=== PATIENT | female | born 1950 | race Caucasian/White ===

== ENCOUNTER 2019-08-12 09:38 | Inpatient (IN) ==
[2019-08-12 09:54] VITALS: BMI 37.3
--- NOTE | 2019-08-12 10:13 | DR.SOBA ---
HPI Time Seen Time Seen by Provider: 08/12/19 09:54 Primary Care Physician Primary Care Physician: JOÃO CARO Complaints Chief Complaint Doctors Comments: 69yon female presented for SOB. Pt reports worsening SOB and NEOL for the past 4d with abdominal swelling and LE swelling. She reports PMH of COPD, CAD, CHF and was recently treated with Abx for PNA and hospitalized 2wk ago in [place]. She reports wearing 2L NC home O2 and has cpap but reports awaiting sleep study. Pt reports being on Lasix 40mg daily and had 13lb wt gain the past 4d. Denies any CP, nausea or wheezing or fever or chills. Chief Complaint:: FAMILY STATES " SHE IS SWELLING WEIGHT GAIN ( 198 TO 211.8 IN FOUR DAYS " Self Treatment fo Chief Complaint: PT C/O > SOB, HX OF CHF, LUNGS NOTED TO HAVE EXP , RALES, PT IS ALERT AND ORIENTED NO DISTRESS NOTED ,,BR Reviewed Nurses Notes Reviewed: Yes Source History Provided: Patient Mode of Arrival Mode of Arrival: Wheelchair Timing Onset of Chief Complaint: 08/09/19 Duration Duration: Days Context Onset:: At Rest and With Light Exertion PE Risk Factors:: None History of:: COPD and CHF Currently on:: Neither Prehospital Care:: Furosemide Modifying Factors Worsens:: Exertion and Lying Flat Improves:: Sitting Up Associated Signs and Symptoms Associated Signs and Symptoms: Cough; denies Wheeze, Chest Pain and Calf Pain If Chest Pain Quality: Heavy Location: denies Substernal If Cough Cough: Nonproductive PMH PMH Past Medical History: Yes Past Medical History: Anemia, Arthritis, Asthma, COPD, Coronary Artery Disease, Diabetes, Dyslipidemia, GERD, Hypertension, Hyperthyroidism, Hypothyroidism and Kidney Stones Past Surgical History: Yes Surgical History: Angioplasty/Stents, Appendectomy, Cholecystectomy, [employer]EM[employer]ING [employer]ACH[employer]TER Surgery, Ortho Surgery and Tonsillectomy Family History History of Family Medical Conditions: Yes Family Medical History: Diabetes Mellitus, Cancer, MS and Hypertension Social History Does patient currently use any type of tobacco product: No Have you used tobacco products in the last 12 months: No Type of Tobacco Use: None Does any household member use tobacco: No Alcohol Use: None Do you use any recreational Drugs:: No Lives With: Family Lives Where: Home infectious screening In the last 2 months have you had wt loss of >10#?: NO Have you had fever, night sweats or hemotysis?: No Have you traveled outside the country in the last 6 months?: No Isolation: Standard ROS Review of Systems Constitutional: Fatigue; negative Chills, Diaphoresis, Fever and Loss of Appetite Eyes: negative Blurred Vision ENTM: negative Nose Congestion Respiratoy: Dry Cough and Short of Breath; negative Wheezing Cardiovascular: Edema; negative Chest Pain Gastrointestinal/Abdominal: Abdominal Pain; negative Nausea and Vomiting Genitourinary: negative Dysuria and Hematuria Neurological: negative Paresthesia Musculoskeletal: negative Joint Swelling Integumentary: negative Rash Hematologic/Lymphatic: negative Lymphadenopathy Endocrine: Unexplained Weight Gain Psychiatric: negative Depression All Other Systems: Reviewed and Negative PE Vital Signs Vitals: Temperature 97.7 F Pulse Rate 62 Respiratory Rate 18 Blood Pressure [Left Arm] 132/62 Blood Pressure 91/59 O2 Sat by Pulse Oximetry 99 General Limitations: No Limitations General Appearance: Alert and In No Apparent Distress Head Head Exam: Normal Inspection, Atraumatic and Normocephalic Eyes Eye exam: Normal Appearance, PERRL and EOMI; negative Scleral Icterus ENT ENT Exam: Normal Exam, Normal Oropharynx, Normal External Ear Exam and Mucous Membranes Dry Neck Neck Exam: Normal Inspection and Full ROM; negative Lymphadenopathy Chest Chest Inspection: Normal Inspection Respiratory Respiratory Exam: negative Respiratory Distress Respiratory Exam: Bilateral: Wheezing and Bilateral: Rales (bibasilar) Cardiovascular Cardiovascular Exam: Regular Rate and Normal Rhythm Abdominal Exam Abdominal Exam: Normal Inspection, Normal Bowel Sounds, Soft and Distention; negative Tenderness Extremities Extremities Exam: Normal Inspection, Full ROM, Normal Capillary Refill and Edema; negative Tenderness and Joint Swelling Back Back Exam: Normal Inspection and Full ROM Neurologic Neurological Exam: Alert, Oriented X3, Normal Gait and Reflexes Normal; negative Motor Sensory Deficit Psychiatric Psychiatric Exam: Normal Affect and Normal Mood Skin Skin Exam: Warm, Dry, Intact and Normal Color; negative Rash MDM Additional Information Obtained Additional Information Obtained From: Old Records Differential Diagnosis Differential Diagnosis: CHF, COPD and Pneumonia COURSE Reevaluation 1st: Unchanged (pt still feeling soB and having abd distention. Cr 2.[address] a/p w/o contrast. Pt O2 sat good on 2L NC.) 2nd: Improved (pt feeling better. D/w pt labs and imaging. Will admit patient) Consultation Consultation Comments: 14:[address] Dunn for admission and will see pt in hospital. Education/Counseling Education/Counseling: Patient, Education and Counseling Educated On: Treatment, Diagnosis, Prognosis and Needs for Follow Up (pcp) ROR Labs Reviewed Laboratory Results Reviewed?: Yes Result Diagrams: 08/12/19 14:10 08/12/19 10:14 Laboratory: WBC 4.9 X10^3/uL (3.6-10.0) 08/12/19 14:10 RBC 3.52 X10^6/uL (3.5-5.4) 08/12/19 14:10 Hgb 7.5 g/dL (12.0-16.0) L 08/12/19 14:10 Hct 25.1 % (36.0-47.0) L 08/12/19 14:10 MCV 71.3 fL (80.0-100.0) L 08/12/19 14:10 MCH 21.4 pg (27.0-34.0) L 08/12/19 14:10 MCHC 30.0 g/dL (33.0-35.0) L 08/12/19 14:10 RDW 19.9 % (11.6-16.5) H 08/12/19 14:10 Plt Count 163 X10^3/uL (150.0-450.0) 08/12/19 14:10 Plt Count Comment Adequate (ADEQUATE) 08/12/19 14:10 MPV 8.3 fL (7.4-11.0) 08/12/19 14:10 Neut % (Auto) 67.7 % (42.0-75.0) 08/12/19 14:10 Lymph % (Auto) 15.7 % (21.0-51.0) L 08/12/19 14:10 [place] % (Auto) 9.5 % (0.0-13.0) 08/12/19 14:10 Eos % (Auto) 5.9 % (0.9-2.9) H 08/12/19 14:10 Baso % (Auto) 1.2 % (0.2-1.0) H 08/12/19 14:10 Neut # (Auto) 3.3 x10^3/uL (2.2-4.8) 08/12/19 14:10 Lymph # (Auto) 0.8 X10^3/uL (1.3-2.9) L 08/12/19 14:10 [place] # (Auto) 0.5 x10^3/uL (0.3-0.8) 08/12/19 14:10 Eos # (Auto) 0.3 x10^3/uL (0.0-0.2) H 08/12/19 14:10 Baso # (Auto) 0.1 X10^3/uL (0.0-0.1) 08/12/19 14:10 Absolute Nucleated RBC 0.3 /100WBC 08/12/19 14:10 Plt Morphology Comment Normal (NORMAL) 08/12/19 14:10 RBC Morphology Abnormal (NORMAL) A 08/12/19 14:10 Hypochromasia 2+ A 08/12/19 14:10 Anisocytosis Slight A 08/12/19 14:10 Sodium 142 mmol/L (136-145) 08/12/19 10:14 Corrected Sodium 144 mmol/L (136-145) 08/12/19 10:14 Potassium 4.7 mmol/L (3.5-5.1) 08/12/19 10:14 Chloride 103 mmol/L (98-107) 08/12/19 10:14 Carbon Dioxide 31.9 mmol/L (21-32) 08/12/19 10:14 BUN 44 mg/dL (7-18) H 08/12/19 10:14 Creatinine 2.29 mg/dL (0.55-1.02) H 08/12/19 10:14 Est GFR (MDRD) Af Amer 27 (>60) L 08/12/19 10:14 Est GFR (MDRD) Non-Af 22 (>60) L 08/12/19 10:14 Glucose 169 mg/dL (65-99) H 08/12/19 10:14 Calcium 8.1 mg/dL (8.5-10.1) L 08/12/19 10:14 Total Bilirubin 0.50 mg/dL (0.2-1.0) 08/12/19 10:14 Direct Bilirubin 0.10 mg/dL (0-0.2) 08/12/19 10:14 Indirect Bilirubin 0.40 mg/dL (0.2-0.8) 08/12/19 10:14 AST 25 Units/L (15-37) 08/12/19 10:14 ALT < 6 Units/L (12-78) L 08/12/19 10:14 Alkaline Phosphatase 101 Units/L (46-116) 08/12/19 10:14 Troponin I < 0.02 ng/mL (0-1.5) 08/12/19 10:14 B-Natriuretic Peptide 2770 pg/mL (0-79) H* 08/12/19 10:14 Total Protein 7.2 g/dL (6.4-8.2) 08/12/19 10:14 Albumin 2.9 g/dL (3.4-5.0) L 08/12/19 10:14 Globulin 4.3 g/dL (2.5-4.5) 08/12/19 10:14 Albumin/Globulin Ratio 0.7 Ratio (1.1-2.1) L 08/12/19 10:14 Blood Type A POSITIVE 08/12/19 14:10 Antibody Screen Negative 08/12/19 14:10 Crossmatch See Detail 08/12/19 14:10 Other Results Comments: BNP 2770 Trop Neg, CBC Hb 7.8 HCt 25.1 PLT 170 LFT wnl, Cr 2.29 BUn 44 Glu 169 Alb 2.9 XRAY XRAY Interpreted by: Radiologist XRAY Findings: CXR: CM with pulmonary congestion EKG Compared to prior EKG Dated: 09/14/16 Rate: 62 [place]: LAD Rhythm: NSR Hypertrophy: None ST: Ischemia (V5-V6 Lead I and II, interpeted by me. ischemic changes compared to prior EKG.) Opioid Opioid Risk Tool Age (Vasile box if 16-45): No History of Preadolescent Sexual Abuse: No Total: 0 Total Score Risk Category: Low Risk Copyright: [facility] predicting aberrant behaviors Diagnosis Discharge Problem: Acute kidney injury superimposed on chronic kidney disease, NOEL (dyspnea on exertion) Anemia Qualifiers: Anemia type: due to chronic kidney disease Chronic kidney disease stage: stage 4 (severe) Qualified Code(s): N18.4 - Chronic kidney disease, stage 4 (severe) Acute exacerbation of congestive heart failure Qualifiers: Heart failure type: unspecified Qualified Code(s): I50.9 - Heart failure, unspecified Instructions Forms: Excuse From Work Patient Portal ADDITIONAL NOTES Additional Notes Additional Notes: I have personally reviewed your medications, lab results, imaging and time was spent discussion results. Patient educated on their health issue. They verbalized their understanding and agreed with plan of care. Instruction were given to patient at discharge. Condition: Stable Disposition: Admission
[2019-08-12] MEDS ORDERED: LASIX IVP ONE ×2 (10:27→10:59)
[2019-08-12 10:48] LABS: ALANINE AMINOTRANSFERASE < 6 Units/L (12-78); ALBUMIN 2.9 g/dL (3.4-5.0); ALKALINE PHOSPHATASE 101 Units/L (46-116); ASPARTATE AMINO TRANSFERASE 25 Units/L (15-37); TOTAL PROTEIN 7.2 g/dL (6.4-8.2)
[2019-08-12 10:55] LABS: BASOPHILS # (AUTO) 0.1 X10^3/uL (0.0-0.1); BASOPHILS % (AUTO) 1.4 % (0.2-1.0); EOSINOPHILS # (AUTO) 0.4 x10^3/uL (0.0-0.2); EOSINOPHILS % (AUTO) 6.3 % (0.9-2.9); HEMATOCRIT 25.1 % (36.0-47.0); HEMOGLOBIN 7.8 g/dL (12.0-16.0); LYMPHOCYTES # (AUTO) 0.9 X10^3/uL (1.3-2.9); LYMPHOCYTES % (AUTO) 14.9 % (21.0-51.0); MEAN CORPUSCULAR HEMOGLOBIN 22.2 pg (27.0-34.0); MEAN CORPUSCULAR HGB CONC 31.1 g/dL (33.0-35.0); MEAN CORPUSCULAR VOLUME 71.3 fL (80.0-100.0); MEAN PLATELET VOLUME 8.7 fL (7.4-11.0); MONOCYTES # (AUTO) 0.6 x10^3/uL (0.3-0.8); MONOCYTES % (AUTO) 10.6 % (0.0-13.0); NEUTROPHILS # (AUTO) 3.8 x10^3/uL (2.2-4.8); NEUTROPHILS % (AUTO) 66.8 % (42.0-75.0); PLATELET COUNT 170 X10^3/uL (150.0-450.0); RED BLOOD COUNT 3.52 X10^6/uL (3.5-5.4); WHITE BLOOD COUNT 5.7 X10^3/uL (3.6-10.0)
--- NOTE | 2019-08-12 10:55 | RAD ---
HISTORY: GI bleed, dyspnea Study: Single-view chest, done portably Comparison: 01/14/2015. Findings: Trachea is midline. There is cardiomegaly with very mild pulmonary vascular congestion. No CHF, infiltrate or pleural fluid is seen. There is no evidence of pneumothorax. IMPRESSION: Cardiomegaly with mild pulmonary vascular congestion. No CHF or consolidation is seen. Reported By:
[2019-08-12] MEDS ORDERED: LASIX ONE (10:59)
[2019-08-12 11:06] LABS: HYPOCHROMASIA 1+; PLATELET MORPHOLOGY COMMENT NORMAL (NORMAL)
[2019-08-12 11:41] LABS: CALCIUM 8.1 mg/dL (8.5-10.1); CARBON DIOXIDE 31.9 mmol/L (21-32); CREATININE 2.29 mg/dL (0.55-1.02)
--- NOTE | 2019-08-12 13:18 | RAD ---
HISTORY: Abdominal distension Study: KUB Comparison: 01/14/2015. Findings: There are surgical clips from cholecystectomy. Vascular calcifications are present within the splenic artery. There is a large amount of stool present in the right colon and to a lesser extent in the descending colon. No evidence of rectal fecal impaction is seen. There is increased small bowel gas present in the left abdomen. No evidence of bowel obstruction is seen. No evidence of renal calculus is seen. There is multilevel lumbar spondylosis. There are large coarse calcifications present in the pelvis secondary to calcified uterine fibroids. The bony sacrum is intact. Mild degenerative changes are seen involving the SI joints bilaterally. IMPRESSION: Abundant colon stool without evidence of bowel obstruction. Reported By:
[2019-08-12] MEDS ORDERED: NS 1000 ML 1,000 ML IV ONE (13:49)
[2019-08-12] MEDS ORDERED: NS 500 ML IV 500 ML IV ONE (13:55)
[2019-08-12] MEDS ORDERED: NS 1000 ML 1,000 ML ONE (14:02)
[2019-08-12 14:28] LABS: BASOPHILS # (AUTO) 0.1 X10^3/uL (0.0-0.1); BASOPHILS % (AUTO) 1.2 % (0.2-1.0); EOSINOPHILS # (AUTO) 0.3 x10^3/uL (0.0-0.2); EOSINOPHILS % (AUTO) 5.9 % (0.9-2.9); HEMATOCRIT 25.1 % (36.0-47.0); HEMOGLOBIN 7.5 g/dL (12.0-16.0); LYMPHOCYTES # (AUTO) 0.8 X10^3/uL (1.3-2.9); LYMPHOCYTES % (AUTO) 15.7 % (21.0-51.0); MEAN CORPUSCULAR HEMOGLOBIN 21.4 pg (27.0-34.0); MEAN CORPUSCULAR VOLUME 71.3 fL (80.0-100.0); MEAN PLATELET VOLUME 8.3 fL (7.4-11.0); MONOCYTES # (AUTO) 0.5 x10^3/uL (0.3-0.8); MONOCYTES % (AUTO) 9.5 % (0.0-13.0); NEUTROPHILS # (AUTO) 3.3 x10^3/uL (2.2-4.8); NEUTROPHILS % (AUTO) 67.7 % (42.0-75.0); PLATELET COUNT 163 X10^3/uL (150.0-450.0); RED BLOOD COUNT 3.52 X10^6/uL (3.5-5.4); RED CELL DISTRIBUTION WIDTH 19.9 % (11.6-16.5); WHITE BLOOD COUNT 4.9 X10^3/uL (3.6-10.0)
[2019-08-12 14:50] LABS: PLATELET MORPHOLOGY COMMENT NORMAL (NORMAL)
[2019-08-12 14:51] LABS: ANISOCYTOSIS SLIGHT; HYPOCHROMASIA 2+
[2019-08-12] MEDS ORDERED: NITROSTAT SL PRN (16:04)
[2019-08-12 16:06] LABS: IRON 16 ug/dL (50-175)
[2019-08-12] MEDS ORDERED: NS 250 ML IV 250 ML IV ONE (16:23)
[2019-08-12] MEDS ORDERED: NEURONTIN CAP 300 MG PO ONE (17:02)
[2019-08-12] MEDS: DUONEB 0.5 MG/3 MG NEB SCH (17:08)
[2019-08-12] MEDS: NEURONTIN CAP 300 MG PO SCH ×2 (17:13→21:00)
[2019-08-12] MEDS ORDERED: PROVENTIL NEB TX 0.083% 2.5MG/ 3ML NEB SCH (18:00)
[2019-08-12] MEDS ORDERED: ULTRAM PO PRN (20:05)
[2019-08-12] MEDS: ZANTAC PO SCH (20:39)
[2019-08-12] MEDS: RESTORIL CAP 15 MG PO SCH (20:39)
[2019-08-12] MEDS: RANEXA PO SCH (20:39)
[2019-08-12] MEDS: REMERON PO SCH (20:40)
[2019-08-12] MEDS: NORCO 5/325 MG TAB PO PRN (20:40)
[2019-08-12] MEDS: LASIX IVP SCH (20:48)
[2019-08-12] MEDS ORDERED: NEURONTIN CAP 300 MG PO SCH (21:00)
[2019-08-12] MEDS ORDERED: COLACE CAP 100 MG PO PRN (21:18)
[2019-08-12] MEDS ORDERED: MILK OF MAGNESIA PO PRN (21:18)
[2019-08-12 21:26] LABS: HEMATOCRIT 28.1 % (36.0-47.0); HEMOGLOBIN 8.6 g/dL (12.0-16.0)
[2019-08-12] MEDS ORDERED: PEPCID 20 MG IV PREMIX* 50 ML IV SCH (22:29)
[2019-08-12] MEDS: PEPCID 20 MG IV PREMIX* 20 MG/50 ML BAG IV SCH (22:50)
[2019-08-13] LABS: CKMB % 3.2 % (<4); CREATINE KINASE MB 1.7 ng/mL (0-4.0); TROPONIN I 0.02 ng/mL (0-1.5)
[2019-08-13] MEDS: DUONEB 0.5 MG/3 MG NEB SCH ×4 (00:48→17:03)
[2019-08-13 05:23] LABS: BASOPHILS # (AUTO) 0.1 X10^3/uL (0.0-0.1); BASOPHILS % (AUTO) 1.2 % (0.2-1.0); EOSINOPHILS # (AUTO) 0.3 x10^3/uL (0.0-0.2); EOSINOPHILS % (AUTO) 5.5 % (0.9-2.9); HEMOGLOBIN 8.2 g/dL (12.0-16.0); LYMPHOCYTES # (AUTO) 0.9 X10^3/uL (1.3-2.9); LYMPHOCYTES % (AUTO) 18.8 % (21.0-51.0); MEAN CORPUSCULAR HEMOGLOBIN 22.8 pg (27.0-34.0); MEAN CORPUSCULAR HGB CONC 31.4 g/dL (33.0-35.0); MEAN CORPUSCULAR VOLUME 72.6 fL (80.0-100.0); MEAN PLATELET VOLUME 9.2 fL (7.4-11.0); MONOCYTES # (AUTO) 0.5 x10^3/uL (0.3-0.8); MONOCYTES % (AUTO) 10.2 % (0.0-13.0); NEUTROPHILS # (AUTO) 3.2 x10^3/uL (2.2-4.8); NEUTROPHILS % (AUTO) 64.3 % (42.0-75.0); PLATELET COUNT 160 X10^3/uL (150.0-450.0); RED BLOOD COUNT 3.58 X10^6/uL (3.5-5.4); RED CELL DISTRIBUTION WIDTH 20.6 % (11.6-16.5)
[2019-08-13 05:33] LABS: CALCIUM 8.1 mg/dL (8.5-10.1); CKMB % 4.6 % (<4); CREATINE KINASE MB 2.1 ng/mL (0-4.0); CREATININE 2.05 mg/dL (0.55-1.02); TROPONIN I 0.03 ng/mL (0-1.5)
[2019-08-13 05:57] LABS: ANISOCYTOSIS 1+; HYPOCHROMASIA 1+; PLATELET MORPHOLOGY COMMENT NORMAL (NORMAL)
[2019-08-13] MEDS: NEURONTIN CAP 300 MG PO SCH ×3 (06:07→21:30)
[2019-08-13] MEDS: ASPIRIN 81 MG CHEWTAB PO SCH (08:52)
[2019-08-13] MEDS: SINGULAIR TAB 10 MG PO SCH (08:52)
[2019-08-13] MEDS: PLAVIX PO SCH (08:52)
[2019-08-13] MEDS: SINEMET (PLAIN) 25/100 MG PO SCH (08:52)
[2019-08-13] MEDS: ZETIA TAB 10 MG PO SCH (08:53)
[2019-08-13] MEDS: TOPROL XL PO SCH (08:53)
[2019-08-13] MEDS: RANEXA PO SCH ×2 (08:54→21:29)
[2019-08-13] MEDS: LASIX IVP SCH ×2 (09:00→21:30)
[2019-08-13] MEDS: IMDUR PO SCH (09:00)
[2019-08-13] MEDS ORDERED: SINEMET (PLAIN) 25/250 MG PO SCH (09:00)
--- NOTE | 2019-08-13 10:32 | DR.H&P ---
H&P - History & Physical for Day of: H&P Date: 08/12/19 - Chief Complaint Chief Complaint: SOB, SWELLING - History of Present Illness History of Present Illness: IS A 69 YEAR OLD PATIENT OF IN [place], [place]. SHE PRESENTED TO THE ER WITH COMPLAINT OF SHORTNESS OF BREATH, ABDOMINAL SWELLING, AND LOWER EXTREMITY SWELLING FOR THE PAST FOUR DAYS. SHE REPORTS THAT SHORTNESS OF BREATH IS WORSE ON EXERTION. SHE REPORTS A PMH OF C OPD, CAD, CHF, AND WAS RECENTLY HOSPITALIZED FOR PNEUMONIA. SHE USES HOME OXYGEN AND CPAP AND HAS ALSO BEEN TAKING ANTIBIOTICS FOR THE PNEUMONIA, BUT DENIES IMPROVEMENT IN SYMPTOMS. SHE CURRENTLY TAKES LASIX 40MG PO DAILY, BUT REPORTS A 13LB WEIGHT GAIN IN THE PAST FOUR DAYS. ON ARRIVAL TO THE ER, VITALS WERE 97.7-62-18-95%-140/64. LABS WERE OBTAINED. ABNORMAL LAB VALUES INCLUDE THE FOLLOWING: HGB 7.8, HCT 25.1, BUN 44, CREATININE 2.29, GLUCOSE 169, CALCIUM 8.1, BNP 2770, ALBUMIN 2.1. CARDIAC ENZYMES WITHIN NORMAL LIMITS. A CHEST XRAY WAS OBTAINED AND REVEALED: CARDIOMEGALY WITH MILD PULMONARY VASCULAR CONGESTION. EKG REVEALED: SINUS RHYTHM WITH HR 62. A KUB WAS OBTAINED DUE TO ABDOMINAL DISTENTION AND REVEALED: ABUNDANT COLON STOOL WITOUT EVIDENCE OF BOWEL OBSTRUCTION. SHE WAS GIVEN LASIX 60MG IV X 1 DOSE IN THE ER. SHE WAS ADMITTED FOR FURTHER EVALUATION AND TREATMENT OF CHF EXACERBATION, ANEMIA, AND ACUT ON CHRONIC KIDNEY DISEASE. WE WILL TYPE AND SCREEN AND TRANSFUSE ONE UNIT OF PACKED RED BLOOD CELLS. WE WILL START PEPCID IV, PROTONIX IV, RESPIRATORY TX, LASIX 40MG IV BID, AND A BOWEL REGIMEN. OTHERWISE, WE PLAN TO FOLLOW UP WITH AM LABS AND CONTINUE TO MONITOR. - Past Medical History Past Medical History: Coronary Artery Disease, Hypertension, Dyslipidemia, Diabetes, Hypothyroidism, Hyperthyroidism, Anemia, COPD, Asthma, GERD, Arth ritis, Kidney Stones Additional Medical History: Cataracts, NE, PAD, Sleep Apnea, UTI's, Rheumatoid arthritis, Back Pain, Previous blood transfusion, Skin Cancer - Past Surgical History Surgical History: Appendectomy, Cholecystectomy, Other Additional Surgical History: Cataract removal, Cardiac Stents x5, Biopsy of right breast, Tubal Ligation - Family History Family Medical History: Cancer, Heart Failure - Social History Does patient currently use any type of tobacco product: No Have you used tobacco products in the last 12 months: No Type of Tobacco Use: Cigarettes How many years tobacco product used: 25 Does any household member use tobacco: No Alcohol Use: None Drug Use: None Prescription drug monitoring program results: PDMP was not reviewed - Medications Home Medications: codeine Allergy (Verified 08/12/19 10:01) colchicine Allergy (Verified 08/12/19 10:01) hydromorphone [From Dilaudid] Allergy (Verified 08/12/19 09:56) morphine Allergy (Verified 08/12/19 10:01) niacin Allergy (Verified 08/12/19 10:01) CONTINUE taking the following medications aspirin 81 mg PO DAILY 08/12/19 [History] carbidopa-levodopa 2 tab PO DAILY 08/12/19 [History] clopidogrel [Plavix] 75 mg PO DAILY 08/12/19 [History] ezetimibe 10 mg PO DAILY 08/12/19 [History] furosemide [Lasix] 40 mg PO BID 08/12/19 [History] gabapentin [Neurontin] 300 mg PO BID 08/12/19 [History] isosorbide mononitrate 30 mg PO DAILY 08/12/19 [History] levothyroxine 100 mcg PO DAILY 08/12/19 [History] metoprolol succinate 25 mg PO DAILY 08/12/19 [History] mirtazapine 15 mg PO HS 08/12/19 [History] montelukast 10 mg PO DAILY 08/12/19 [History] nitroglycerin 0.4 mg SUBLINGUAL PRN PRN 08/12/19 [History] ondansetron HCl [Zofran] 8 mg PO DAILY 08/12/19 [History] ranitidine HCl [Zantac 75] 150 mg PO HS 08/12/19 [History] ranolazine [Ranexa] 1,000 mg PO BID 08/12/19 [History] temazepam 15 mg PO HS 08/12/19 [History] tiotropium-olodaterol [Stiolto Respimat] 1 inh INHALATION DAILY 08/12/19 [History] - Review of Systems Constitutional: Weakness Eyes: No Symptoms Reported ENT: No Symptoms Reported Respiratory: See HPI, Shortness of Breath, SOB with Excertion Cardiovascular: Edema (LOWER EXTREMITY AND ABDOMINAL SWELLING ) Gastrointestinal: No Symptoms Reported Genitourinary: No Symptoms Reported Musculoskeletal: No Symptoms Reported Skin: No Symptoms Reported Neurological: Weakness - Physical Exam Vital Signs: Temperature 97.6 F Pulse Rate [Left Brachial] 64 Pulse Rate 84 Respiratory Rate 18 Blood Pressure [Right Arm] 107/51 Blood Pressure [Left Arm] 187/86 Blood Pressure 91/59 O2 Sat by Pulse Oximetry 94 Oriented: Normal Eyes: Normal Ear: Normal Nose: Normal Throat: Normal Respiratory: Diminished Throughout Cardiovascular: Normal. negative: S3, S4, Murmur : Normal Auscultation: Bowel Sounds: Normal Palpation: Normal Tenderness: Normal Skin: Normal Musculoskeletal: Normal Psychiatric: Normal Mood Description: Calm Affect: Normal Speech Pattern: Clear - Assessment/Plan (1) Acute exacerbation of congestive heart failure Qualifiers: Heart failure type: unspecified Qualified Code(s): I50.9 - Heart failure, unspecified Status: Acute Plan: ADMIT, IV LASIX, CONTINUE TO MONITOR (2) Anemia Qualifiers: Anemia type: due to chronic kidney disease Chronic kidney disease stage: stage 4 (severe) Qualified Code(s): N18.4 - Chronic kidney disease, stage 4 (severe); D63.1 - Anemia in chronic kidney disease Status: Acute Plan: TRANSFUSE 1 UNIT PRBC, CONTINUE TO MONITOR (3) Acute kidney injury superimposed on chronic kidney disease Status: Acute - Review Patient was examined?: Yes - Allergies Allergies/Adverse Reactions: Allergies Allergy/AdvReac Type Severity Reaction Status Date / Time codeine Allergy Verified 08/12/19 10:01 colchicine Allergy Verified 08/12/19 10:01 hydromorphone [From Dilaudid] Allergy Verified 08/12/19 09:56 morphine Allergy Verified 08/12/19 10:01 niacin Allergy Verified 08/12/19 10:01
[2019-08-13 11:22] LABS: HEMATOCRIT 31.1 % (36.0-47.0); HEMOGLOBIN 9.4 g/dL (12.0-16.0)
[2019-08-13 11:44] LABS: CKMB % 5.3 % (<4); CREATINE KINASE MB 2.6 ng/mL (0-4.0); TROPONIN I 0.04 ng/mL (0-1.5)
[2019-08-13] MEDS: HumuLIN R SUBCUT PRN ×3 (11:52→22:50)
[2019-08-13] MEDS: LEVSIN/MAALOX/LIDOC VISC PO SCH ×4 (11:53→21:26)
[2019-08-13] MEDS: PROTONIX INJ 40 MG VIAL IVP SCH ×2 (11:53→21:28)
[2019-08-13] MEDS: MIRALAX POWDER (1 DOSE 17 G) PO SCH (11:54)
[2019-08-13] MEDS: SYNTHROID 100 mcg TAB PO SCH (16:05)
[2019-08-13 17:18] LABS: HEMATOCRIT 29.7 % (36.0-47.0); HEMOGLOBIN 8.9 g/dL (12.0-16.0)
[2019-08-13] MEDS: SNACK - Diabetic Appropriate PO SCH (21:00)
[2019-08-13] MEDS: REMERON PO SCH (21:28)
[2019-08-13] MEDS: ZANTAC PO SCH (21:29)
[2019-08-13] MEDS: RESTORIL CAP 15 MG PO SCH (21:30)
[2019-08-13] MEDS: PEPCID 20 MG IV PREMIX* 20 MG/50 ML BAG IV SCH (22:00)
[2019-08-13 22:58] LABS: HEMATOCRIT 29.5 % (36.0-47.0); HEMOGLOBIN 8.9 g/dL (12.0-16.0)
--- NOTE | 2019-08-13 23:23 | PCM.PROG ---
Progress Note - Progress Note for Day of Date of Exam: 08/13/19 - Subjective Subjective: WAS ADMITTED FOR CHF EXACERBATION, ANEMIA, AND ACUTE ON CHRONIC KIDNEY DISEASE. SHE HAS RECEIVED ONE UNIT OF PRBC SINCE ADMISSION. TODAY, SHE IS ALERT AND ORIENTED, SITTING UP IN BED ON MORNING ROUNDS. SHE CONTINUES WITH WEAKNESS AND SHORTNESS OF BREATH, BUT REPORTS SLIGHT IMPROVEMENT IN SYMPTOMS SINCE ADMISSION. ON EXAMINATION, HEART IS REGULAR IN RATE AND RHYTHM. BILATERAL LUNGS ARE NOTED WITH DIMINISHED LUNG SOUNDS THROUGHOUT. ABDOMEN CONTINUES TO BE DISTENDED. LOWER EXTREMITIES ARE NOTED WITH 1+ PITTING EDEMA. HER VITALS THIS MORNING ARE: 97.6-64-18-94%-107/51. LABS WERE OBTAINED. ABNORMAL LAB VALUES INCLUDE THE FOLLOWING: HGB 8.2, HCT 26.0, BUN 39, CREATININE 205, GLUCOSE 236, CALCIUM 8.1 CARDIAC ENZYMES WITHIN NORMAL LIMITS. SHE IS CURRENTLY RECEIVING IV PEPCID, RESPIRATORY TX, COLACE, AND MILK OF MAGNESIA. TODAY, WE WILL ADD MIRALAX, LASIX 20MG IV BID, GI COCKTAIL, AND WILL OBTAIN AN ECHO. OTHERWISE, WE WILL MONITOR H&H AND FOLLOW UP [facility]. - Past Medical Family Social History Past Med/Fam/Surg Hx: No changes since H&P Allergies: Allergies codeine Allergy (Verified 08/12/19 10:01) colchicine Allergy (Verified 08/12/19 10:01) hydromorphone [From Dilaudid] Allergy (Verified 08/12/19 09:56) morphine Allergy (Verified 08/12/19 10:01) niacin Allergy (Verified 08/12/19 10:01) - Review of Systems ROS: No change since H&P - Vital Signs and I&O's Vital Signs: Temperature 98.8 F Pulse Rate [Left Brachial] 59 Pulse Rate 65 Respiratory Rate 20 Blood Pressure [Right Arm] 146/69 Blood Pressure [Left Arm] 187/86 Blood Pressure 91/59 O2 Sat by Pulse Oximetry 95 Intake and Output: Intake & Output 08/11/19 08/12/19 08/13/19 08/14/19 11:59 11:59 11:59 11:59 Intake Total 2140 / 2140 720 / 720 Balance 2140 / 2140 720 / 720 - Physical Exam Oriented: Normal Eyes: Normal Ear: Normal Nose: Normal Throat: Normal Cardiovascular: Normal. negative: S3, S4, Murmur : Normal Auscultation: Bowel Sounds: Normal Palpation: Normal Tenderness: Normal Skin: Normal Musculoskeletal: Normal Psychiatric: Normal Mood Description: Calm Affect: Normal Speech Pattern: Clear - Laboratory and Diagnostics Result Diagrams: 08/13/19 22:50 08/13/19 04:45 Labs: Laboratory WBC 5.0 X10^3/uL (3.6-10.0) 08/13/19 04:45 RBC 3.58 X10^6/uL (3.5-5.4) 08/13/19 04:45 Hgb 8.9 g/dL (12.0-16.0) L 08/13/19 22:50 Hct 29.5 % (36.0-47.0) L 08/13/19 22:50 MCV 72.6 fL (80.0-100.0) L 08/13/19 04:45 MCH 22.8 pg (27.0-34.0) L 08/13/19 04:45 MCHC 31.4 g/dL (33.0-35.0) L 08/13/19 04:45 RDW 20.6 % (11.6-16.5) H 08/13/19 04:45 Plt Count 160 X10^3/uL (150.0-450.0) 08/13/19 04:45 Plt Count Comment Adequate (ADEQUATE) 08/13/19 04:45 MPV 9.2 fL (7.4-11.0) 08/13/19 04:45 Neut % (Auto) 64.3 % (42.0-75.0) 08/13/19 04:45 Lymph % (Auto) 18.8 % (21.0-51.0) L 08/13/19 04:45 [place] % (Auto) 10.2 % (0.0-13.0) 08/13/19 04:45 Eos % (Auto) 5.5 % (0.9-2.9) H 08/13/19 04:45 Baso % (Auto) 1.2 % (0.2-1.0) H 08/13/19 04:45 Neut # (Auto) 3.2 x10^3/uL (2.2-4.8) 08/13/19 04:45 Lymph # (Auto) 0.9 X10^3/uL (1.3-2.9) L 08/13/19 04:45 [place] # (Auto) 0.5 x10^3/uL (0.3-0.8) 08/13/19 04:45 Eos # (Auto) 0.3 x10^3/uL (0.0-0.2) H 08/13/19 04:45 Baso # (Auto) 0.1 X10^3/uL (0.0-0.1) 08/13/19 04:45 Absolute Nucleated RBC 0.3 /100WBC 08/13/19 04:45 Plt Morphology Comment Normal (NORMAL) 08/13/19 04:45 RBC Morphology Abnormal (NORMAL) A 08/13/19 04:45 Hypochromasia 1+ A 08/13/19 04:45 Anisocytosis 1+ A 08/13/19 04:45 Sodium 142 mmol/L (136-145) 08/13/19 04:45 Corrected Sodium 145 mmol/L (136-145) 08/13/19 04:45 Potassium 3.9 mmol/L (3.5-5.1) 08/13/19 04:45 Chloride 103 mmol/L (98-107) 08/13/19 04:45 Carbon Dioxide 32.0 mmol/L (21-32) 08/13/19 04:45 BUN 39 mg/dL (7-18) H 08/13/19 04:45 Creatinine 2.05 mg/dL (0.55-1.02) H 08/13/19 04:45 Est GFR (MDRD) Af Amer 31 (>60) L 08/13/19 04:45 Est GFR (MDRD) Non-Af 25 (>60) L 08/13/19 04:45 Glucose 236 mg/dL (65-99) H 08/13/19 04:45 POC Glucose (mg/dL) 208 mg/dL (65-99) H 08/13/19 19:32 Hemoglobin A1c 7.1 % 08/13/19 04:44 Calcium 8.1 mg/dL (8.5-10.1) L 08/13/19 04:45 Iron 16 ug/dL (50-175) L 08/12/19 10:14 Transferrin 280 mg/dL (202-364) 08/12/19 10:14 Ferritin 37 ng/mL (8-252) 08/12/19 10:14 Total Bilirubin 0.50 mg/dL (0.2-1.0) 08/12/19 10:14 Direct Bilirubin 0.10 mg/dL (0-0.2) 08/12/19 10:14 Indirect Bilirubin 0.40 mg/dL (0.2-0.8) 08/12/19 10:14 AST 25 Units/L (15-37) 08/12/19 10:14 ALT < 6 Units/L (12-78) L 08/12/19 10:14 Alkaline Phosphatase 101 Units/L (46-116) 08/12/19 10:14 Creatine Kinase 49 Units/L (26-192) 08/13/19 11:10 CK-MB (CK-2) 2.6 ng/mL (0-4.0) 08/13/19 11:10 CK/CKMB % Calc 5.3 % (<4) 08/13/19 11:10 Troponin I 0.04 ng/mL (0-1.5) 08/13/19 11:10 B-Natriuretic Peptide 2770 pg/mL (0-79) H* 08/12/19 10:14 Total Protein 7.2 g/dL (6.4-8.2) 08/12/19 10:14 Albumin 2.9 g/dL (3.4-5.0) L 08/12/19 10:14 Globulin 4.3 g/dL (2.5-4.5) 08/12/19 10:14 Albumin/Globulin Ratio 0.7 Ratio (1.1-2.1) L 08/12/19 10:14 Vitamin B12 585 pg/mL (193-986) 08/12/19 10:14 Folate > 20.0 ng/mL (>8.6) 08/12/19 10:14 Blood Type A POSITIVE 08/12/19 14:10 Antibody Screen Negative 08/12/19 14:10 Crossmatch See Detail 08/12/19 14:10 - Plan (1) Acute exacerbation of congestive heart failure Status: Acute Qualifiers: Heart failure type: unspecified Qualified Code(s): I50.9 - Heart failure, unspecified Plan: IV LASIX, OBTAIN ECHO, CONTINUE TO MONITOR (2) Anemia Status: Acute Qualifiers: Anemia type: due to chronic kidney disease Chronic kidney disease stage: st age 4 (severe) Qualified Code(s): N18.4 - Chronic kidney disease, stage 4 (severe); D63.1 - Anemia in chronic kidney disease Plan: TRANSFUSE 1 UNIT PRBC, CONTINUE TO MONITOR (3) Acute kidney injury superimposed on chronic kidney disease Status: Acute
[2019-08-14] MEDS: DUONEB 0.5 MG/3 MG NEB SCH ×4 (00:50→16:49)
[2019-08-14] MEDS: NORCO 5/325 MG TAB PO PRN ×2 (02:28→14:09)
[2019-08-14 05:23] LABS: BASOPHILS # (AUTO) 0.1 X10^3/uL (0.0-0.1); EOSINOPHILS # (AUTO) 0.3 x10^3/uL (0.0-0.2); HEMATOCRIT 28.2 % (36.0-47.0); HEMOGLOBIN 8.6 g/dL (12.0-16.0); LYMPHOCYTES # (AUTO) 0.8 X10^3/uL (1.3-2.9); LYMPHOCYTES % (AUTO) 14.3 % (21.0-51.0); MEAN CORPUSCULAR HEMOGLOBIN 22.3 pg (27.0-34.0); MEAN CORPUSCULAR HGB CONC 30.6 g/dL (33.0-35.0); MEAN CORPUSCULAR VOLUME 72.8 fL (80.0-100.0); MEAN PLATELET VOLUME 8.7 fL (7.4-11.0); MONOCYTES # (AUTO) 0.5 x10^3/uL (0.3-0.8); MONOCYTES % (AUTO) 8.4 % (0.0-13.0); NEUTROPHILS # (AUTO) 3.8 x10^3/uL (2.2-4.8); NEUTROPHILS % (AUTO) 70.3 % (42.0-75.0); PLATELET COUNT 167 X10^3/uL (150.0-450.0); RED BLOOD COUNT 3.88 X10^6/uL (3.5-5.4); RED CELL DISTRIBUTION WIDTH 20.7 % (11.6-16.5); WHITE BLOOD COUNT 5.4 X10^3/uL (3.6-10.0)
[2019-08-14] MEDS: NEURONTIN CAP 300 MG PO SCH ×3 (05:37→21:07)
[2019-08-14 05:39] LABS: ALBUMIN 3.2 g/dL (3.4-5.0); CALCIUM 8.4 mg/dL (8.5-10.1); CREATININE 1.87 mg/dL (0.55-1.02); TOTAL PROTEIN 7.4 g/dL (6.4-8.2)
[2019-08-14 05:58] LABS: ANISOCYTOSIS 1+; HYPOCHROMASIA 1+; PLATELET MORPHOLOGY COMMENT NORMAL (NORMAL); STOMATOCYTES PRESENT
[2019-08-14] MEDS: HumuLIN R SUBCUT PRN ×4 (06:11→22:00)
[2019-08-14] MEDS: LEVSIN/MAALOX/LIDOC VISC PO SCH ×4 (09:00→21:08)
[2019-08-14] MEDS: LASIX IVP SCH ×2 (09:24→21:08)
[2019-08-14] MEDS: MIRALAX POWDER (1 DOSE 17 G) PO SCH (09:24)
[2019-08-14] MEDS: ASPIRIN 81 MG CHEWTAB PO SCH (09:24)
[2019-08-14] MEDS: SINGULAIR TAB 10 MG PO SCH (09:25)
[2019-08-14] MEDS: IMDUR PO SCH (09:25)
[2019-08-14] MEDS: PROTONIX INJ 40 MG VIAL IVP SCH ×2 (09:26→21:09)
[2019-08-14] MEDS: ZETIA TAB 10 MG PO SCH (09:26)
[2019-08-14] MEDS: SINEMET (PLAIN) 25/100 MG PO SCH (09:27)
[2019-08-14] MEDS: PLAVIX PO SCH (09:29)
[2019-08-14] MEDS: TOPROL XL PO SCH (09:32)
[2019-08-14] MEDS: RANEXA PO SCH ×2 (14:08→21:07)
--- NOTE | 2019-08-14 14:41 | PCM.PROG ---
Progress Note - Progress Note for Day of Date of Exam: 08/14/19 - Subjective Subjective: WAS ADMITTED FOR CHF EXACERBATION, ANEMIA, AND ACUTE ON CHRONIC KIDNEY DISEASE. SHE HAS RECEIVED ONE UNIT OF PRBC SINCE ADMISSION. TODAY, SHE IS ALERT AND ORIENTED, SITTING UP IN BED ON MORNING ROUNDS. SHE CONTINUES WITH WEAKNESS AND SHORTNESS OF BREATH, BUT REPORTS SLIGHT IMPROVEMENT IN SYMPTOMS SINCE ADMISSION. ON EXAMINATION, HEART IS REGULAR IN RATE AND RHYTHM. BILATERAL LUNGS ARE NOTED WITH DIMINISHED LUNG SOUNDS THROUGHOUT. ABDOMEN IS ROUND, SOFT, AND NON-TENDER WITH NORMLA BOWEL SOUNDS NOTED IN ALL QUADRANTS. LOWER EXTREMITIES ARE NOTED WITH 1+ PITTING EDEMA. HER VITALS THIS MORNING ARE: 98.4-79-20-97%-169/75. LABS WERE OBTAINED. ABNORMAL LAB VALUES INCLUDE THE FOLLOWING: HGB 8.6, HCT 28.2, CARBON DIOXIDE 33.0, BUN 32, CRATININE 1.87, GLUCOSE 258, CALCIUM 8.4, ALT 10, ALBUMIN 3.2. WE OBTAINED AN ECHO YESTERDAY. IT REVEALED AN EJECTION FRACTION OF 64%. SHE IS CURRENTLY RECEIVING IV PEPCID, RESPIRATORY TX, COLACE, MIRALAX, MILK OF MAGNESIA, LASIX, AND GI COCKTAIL. WE WILL CONTINUE WITH CURRENT PLAN OF CARE TODAY. OTHERWISE, WE WILL MONITOR H&H AND FOLLOW UP WITH AM LABS. - Past Medical Family Social History Past Med/Fam/Surg Hx: No changes since H&P Allergies: Allergies codeine Allergy (Verified 08/12/19 10:01) colchicine Allergy (Verified 08/12/19 10:01) hydromorphone [From Dilaudid] Allergy (Verified 08/12/19 09:56) morphine Allergy (Verified 08/12/19 10:01) niacin Allergy (Verified 08/12/19 10:01) - Review of Systems ROS: No change since H&P - Vital Signs and I&O's Vital Signs: Temperature 98.4 F Pulse Rate [Left Brachial] 79 Pulse Rate 72 Respiratory Rate 22 Blood Pressure [Right Arm] 169/75 Blood Pressure [Left Arm] 187/86 Blood Pressure 91/59 O2 Sat by Pulse Oximetry 97 Intake and Output: Intake & Output 08/12/19 08/13/19 08/14/19 08/15/19 11:59 11:59 11:59 11:59 Intake Total 2140 / 2140 1510 / 1510 Balance 2139 / 1509 - Physical Exam Oriented: Normal Eyes: Normal Ear: Normal Nose: Normal Throat: Normal Cardiovascular: Normal. negative: S3, S4, Murmur : Normal Auscultation: Bowel Sounds: Normal Palpation: Normal Tenderness: Normal Skin: Normal Musculoskeletal: Normal Psychiatric: Normal Mood Description: Calm Affect: Normal Speech Pattern: Clear, Appropriate - Laboratory and Diagnostics Result Diagrams: 08/14/19 04:40 08/14/19 04:40 Labs: Laboratory WBC 5.4 X10^3/uL (3.6-10.0) 08/14/19 04:40 RBC 3.88 X10^6/uL (3.5-5.4) 08/14/19 04:40 Hgb 8.6 g/dL (12.0-16.0) L 08/14/19 04:40 Hct 28.2 % (36.0-47.0) L 08/14/19 04:40 MCV 72.8 fL (80.0-100.0) L 08/14/19 04:40 MCH 22.3 pg (27.0-34.0) L 08/14/19 04:40 MCHC 30.6 g/dL (33.0-35.0) L 08/14/19 04:40 RDW 20.7 % (11.6-16.5) H 08/14/19 04:40 Plt Count 167 X10^3/uL (150.0-450.0) 08/14/19 04:40 Plt Count Comment Adequate (ADEQUATE) 08/14/19 04:40 MPV 8.7 fL (7.4-11.0) 08/14/19 04:40 Neut % (Auto) 70.3 % (42.0-75.0) 08/14/19 04:40 Lymph % (Auto) 14.3 % (21.0-51.0) L 08/14/19 04:40 [place] % (Auto) 8.4 % (0.0-13.0) 08/14/19 04:40 Eos % (Auto) 6.0 % (0.9-2.9) H 08/14/19 04:40 Baso % (Auto) 1.0 % (0.2-1.0) 08/14/19 04:40 Neut # (Auto) 3.8 x10^3/uL (2.2-4.8) 08/14/19 04:40 Lymph # (Auto) 0.8 X10^3/uL (1.3-2.9) L 08/14/19 04:40 [place] # (Auto) 0.5 x10^3/uL (0.3-0.8) 08/14/19 04:40 Eos # (Auto) 0.3 x10^3/uL (0.0-0.2) H 08/14/19 04:40 Baso # (Auto) 0.1 X10^3/uL (0.0-0.1) 08/14/19 04:40 Absolute Nucleated RBC 0.2 /100WBC 08/14/19 04:40 Plt Morphology Comment Normal (NORMAL) 08/14/19 04:40 RBC Morphology Abnormal (NORMAL) A 08/14/19 04:40 Hypochromasia 1+ A 08/14/19 04:40 Anisocytosis 1+ A 08/14/19 04:40 Stomatocytes Present 08/14/19 04:40 Sodium 140 mmol/L (136-145) 08/14/19 04:40 Corrected Sodium 144 mmol/L (136-145) 08/14/19 04:40 Potassium 3.9 mmol/L (3.5-5.1) 08/14/19 04:40 Chloride 101 mmol/L (98-107) 08/14/19 04:40 Carbon Dioxide 33.0 mmol/L (21-32) H 08/14/19 04:40 BUN 32 mg/dL (7-18) H 08/14/19 04:40 Creatinine 1.87 mg/dL (0.55-1.02) H 08/14/19 04:40 Est GFR (MDRD) Af Amer 34 (>60) L 08/14/19 04:40 Est GFR (MDRD) Non-Af 28 (>60) L 08/14/19 04:40 Glucose 258 mg/dL (65-99) H 08/14/19 04:40 POC Glucose (mg/dL) 194 mg/dL (65-99) H 08/14/19 11:34 Hemoglobin A1c 7.1 % 08/13/19 04:44 Calcium 8.4 mg/dL (8.5-10.1) L 08/14/19 04:40 Corrected Calcium 9.0 mg/dL (8.5-10.1) 08/14/19 04:40 Iron 16 ug/dL (50-175) L 08/12/19 10:14 Transferrin 280 mg/dL (202-364) 08/12/19 10:14 Ferritin 37 ng/mL (8-252) 08/12/19 10:14 Total Bilirubin 0.50 mg/dL (0.2-1.0) 08/14/19 04:40 Direct Bilirubin 0.10 mg/dL (0-0.2) 08/12/19 10:14 Indirect Bilirubin 0.40 mg/dL (0.2-0.8) 08/12/19 10:14 AST 15 Units/L (15-37) 08/14/19 04:40 ALT 10 Units/L (12-78) L 08/14/19 04:40 Alkaline Phosphatase 97 Units/L (46-116) 08/14/19 04:40 Creatine Kinase 49 Units/L (26-192) 08/13/19 11:10 CK-MB (CK-2) 2.6 ng/mL (0-4.0) 08/13/19 11:10 CK/CKMB % Calc 5.3 % (<4) 08/13/19 11:10 Troponin I 0.04 ng/mL (0-1.5) 08/13/19 11:10 B-Natriuretic Peptide 2770 pg/mL (0-79) H* 08/12/19 10:14 Total Protein 7.4 g/dL (6.4-8.2) 08/14/19 04:40 Albumin 3.2 g/dL (3.4-5.0) L 08/14/19 04:40 Globulin 4.2 g/dL (2.5-4.5) 08/14/19 04:40 Albumin/Globulin Ratio 0.8 Ratio (1.1-2.1) L 08/14/19 04:40 Vitamin B12 585 pg/mL (193-986) 08/12/19 10:14 Folate > 20.0 ng/mL (>8.6) 11/12/19 10:14 Blood Type A POSITIVE 08/12/19 14:10 Antibody Screen Negative 08/12/19 14:10 Crossmatch See Detail 08/12/19 14:10 - Plan (1) Acute exacerbation of congestive heart failure Status: Acute Qualifiers: Heart failure type: unspecified Qualified Code(s): I50.9 - Heart failure, unspecified Plan: IV LASIX, CONTINUE TO MONITOR (2) Anemia Status: Acute Qualifiers: Anemia type: due to chronic kidney disease Chronic kidney disease stage: stage 4 (severe) Qualified Code(s): N18.4 - Chronic kidney disease, stage 4 (severe); D63.1 - Anemia in chronic kidney disease Plan: TRANSFUSE 1 UNIT PRBC, CONTINUE TO MONITOR (3) Acute kidney injury superimposed on chronic kidney disease Status: Acute
[2019-08-14] MEDS: SYNTHROID 100 mcg TAB PO SCH (18:12)
[2019-08-14] MEDS: ZANTAC PO SCH (21:07)
[2019-08-14] MEDS: RESTORIL CAP 15 MG PO SCH (21:07)
[2019-08-14] MEDS: REMERON PO SCH (21:07)
[2019-08-15] MEDS: DUONEB 0.5 MG/3 MG NEB SCH ×4 (00:50→11:54)
[2019-08-15] MEDS: NORCO 5/325 MG TAB PO PRN ×2 (01:00→09:05)
[2019-08-15 05:15] LABS: BASOPHILS % (AUTO) 0.8 % (0.2-1.0); EOSINOPHILS # (AUTO) 0.4 x10^3/uL (0.0-0.2); EOSINOPHILS % (AUTO) 6.7 % (0.9-2.9); HEMATOCRIT 27.1 % (36.0-47.0); HEMOGLOBIN 8.2 g/dL (12.0-16.0); LYMPHOCYTES % (AUTO) 18.3 % (21.0-51.0); MEAN CORPUSCULAR HEMOGLOBIN 21.9 pg (27.0-34.0); MEAN CORPUSCULAR HGB CONC 30.4 g/dL (33.0-35.0); MEAN CORPUSCULAR VOLUME 72.1 fL (80.0-100.0); MEAN PLATELET VOLUME 8.2 fL (7.4-11.0); MONOCYTES # (AUTO) 0.5 x10^3/uL (0.3-0.8); MONOCYTES % (AUTO) 9.8 % (0.0-13.0); NEUTROPHILS # (AUTO) 3.5 x10^3/uL (2.2-4.8); NEUTROPHILS % (AUTO) 64.4 % (42.0-75.0); PLATELET COUNT 163 X10^3/uL (150.0-450.0); RED BLOOD COUNT 3.76 X10^6/uL (3.5-5.4); RED CELL DISTRIBUTION WIDTH 20.5 % (11.6-16.5); WHITE BLOOD COUNT 5.4 X10^3/uL (3.6-10.0)
[2019-08-15 05:24] LABS: ALBUMIN 3.1 g/dL (3.4-5.0); CALCIUM 8.4 mg/dL (8.5-10.1); CARBON DIOXIDE 35.6 mmol/L (21-32); COR CA(FOR HYPOALB) 9.1 mg/dL (8.5-10.1); CREATININE 1.71 mg/dL (0.55-1.02); TOTAL PROTEIN 7.2 g/dL (6.4-8.2)
[2019-08-15 05:32] LABS: PLATELET MORPHOLOGY COMMENT NORMAL (NORMAL)
[2019-08-15 05:33] LABS: ANISOCYTOSIS 1+; HYPOCHROMASIA 1+; MICROCYTOSIS SLIGHT
[2019-08-15] MEDS: NEURONTIN CAP 300 MG PO SCH (05:39)
[2019-08-15] MEDS: HumuLIN R SUBCUT PRN ×2 (06:06→11:33)
--- NOTE | 2019-08-15 06:55 | RAD ---
HISTORY: Shortness of breath Study: Single-view chest Comparison: 08/12/2019 Findings: The trachea is midline. The cardiac silhouette is enlarged with a tortuous thoracic aorta. The lungs are clear without focal infiltrate or effusion. The bony thorax is unremarkable. IMPRESSION: 1. No acute cardiopulmonary disease. Reported By:
[2019-08-15] MEDS: SNACK - Diabetic Appropriate PO SCH (08:05)
[2019-08-15 08:07] VITALS: BP 155/71
[2019-08-15] MEDS ORDERED: PEPCID 20 MG IV PREMIX* 20 MG/50 ML BAG IV SCH (09:00)
[2019-08-15] MEDS: MIRALAX POWDER (1 DOSE 17 G) PO SCH (09:03)
[2019-08-15] MEDS: RANEXA PO SCH (09:04)
[2019-08-15] MEDS: PLAVIX PO SCH (09:04)
[2019-08-15] MEDS: SINGULAIR TAB 10 MG PO SCH (09:04)
[2019-08-15] MEDS: PROTONIX INJ 40 MG VIAL IVP SCH (09:05)
[2019-08-15] MEDS: ASPIRIN 81 MG CHEWTAB PO SCH (09:05)
[2019-08-15] MEDS: IMDUR PO SCH (09:06)
[2019-08-15] MEDS: TOPROL XL PO SCH (09:06)
[2019-08-15] MEDS: SINEMET (PLAIN) 25/100 MG PO SCH (09:06)
[2019-08-15] MEDS: ZETIA TAB 10 MG PO SCH (09:06)
[2019-08-15] MEDS: LASIX IVP SCH (09:06)
[2019-08-15] MEDS: LEVSIN/MAALOX/LIDOC VISC PO SCH (10:34)
[2019-08-15] MEDS ORDERED: ZOFRAN INJ 4 MG VIAL IVP PRN (10:54)
[2019-08-15] MEDS ORDERED: PEPCID TAB 20 MG PO SCH (21:00)
== END 2019-08-15 14:40 | disposition home health service (06) | DRG 292 ==
LOC: ER 09:49 → MED/SURG 14:23
PROVIDERS: ADMIT Internal Medicine; ATTEND Internal Medicine
CPT/HCPCS: 36415; 36430; 71010; 71045; 74000; 74018; 80048; 80053; 80076; 82270; 82550; 82553; 82607; 82728; 82746; 83036; 83540; 83880; 84466; 84484; 85014; 85018; 85025; 86850; 86900; 86901; 86922; 93005; 93306; 94640; 94760; 96365; 96374; 96375; 97116; 97162; 97165; 97535; 99284; A4222; C9113; P9016; S0028; J1815; J1940; J7030; J7050; J7613; J7620

== ENCOUNTER 2019-09-26 02:13 | Inpatient (IN) ==
[2019-09-26 02:25] VITALS: BMI 39.7
[2019-09-26 02:43] LABS: ABG BASE EXCESS 4.7 mmol/L (-2.0-2.0)
[2019-09-26 02:44] LABS: ABG ALLEN TEST POS; ABG HCO3 32.5 mmol/L (22-26)
--- NOTE | 2019-09-26 03:22 | RAD ---
Chest AP portableIndication: DyspneaCOMPARISONDecember 2018FINDINGSThere is no pneumothorax or effusion. There is cardiomegaly. Mild increased interstitial markings noted. Left lower lung infiltrate difficult to exclude given heart sizeIMPRESSIONFindings are similar to the prior, with cardiomegaly and mild increased interstitial markings. Developing edema not excluded. Underlying left lung infiltrate cannot be excludedElectronically signed by: MAICOL MONROY (Sep 26, 2019 03:20:42)
[2019-09-26] MEDS ORDERED: LASIX IVP ONE ×2 (03:30→03:42)
--- NOTE | 2019-09-26 03:30 | DR.SOBA ---
HPI - Time Seen Time seen: 03:26 - Primary Care Physician Primary Care Physician: CONNOR - Complaints Chief Complaint:: SHORT OF BREAT SINCE APPROX 2100. PATIENT WITH HX OF CHF. GRANDDAUGHTER (PRIMARY CAREGIVER) STATES SHE NOTICED EDEMA TO LOWER EXTREMITY THIS EVENING - Reviewed Nurses Notes Reviewed: Yes - Source History Provided: Patient - Mode of Arrival Mode of Arrival: Wheelchair - Timing Onset of Chief Complaint: 09/25/19 - Duration Duration: Hours - Context Onset:: While Asleep (Hx of chf) History of:: CHF Prehospital Care:: O2, Furosemide - Modifying Factors Worsens:: Lying Flat - Associated Signs and Symptoms Associated Signs and Symptoms: Cough - If Cough Cough: Nonproductive PMH - PMH Past Medical History: Yes Past Medical History: CHF, Coronary Artery Disease, Hypertension Past Medical History Comment: PATIENT IS ON PLAVIX DAILY Past Surgical History: Yes Surgical History: Angioplasty/Stents - Family History History of Family Medical Conditions: No Family Medical History: Diabetes Mellitus, Cancer, [place], Coronary Artery Disease, Heart Failure - Social History Alcohol Use: None Do you use any recreational Drugs:: No Lives With: Family Lives Where: Home - infectious screening Have you traveled outside the country in the last 6 months?: No Isolation: Standard ROS - Review of Systems Constitutional: No Symptoms Reported Eyes: No Symptoms Reported ENTM: No Symptoms Reported Respiratoy: Non-Productive Cough Cardiovascular: No Symptoms Reported Gastrointestinal/Abdominal: No Symptoms Reported Genitourinary: No Symptoms Reported Neurological: No Symptoms Reported Musculoskeletal: No Symptoms Reported Integumentary: No Symptoms Reported Hematologic/Lymphatic: No Symptoms Reported Endocrine: No Symptoms Reported Psychiatric: Depression PE - General General Appearance: Lethargic - Head Head Exam: Normal Inspection - Eyes Eye exam: Normal Appearance, EOMI - ENT ENT Exam: Normal Exam, Normal Oropharynx - Neck Neck Exam: Normal Inspection, Full ROM - Chest Chest Inspection: Normal Inspection - Respiratory Respiratory Exam: Bilateral Rales (mild), Lower Rales - Abdominal Exam Abdominal Exam: Normal Inspection, Normal Bowel Sounds, Soft, Distention - Extremities Extremities Exam: Edema - Back Back Exam: Normal Inspection - Neurologic Neurological Exam: CN II-XII Intact - Psychiatric Psychiatric Exam: Depressed - Skin Skin Exam: Intact, Normal Color - Vital Signs Vitals: Temperature 98.3 F Pulse Rate 68 Respiratory Rate 26 Blood Pressure [Right Arm] 137/86 Blood Pressure 145/65 O2 Sat by Pulse Oximetry 95 Course - Treatment Treatment: 0426: Repeat ABG PH 7.28 (probably venous) Discussed intubation with patient but refused. Requested a DNR form for the patient to sign in case she codes but patient did not sign it so she is full code at this point. 0730: case discussed with DR. Gallego admit ICU - Consultation Called: 07:30 Call Returned: 07:30 Consultation Comments: case discussed with DR. Gallego, admit to ICU, transfuse 2 uPRBC, continue bipap ROR - Labs Reviewed Result Diagrams: 09/26/19 02:33 09/26/19 02:33 - XRAY XRAY Interpreted by: Radiologist XRAY Findings: CMG with increased interstitial markings - Labs Reviewed Laboratory: 09/26/19 03:05 Sputum - Expectorated Sputum - Final WBC 8.0 X10^3/uL (3.6-10.0) 09/26/19 02:33 RBC 3.59 X10^6/uL (3.5-5.4) 09/26/19 02:33 Hgb 7.5 g/dL (12.0-16.0) L 09/26/19 02:33 Hct 25.6 % (36.0-47.0) L 09/26/19 02:33 MCV 71.3 fL (80.0-100.0) L 09/26/19 02:33 MCH 20.8 pg (27.0-34.0) L 09/26/19 02:33 MCHC 29.1 g/dL (33.0-35.0) L 09/26/19 02:33 RDW 22.1 % (11.6-16.5) H 09/26/19 02:33 Plt Count 243 X10^3/uL (150.0-450.0) 09/26/19 02:33 Plt Count Comment Adequate (ADEQUATE) 09/26/19 02:33 MPV 8.7 fL (7.4-11.0) 09/26/19 02:33 Neut % (Auto) 70.1 % (42.0-75.0) 09/26/19 02:33 Lymph % (Auto) 12.0 % (21.0-51.0) L 09/26/19 02:33 [place] % (Auto) 13.1 % (0.0-13.0) H 09/26/19 02:33 Eos % (Auto) 3.1 % (0.9-2.9) H 09/26/19 02:33 Baso % (Auto) 1.7 % (0.2-1.0) H 09/26/19 02:33 Neut # (Auto) 5.6 x10^3/uL (2.2-4.8) H 09/26/19 02:33 Lymph # (Auto) 1.0 X10^3/uL (1.3-2.9) L 09/26/19 02:33 [place] # (Auto) 1.1 x10^3/uL (0.3-0.8) H 09/26/19 02:33 Eos # (Auto) 0.2 x10^3/uL (0.0-0.2) 09/26/19 02:33 Baso # (Auto) 0.1 X10^3/uL (0.0-0.1) 09/26/19 02:33 Absolute Nucleated RBC 0.5 /100WBC 09/26/19 02:33 Plt Morphology Comment Normal (NORMAL) 09/26/19 02:33 RBC Morphology Abnormal (NORMAL) A 09/26/19 02:33 Hypochromasia 2+ A 09/26/19 02:33 Anisocytosis 2+ A 09/26/19 02:33 PT 15.4 SECONDS (11.8-14.3) 09/26/19 02:33 INR Target Range - 09/26/19 02:33 INR 1.27 (0.8-1.3) 09/26/19 02:33 APTT 32.6 SECONDS (22.9-36.5) 09/26/19 02:33 PTT Comment - 09/26/19 02:33 Sample Site Lb 09/26/19 07:10 ABG pH 7.350 (7.35-7.45) 09/26/19 07:10 ABG pCO2 59.0 mmHg (35.0-45.0) H* 09/26/19 07:10 ABG pO2 72.0 mmHg (80.0-100.0) L 09/26/19 07:10 ABG HCO3 32.6 mmol/L (22-26) H* 09/26/19 07:10 ABG O2 Saturation 93.0 % (90-100) 09/26/19 07:10 ABG Base Excess 5.4 mmol/L (-2.0-2.0) H 09/26/19 07:10 Ar Test Na 09/26/19 07:10 A-a Gradient 104.0 mmHg 09/26/19 07:10 FiO2 35.0 09/26/19 07:10 Blood Gas Comments Pt marissa well. cdn 09/26/19 07:10 Sodium 141 mmol/L (136-145) 09/26/19 02:33 Corrected Sodium 143 mmol/L (136-145) 09/26/19 02:33 Potassium 4.7 mmol/L (3.5-5.1) 09/26/19 02:33 Chloride 103 mmol/L (98-107) 09/26/19 02:33 Carbon Dioxide 30.4 mmol/L (21-32) 09/26/19 02:33 BUN 59 mg/dL (7-18) H 09/26/19 02:33 Creatinine 2.94 mg/dL (0.55-1.02) H 09/26/19 02:33 Est GFR (MDRD) Af Amer 20 (>60) L 09/26/19 02:33 Est GFR (MDRD) Non-Af 17 (>60) L 09/26/19 02:33 Glucose 174 mg/dL (65-99) H 09/26/19 02:33 Calcium 8.2 mg/dL (8.5-10.1) L 09/26/19 02:33 Corrected Calcium 8.9 mg/dL (8.5-10.1) 09/26/19 02:33 Magnesium 2.2 mg/dL (1.7-2.9) 09/26/19 02:33 Total Bilirubin 0.50 mg/dL (0.2-1.0) 09/26/19 02:33 AST 27 Units/L (15-37) 09/26/19 02:33 ALT 6 Units/L (12-78) L 09/26/19 02:33 Alkaline Phosphatase 117 Units/L (46-116) H 09/26/19 02:33 Creatine Kinase 113 Units/L (26-192) 09/26/19 02:33 CK-MB (CK-2) 2.1 ng/mL (0-4.0) 09/26/19 02:33 CK/CKMB % Calc 1.9 % (<4) 09/26/19 02:33 Troponin I 0.08 ng/mL (0-1.5) 09/26/19 02:33 B-Natriuretic Peptide 2420 pg/mL (0-79) H* 09/26/19 02:33 Total Protein 7.4 g/dL (6.4-8.2) 09/26/19 02:33 Albumin 3.1 g/dL (3.4-5.0) L 09/26/19 02:33 Globulin 4.3 g/dL (2.5-4.5) 09/26/19 02:33 Albumin/Globulin Ratio 0.7 Ratio (1.1-2.1) L 09/26/19 02:33 Specimen Type Catherized urine 09/26/19 05:42 Urine Color Yellow (YELLOW) 09/26/19 05:42 Urine Appearance Clear (CLEAR) 09/26/19 05:42 Urine pH 5.0 (5.0 - 8.0) 09/26/19 05:42 Ur Specific [place] 1.015 (1.000-1.030) 09/26/19 05:42 Urine Protein 2+ (NEGATIVE) 09/26/19 05:42 Urine Glucose (UA) Negative (NEGATIVE) 09/26/19 05:42 Urine Ketones Negative (NEGATIVE) 09/26/19 05:42 Urine Occult Blood Negative (NEGATIVE) 09/26/19 05:42 Urine Nitrite Negative (NEGATIVE) 09/26/19 05:42 Urine Bilirubin Negative (NEGATIVE) 09/26/19 05:42 Urine Urobilinogen Normal (NORMAL) 09/26/19 05:42 Ur Leukocyte Esterase Negative (NEGATIVE) 09/26/19 05:42 Urine RBC None seen /HPF (0-3) 09/26/19 05:42 Urine WBC None seen /HPF (0-5) 09/26/19 05:42 Ur Squamous Epith Cells Rare /HPF (NEGATIVE) 09/26/19 05:42 Urine Bacteria Negative /HPF (NEGATIVE) 09/26/19 05:42 Ur Culture Indicated? No/not indicated 09/26/19 05:42 Opioid - Opioid Risk Tool Age (Vasile box if 16-45): No History of Preadolescent Sexual Abuse: No Total: 0 Total Score Risk Category: Low Risk - Diagnosis Discharge Problem: Hypoxia, Anemia CHF (congestive heart failure) Qualifiers: Heart failure type: unspecified Heart failure chronicity: acute on chronic Qualified Code(s): I50.9 - Heart failure, unspecified Renal failure (ARF), acute on chronic Qualifiers: Acute renal failure type: unspecified Chronic kidney disease stage: unspecified stage Qualified Code(s): N17.9 - Acute kidney failure, unspecified; N18.9 - Chronic kidney disease, unspecified - Discharge Plan Condition: Stable - Follow ups/Referrals Follow ups/Referrals: ERIC RYAN [Primary Care Provider] - 3 days - Instructions
[2019-09-26 03:34] LABS: BASOPHILS # (AUTO) 0.1 X10^3/uL (0.0-0.1); BASOPHILS % (AUTO) 1.7 % (0.2-1.0); EOSINOPHILS # (AUTO) 0.2 x10^3/uL (0.0-0.2); EOSINOPHILS % (AUTO) 3.1 % (0.9-2.9); HEMATOCRIT 25.6 % (36.0-47.0); HEMOGLOBIN 7.5 g/dL (12.0-16.0); MEAN CORPUSCULAR HEMOGLOBIN 20.8 pg (27.0-34.0); MEAN CORPUSCULAR HGB CONC 29.1 g/dL (33.0-35.0); MEAN CORPUSCULAR VOLUME 71.3 fL (80.0-100.0); MEAN PLATELET VOLUME 8.7 fL (7.4-11.0); MONOCYTES # (AUTO) 1.1 x10^3/uL (0.3-0.8); MONOCYTES % (AUTO) 13.1 % (0.0-13.0); NEUTROPHILS # (AUTO) 5.6 x10^3/uL (2.2-4.8); NEUTROPHILS % (AUTO) 70.1 % (42.0-75.0); PLATELET COUNT 243 X10^3/uL (150.0-450.0); RED BLOOD COUNT 3.59 X10^6/uL (3.5-5.4); RED CELL DISTRIBUTION WIDTH 22.1 % (11.6-16.5)
[2019-09-26 03:37] LABS: ANISOCYTOSIS 2+; CALCIUM 8.2 mg/dL (8.5-10.1); CARBON DIOXIDE 30.4 mmol/L (21-32); CREATININE 2.94 mg/dL (0.55-1.02); HYPOCHROMASIA 2+; PLATELET MORPHOLOGY COMMENT NORMAL (NORMAL); TROPONIN I 0.08 ng/mL (0-1.5)
[2019-09-26 03:40] LABS: ALBUMIN 3.1 g/dL (3.4-5.0); CKMB % 1.9 % (<4); COR CA(FOR HYPOALB) 8.9 mg/dL (8.5-10.1); CREATINE KINASE MB 2.1 ng/mL (0-4.0); MAGNESIUM 2.2 mg/dL (1.7-2.9); TOTAL PROTEIN 7.4 g/dL (6.4-8.2)
[2019-09-26] MEDS ORDERED: XOPENEX 1.25 MG/3 ML NEBULE NEB ONE (03:49)
[2019-09-26 05:49] LABS: BILIRUBIN,URINE NEGATIVE (NEGATIVE); BLOOD/HEMOGLOBIN,URINE NEGATIVE (NEGATIVE); GLUCOSE, URINE NEGATIVE (NEGATIVE); KETONES,URINE NEGATIVE (NEGATIVE); LEUKOCYTE ESTERASE ,URINE NEGATIVE (NEGATIVE); NITRITES,URINE NEGATIVE (NEGATIVE); PROTEIN,URINE 2+ (NEGATIVE); UROBILINOGEN,URINE NORMAL (NORMAL)
[2019-09-26 06:05] LABS: APPEARANCE,URINE CLEAR (CLEAR); COLOR,URINE YELLOW (YELLOW)
[2019-09-26 06:06] LABS: BACTERIA,URINE NEGATIVE /HPF (NEGATIVE); RBC,URINE NONE SEEN /HPF (0-3); SQUAMOUS EPITHELIAL CELL,UR RARE /HPF (NEGATIVE)
[2019-09-26 07:17] LABS: ABG BASE EXCESS 5.4 mmol/L (-2.0-2.0); ABG HCO3 32.6 mmol/L (22-26)
[2019-09-26 08:00] LABS: CKMB % 1.9 % (<4); TROPONIN I 0.08 ng/mL (0-1.5)
[2019-09-26] MEDS ORDERED: NS 250 ML IV 250 ML IV ONE (10:37)
[2019-09-26] MEDS: LASIX IVP SCH (10:58)
[2019-09-26] MEDS: ZITHROMAX INJ 500 MG VIAL 250 MG in NS 250 ML IV 250 ML IV SCH (11:08)
[2019-09-26] MEDS: NEURONTIN TAB 600 MG PO SCH (11:18)
--- NOTE | 2019-09-26 11:40 | DR.H&P ---
H&P History & Physical for Day of: H&P Date: 09/26/19 Chief Complaint Chief Complaint: Shortness of breath and leg swelling Allergies Allergies Allergy/AdvReac Type Severity Reaction Status Date / Time codeine Allergy Verified 09/10/19 14:49 colchicine Allergy Verified 09/10/19 14:49 hydromorphone [From Dilaudid] Allergy Verified 09/10/19 14:49 morphine Allergy Verified 09/10/19 14:49 niacin Allergy Verified 09/10/19 14:49 History of Present Illness History of Present Illness: Ms. Anthony is a 69y/o female with a PMH of DC s/p PCI (last one in November), CAD, CHF, Type 2 DM, COPD, chronic oxygen use, HTN and HLD presents with worsening SOB and leg edema. Patient is on continuous oxygen at home. She is currently on the BiPAP so history was limited. Patient's son at bedside. He states patient had a hoarse voice on Xmas but no other symptoms repo rted. In the ED, patient was noted to be hypoxic and hypercapnic, started on BiPAP. CXR with increased pulmonary congestion, BNP 2420, trop 0.08, Hgb 7.5. She received 2 doses of IV Lasix 40 mg with good urine output. Recent AB.35/59/72/32 Intubation was discussed in the ED but patient refused. Discussed code status at bedside, patient wants CPR but no intubation. 2 units of PRBCs were ordered but patient has a specific antibody so blood would need to be brought in from [facility]. Past Medical History Past Medical History: Anemia, Arthritis, Asthma, CHF, Coronary Artery Disease, Diabetes, Hypertension, DC, Renal Disease and Sleep Apnea Additional Medical History: Cataracts, DC, PAD, Sleep Apnea, UTI's, Rheumatoid arthritis, Back Pain, Previous blood transfusion, Skin Cancer Past Surgical History Surgical History: Angioplasty/Stents Additional Surgical History: Cataract removal, Cardiac Stents x5, Biopsy of right breast, Tubal Ligation Family History Family Medical History: Diabetes Mellitus, Cancer, DC, Coronary Artery Disease and Heart Failure Social History Does patient currently use any type of tobacco product: No Have you used tobacco products in the last 12 months: No Type of Tobacco Use: None Alcohol Use: None Prescription drug monitoring program results: PDMP was not reviewed Medications Home Medications: codeine Allergy (Verified 09/10/19 14:49) colchicine Allergy (Verified 09/10/19 14:49) hydromorphone [From Dilaudid] Allergy (Verified 09/10/19 14:49) morphine Allergy (Verified 09/10/19 14:49) niacin Allergy (Verified 09/10/19 14:49) CONTINUE taking the following medications albuterol sulfate 1.25 mg INHALATION Q4-6H PRN 09/26/19 [History] albuterol sulfate [ProAir HFA] 2 puff INHALATION DAILY 09/26/19 [History] carbidopa-levodopa 1 tab PO BID 09/26/19 [History] clopidogrel 75 mg PO DAILY 09/26/19 [History] docusate sodium 200 mg PO DAILY 09/26/19 [History] ezetimibe 10 mg PO DAILY 09/26/19 [History] furosemide 20 mg PO BID 09/26/19 [History] gabapentin 300 mg PO BID 09/26/19 [History] hydralazine 25 mg PO BID 09/26/19 [History] hydrocodone-acetaminophen 1 tab PO BID 09/26/19 [History] insulin detemir U-100 [Levemir FlexTouch U-100 Insuln] 23 unit SUBCUT BID 09/26/19 [History] insulin lispro [Humalog KwikPen Insulin] 1 - 14 unit SUBCUT ACHS PRN 09/26/19 [History] levothyroxine 100 mcg PO DAILY 09/26/19 [History] losartan 25 mg PO BID 09/26/19 [History] metoprolol succinate 25 mg PO DAILY 09/26/19 [History] mirtazapine 15 mg PO DAILY 09/26/19 [History] montelukast 10 mg PO DAILY 09/26/19 [History] nitroglycerin 0.4 mg SUBLINGUAL Q5M PRN 09/26/19 [History] ondansetron HCl 8 mg PO BID PRN 09/26/19 [History] pantoprazole 40 mg PO DAILY 09/26/19 [History] ranolazine 1,000 mg PO BID 09/26/19 [History] tiotropium-olodaterol [Stiolto Respimat] 1 puff INHALATION Q6HR PRN 09/26/19 [ History] Labs Result Diagrams: 09/26/19 11:37 09/26/19 02:33 Labs: 09/26/19 03:05 Sputum - Expectorated Sputum - Final Laboratory WBC 8.0 X10^3/uL (3.6-10.0) 09/26/19 02:33 RBC 3.59 X10^6/uL (3.5-5.4) 09/26/19 02:33 Hgb 7.5 g/dL (12.0-16.0) L 09/26/19 02:33 Hct 25.6 % (36.0-47.0) L 09/26/19 02:33 MCV 71.3 fL (80.0-100.0) L 09/26/19 02:33 MCH 20.8 pg (27.0-34.0) L 09/26/19 02:33 MCHC 29.1 g/dL (33.0-35.0) L 09/26/19 02:33 RDW 22.1 % (11.6-16.5) H 09/26/19 02:33 Plt Count 243 X10^3/uL (150.0-450.0) 09/26/19 02:33 Plt Count Comment Adequate (ADEQUATE) 09/26/19 02:33 MPV 8.7 fL (7.4-11.0) 09/26/19 02:33 Neut % (Auto) 70.1 % (42.0-75.0) 09/26/19 02:33 Lymph % (Auto) 12.0 % (21.0-51.0) L 09/26/19 02:33 [place] % (Auto) 13.1 % (0.0-13.0) H 09/26/19 02:33 Eos % (Auto) 3.1 % (0.9-2.9) H 09/26/19 02:33 Baso % (Auto) 1.7 % (0.2-1.0) H 09/26/19 02:33 Neut # (Auto) 5.6 x10^3/uL (2.2-4.8) H 09/26/19 02:33 Lymph # (Auto) 1.0 X10^3/uL (1.3-2.9) L 09/26/19 02:33 [place] # (Auto) 1.1 x10^3/uL (0.3-0.8) H 09/26/19 02:33 Eos # (Auto) 0.2 x10^3/uL (0.0-0.2) 09/26/19 02:33 Baso # (Auto) 0.1 X10^3/uL (0.0-0.1) 09/26/19 02:33 Absolute Nucleated RBC 0.5 /100WBC 09/26/19 02:33 Plt Morphology Comment Normal (NORMAL) 09/26/19 02:33 RBC Morphology Abnormal (NORMAL) A 09/26/19 02:33 Hypochromasia 2+ A 09/26/19 02:33 Anisocytosis 2+ A 09/26/19 02:33 PT 15.4 SECONDS (11.8-14.3) 09/26/19 02:33 INR Target Range - 09/26/19 02:33 INR 1.27 (0.8-1.3) 09/26/19 02:33 APTT 32.6 SECONDS (22.9-36.5) 09/26/19 02:33 PTT Comment - 09/26/19 02:33 Sample Site Lb 09/26/19 07:10 ABG pH 7.350 (7.35-7.45) 09/26/19 07:10 ABG pCO2 59.0 mmHg (35.0-45.0) H* 09/26/19 07:10 ABG pO2 72.0 mmHg (80.0-100.0) L 09/26/19 07:10 ABG HCO3 32.6 mmol/L (22-26) H* 09/26/19 07:10 ABG O2 Saturation 93.0 % (90-100) 09/26/19 07:10 ABG Base Excess 5.4 mmol/L (-2.0-2.0) H 09/26/19 07:10 Ar Test Na 09/26/19 07:10 A-a Gradient 104.0 mmHg 09/26/19 07:10 FiO2 35.0 09/26/19 07:10 Blood Gas Comments Pt marissa well. cdn 09/26/19 07:10 Sodium 141 mmol/L (136-145) 09/26/19 02:33 Corrected Sodium 143 mmol/L (136-145) 09/26/19 02:33 Potassium 4.7 mmol/L (3.5-5.1) 09/26/19 02:33 Chloride 103 mmol/L (98-107) 09/26/19 02:33 Carbon Dioxide 30.4 mmol/L (21-32) 09/26/19 02:33 BUN 59 mg/dL (7-18) H 09/26/19 02:33 Creatinine 2.94 mg/dL (0.55-1.02) H 09/26/19 02:33 Est GFR (MDRD) Af Amer 20 (>60) L 09/26/19 02:33 Est GFR (MDRD) Non-Af 17 (>60) L 09/26/19 02:33 Glucose 174 mg/dL (65-99) H 09/26/19 02:33 Calcium 8.2 mg/dL (8.5-10.1) L 09/26/19 02:33 Corrected Calcium 8.9 mg/dL (8.5-10.1) 09/26/19 02:33 Magnesium 2.2 mg/dL (1.7-2.9) 09/26/19 02:33 Total Bilirubin 0.50 mg/dL (0.2-1.0) 09/26/19 02:33 AST 27 Units/L (15-37) 09/26/19 02:33 ALT 6 Units/L (12-78) L 09/26/19 02:33 Alkaline Phosphatase 117 Units/L (46-116) H 09/26/19 02:33 Creatine Kinase 105 Units/L (26-192) 09/26/19 07:32 CK-MB (CK-2) 2.0 ng/mL (0-4.0) 09/26/19 07:32 CK/CKMB % Calc 1.9 % (<4) 09/26/19 07:32 Troponin I 0.08 ng/mL (0-1.5) 09/26/19 07:32 B-Natriuretic Peptide 2420 pg/mL (0-79) H* 09/26/19 02:33 Total Protein 7.4 g/dL (6.4-8.2) 09/26/19 02:33 Albumin 3.1 g/dL (3.4-5.0) L 09/26/19 02:33 Globulin 4.3 g/dL (2.5-4.5) 09/26/19 02:33 Albumin/Globulin Ratio 0.7 Ratio (1.1-2.1) L 09/26/19 02:33 Specimen Type Catherized urine 09/26/19 05:42 Urine Color Yellow (YELLOW) 09/26/19 05:42 Urine Appearance Clear (CLEAR) 09/26/19 05:42 Urine pH 5.0 (5.0 - 8.0) 09/26/19 05:42 Ur Specific [place] 1.015 (1.000-1.030) 09/26/19 05:42 Urine Protein 2+ (NEGATIVE) 09/26/19 05:42 Urine Glucose (UA) Negative (NEGATIVE) 09/26/19 05:42 Urine Ketones Negative (NEGATIVE) 09/26/19 05:42 Urine Occult Blood Negative (NEGATIVE) 09/26/19 05:42 Urine Nitrite Negative (NEGATIVE) 09/26/19 05:42 Urine Bilirubin Negative (NEGATIVE) 09/26/19 05:42 Urine Urobilinogen Normal (NORMAL) 09/26/19 05:42 Ur Leukocyte Esterase Negative (NEGATIVE) 09/26/19 05:42 Urine RBC None seen /HPF (0-3) 09/26/19 05:42 Urine WBC None seen /HPF (0-5) 09/26/19 05:42 Ur Squamous Epith Cells Rare /HPF (NEGATIVE) 09/26/19 05:42 Urine Bacteria Negative /HPF (NEGATIVE) 09/26/19 05:42 Ur Culture Indicated? No/not indicated 09/26/19 05:42 Blood Type A POSITIVE 09/26/19 07:50 Antibody Screen Positive 09/26/19 07:50 Review of Systems Constitutional: Weakness and Malaise Eyes: No Symptoms Reported ENT: No Symptoms Reported Respiratory: Cough, Shortness of Breath and SOB with Excertion Cardiovascular: Edema Gastrointestinal: No Symptoms Reported Genitourinary: No Symptoms Reported Skin: No Symptoms Reported Neurological: No Symptoms Reported Physical Exam Vital Signs: Temperature 98.3 F Pulse Rate 69 Respiratory Rate 26 Blood Pressure [Right Arm] 137/86 Blood Pressure 130/61 O2 Sat by Pulse Oximetry 98 Oriented: Normal Respiratory: Rales Throughout Cardiovascular: Normal and Edema Auscultation: Bowel Sounds: Normal Palpation: Normal Tenderness: Normal Skin: Other (chronic venous stasis) Psychiatric: Normal Mood Description: Depressed Affect: Normal Speech Pattern: Artificially Ventilated Assessment/Plan (1) Acute respiratory failure with hypoxia and hypercapnia: Status: Acute (2) Pneumonia: Qualifiers: Pneumonia type: due to unspecified organism Laterality: unspecified laterality Lung location: unspecified part of lung Qualified Code(s): J18.9 - Pneumonia, unspecified organism Status: Acute Plan: Repeat CXR in the AM, start IV abx, duonebs, Pulmicort (3) Acute kidney injury superimposed on chronic kidney disease: Status: Acute Plan: Cr:2.94, baseline 1.7 -1.8 Monitor AM labs Hold losartan (4) Acute exacerbation of congestive heart failure: Qualifiers: Heart failure type: unspecified Qualified Code(s): I50.9 - Heart failure, unspecified Status: Acute Plan: Continue Lasix IV 40 mg daily, strict I/Os, daily weights, monitor UOP Continue BiPAP, repeat ABG resume home medications Trend troponins ECHO (08/13/19): EF-64% (5) Anemia: Qualifiers: Anemia type: unspecified type Qualified Code(s): D64.9 - Anemia, unspecified Status: Acute Plan: Hgb: 7.5 on admission, baseline 8-9, will repeat CBC now PRBCs ordered but patient has a specific antibody so will need blood products from outside, 2 units ordered. (6) Hypoxia: Status: Acute Plan: Acute on chronic, continue BiPAP, wean as tolerated CXR suggestive of possible infiltrate, sputum cultures pending. Will start Cefepime and Azithromycin (7) Diabetes mellitus, type 2: Qualifiers: Diabetes mellitus skilled nursing insulin use: with terminal gauger supervisor use Diabetes mellitus complication status: with kidney complications Diabetes mellitus complication detail: with chronic kidney disease Chronic kidney disease stage: unspecified stage Qualified Code(s): E11.22 - Type 2 diabetes mellitus with diabetic chronic kidney disease; Z79.4 - skilled nursing (current) use of insulin Status: Chronic Plan: continue SSI, hold Levemir for now (8) History of DC (myocardial infarction): Status: Chronic Plan: resume home meds (9) Hyperlipidemia: Qualifiers: Hyperlipidemia type: mixed hyperlipidemia Qualified Code(s): E78.2 - Mixed hyperlipidemia Status: Chronic (10) PAD (peripheral artery disease): Status: Chronic (11) GERD (gastroesophageal reflux disease): Qualifiers: Esophagitis presence: esophagitis presence not specified Qualified Code(s): K21.9 - Gastro-esophageal reflux disease without esophagitis Status: Chronic (12) Sleep apnea: Status: Chronic Review H&P Reviewed: Yes Patient was examined?: Yes
[2019-09-26 12:06] LABS: BASOPHILS # (AUTO) 0.1 X10^3/uL (0.0-0.1); BASOPHILS % (AUTO) 1.2 % (0.2-1.0); EOSINOPHILS # (AUTO) 0.2 x10^3/uL (0.0-0.2); EOSINOPHILS % (AUTO) 3.4 % (0.9-2.9); HEMATOCRIT 26.8 % (36.0-47.0); HEMOGLOBIN 7.9 g/dL (12.0-16.0); LYMPHOCYTES # (AUTO) 0.7 X10^3/uL (1.3-2.9); LYMPHOCYTES % (AUTO) 10.3 % (21.0-51.0); MEAN CORPUSCULAR HEMOGLOBIN 20.8 pg (27.0-34.0); MEAN CORPUSCULAR HGB CONC 29.4 g/dL (33.0-35.0); MEAN CORPUSCULAR VOLUME 70.9 fL (80.0-100.0); MEAN PLATELET VOLUME 8.2 fL (7.4-11.0); MONOCYTES # (AUTO) 0.9 x10^3/uL (0.3-0.8); MONOCYTES % (AUTO) 12.3 % (0.0-13.0); NEUTROPHILS # (AUTO) 5.1 x10^3/uL (2.2-4.8); NEUTROPHILS % (AUTO) 72.8 % (42.0-75.0); PLATELET COUNT 220 X10^3/uL (150.0-450.0); RED BLOOD COUNT 3.78 X10^6/uL (3.5-5.4)
[2019-09-26] MEDS: XOPENEX 1.25 MG/3 ML NEBULE NEB SCH ×2 (12:22→21:10)
[2019-09-26 12:25] LABS: ANISOCYTOSIS 1+; HYPOCHROMASIA 2+; PLATELET MORPHOLOGY COMMENT NORMAL (NORMAL); STOMATOCYTES SLIGHT
[2019-09-26 13:29] LABS: CKMB % 1.4 % (<4); CREATINE KINASE MB 1.3 ng/mL (0-4.0); TROPONIN I 0.07 ng/mL (0-1.5)
[2019-09-26] MEDS: MAXIPIME VIAL 1 GRAM 1 G in NS 50 ML IV + SPIKE MINIBAG* 50 ML IV SCH ×2 (13:43→20:39)
[2019-09-26 14:14] LABS: ABG BASE EXCESS 7.1 mmol/L (-2.0-2.0)
[2019-09-26 14:16] LABS: ABG HCO3 34.1 mmol/L (22-26)
[2019-09-26] MEDS: TOPROL XL PO SCH (14:25)
[2019-09-26] MEDS: HumuLIN R IV PRN ×2 (18:04→20:53)
[2019-09-26] MEDS: SNACK - Diabetic Appropriate PO SCH (20:30)
[2019-09-26] MEDS: APRESOLINE TAB 25 MG PO SCH (20:40)
[2019-09-26] MEDS: RANEXA PO SCH (20:40)
[2019-09-26] MEDS: SINEMET (PLAIN) 25/250 MG PO SCH (20:41)
[2019-09-26] MEDS: ZOFRAN INJ 4 MG VIAL IVP PRN (23:30)
[2019-09-26] MEDS: ROBITUSSIN DM PO PRN (23:34)
[2019-09-27 04:59] LABS: BASOPHILS # (AUTO) 0.1 X10^3/uL (0.0-0.1); BASOPHILS % (AUTO) 0.8 % (0.2-1.0); EOSINOPHILS # (AUTO) 0.2 x10^3/uL (0.0-0.2); EOSINOPHILS % (AUTO) 2.1 % (0.9-2.9); HEMATOCRIT 25.8 % (36.0-47.0); HEMOGLOBIN 7.6 g/dL (12.0-16.0); LYMPHOCYTES # (AUTO) 0.9 X10^3/uL (1.3-2.9); LYMPHOCYTES % (AUTO) 9.4 % (21.0-51.0); MEAN CORPUSCULAR HEMOGLOBIN 20.6 pg (27.0-34.0); MEAN CORPUSCULAR HGB CONC 29.3 g/dL (33.0-35.0); MEAN CORPUSCULAR VOLUME 70.2 fL (80.0-100.0); MEAN PLATELET VOLUME 8.2 fL (7.4-11.0); MONOCYTES % (AUTO) 10.5 % (0.0-13.0); NEUTROPHILS # (AUTO) 7.2 x10^3/uL (2.2-4.8); NEUTROPHILS % (AUTO) 77.2 % (42.0-75.0); PLATELET COUNT 234 X10^3/uL (150.0-450.0); RED BLOOD COUNT 3.67 X10^6/uL (3.5-5.4); RED CELL DISTRIBUTION WIDTH 22.2 % (11.6-16.5); WHITE BLOOD COUNT 9.3 X10^3/uL (3.6-10.0)
[2019-09-27 05:15] LABS: ALBUMIN 2.9 g/dL (3.4-5.0); CALCIUM 8.1 mg/dL (8.5-10.1); CARBON DIOXIDE 32.8 mmol/L (21-32); CREATININE 2.27 mg/dL (0.55-1.02); TOTAL PROTEIN 7.3 g/dL (6.4-8.2)
[2019-09-27] MEDS: XOPENEX 1.25 MG/3 ML NEBULE NEB SCH ×3 (05:25→20:50)
[2019-09-27 05:29] LABS: ANISOCYTOSIS 2+; HYPOCHROMASIA 2+; PLATELET MORPHOLOGY COMMENT NORMAL (NORMAL)
[2019-09-27] MEDS ORDERED: NORCO 5/325 MG TAB ONE (06:08)
[2019-09-27] MEDS ORDERED: NORCO 5/325 MG TAB PO ONE (06:10)
[2019-09-27 07:44] LABS: ABG BASE EXCESS 9.4 mmol/L (-2.0-2.0)
[2019-09-27 07:45] LABS: ABG HCO3 35.7 mmol/L (22-26)
[2019-09-27] MEDS: MAXIPIME VIAL 1 GRAM 1 G in NS 50 ML IV + SPIKE MINIBAG* 50 ML IV SCH ×2 (08:23→20:20)
[2019-09-27] MEDS: SINGULAIR TAB 10 MG PO SCH (08:29)
[2019-09-27] MEDS: RANEXA PO SCH ×2 (08:29→20:25)
[2019-09-27] MEDS: SYNTHROID 100 mcg TAB PO SCH (08:30)
[2019-09-27] MEDS: TOPROL XL PO SCH (08:30)
[2019-09-27] MEDS: LASIX IVP SCH (08:30)
[2019-09-27] MEDS: NEURONTIN TAB 600 MG PO SCH (08:30)
[2019-09-27] MEDS: SINEMET (PLAIN) 25/250 MG PO SCH ×2 (08:30→20:20)
[2019-09-27] MEDS: PLAVIX PO SCH (08:31)
[2019-09-27] MEDS: ZETIA TAB 10 MG PO SCH (08:38)
[2019-09-27] MEDS: APRESOLINE TAB 25 MG PO SCH ×2 (08:44→20:20)
[2019-09-27] MEDS ORDERED: ZITHROMAX INJ 500 MG VIAL 250 MG in NS 250 ML IV 250 ML IV SCH (09:00)
--- NOTE | 2019-09-27 09:36 | PCM.PROG ---
Progress Note Progress Note for Day of Date of Exam: 09/27/19 Subjective Subjective: Patient seen at bedside, reports feeling a lot better. She was on BiPAP overnight, currently on 3 L oxygen which she uses at home. Denies fever or chills, has been coughing a lot of mucus. Will repeat CXR, continue IV abx, Lasix and bronchodilators. BiPAP qHS. Past Medical Family Social History Past Med/Fam/Surg Hx: No changes since H&P Allergies: Allergies codeine Allergy (Verified 09/10/19 14:49) colchicine Allergy (Verified 09/10/19 14:49) hydromorphone [From Dilaudid] Allergy (Verified 09/10/19 14:49) morphine Allergy (Verified 09/10/19 14:49) niacin Allergy (Verified 09/10/19 14:49) Review of Systems ROS: No change since H&P Vital Signs and I&O's Vital Signs: Temperature 98.4 F Pulse Rate 78 Respiratory Rate 14 Blood Pressure [Right Arm] 137/86 Blood Pressure 163/72 O2 Sat by Pulse Oximetry 100 Intake and Output: Intake & Output 09/24/19 09/25/19 09/26/19 09/27/19 23:59 23:59 23:59 23:59 Intake Total 782 / 782 350 / 350 Output Total 3275 / 3275 400 / 400 Balance -2493 / -2493 -50 / -50 Physical Exam Oriented: Normal Nose: Normal Throat: Normal Respiratory: Rales Cardiovascular: Normal and Edema (improved) Auscultation: Bowel Sounds: Normal Tenderness: Normal Skin: Other (chronic venous stasis) Musculoskeletal: Normal Psychiatric: Normal Mood Description: Calm Affect: Normal Speech Pattern: Clear and Appropriate Laboratory and Diagnostics Result Diagrams: 09/27/19 04:08 09/27/19 04:08 Labs: 09/26/19 03:05 Sputum - Expectorated Sputum Sputum Culture - Preliminary 09/26/19 03:05 Sputum - Expectorated Sputum - Final Laboratory WBC 9.3 X10^3/uL (3.6-10.0) 09/27/19 04:08 RBC 3.67 X10^6/uL (3.5-5.4) 09/27/19 04:08 Hgb 7.6 g/dL (12.0-16.0) L 09/27/19 04:08 Hct 25.8 % (36.0-47.0) L 09/27/19 04:08 MCV 70.2 fL (80.0-100.0) L 09/27/19 04:08 MCH 20.6 pg (27.0-34.0) L 09/27/19 04:08 MCHC 29.3 g/dL (33.0-35.0) L 09/27/19 04:08 RDW 22.2 % (11.6-16.5) H 09/27/19 04:08 Plt Count 234 X10^3/uL (150.0-450.0) 09/27/19 04:08 Plt Count Comment Adequate (ADEQUATE) 09/27/19 04:08 MPV 8.2 fL (7.4-11.0) 09/27/19 04:08 Neut % (Auto) 77.2 % (42.0-75.0) H 09/27/19 04:08 Lymph % (Auto) 9.4 % (21.0-51.0) L 09/27/19 04:08 [place] % (Auto) 10.5 % (0.0-13.0) 09/27/19 04:08 Eos % (Auto) 2.1 % (0.9-2.9) 09/27/19 04:08 Baso % (Auto) 0.8 % (0.2-1.0) 09/27/19 04:08 Neut # (Auto) 7.2 x10^3/uL (2.2-4.8) H 09/27/19 04:08 Lymph # (Auto) 0.9 X10^3/uL (1.3-2.9) L 09/27/19 04:08 [place] # (Auto) 1.0 x10^3/uL (0.3-0.8) H 09/27/19 04:08 Eos # (Auto) 0.2 x10^3/uL (0.0-0.2) 09/27/19 04:08 Baso # (Auto) 0.1 X10^3/uL (0.0-0.1) 09/27/19 04:08 Absolute Nucleated RBC 0.0 /100WBC 09/27/19 04:08 Plt Morphology Comment Normal (NORMAL) 09/27/19 04:08 RBC Morphology Abnormal (NORMAL) A 09/27/19 04:08 Hypochromasia 2+ A 09/27/19 04:08 Anisocytosis 2+ A 09/27/19 04:08 Stomatocytes Slight A 09/26/19 11:37 PT 15.4 SECONDS (11.8-14.3) 09/26/19 02:33 INR Target Range - 09/26/19 02:33 INR 1.27 (0.8-1.3) 09/26/19 02:33 APTT 32.6 SECONDS (22.9-36.5) 09/26/19 02:33 PTT Comment - 09/26/19 02:33 Sample Site Rb 09/27/19 07:40 ABG pH 7.420 (7.35-7.45) 09/27/19 07:40 ABG pCO2 55.0 mmHg (35.0-45.0) H* 09/27/19 07:40 ABG pO2 85.0 mmHg (80.0-100.0) 09/27/19 07:40 ABG HCO3 35.7 mmol/L (22-26) H* 09/27/19 07:40 ABG O2 Saturation 97.0 % (90-100) 09/27/19 07:40 ABG Base Excess 9.4 mmol/L (-2.0-2.0) H 09/27/19 07:40 Ar Test Na 09/27/19 07:40 A-a Gradient 74.0 mmHg 09/27/19 07:40 FiO2 32.0 09/27/19 07:40 Blood Gas Comments [facility] aw cb 09/27/19 07:40 Sodium 141 mmol/L (136-145) 09/27/19 04:08 Corrected Sodium 142 mmol/L (136-145) 09/27/19 04:08 Potassium 4.5 mmol/L (3.5-5.1) 09/27/19 04:08 Chloride 104 mmol/L (98-107) 09/27/19 04:08 Carbon Dioxide 32.8 mmol/L (21-32) H 09/27/19 04:08 BUN 49 mg/dL (7-18) H 09/27/19 04:08 Creatinine 2.27 mg/dL (0.55-1.02) H 09/27/19 04:08 Est GFR (MDRD) Af Amer 27 (>60) L 09/27/19 04:08 Est GFR (MDRD) Non-Af 23 (>60) L 09/27/19 04:08 Glucose 157 mg/dL (65-99) H 09/27/19 04:08 POC Glucose (mg/dL) 155 mg/dL (65-99) H 09/27/19 05:56 Calcium 8.1 mg/dL (8.5-10.1) L 09/27/19 04:08 Corrected Calcium 9.0 mg/dL (8.5-10.1) 09/27/19 04:08 Magnesium 2.2 mg/dL (1.7-2.9) 09/26/19 02:33 Total Bilirubin 0.60 mg/dL (0.2-1.0) 09/27/19 04:08 AST 20 Units/L (15-37) 09/27/19 04:08 ALT 12 Units/L (12-78) 09/27/19 04:08 Alkaline Phosphatase 104 Units/L (46-116) 09/27/19 04:08 Creatine Kinase 95 Units/L (26-192) 09/26/19 12:23 CK-MB (CK-2) 1.3 ng/mL (0-4.0) 09/26/19 12:23 CK/CKMB % Calc 1.4 % (<4) 09/26/19 12:23 Troponin I 0.07 ng/mL (0-1.5) 09/26/19 12:23 B-Natriuretic Peptide 2420 pg/mL (0-79) H* 09/26/19 02:33 Total Protein 7.3 g/dL (6.4-8.2) 09/27/19 04:08 Albumin 2.9 g/dL (3.4-5.0) L 09/27/19 04:08 Globulin 4.4 g/dL (2.5-4.5) 09/27/19 04:08 Albumin/Globulin Ratio 0.7 Ratio (1.1-2.1) L 09/27/19 04:08 Specimen Type Catherized urine 09/26/19 05:42 Urine Color Yellow (YELLOW) 09/26/19 05:42 Urine Appearance Clear (CLEAR) 09/26/19 05:42 Urine pH 5.0 (5.0 - 8.0) 09/26/19 05:42 Ur Specific [place] 1.015 (1.000-1.030) 09/26/19 05:42 Urine Protein 2+ (NEGATIVE) 09/26/19 05:42 Urine Glucose (UA) Negative (NEGATIVE) 09/26/19 05:42 Urine Ketones Negative (NEGATIVE) 09/26/19 05:42 Urine Occult Blood Negative (NEGATIVE) 09/26/19 05:42 Urine Nitrite Negative (NEGATIVE) 09/26/19 05:42 Urine Bilirubin Negative (NEGATIVE) 09/26/19 05:42 Urine Urobilinogen Normal (NORMAL) 09/26/19 05:42 Ur Leukocyte Esterase Negative (NEGATIVE) 09/26/19 05:42 Urine RBC None seen /HPF (0-3) 09/26/19 05:42 Urine WBC None seen /HPF (0-5) 09/26/19 05:42 Ur Squamous Epith Cells Rare /HPF (NEGATIVE) 09/26/19 05:42 Urine Bacteria Negative /HPF (NEGATIVE) 09/26/19 05:42 Ur Culture Indicated? No/not indicated 09/26/19 05:42 Blood Type A POSITIVE 09/26/19 07:50 Antibody Screen Positive 09/26/19 07:50 Crossmatch See Detail 09/26/19 07:50 Plan (1) Acute respiratory failure with hypoxia and hypercapnia: Status: Acute Plan: ABG this AM: 7.42/55/85/35.7 Continue BiPAP qHS, currently on 3 L oxygen, keep sats >90% Repeat CXR (2) Pneumonia: Status: Acute Qualifiers: Laterality: unspecified laterality Lung location: unspecified part of lung Pneumonia type: due to unspecified organism Qualified Code(s): J18.9 - Pneumonia, unspecified organism Plan: Continue Cefepime and Azithromycin Follow cultures (3) Acute kidney injury superimposed on chronic kidney disease: Status: Acute Plan: Cr trending down, 2.27 baseline 1.7 -1.8 Monitor AM labs Hold losartan (4) Acute exacerbation of congestive heart failure: Status: Acute Qualifiers: Heart failure type: unspecified Qualified Code(s): I50.9 - Heart failure, unspecified Plan: Continue Lasix IV 40 mg daily, strict I/Os, daily weights, monitor UOP ECHO (08/13/19): EF-64% (5) Anemia: Status: Acute Qualifiers: Anemia type: unspecified type Qualified Code(s): D64.9 - Anemia, unspecified Plan: Hgb: 7.6 on admission, baseline 8-9 PRBCs ordered but patient has a specific antibody so will need blood products from outside, 2 units ordered. (6) Hypoxia: Status: Acute Plan: Acute on chronic CXR suggestive of possible infiltrate, sputum cultures pending. Repeat CXR pending (7) Diabetes mellitus, type 2: Status: Chronic Qualifiers: Chronic kidney disease stage: unspecified stage Diabetes mellitus complication detail: with chronic kidney disease Diabetes mellitus complication status: with kidney complications Diabetes mellitus assisted insulin use: with oil heaterman use Qualified Code(s): E11.22 - Type 2 diabetes mellitus with diabetic chronic kidney disease; Z79.4 - MCFP (current) use of insulin Plan: continue SSI, resume levemir 15 units BID (8) History of MS (myocardial infarction): Status: Chronic Plan: resume home meds (9) Hyperlipidemia: Status: Chronic Qualifiers: Hyperlipidemia type: mixed hyperlipidemia Qualified Code(s): E78.2 - Mixed hyperlipidemia (10) PAD (peripheral artery disease): Status: Chronic (11) GERD (gastroesophageal reflux disease): Status: Chronic Qualifiers: Esophagitis presence: esophagitis presence not specified Qualified Code(s): K21.9 - Gastro-esophageal reflux disease without esophagitis (12) Sleep apnea: Status: Chronic Qualifiers: Sleep apnea type: unspecified type Qualified Code(s): G47.30 - Sleep apnea, unspecified
[2019-09-27] MEDS: ZITHROMAX INJ 500 MG VIAL 250 MG in NS 250 ML IV 250 ML IV SCH (09:50)
--- NOTE | 2019-09-27 10:37 | RAD ---
HISTORYEdema, pneumoniaSTUDYAP [id number] cardiomegaly. Chronic coarsening of interstitial pulmonary pattern. Suspect minimal linear atelectasis left lower lobe.IMPRESSIONNo significant interval change since 1 day prior.Electronically signed by: LATOSHA PÉREZ (Sep 27, 2019 10:36:11)
[2019-09-27] MEDS: LEVEMIR SC SCH ×2 (11:35→20:21)
[2019-09-27] MEDS: HumuLIN R IV PRN (16:52)
[2019-09-27] MEDS: SNACK - Diabetic Appropriate PO SCH (20:20)
[2019-09-27] MEDS: ROBITUSSIN DM PO PRN (20:32)
[2019-09-28 05:25] LABS: BASOPHILS # (AUTO) 0.1 X10^3/uL (0.0-0.1); BASOPHILS % (AUTO) 1.3 % (0.2-1.0); EOSINOPHILS # (AUTO) 0.3 x10^3/uL (0.0-0.2); EOSINOPHILS % (AUTO) 4.2 % (0.9-2.9); HEMATOCRIT 25.4 % (36.0-47.0); HEMOGLOBIN 7.3 g/dL (12.0-16.0); LYMPHOCYTES # (AUTO) 0.8 X10^3/uL (1.3-2.9); LYMPHOCYTES % (AUTO) 10.9 % (21.0-51.0); MEAN CORPUSCULAR HEMOGLOBIN 20.5 pg (27.0-34.0); MEAN CORPUSCULAR HGB CONC 28.9 g/dL (33.0-35.0); MEAN CORPUSCULAR VOLUME 70.7 fL (80.0-100.0); MEAN PLATELET VOLUME 8.5 fL (7.4-11.0); MONOCYTES # (AUTO) 0.8 x10^3/uL (0.3-0.8); MONOCYTES % (AUTO) 10.7 % (0.0-13.0); NEUTROPHILS # (AUTO) 5.1 x10^3/uL (2.2-4.8); NEUTROPHILS % (AUTO) 72.9 % (42.0-75.0); PLATELET COUNT 212 X10^3/uL (150.0-450.0); RED BLOOD COUNT 3.59 X10^6/uL (3.5-5.4)
[2019-09-28 05:30] LABS: ALBUMIN 2.9 g/dL (3.4-5.0); CALCIUM 8.3 mg/dL (8.5-10.1); COR CA(FOR HYPOALB) 9.2 mg/dL (8.5-10.1); CREATININE 1.88 mg/dL (0.55-1.02); TOTAL PROTEIN 7.3 g/dL (6.4-8.2)
[2019-09-28] MEDS: XOPENEX 1.25 MG/3 ML NEBULE NEB SCH ×3 (05:30→21:00)
[2019-09-28 05:47] LABS: ANISOCYTOSIS 1+; HYPOCHROMASIA 2+; PLATELET MORPHOLOGY COMMENT NORMAL (NORMAL)
[2019-09-28] MEDS: ZITHROMAX INJ 500 MG VIAL 250 MG in NS 250 ML IV 250 ML IV SCH (09:05)
[2019-09-28] MEDS: LASIX IVP SCH (09:06)
[2019-09-28] MEDS: PLAVIX PO SCH (09:07)
[2019-09-28] MEDS: APRESOLINE TAB 25 MG PO SCH ×2 (09:07→20:27)
[2019-09-28] MEDS: SINEMET (PLAIN) 25/250 MG PO SCH ×2 (09:07→20:27)
[2019-09-28] MEDS: RANEXA PO SCH ×2 (09:07→20:27)
[2019-09-28] MEDS: NEURONTIN TAB 600 MG PO SCH (09:07)
[2019-09-28] MEDS: TOPROL XL PO SCH (09:08)
[2019-09-28] MEDS: LEVEMIR SC SCH ×2 (09:08→20:28)
[2019-09-28] MEDS: ZETIA TAB 10 MG PO SCH (09:08)
[2019-09-28] MEDS: SYNTHROID 100 mcg TAB PO SCH (09:08)
[2019-09-28] MEDS: SINGULAIR TAB 10 MG PO SCH (09:08)
[2019-09-28] MEDS: NORCO 5/325 MG TAB PO PRN ×2 (09:23→20:30)
--- NOTE | 2019-09-28 09:52 | PCM.PROG ---
Progress Note Progress Note for Day of Date of Exam: 09/28/19 Subjective Subjective: Patient seen this AM, reports improvement in her breathing, currently on 3L oxygen which is her baseline. She reports abdominal tightness and increased distension. She does have constipation, had a few small BM's yesterday. Denies nausea or vomiting. CXR stable, sputum normal wilbert. Will get a KUB to rule out SBO, continue IV Lasix. DC Cefepime. Past Medical Family Social History Past Med/Fam/Surg Hx: No changes since H&P Allergies: Allergies codeine Allergy (Verified 09/10/19 14:49) colchicine Allergy (Verified 09/10/19 14:49) hydromorphone [From Dilaudid] Allergy (Verified 09/10/19 14:49) morphine Allergy (Verified 09/10/19 14:49) niacin Allergy (Verified 09/10/19 14:49) Review of Systems ROS: No change since H&P Vital Signs and I&O's Vital Signs: Temperature 98.8 F Pulse Rate 84 Respiratory Rate 24 Blood Pressure [Right Arm] 137/86 Blood Pressure 123/58 O2 Sat by Pulse Oximetry 97 Intake and Output: Intake & Output 09/25/19 09/26/19 09/27/19 09/28/19 23:59 23:59 23:59 23:59 Intake Total 782 / 782 2481 / 2481 230 / 230 Output Total 3275 / 3275 1999 / 1999 350 / 350 Balance -2493 / -2493 481 / 481 -120 / -120 Physical Exam Oriented: Normal Nose: Normal Throat: Normal Respiratory: Rales Cardiovascular: Normal and Edema (improved) Auscultation: Bowel Sounds: Decreased Tenderness: Diffuse and Other (distended and tight) Skin: Other (chronic venous stasis) Musculoskeletal: Normal Psychiatric: Normal Mood Description: Calm Affect: Normal Speech Pattern: Clear and Appropriate Laboratory and Diagnostics Result Diagrams: 09/28/19 04:07 09/28/19 04:07 Labs: 09/26/19 03:05 Sputum - Expectorated Sputum Sputum Culture - Final 09/26/19 03:05 Sputum - Expectorated Sputum - Final 09/26/19 02:43 Blood Blood Culture - Preliminary 09/26/19 02:33 Blood Blood Culture - Preliminary Laboratory WBC 7.0 X10^3/uL (3.6-10.0) 09/28/19 04:07 RBC 3.59 X10^6/uL (3.5-5.4) 09/28/19 04:07 Hgb 7.3 g/dL (12.0-16.0) L 09/28/19 04:07 Hct 25.4 % (36.0-47.0) L 09/28/19 04:07 MCV 70.7 fL (80.0-100.0) L 09/28/19 04:07 MCH 20.5 pg (27.0-34.0) L 09/28/19 04:07 MCHC 28.9 g/dL (33.0-35.0) L 09/28/19 04:07 RDW 22.0 % (11.6-16.5) H 09/28/19 04:07 Plt Count 212 X10^3/uL (150.0-450.0) 09/28/19 04:07 Plt Count Comment Adequate (ADEQUATE) 09/28/19 04:07 MPV 8.5 fL (7.4-11.0) 09/28/19 04:07 Neut % (Auto) 72.9 % (42.0-75.0) 09/28/19 04:07 Lymph % (Auto) 10.9 % (21.0-51.0) L 09/28/19 04:07 Cassia % (Auto) 10.7 % (0.0-13.0) 09/28/19 04:07 Eos % (Auto) 4.2 % (0.9-2.9) H 09/28/19 04:07 Baso % (Auto) 1.3 % (0.2-1.0) H 09/28/19 04:07 Neut # (Auto) 5.1 x10^3/uL (2.2-4.8) H 09/28/19 04:07 Lymph # (Auto) 0.8 X10^3/uL (1.3-2.9) L 09/28/19 04:07 Cassia # (Auto) 0.8 x10^3/uL (0.3-0.8) 09/28/19 04:07 Eos # (Auto) 0.3 x10^3/uL (0.0-0.2) H 09/28/19 04:07 Baso # (Auto) 0.1 X10^3/uL (0.0-0.1) 09/28/19 04:07 Absolute Nucleated RBC 0.5 /100WBC 09/28/19 04:07 Plt Morphology Comment Normal (NORMAL) 09/28/19 04:07 RBC Morphology Abnormal (NORMAL) A 09/28/19 04:07 Hypochromasia 2+ A 09/28/19 04:07 Anisocytosis 1+ A 09/28/19 04:07 Stomatocytes Slight A 09/26/19 11:37 PT 15.4 SECONDS (11.8-14.3) 09/26/19 02:33 INR Target Range - 09/26/19 02:33 INR 1.27 (0.8-1.3) 09/26/19 02:33 APTT 32.6 SECONDS (22.9-36.5) 09/26/19 02:33 PTT Comment - 09/26/19 02:33 Sample Site Rb 09/27/19 07:40 ABG pH 7.420 (7.35-7.45) 09/27/19 07:40 ABG pCO2 55.0 mmHg (35.0-45.0) H* 09/27/19 07:40 ABG pO2 85.0 mmHg (80.0-100.0) 09/27/19 07:40 ABG HCO3 35.7 mmol/L (22-26) H* 09/27/19 07:40 ABG O2 Saturation 97.0 % (90-100) 09/27/19 07:40 ABG Base Excess 9.4 mmol/L (-2.0-2.0) H 09/27/19 07:40 Ar Test Na 09/27/19 07:40 A-a Gradient 74.0 mmHg 09/27/19 07:40 FiO2 32.0 09/27/19 07:40 Blood Gas Comments Sandy well aw cb 09/27/19 07:40 Sodium 141 mmol/L (136-145) 09/28/19 04:07 Corrected Sodium 142 mmol/L (136-145) 09/28/19 04:07 Potassium 4.3 mmol/L (3.5-5.1) 09/28/19 04:07 Chloride 103 mmol/L (98-107) 09/28/19 04:07 Carbon Dioxide 32.0 mmol/L (21-32) 09/28/19 04:07 BUN 45 mg/dL (7-18) H 09/28/19 04:07 Creatinine 1.88 mg/dL (0.55-1.02) H 09/28/19 04:07 Est GFR (MDRD) Af Amer 34 (>60) L 09/28/19 04:07 Est GFR (MDRD) Non-Af 28 (>60) L 09/28/19 04:07 Glucose 144 mg/dL (65-99) H 09/28/19 04:07 POC Glucose (mg/dL) 134 mg/dL (65-99) H 09/28/19 05:17 Calcium 8.3 mg/dL (8.5-10.1) L 09/28/19 04:07 Corrected Calcium 9.2 mg/dL (8.5-10.1) 09/28/19 04:07 Magnesium 2.2 mg/dL (1.7-2.9) 09/26/19 02:33 Total Bilirubin 0.40 mg/dL (0.2-1.0) 09/28/19 04:07 AST 19 Units/L (15-37) 09/28/19 04:07 ALT 11 Units/L (12-78) L 09/28/19 04:07 Alkaline Phosphatase 101 Units/L (46-116) 09/28/19 04:07 Creatine Kinase 95 Units/L (26-192) 09/26/19 12:23 CK-MB (CK-2) 1.3 ng/mL (0-4.0) 09/26/19 12:23 CK/CKMB % Calc 1.4 % (<4) 09/26/19 12:23 Troponin I 0.07 ng/mL (0-1.5) 09/26/19 12:23 B-Natriuretic Peptide 2420 pg/mL (0-79) H* 09/26/19 02:33 Total Protein 7.3 g/dL (6.4-8.2) 09/28/19 04:07 Albumin 2.9 g/dL (3.4-5.0) L 09/28/19 04:07 Globulin 4.4 g/dL (2.5-4.5) 09/28/19 04:07 Albumin/Globulin Ratio 0.7 Ratio (1.1-2.1) L 09/28/19 04:07 Specimen Type Catherized urine 09/26/19 05:42 Urine Color Yellow (YELLOW) 09/26/19 05:42 Urine Appearance Clear (CLEAR) 09/26/19 05:42 Urine pH 5.0 (5.0 - 8.0) 09/26/19 05:42 Ur Specific [place] 1.015 (1.000-1.030) 09/26/19 05:42 Urine Protein 2+ (NEGATIVE) 09/26/19 05:42 Urine Glucose (UA) Negative (NEGATIVE) 09/26/19 05:42 Urine Ketones Negative (NEGATIVE) 09/26/19 05:42 Urine Occult Blood Negative (NEGATIVE) 09/26/19 05:42 Urine Nitrite Negative (NEGATIVE) 09/26/19 05:42 Urine Bilirubin Negative (NEGATIVE) 09/26/19 05:42 Urine Urobilinogen Normal (NORMAL) 09/26/19 05:42 Ur Leukocyte Esterase Negative (NEGATIVE) 09/26/19 05:42 Urine RBC None seen /HPF (0-3) 09/26/19 05:42 Urine WBC None seen /HPF (0-5) 09/26/19 05:42 Ur Squamous Epith Cells Rare /HPF (NEGATIVE) 09/26/19 05:42 Urine Bacteria Negative /HPF (NEGATIVE) 09/26/19 05:42 Ur Culture Indicated? No/not indicated 09/26/19 05:42 Blood Type A POSITIVE 09/26/19 07:50 Antibody Screen Positive 09/26/19 07:50 Crossmatch See Detail 09/26/19 07:50 Plan (1) Acute respiratory failure with hypoxia and hypercapnia: Status: Acute Plan: Last ABG 7.42/55/85/35.7 currently on 3 L oxygen, keep sats >90% (2) Constipation: Status: Acute Qualifiers: Constipation type: chronic idiopathic constipation Qualified Code(s): K59.04 - Chronic idiopathic constipation Plan: will get a KUB, NPO till then Add miralax and docusate (3) Pneumonia: Status: Acute Qualifiers: Laterality: unspecified laterality Lung location: unspecified part of lung Pneumonia type: due to unspecified organism Qualified Code(s): J18.9 - Pneumonia, unspecified organism Plan: Continue Azithromycin Sputum Cx: normal wilbert, will DC Cefepime (4) Acute kidney injury superimposed on chronic kidney disease: Status: Acute Plan: Cr 1.88, baseline 1.7 -1.8 Monitor AM labs Hold losartan (5) Acute exacerbation of congestive heart failure: Status: Acute Qualifiers: Heart failure type: unspecified Qualified Code(s): I50.9 - Heart fail ure, unspecified Plan: Continue Lasix IV 40 mg daily, strict I/Os, daily weights, monitor UOP ECHO (08/13/19): EF-64% (6) Anemia: Status: Acute Qualifiers: Anemia type: unspecified type Qualified Code(s): D64.9 - Anemia, unspecified Plan: Hgb: 7.3 baseline 8-9 PRBCs ordered but patient has a specific antibody so will need blood products from outside, 2 units ordered. (7) Hypoxia: Status: Acute Plan: Acute on chronic Uses 3L nasal canula at home (8) Diabetes mellitus, type 2: Status: Chronic Qualifiers: Chronic kidney disease stage: unspecified stage Diabetes mellitus complication detail: with chronic kidney disease Diabetes mellitus complication status: with kidney complications Diabetes mellitus terminal clerk insulin use: with detention use Qualified Code(s): E11.22 - Type 2 diabetes mellitus with diabetic chronic kidney disease; Z79.4 - [facility] (current) use of insulin Plan: continue SSI, resume levemir 15 units BID (9) History of [place] (myocardial infarction): Status: Chronic Plan: resume home meds (10) Hyperlipidemia: Status: Chronic Qualifiers: Hyperlipidemia type: mixed hyperlipidemia Qualified Code(s): E78.2 - Mixed hyperlipidemia (11) PAD (peripheral artery disease): Status: Chronic (12) GERD (gastroesophageal reflux disease): Status: Chronic Qualifiers: Esophagitis presence: esophagitis presence not specified Qualified Code(s): K21.9 - Gastro-esophageal reflux disease without esophagitis (13) Sleep apnea: Status: Chronic Qualifiers: Sleep apnea type: unspecified type Qualified Code(s): G47.30 - Sleep apnea, unspecified
[2019-09-28] MEDS ORDERED: ZITHROMAX TAB 250 MG PO SCH (10:00)
[2019-09-28] MEDS: MIRALAX POWDER (1 DOSE 17 G) PO SCH (10:33)
[2019-09-28] MEDS: COLACE SYRUP 100 MG UDC PO SCH ×2 (10:33→20:28)
[2019-09-28] MEDS: HumuLIN R IV PRN ×2 (12:25→19:28)
--- NOTE | 2019-09-28 16:45 | RAD ---
KUBHISTORY: abd distentionStudy: 2 flat views views of the abdomenComparison:NoneFindings:There is a normal bowel gas pattern.No free air..No abnormal calcifications or abnormal soft tissue shadows. No acute bony abnormalities.IMPRESSION:1. No evidence for acute abdominal pathology.Electronically signed by: VALENTE ZAYAS (Sep 28, 2019 16:43:35)
[2019-09-28] MEDS: SNACK - Diabetic Appropriate PO SCH (20:26)
[2019-09-28] MEDS: ROBITUSSIN DM PO PRN (20:27)
[2019-09-29] MEDS: XOPENEX 1.25 MG/3 ML NEBULE NEB SCH ×3 (05:23→20:16)
[2019-09-29 05:32] LABS: BASOPHILS % (AUTO) 0.8 % (0.2-1.0); EOSINOPHILS # (AUTO) 0.3 x10^3/uL (0.0-0.2); EOSINOPHILS % (AUTO) 5.1 % (0.9-2.9); HEMATOCRIT 25.7 % (36.0-47.0); HEMOGLOBIN 7.5 g/dL (12.0-16.0); LYMPHOCYTES # (AUTO) 0.6 X10^3/uL (1.3-2.9); LYMPHOCYTES % (AUTO) 11.1 % (21.0-51.0); MEAN CORPUSCULAR HEMOGLOBIN 20.7 pg (27.0-34.0); MEAN CORPUSCULAR HGB CONC 29.3 g/dL (33.0-35.0); MEAN CORPUSCULAR VOLUME 70.6 fL (80.0-100.0); MEAN PLATELET VOLUME 8.5 fL (7.4-11.0); MONOCYTES # (AUTO) 0.6 x10^3/uL (0.3-0.8); MONOCYTES % (AUTO) 10.8 % (0.0-13.0); NEUTROPHILS # (AUTO) 4.2 x10^3/uL (2.2-4.8); NEUTROPHILS % (AUTO) 72.2 % (42.0-75.0); PLATELET COUNT 200 X10^3/uL (150.0-450.0); RED BLOOD COUNT 3.64 X10^6/uL (3.5-5.4); RED CELL DISTRIBUTION WIDTH 21.8 % (11.6-16.5); WHITE BLOOD COUNT 5.8 X10^3/uL (3.6-10.0)
[2019-09-29 05:53] LABS: ALANINE AMINOTRANSFERASE 8 Units/L (12-78); ALKALINE PHOSPHATASE 99 Units/L (46-116); ASPARTATE AMINO TRANSFERASE 20 Units/L (15-37); BLOOD UREA NITROGEN 38 mg/dL (7-18); CALCIUM 8.3 mg/dL (8.5-10.1); CARBON DIOXIDE 32.7 mmol/L (21-32); CHLORIDE 103 mmol/L (98-107); COR CA(FOR HYPOALB) 9.1 mg/dL (8.5-10.1); CREATININE 1.67 mg/dL (0.55-1.02); SODIUM 142 mmol/L (136-145); TOTAL PROTEIN 7.5 g/dL (6.4-8.2); eGFR NON BLACK RACES 32 (>60)
[2019-09-29 06:09] LABS: PLATELET MORPHOLOGY COMMENT NORMAL (NORMAL)
[2019-09-29 06:10] LABS: ANISOCYTOSIS 1+; HYPOCHROMASIA 2+
[2019-09-29] MEDS: ZITHROMAX TAB 250 MG PO SCH (08:46)
[2019-09-29] MEDS: TOPROL XL PO SCH (08:46)
[2019-09-29] MEDS: LASIX IVP SCH (08:46)
[2019-09-29] MEDS: COLACE CAP 100 MG PO SCH ×2 (08:47→21:13)
[2019-09-29] MEDS: RANEXA PO SCH ×2 (08:47→21:14)
[2019-09-29] MEDS: NEURONTIN TAB 600 MG PO SCH (08:47)
[2019-09-29] MEDS: SINGULAIR TAB 10 MG PO SCH (08:48)
[2019-09-29] MEDS: MIRALAX POWDER (1 DOSE 17 G) PO SCH (08:48)
[2019-09-29] MEDS: SINEMET (PLAIN) 25/250 MG PO SCH ×2 (08:48→21:14)
[2019-09-29] MEDS: APRESOLINE TAB 25 MG PO SCH ×2 (08:48→21:13)
[2019-09-29] MEDS: SYNTHROID 100 mcg TAB PO SCH (08:48)
[2019-09-29] MEDS: ZETIA TAB 10 MG PO SCH (08:50)
[2019-09-29] MEDS: PLAVIX PO SCH (08:59)
[2019-09-29] MEDS: LEVEMIR SC SCH ×2 (09:24→21:13)
--- NOTE | 2019-09-29 09:35 | PCM.PROG ---
Progress Note Progress Note for Day of Date of Exam: 09/29/19 Subjective Subjective: Patient seen at bedside, reports feeling better. She had a BM yesterday, abdominal discomfort has improved. KUB negative for SBO. She denies nausea or vomiting. She is currently on 3L oxygen, similar to her home settings. She has not been ambulating as much here so not sure if her breathing is at her baseline yet. Will switch to PO Lasix. Transfer to floor and PT consult. Past Medical Family Social History Past Med/Fam/Surg Hx: No changes since H&P Allergies: Allergies codeine Allergy (Verified 09/10/19 14:49) colchicine Allergy (Verified 09/10/19 14:49) hydromorphone [From Dilaudid] Allergy (Verified 09/10/19 14:49) morphine Allergy (Verified 09/10/19 14:49) niacin Allergy (Verified 09/10/19 14:49) Review of Systems ROS: No change since H&P Vital Signs and I&O's Vital Signs: Temperature 97.9 F Pulse Rate 69 Respiratory Rate 18 Blood Pressure [Right Arm] 137/86 Blood Pressure 152/65 O2 Sat by Pulse Oximetry 100 Intake and Output: Intake & Output 09/26/19 09/27/19 09/28/19 09/29/19 23:59 23:59 23:59 23:59 Intake Total 782 / 782 2481 / 2481 1751 / 1751 410 / 410 Output Total 3275 / 3275 1999 / 1999 2325 / 2325 250 / 250 Balance -2493 / -2493 481 / 481 -574 / -574 160 / 160 Physical Exam Oriented: Normal Nose: Normal Throat: Normal Respiratory: Rales (decreased ) Cardiovascular: Normal and Edema (resolved) Auscultation: Bowel Sounds: Decreased Tenderness: Normal and Other (still distended but not as tight) Skin: Normal and Other (chronic venous stasis) Musculoskeletal: Normal Psychiatric: Normal Mood Description: Calm Affect: Normal Speech Pattern: Clear and Appropriate Laboratory and Diagnostics Result Diagrams: 09/29/19 04:02 09/29/19 04:02 Labs: 09/26/19 03:05 Sputum - Expectorated Sputum Sputum Culture - Final 09/26/19 03:05 Sputum - Expectorated Sputum - Final 09/26/19 02:43 Blood Blood Culture - Preliminary 09/26/19 02:33 Blood Blood Culture - Preliminary Laboratory WBC 5.8 X10^3/uL (3.6-10.0) 09/29/19 04:02 RBC 3.64 X10^6/uL (3.5-5.4) 09/29/19 04:02 Hgb 7.5 g/dL (12.0-16.0) L 09/29/19 04:02 Hct 25.7 % (36.0-47.0) L 09/29/19 04:02 MCV 70.6 fL (80.0-100.0) L 09/29/19 04:02 MCH 20.7 pg (27.0-34.0) L 09/29/19 04:02 MCHC 29.3 g/dL (33.0-35.0) L 09/29/19 04:02 RDW 21.8 % (11.6-16.5) H 09/29/19 04:02 Plt Count 200 X10^3/uL (150.0-450.0) 09/29/19 04:02 Plt Count Comment Adequate (ADEQUATE) 09/29/19 04:02 MPV 8.5 fL (7.4-11.0) 09/29/19 04:02 Neut % (Auto) 72.2 % (42.0-75.0) 09/29/19 04:02 Lymph % (Auto) 11.1 % (21.0-51.0) L 09/29/19 04:02 [place] % (Auto) 10.8 % (0.0-13.0) 09/29/19 04:02 Eos % (Auto) 5.1 % (0.9-2.9) H 09/29/19 04:02 Baso % (Auto) 0.8 % (0.2-1.0) 09/29/19 04:02 Neut # (Auto) 4.2 x10^3/uL (2.2-4.8) 09/29/19 04:02 Lymph # (Auto) 0.6 X10^3/uL (1.3-2.9) L 09/29/19 04:02 George # (Auto) 0.6 x10^3/uL (0.3-0.8) 09/29/19 04:02 Eos # (Auto) 0.3 x10^3/uL (0.0-0.2) H 09/29/19 04:02 Baso # (Auto) 0.0 X10^3/uL (0.0-0.1) 09/29/19 04:02 Absolute Nucleated RBC 0.5 /100WBC 09/29/19 04:02 Plt Morphology Comment Normal (NORMAL) 09/29/19 04:02 RBC Morphology Abnormal (NORMAL) A 09/29/19 04:02 Hypochromasia 2+ A 09/29/19 04:02 Anisocytosis 1+ A 09/29/19 04:02 Stomatocytes Slight A 09/26/19 11:37 PT 15.4 SECONDS (11.8-14.3) 09/26/19 02:33 INR Target Range - 09/26/19 02:33 INR 1.27 (0.8-1.3) 09/26/19 02:33 APTT 32.6 SECONDS (22.9-36.5) 09/26/19 02:33 PTT Comment - 09/26/19 02:33 Sample Site Rb 09/27/19 07:40 ABG pH 7.420 (7.35-7.45) 09/27/19 07:40 ABG pCO2 55.0 mmHg (35.0-45.0) H* 09/27/19 07:40 ABG pO2 85.0 mmHg (80.0-100.0) 09/27/19 07:40 ABG HCO3 35.7 mmol/L (22-26) H* 09/27/19 07:40 ABG O2 Saturation 97.0 % (90-100) 09/27/19 07:40 ABG Base Excess 9.4 mmol/L (-2.0-2.0) H 09/27/19 07:40 Ar Test Na 09/27/19 07:40 A-a Gradient 74.0 mmHg 09/27/19 07:40 FiO2 32.0 09/27/19 07:40 Blood Gas Comments Sandy well aw cb 09/27/19 07:40 Sodium 142 mmol/L (136-145) 09/29/19 04:02 Corrected Sodium TNP 09/29/19 04:02 Potassium 4.1 mmol/L (3.5-5.1) 09/29/19 04:02 Chloride 103 mmol/L (98-107) 09/29/19 04:02 Carbon Dioxide 32.7 mmol/L (21-32) H 09/29/19 04:02 BUN 38 mg/dL (7-18) H 09/29/19 04:02 Creatinine 1.67 mg/dL (0.55-1.02) H 09/29/19 04:02 Est GFR (MDRD) Af Amer 39 (>60) L 09/29/19 04:02 Est GFR (MDRD) Non-Af 32 (>60) L 09/29/19 04:02 Glucose 87 mg/dL (65-99) 09/29/19 04:02 POC Glucose (mg/dL) 168 mg/dL (65-99) H 09/29/19 09:21 Calcium 8.3 mg/dL (8.5-10.1) L 09/29/19 04:02 Corrected Calcium 9.1 mg/dL (8.5-10.1) 09/29/19 04:02 Magnesium 2.2 mg/dL (1.7-2.9) 09/26/19 02:33 Total Bilirubin 0.60 mg/dL (0.2-1.0) 09/29/19 04:02 AST 20 Units/L (15-37) 09/29/19 04:02 ALT 8 Units/L (12-78) L 09/29/19 04:02 Alkaline Phosphatase 99 Units/L (46-116) 09/29/19 04:02 Creatine Kinase 95 Units/L (26-192) 09/26/19 12:23 CK-MB (CK-2) 1.3 ng/mL (0-4.0) 09/26/19 12:23 CK/CKMB % Calc 1.4 % (<4) 09/26/19 12:23 Troponin I 0.07 ng/mL (0-1.5) 09/26/19 12:23 B-Natriuretic Peptide 2420 pg/mL (0-79) H* 09/26/19 02:33 Total Protein 7.5 g/dL (6.4-8.2) 09/29/19 04:02 Albumin 3.0 g/dL (3.4-5.0) L 09/29/19 04:02 Globulin 4.5 g/dL (2.5-4.5) 09/29/19 04:02 Albumin/Globulin Ratio 0.7 Ratio (1.1-2.1) L 09/29/19 04:02 Specimen Type Catherized urine 09/26/19 05:42 Urine Color Yellow (YELLOW) 09/26/19 05:42 Urine Appearance Clear (CLEAR) 09/26/19 05:42 Urine pH 5.0 (5.0 - 8.0) 09/26/19 05:42 Ur Specific [place] 1.015 (1.000-1.030) 09/26/19 05:42 Urine Protein 2+ (NEGATIVE) 09/26/19 05:42 Urine Glucose (UA) Negative (NEGATIVE) 09/26/19 05:42 Urine Ketones Negative (NEGATIVE) 09/26/19 05:42 Urine Occult Blood Negative (NEGATIVE) 09/26/19 05:42 Urine Nitrite Negative (NEGATIVE) 09/26/19 05:42 Urine Bilirubin Negative (NEGATIVE) 09/26/19 05:42 Urine Urobilinogen Normal (NORMAL) 09/26/19 05:42 Ur Leukocyte Esterase Negative (NEGATIVE) 09/26/19 05:42 Urine RBC None seen /HPF (0-3) 09/26/19 05:42 Urine WBC None seen /HPF (0-5) 09/26/19 05:42 Ur Squamous Epith Cells Rare /HPF (NEGATIVE) 09/26/19 05:42 Urine Bacteria Negative /HPF (NEGATIVE) 09/26/19 05:42 Ur Culture Indicated? No/not indicated 09/26/19 05:42 Blood Type A POSITIVE 09/26/19 07:50 Antibody Screen Positive 09/26/19 07:50 Crossmatch See Detail 09/26/19 07:50 Plan (1) Acute respiratory failure with hypoxia and hypercapnia: Status: Acute Plan: Last ABG 7.42/55/85/35.7 currently on 3 L oxygen, keep sats >90% Improved (2) Constipation: Status: Acute Qualifiers: Constipation type: chronic idiopathic constipation Qualified Code(s): K59.04 - Chronic idiopathic constipation Plan: KUB negative for SBO Continue miralax and docusate (3) Pneumonia: Status: Acute Qualifiers: Laterality: unspecified laterality Lung location: unspecified part of lung Pneumonia type: due to unspecified organism Qualified Code(s): J18.9 - Pneumonia, unspecified organism Plan: Continue Azithromycin Sputum Cx: normal wilbert (4) Acute kidney injury superimposed on chronic kidney disease: Status: Acute Plan: Cr 1.67, baseline 1.7 -1.8 Monitor AM labs Resume losartan (5) Acute exacerbation of congestive heart failure: Status: Acute Qualifiers: Heart failure type: unspecified Qualified Code(s): I50.9 - Heart failure, unspecified Plan: Switch to PO Lasix, strict I/Os, daily weights, monitor UOP ECHO (08/13/19): EF-64% (6) Anemia: Status: Acute Qualifiers: Anemia type: unspecified type Qualified Code(s): D64.9 - Anemia, unspecified Plan: Hgb: 7.5 baseline 8-9 (7) Hypoxia: Status: Acute Plan: Acute on chronic, almost back to baseline. PT consult Uses 3L nasal canula at home (8) Diabetes mellitus, type 2: Status: Chronic Qualifiers: Chronic kidney disease stage: unspecified stage Diabetes mellitus complication detail: with chronic kidney disease Diabetes mellitus complication status: with kidney complications Diabetes mellitus fpc insulin use: with fpc use Qualified Code(s): E11.22 - Type 2 diabetes mellitus with diabetic chronic kidney disease; Z79.4 - care home (current) use of insulin Plan: continue SSI, resume levemir 15 units BID (9) History of [place] (myocardial infarction): Status: Chronic Plan: resume home meds (10) Hyperlipidemia: Status: Chronic Qualifiers: Hyperlipidemia type: mixed hyperlipidemia Qualified Code(s): E78.2 - Mixed hyperlipidemia (11) PAD (peripheral artery disease): Status: Chronic (12) GERD (gastroesophageal reflux disease): Status: Chronic Qualifiers: Esophagitis presence: esophagitis presence not specified Qualified Code(s): K21.9 - Gastro-esophageal reflux disease without esophagitis (13) Sleep apnea: Status: Chronic Qualifiers: Sleep apnea type: unspecified type Qualified Code(s): G47.30 - Sleep apnea, unspecified
[2019-09-29] MEDS: ROBITUSSIN DM PO PRN (09:42)
[2019-09-29] MEDS: COZAAR PO SCH ×2 (11:22→21:13)
[2019-09-29] MEDS: SNACK - Diabetic Appropriate PO SCH (21:13)
[2019-09-30] MEDS: NORCO 5/325 MG TAB PO PRN ×2 (03:47→21:00)
[2019-09-30] MEDS: XOPENEX 1.25 MG/3 ML NEBULE NEB SCH ×3 (05:44→20:10)
[2019-09-30 05:57] LABS: BLOOD UREA NITROGEN 32 mg/dL (7-18); CALCIUM 8.3 mg/dL (8.5-10.1); CARBON DIOXIDE 33.3 mmol/L (21-32); CHLORIDE 104 mmol/L (98-107); CREATININE 1.54 mg/dL (0.55-1.02); SODIUM 143 mmol/L (136-145); eGFR NON BLACK RACES 35 (>60)
[2019-09-30 06:30] LABS: BASOPHILS # (AUTO) 0.1 X10^3/uL (0.0-0.1); BASOPHILS % (AUTO) 1.2 % (0.2-1.0); EOSINOPHILS # (AUTO) 0.3 x10^3/uL (0.0-0.2); EOSINOPHILS % (AUTO) 5.4 % (0.9-2.9); HEMATOCRIT 24.9 % (36.0-47.0); HEMOGLOBIN 7.3 g/dL (12.0-16.0); LYMPHOCYTES # (AUTO) 0.8 X10^3/uL (1.3-2.9); LYMPHOCYTES % (AUTO) 15.8 % (21.0-51.0); MEAN CORPUSCULAR HEMOGLOBIN 20.6 pg (27.0-34.0); MEAN CORPUSCULAR HGB CONC 29.2 g/dL (33.0-35.0); MEAN CORPUSCULAR VOLUME 70.7 fL (80.0-100.0); MEAN PLATELET VOLUME 8.6 fL (7.4-11.0); MONOCYTES # (AUTO) 0.6 x10^3/uL (0.3-0.8); MONOCYTES % (AUTO) 11.4 % (0.0-13.0); NEUTROPHILS # (AUTO) 3.3 x10^3/uL (2.2-4.8); NEUTROPHILS % (AUTO) 66.2 % (42.0-75.0); PLATELET COUNT 198 X10^3/uL (150.0-450.0); RED BLOOD COUNT 3.52 X10^6/uL (3.5-5.4); RED CELL DISTRIBUTION WIDTH 21.6 % (11.6-16.5)
[2019-09-30 07:03] LABS: ANISOCYTOSIS 1+; HYPOCHROMASIA 2+; PLATELET MORPHOLOGY COMMENT NORMAL (NORMAL)
[2019-09-30] MEDS: RANEXA PO SCH ×2 (10:17→21:45)
[2019-09-30] MEDS: COLACE CAP 100 MG PO SCH ×2 (10:17→21:42)
[2019-09-30] MEDS: SINEMET (PLAIN) 25/250 MG PO SCH ×2 (10:18→21:45)
[2019-09-30] MEDS: PLAVIX PO SCH (10:18)
[2019-09-30] MEDS: ZITHROMAX TAB 250 MG PO SCH (10:19)
[2019-09-30] MEDS: COZAAR PO SCH ×2 (10:19→21:42)
[2019-09-30] MEDS: SYNTHROID 100 mcg TAB PO SCH (10:19)
[2019-09-30] MEDS: APRESOLINE TAB 25 MG PO SCH ×2 (10:19→21:41)
[2019-09-30] MEDS: NEURONTIN TAB 600 MG PO SCH (10:20)
[2019-09-30] MEDS: SINGULAIR TAB 10 MG PO SCH (10:20)
[2019-09-30] MEDS: ZETIA TAB 10 MG PO SCH (10:20)
[2019-09-30] MEDS: MIRALAX POWDER (1 DOSE 17 G) PO SCH (10:21)
[2019-09-30] MEDS: TOPROL XL PO SCH (10:34)
[2019-09-30] MEDS: LASIX PO SCH (10:34)
[2019-09-30] MEDS: LEVEMIR SC SCH ×2 (10:35→21:42)
[2019-09-30] MEDS ORDERED: NS 500 ML IV 500 ML IV ONE (10:56)
[2019-09-30] MEDS: ZOFRAN INJ 4 MG VIAL IVP PRN (11:19)
[2019-09-30] MEDS ORDERED: LASIX IVP ONE (15:54)
[2019-09-30 16:25] LABS: HEMATOCRIT 32.3 % (36.0-47.0); HEMOGLOBIN 9.5 g/dL (12.0-16.0)
[2019-09-30] MEDS ORDERED: LASIX ONE (17:14)
[2019-09-30] MEDS: SNACK - Diabetic Appropriate PO SCH (21:41)
[2019-10-01] MEDS: NORCO 5/325 MG TAB PO PRN ×3 (02:51→22:34)
[2019-10-01] MEDS: XOPENEX 1.25 MG/3 ML NEBULE NEB SCH ×3 (05:35→20:17)
[2019-10-01 06:20] LABS: BASOPHILS # (AUTO) 0.1 X10^3/uL (0.0-0.1); BASOPHILS % (AUTO) 1.6 % (0.2-1.0); EOSINOPHILS # (AUTO) 0.3 x10^3/uL (0.0-0.2); EOSINOPHILS % (AUTO) 5.9 % (0.9-2.9); HEMATOCRIT 27.4 % (36.0-47.0); HEMOGLOBIN 8.2 g/dL (12.0-16.0); LYMPHOCYTES # (AUTO) 0.8 X10^3/uL (1.3-2.9); LYMPHOCYTES % (AUTO) 17.1 % (21.0-51.0); MEAN CORPUSCULAR HGB CONC 29.9 g/dL (33.0-35.0); MEAN CORPUSCULAR VOLUME 73.8 fL (80.0-100.0); MEAN PLATELET VOLUME 8.5 fL (7.4-11.0); MONOCYTES # (AUTO) 0.6 x10^3/uL (0.3-0.8); MONOCYTES % (AUTO) 11.4 % (0.0-13.0); NEUTROPHILS # (AUTO) 3.1 x10^3/uL (2.2-4.8); PLATELET COUNT 171 X10^3/uL (150.0-450.0); RED BLOOD COUNT 3.72 X10^6/uL (3.5-5.4); RED CELL DISTRIBUTION WIDTH 23.4 % (11.6-16.5); WHITE BLOOD COUNT 4.9 X10^3/uL (3.6-10.0)
[2019-10-01 06:27] LABS: CALCIUM 8.4 mg/dL (8.5-10.1); CARBON DIOXIDE 35.3 mmol/L (21-32); CREATININE 1.62 mg/dL (0.55-1.02)
[2019-10-01 06:53] LABS: ANISOCYTOSIS 2+; HYPOCHROMASIA 1+; PLATELET MORPHOLOGY COMMENT NORMAL (NORMAL)
[2019-10-01] MEDS: MIRALAX POWDER (1 DOSE 17 G) PO SCH (09:54)
[2019-10-01] MEDS: COZAAR PO SCH ×2 (09:55→21:24)
[2019-10-01] MEDS: SINEMET (PLAIN) 25/250 MG PO SCH ×2 (09:55→21:24)
[2019-10-01] MEDS: APRESOLINE TAB 25 MG PO SCH ×2 (09:56→21:24)
[2019-10-01] MEDS: RANEXA PO SCH ×2 (09:56→21:26)
[2019-10-01] MEDS: NEURONTIN TAB 600 MG PO SCH (09:56)
[2019-10-01] MEDS: LASIX PO SCH (09:56)
[2019-10-01] MEDS: SYNTHROID 100 mcg TAB PO SCH (09:56)
[2019-10-01] MEDS: TOPROL XL PO SCH (09:56)
[2019-10-01] MEDS: SINGULAIR TAB 10 MG PO SCH (09:56)
[2019-10-01] MEDS: COLACE CAP 100 MG PO SCH ×2 (09:56→21:25)
[2019-10-01] MEDS: ZITHROMAX TAB 250 MG PO SCH (09:57)
[2019-10-01] MEDS: PLAVIX PO SCH (09:57)
[2019-10-01] MEDS: ZETIA TAB 10 MG PO SCH (09:57)
[2019-10-01] MEDS: LEVEMIR SC SCH ×2 (09:58→21:25)
[2019-10-01] MEDS ORDERED: BUMEX INJ 1 MG VIAL IVP SCH (12:00)
--- NOTE | 2019-10-01 12:12 | PCM.PROG ---
Progress Note Progress Note for Day of Date of Exam: 10/01/19 Subjective Subjective: Patient seen at bedside with family, reports worsening SOB since yesterday. She reports she feels more short of breath, currently on 2L which is baseline for her. She received one unit of PRBC yesterday and then IV Lasix. She feels like her abdomen is more distended, she had small BMs yesterday and today. Family and patient state Lasix is not working for her and would like to try another medicine. If she continues to not improve, they would like her to be transferred to [facility] where she sees another provider who is very familiar with her care from prev [facility]. Will switch to IV Bumex, monitor UOP. Repeat CXR. Past Medical Family Social History Past Med/Fam/Surg Hx: No changes since H&P Allergies: Allergies codeine Allergy (Verified 09/10/19 14:49) colchicine Allergy (Verified 09/10/19 14:49) hydromorphone [From Dilaudid] Allergy (Verified 09/10/19 14:49) morphine Allergy (Verified 09/10/19 14:49) niacin Allergy (Verified 09/10/19 14:49) Review of Systems ROS: No change since H&P Vital Signs and I&O's Vital Signs: Temperature 97.8 F Pulse Rate 76 Respiratory Rate 24 Blood Pressure [Right Arm] 137/86 Blood Pressure 163/76 O2 Sat by Pulse Oximetry 96 Intake and Output: Intake & Output 09/28/19 09/29/19 09/30/19 10/01/19 23:59 23:59 23:59 23:59 Intake Total 1751 / 1751 980 / 980 1406 / 1406 210 / 210 Output Total 2325 / 2325 1050 / 1050 2500 / 2500 200 / 200 Balance -574 / -574 -70 / -70 -1094 / -1094 Physical Exam Oriented: Normal Nose: Normal Throat: Normal Respiratory: Rales (increased from yesterday) Cardiovascular: Normal and Edema (resolved) Auscultation: Bowel Sounds: Normal Tenderness: Other (distended, non-tender, BS+ ) Skin: Normal and Other (chronic venous stasis) Musculoskeletal: Normal Psychiatric: Normal Mood Description: Calm Affect: Normal Speech Pattern: Clear and Appropriate Laboratory and Diagnostics Result Diagrams: 10/01/19 05:54 10/01/19 05:54 Labs: 09/26/19 02:43 Blood Blood Culture - Final 09/26/19 02:33 Blood Blood Culture - Final 09/26/19 03:05 Sputum - Expectorated Sputum Sputum Culture - Final 09/26/19 03:05 Sputum - Expectorated Sputum - Final Laboratory WBC 4.9 X10^3/uL (3.6-10.0) 10/01/19 05:54 RBC 3.72 X10^6/uL (3.5-5.4) 10/01/19 05:54 Hgb 8.2 g/dL (12.0-16.0) L 10/01/19 05:54 Hct 27.4 % (36.0-47.0) L 10/01/19 05:54 MCV 73.8 fL (80.0-100.0) L 10/01/19 05:54 MCH 22.0 pg (27.0-34.0) L 10/01/19 05:54 MCHC 29.9 g/dL (33.0-35.0) L 10/01/19 05:54 RDW 23.4 % (11.6-16.5) H 10/01/19 05:54 Plt Count 171 X10^3/uL (150.0-450.0) 10/01/19 05:54 Plt Count Comment Adequate (ADEQUATE) 10/01/19 05:54 MPV 8.5 fL (7.4-11.0) 10/01/19 05:54 Neut % (Auto) 64.0 % (42.0-75.0) 10/01/19 05:54 Lymph % (Auto) 17.1 % (21.0-51.0) L 10/01/19 05:54 [place] % (Auto) 11.4 % (0.0-13.0) 10/01/19 05:54 Eos % (Auto) 5.9 % (0.9-2.9) H 10/01/19 05:54 Baso % (Auto) 1.6 % (0.2-1.0) H 10/01/19 05:54 Neut # (Auto) 3.1 x10^3/uL (2.2-4.8) 10/01/19 05:54 Lymph # (Auto) 0.8 X10^3/uL (1.3-2.9) L 10/01/19 05:54 [place] # (Auto) 0.6 x10^3/uL (0.3-0.8) 10/01/19 05:54 Eos # (Auto) 0.3 x10^3/uL (0.0-0.2) H 10/01/19 05:54 Baso # (Auto) 0.1 X10^3/uL (0.0-0.1) 10/01/19 05:54 Absolute Nucleated RBC 0.2 /100WBC 10/01/19 05:54 Plt Morphology Comment Normal (NORMAL) 10/01/19 05:54 RBC Morphology Abnormal (NORMAL) A 10/01/19 05:54 Hypochromasia 1+ A 10/01/19 05:54 Anisocytosis 2+ A 10/01/19 05:54 Stomatocytes Slight A 09/26/19 11:37 PT 15.4 SECONDS (11.8-14.3) 09/26/19 02:33 INR Target Range - 09/26/19 02:33 INR 1.27 (0.8-1.3) 09/26/19 02:33 APTT 32.6 SECONDS (22.9-36.5) 09/26/19 02:33 PTT Comment - 09/26/19 02:33 Sample Site Rb 09/27/19 07:40 ABG pH 7.420 (7.35-7.45) 09/27/19 07:40 ABG pCO2 55.0 mmHg (35.0-45.0) H* 09/27/19 07:40 ABG pO2 85.0 mmHg (80.0-100.0) 09/27/19 07:40 ABG HCO3 35.7 mmol/L (22-26) H* 09/27/19 07:40 ABG O2 Saturation 97.0 % (90-100) 09/27/19 07:40 ABG Base Excess 9.4 mmol/L (-2.0-2.0) H 09/27/19 07:40 Ar Test Na 09/27/19 07:40 A-a Gradient 74.0 mmHg 09/27/19 07:40 FiO2 32.0 09/27/19 07:40 Blood Gas Comments Sandy well aw cb 09/27/19 07:40 Sodium 141 mmol/L (136-145) 10/01/19 05:54 Corrected Sodium 142 mmol/L (136-145) 10/01/19 05:54 Potassium 4.5 mmol/L (3.5-5.1) 10/01/19 05:54 Chloride 103 mmol/L (98-107) 10/01/19 05:54 Carbon Dioxide 35.3 mmol/L (21-32) H 10/01/19 05:54 BUN 29 mg/dL (7-18) H 10/01/19 05:54 Creatinine 1.62 mg/dL (0.55-1.02) H 10/01/19 05:54 Est GFR (MDRD) Af Amer 40 (>60) L 10/01/19 05:54 Est GFR (MDRD) Non-Af 33 (>60) L 10/01/19 05:54 Glucose 160 mg/dL (65-99) H 10/01/19 05:54 POC Glucose (mg/dL) 223 mg/dL (65-99) H 10/01/19 11:39 Calcium 8.4 mg/dL (8.5-10.1) L 10/01/19 05:54 Corrected Calcium 9.1 mg/dL (8.5-10.1) 09/29/19 04:02 Magnesium 2.2 mg/dL (1.7-2.9) 09/26/19 02:33 Total Bilirubin 0.60 mg/dL (0.2-1.0) 09/29/19 04:02 AST 20 Units/L (15-37) 09/29/19 04:02 ALT 8 Units/L (12-78) L 09/29/19 04:02 Alkaline Phosphatase 99 Units/L (46-116) 09/29/19 04:02 Creatine Kinase 95 Units/L (26-192) 09/26/19 12:23 CK-MB (CK-2) 1.3 ng/mL (0-4.0) 09/26/19 12:23 CK/CKMB % Calc 1.4 % (<4) 09/26/19 12:23 Troponin I 0.07 ng/mL (0-1.5) 09/26/19 12:23 B-Natriuretic Peptide 2420 pg/mL (0-79) H* 09/26/19 02:33 Total Protein 7.5 g/dL (6.4-8.2) 09/29/19 04:02 Albumin 3.0 g/dL (3.4-5.0) L 09/29/19 04:02 Globulin 4.5 g/dL (2.5-4.5) 09/29/19 04:02 Albumin/Globulin Ratio 0.7 Ratio (1.1-2.1) L 09/29/19 04:02 Specimen Type Catherized urine 09/26/19 05:42 Urine Color Yellow (YELLOW) 09/26/19 05:42 Urine Appearance Clear (CLEAR) 09/26/19 05:42 Urine pH 5.0 (5.0 - 8.0) 09/26/19 05:42 Ur Specific [place] 1.015 (1.000-1.030) 09/26/19 05:42 Urine Protein 2+ (NEGATIVE) 09/26/19 05:42 Urine Glucose (UA) Negative (NEGATIVE) 09/26/19 05:42 Urine Ketones Negative (NEGATIVE) 09/26/19 05:42 Urine Occult Blood Negative (NEGATIVE) 09/26/19 05:42 Urine Nitrite Negative (NEGATIVE) 09/26/19 05:42 Urine Bilirubin Negative (NEGATIVE) 09/26/19 05:42 Urine Urobilinogen Normal (NORMAL) 09/26/19 05:42 Ur Leukocyte Esterase Negative (NEGATIVE) 09/26/19 05:42 Urine RBC None seen /HPF (0-3) 09/26/19 05:42 Urine WBC None seen /HPF (0-5) 09/26/19 05:42 Ur Squamous Epith Cells Rare /HPF (NEGATIVE) 09/26/19 05:42 Urine Bacteria Negative /HPF (NEGATIVE) 09/26/19 05:42 Ur Culture Indicated? No/not indicated 09/26/19 05:42 Blood Type A POSITIVE 09/26/19 07:50 Antibody Screen Positive 09/26/19 07:50 Antibody Identification NEGATIVE BY ARC 09/26/19 07:50 Crossmatch See Detail 09/26/19 07:50 Plan (1) Acute respiratory failure with hypoxia and hypercapnia: Status: Acute Plan: Last ABG 7.42/55/85/35.7 currently on 2-3 L oxygen, keep sats >90% Repeat CXR (2) Constipation: Status: Acute Qualifiers: Constipation type: chronic idiopathic constipation Qualified Code(s): K59.04 - Chronic idiopathic constipation Plan: Continue miralax and docusate (3) Pneumonia: Status: Acute Qualifiers: Laterality: unspecified laterality Lung location: unspecified part of lung Pneumonia type: due to unspecified organism Qualified Code(s): J18.9 - Pneumonia, unspecified organism Plan: Completed course of Azithromycin Sputum Cx: normal wilbert (4) Acute kidney injury superimposed on chronic kidney disease: Status: Acute Plan: Cr 1.62, baseline 1.7 -1.8 Monitor AM labs Continue losartan (5) Acute exacerbation of congestive heart failure: Status: Acute Qualifiers: Heart failure type: unspecified Qualified Code(s): I50.9 - Heart failure, unspecified Plan: Acute worsening likely due to blood transfusion, received IV Lasix 20mg post transfusion. Will switch to Bumex 1 mg IV and monitor I/Os. Repeat CXR ECHO (08/13/19): EF-64% (6) Anemia: Status: Acute Qualifiers: Anemia type: unspecified type Qualified Code(s): D64.9 - Anemia, unspecified Plan: s/p 1 unit PRBC, Hgb:8.2. baseline 8-9 (7) Hypoxia: Status: Acute (8) Diabetes mellitus, type 2: Status: Chronic Qualifiers: Chronic kidney disease stage: unspecified stage Diabetes mellitus complication detail: with chronic kidney disease Diabetes mellitus complication status: with kidney complications Diabetes mellitus moth exterminator insulin use: with moth exterminator use Qualified Code(s): E11.22 - Type 2 diabetes mellitus with diabetic chronic kidney disease; Z79.4 - halfway (current) use of insulin Plan: continue SSI, increase levemir to 10 units BID (9) History of NM (myocardial infarction): Status: Chronic Plan: resume home meds (10) Hyperlipidemia: Status: Chronic Qualifiers: Hyperlipidemia type: mixed hyperlipidemia Qualified Code(s): E78.2 - Mixed hyperlipidemia (11) PAD (peripheral artery disease): Status: Chronic (12) GERD (gastroesophageal reflux disease): Status: Chronic Qualifiers: Esophagitis presence: esophagitis presence not specified Qualified Code(s): K21.9 - Gastro-esophageal reflux disease without esophagitis (13) Sleep apnea: Status: Chronic Qualifiers: Sleep apnea type: unspecified type Qualified Code(s): G47.30 - Sleep apnea, unspecified
--- NOTE | 2019-10-01 13:26 | RAD ---
HISTORYSOB, CHF, anemia, renal failure.STUDYCHEST, 1 LMQLLRAFOEKAGE98/28/2019.FINDINGSThe trachea is midline. The heart is enlarged with increasing pulmonary vascular congestion. There are changes of mild CHF bilaterally. No dense consolidation or pleural fluid is seen. Admittedly, there is poor penetration of the left retrocardiac region. Osseous structures are intact..IMPRESSIONCardiomegaly with increasing pulmonary vascular congestion and signs of mild CHF bilaterally.Electronically signed by: ERIC MENG (Oct 01, 2019 13:25:03)
[2019-10-01] MEDS: SNACK - Diabetic Appropriate PO SCH (20:00)
[2019-10-01] MEDS: BUMEX INJ 1 MG VIAL IVP SCH (21:25)
[2019-10-01] MEDS: ROBITUSSIN DM PO PRN (21:25)
[2019-10-02 05:36] LABS: BASOPHILS # (AUTO) 0.1 X10^3/uL (0.0-0.1); BASOPHILS % (AUTO) 1.4 % (0.2-1.0); EOSINOPHILS # (AUTO) 0.3 x10^3/uL (0.0-0.2); EOSINOPHILS % (AUTO) 6.4 % (0.9-2.9); HEMATOCRIT 27.8 % (36.0-47.0); HEMOGLOBIN 8.4 g/dL (12.0-16.0); LYMPHOCYTES # (AUTO) 0.9 X10^3/uL (1.3-2.9); LYMPHOCYTES % (AUTO) 16.5 % (21.0-51.0); MEAN CORPUSCULAR HEMOGLOBIN 21.8 pg (27.0-34.0); MEAN CORPUSCULAR VOLUME 72.8 fL (80.0-100.0); MEAN PLATELET VOLUME 8.4 fL (7.4-11.0); MONOCYTES # (AUTO) 0.5 x10^3/uL (0.3-0.8); MONOCYTES % (AUTO) 9.4 % (0.0-13.0); NEUTROPHILS # (AUTO) 3.4 x10^3/uL (2.2-4.8); NEUTROPHILS % (AUTO) 66.3 % (42.0-75.0); PLATELET COUNT 172 X10^3/uL (150.0-450.0); RED BLOOD COUNT 3.83 X10^6/uL (3.5-5.4); RED CELL DISTRIBUTION WIDTH 23.3 % (11.6-16.5); WHITE BLOOD COUNT 5.2 X10^3/uL (3.6-10.0)
[2019-10-02 05:39] LABS: CALCIUM 8.3 mg/dL (8.5-10.1); CARBON DIOXIDE 34.1 mmol/L (21-32); CREATININE 1.67 mg/dL (0.55-1.02); MAGNESIUM 1.9 mg/dL (1.7-2.9)
[2019-10-02] MEDS: XOPENEX 1.25 MG/3 ML NEBULE NEB SCH (05:44)
[2019-10-02 06:00] LABS: ANISOCYTOSIS 2+; HYPOCHROMASIA 2+; MICROCYTOSIS 2+; PLATELET MORPHOLOGY COMMENT NORMAL (NORMAL)
[2019-10-02] MEDS: APRESOLINE TAB 25 MG PO SCH (08:21)
[2019-10-02] MEDS: MIRALAX POWDER (1 DOSE 17 G) PO SCH (08:21)
[2019-10-02] MEDS: COLACE CAP 100 MG PO SCH (08:21)
[2019-10-02] MEDS: TOPROL XL PO SCH (08:22)
[2019-10-02] MEDS: SINEMET (PLAIN) 25/250 MG PO SCH (08:22)
[2019-10-02] MEDS: NEURONTIN TAB 600 MG PO SCH (08:23)
[2019-10-02] MEDS: SYNTHROID 100 mcg TAB PO SCH (08:23)
[2019-10-02] MEDS: PLAVIX PO SCH (08:23)
[2019-10-02] MEDS: LEVEMIR SC SCH (08:24)
[2019-10-02] MEDS: SINGULAIR TAB 10 MG PO SCH (08:24)
[2019-10-02] MEDS: BUMEX INJ 1 MG VIAL IVP SCH (08:24)
[2019-10-02] MEDS: ZETIA TAB 10 MG PO SCH (08:31)
[2019-10-02] MEDS: RANEXA PO SCH (08:31)
[2019-10-02] MEDS: COZAAR PO SCH (08:31)
--- NOTE | 2019-10-02 11:00 | W.DIS.FURT ---
Summary of Discharge Discharge Summary of Date Date of Exam: 10/02/19 Admission Date Date of Admission: 09/26/19 Admission Diagnosis Patient Problems (Updated 10/02/19 @ 12:27 by Irena Gallego) Constipation (Acute) K59.00 Pneumonia (Acute) J18.9 Acute respiratory failure with hypoxia and hypercapnia (Acute) J96.01, J96.02 Anemia (Acute) D64.9 Hypoxia (Acute) R09.02 Renal failure (ARF), acute on chronic (Acute) N17.9, N18.9 Hospital Course: Ms. Anthony is a 69y/o female with a hx of CHF, CKD, CAD presented with acute worsening of SOB and was noted to have in fluid overload state. She was also hypoxic and hypercapnic requiring BIPAP. Patient recieved IV lasix for diuresis. She also had some opacities/atelectasis and received azithromycin. Her SOB gradually improved and she was on 3L nasal canula which is her baseline at home. She also had acute on chronic renal failure which improved. Patient has a hx of anemia, hgb remained between 7.3-7.5, she was transfused with one unit PRBCs. After the transfusion, she felt like her breathing worsened and she was not having large UOP on the lasix so family was interested in trying bumex. She was started on Bumex 1 mg IV BID and she did really well with improvement in her pulmonary edema. PT evaluated the patient and she already has home health set up. Patient was stable for discharge and will follow up with PCP in one week. Vital Signs: Vital Signs (72 hours) 09/29/19 11:00 09/29/19 12:00 09/29/19 13:00 Temperature 98.6 F Pulse Rate 79 86 77 Respiratory Rate 16 31 H 18 Blood Pressure 134/63 158/72 141/61 O2 Sat by Pulse Oximetry 09/29/19 14:00 09/29/19 14:23 09/29/19 15:00 Temperature Pulse Rate 74 70 81 Respiratory Rate 14 19 Blood Pressure 129/61 153/70 O2 Sat by Pulse Oximetry 100 100 09/29/19 16:00 09/29/19 17:00 09/29/19 18:00 Temperature 98.3 F Pulse Rate 83 80 87 Respiratory Rate 21 17 27 H Blood Pressure 160/71 145/64 139/68 O2 Sat by Pulse Oximetry 97 98 95 09/29/19 19:00 09/29/19 20:00 09/29/19 20:16 Temperature 97.6 F Pulse Rate 83 83 74 Respiratory Rate 25 H 23 Blood Pressure 147/73 155/67 O2 Sat by Pulse Oximetry 96 100 98 09/29/19 21:00 09/29/19 22:00 09/29/19 23:00 Temperature Pulse Rate 81 80 79 Respiratory Rate 22 19 21 Blood Pressure 149/70 154/62 134/63 O2 Sat by Pulse Oximetry 96 95 96 09/30/19 00:00 09/30/19 01:00 09/30/19 02:00 Temperature 98.0 F Pulse Rate 73 72 75 Respiratory Rate 22 22 18 Blood Pressure 112/54 131/60 149/68 O2 Sat by Pulse Oximetry 97 100 96 09/30/19 03:00 09/30/19 03:47 09/30/19 04:00 Temperature 98.1 F Pulse Rate 69 70 Respiratory Rate 12 22 20 Blood Pressure 114/55 150/72 O2 Sat by Pulse Oximetry 100 96 09/30/19 04:47 09/30/19 05:00 09/30/19 06:00 Temperature Pulse Rate 77 73 Respiratory Rate 16 22 14 Blood Pressure 132/63 148/66 O2 Sat by Pulse Oximetry 98 99 09/30/19 07:00 09/30/19 08:00 09/30/19 09:00 Temperature 97.8 F Pulse Rate 75 76 76 Respiratory Rate 22 16 18 Blood Pressure 153/69 137/62 143/92 O2 Sat by Pulse Oximetry 97 93 L 94 L 09/30/19 10:00 09/30/19 11:00 09/30/19 12:00 Temperature Pulse Rate 77 77 77 Respiratory Rate 18 18 17 Blood Pressure 143/64 137/65 145/64 O2 Sat by Pulse Oximetry 97 99 99 09/30/19 13:00 09/30/19 14:00 09/30/19 14:36 Temperature 97.2 F L Pulse Rate 72 80 76 Respiratory Rate 20 17 Blood Pressure 123/62 174/85 O2 Sat by Pulse Oximetry 99 99 96 09/30/19 15:00 09/30/19 16:00 09/30/19 17:00 Temperature 97.8 F Pulse Rate 75 77 80 Respiratory Rate 18 18 17 Blood Pressure 151/70 151/70 163/70 O2 Sat by Pulse Oximetry 100 100 100 09/30/19 18:00 09/30/19 19:00 09/30/19 20:00 Temperature 98.4 F Pulse Rate 79 83 86 Respiratory Rate 16 18 24 Blood Pressure 106/51 156/71 179/78 O2 Sat by Pulse Oximetry 99 100 97 09/30/19 20:10 09/30/19 21:00 09/30/19 22:00 Temperature Pulse Rate 79 88 80 Respiratory Rate 16 18 Blood Pressure 143/67 O2 Sat by Pulse Oximetry 97 96 98 09/30/19 23:00 10/01/19 00:00 10/01/19 01:00 Temperature 97.7 F Pulse Rate 83 73 71 Respiratory Rate Blood Pressure 151/68 O2 Sat by Pulse Oximetry 97 100 100 10/01/19 02:00 10/01/19 02:51 10/01/19 03:00 Temperature Pulse Rate 73 70 Respiratory Rate 18 Blood Pressure O2 Sat by Pulse Oximetry 97 100 10/01/19 03:51 10/01/19 04:00 10/01/19 05:00 Temperature 97.8 F Pulse Rate 77 73 Respiratory Rate 14 Blood Pressure 163/76 O2 Sat by Pulse Oximetry 97 100 10/01/19 05:35 10/01/19 06:00 10/01/19 08:00 Temperature 98.1 F Pulse Rate 77 76 78 Respiratory Rate 20 Blood Pressure 127/58 O2 Sat by Pulse Oximetry 97 96 95 10/01/19 09:53 10/01/19 10:53 10/01/19 12:00 Temperature 98.1 F Pulse Rate 75 Respiratory Rate 24 20 20 Blood Pressure 154/70 O2 Sat by Pulse Oximetry 98 10/01/19 16:00 10/01/19 20:00 10/01/19 20:18 Temperature 97.7 F 97.8 F Pulse Rate 76 72 80 Respiratory Rate 17 20 Blood Pressure 155/70 142/63 O2 Sat by Pulse Oximetry 100 100 95 10/01/19 22:34 10/01/19 23:30 10/02/19 00:00 Temperature Pulse Rate 66 Respiratory Rate 20 20 18 Blood Pressure 127/57 O2 Sat by Pulse Oximetry 100 Labs: Laboratory Last Values WBC 5.2 X10^3/uL (3.6-10.0) 10/02/19 04:32 RBC 3.83 X10^6/uL (3.5-5.4) 10/02/19 04:32 Hgb 8.4 g/dL (12.0-16.0) L 10/02/19 04:32 Hct 27.8 % (36.0-47.0) L 10/02/19 04:32 MCV 72.8 fL (80.0-100.0) L 10/02/19 04:32 MCH 21.8 pg (27.0-34.0) L 10/02/19 04:32 MCHC 30.0 g/dL (33.0-35.0) L 10/02/19 04:32 RDW 23.3 % (11.6-16.5) H 10/02/19 04:32 Plt Count 172 X10^3/uL (150.0-450.0) 10/02/19 04:32 Plt Count Comment Adequate (ADEQUATE) 10/02/19 04:32 MPV 8.4 fL (7.4-11.0) 10/02/19 04:32 Neut % (Auto) 66.3 % (42.0-75.0) 10/02/19 04:32 Lymph % (Auto) 16.5 % (21.0-51.0) L 10/02/19 04:32 [place] % (Auto) 9.4 % (0.0-13.0) 10/02/19 04:32 Eos % (Auto) 6.4 % (0.9-2.9) H 10/02/19 04:32 Baso % (Auto) 1.4 % (0.2-1.0) H 10/02/19 04:32 Neut # (Auto) 3.4 x10^3/uL (2.2-4.8) 10/02/19 04:32 Lymph # (Auto) 0.9 X10^3/uL (1.3-2.9) L 10/02/19 04:32 [place] # (Auto) 0.5 x10^3/uL (0.3-0.8) 10/02/19 04:32 Eos # (Auto) 0.3 x10^3/uL (0.0-0.2) H 10/02/19 04:32 Baso # (Auto) 0.1 X10^3/uL (0.0-0.1) 10/02/19 04:32 Absolute Nucleated RBC 0.2 /100WBC 10/02/19 04:32 Plt Morphology Comment Normal (NORMAL) 10/02/19 04:32 RBC Morphology Abnormal (NORMAL) A 10/02/19 04:32 Hypochromasia 2+ A 10/02/19 04:32 Anisocytosis 2+ A 10/02/19 04:32 Microcytosis 2+ A 10/02/19 04:32 Stomatocytes Slight A 09/26/19 11:37 PT 15.4 SECONDS (11.8-14.3) 09/26/19 02:33 INR Target Range - 09/26/19 02:33 INR 1.27 (0.8-1.3) 09/26/19 02:33 APTT 32.6 SECONDS (22.9-36.5) 09/26/19 02:33 PTT Comment - 09/26/19 02:33 Sample Site Rb 09/27/19 07:40 ABG pH 7.420 (7.35-7.45) 09/27/19 07:40 ABG pCO2 55.0 mmHg (35.0-45.0) H* 09/27/19 07:40 ABG pO2 85.0 mmHg (80.0-100.0) 09/27/19 07:40 ABG HCO3 35.7 mmol/L (22-26) H* 09/27/19 07:40 ABG O2 Saturation 97.0 % (90-100) 09/27/19 07:40 ABG Base Excess 9.4 mmol/L (-2.0-2.0) H 09/27/19 07:40 Ar Test Na 09/27/19 07:40 A-a Gradient 74.0 mmHg 09/27/19 07:40 FiO2 32.0 09/27/19 07:40 Blood Gas Comments Sandy well aw cb 09/27/19 07:40 Sodium 142 mmol/L (136-145) 10/02/19 04:32 Corrected Sodium 143 mmol/L (136-145) 10/02/19 04:32 Potassium 4.4 mmol/L (3.5-5.1) 10/02/19 04:32 Chloride 103 mmol/L (98-107) 10/02/19 04:32 Carbon Dioxide 34.1 mmol/L (21-32) H 10/02/19 04:32 BUN 29 mg/dL (7-18) H 10/02/19 04:32 Creatinine 1.67 mg/dL (0.55-1.02) H 10/02/19 04:32 Est GFR (MDRD) Af Amer 39 (>60) L 10/02/19 04:32 Est GFR (MDRD) Non-Af 32 (>60) L 10/02/19 04:32 Glucose 134 mg/dL (65-99) H 10/02/19 04:32 POC Glucose (mg/dL) 120 mg/dL (65-99) H 10/02/19 05:12 Calcium 8.3 mg/dL (8.5-10.1) L 10/02/19 04:32 Corrected Calcium 9.1 mg/dL (8.5-10.1) 09/29/19 04:02 Magnesium 1.9 mg/dL (1.7-2.9) 10/02/19 04:32 Total Bilirubin 0.60 mg/dL (0.2-1.0) 09/29/19 04:02 AST 20 Units/L (15-37) 09/29/19 04:02 ALT 8 Units/L (12-78) L 09/29/19 04:02 Alkaline Phosphatase 99 Units/L (46-116) 09/29/19 04:02 Creatine Kinase 95 Units/L (26-192) 09/26/19 12:23 CK-MB (CK-2) 1.3 ng/mL (0-4.0) 09/26/19 12:23 CK/CKMB % Calc 1.4 % (<4) 09/26/19 12:23 Troponin I 0.07 ng/mL (0-1.5) 09/26/19 12:23 B-Natriuretic Peptide 2420 pg/mL (0-79) H* 09/26/19 02:33 Total Protein 7.5 g/dL (6.4-8.2) 09/29/19 04:02 Albumin 3.0 g/dL (3.4-5.0) L 09/29/19 04:02 Globulin 4.5 g/dL (2.5-4.5) 09/29/19 04:02 Albumin/Globulin Ratio 0.7 Ratio (1.1-2.1) L 09/29/19 04:02 Specimen Type Catherized urine 09/26/19 05:42 Urine Color Yellow (YELLOW) 09/26/19 05:42 Urine Appearance Clear (CLEAR) 09/26/19 05:42 Urine pH 5.0 (5.0 - 8.0) 09/26/19 05:42 Ur Specific [place] 1.015 (1.000-1.030) 09/26/19 05:42 Urine Protein 2+ (NEGATIVE) 09/26/19 05:42 Urine Glucose (UA) Negative (NEGATIVE) 09/26/19 05:42 Urine Ketones Negative (NEGATIVE) 09/26/19 05:42 Urine Occult Blood Negative (NEGATIVE) 09/26/19 05:42 Urine Nitrite Negative (NEGATIVE) 09/26/19 05:42 Urine Bilirubin Negative (NEGATIVE) 09/26/19 05:42 Urine Urobilinogen Normal (NORMAL) 09/26/19 05:42 Ur Leukocyte Esterase Negative (NEGATIVE) 09/26/19 05:42 Urine RBC None seen /HPF (0-3) 09/26/19 05:42 Urine WBC None seen /HPF (0-5) 09/26/19 05:42 Ur Squamous Epith Cells Rare /HPF (NEGATIVE) 09/26/19 05:42 Urine Bacteria Negative /HPF (NEGATIVE) 09/26/19 05:42 Ur Culture Indicated? No/not indicated 09/26/19 05:42 Blood Type A POSITIVE 09/26/19 07:50 Antibody Screen Positive 09/26/19 07:50 Antibody Identification NEGATIVE BY ARC 09/26/19 07:50 Crossmatch See Detail 09/26/19 07:50 Reason For Visit: CHF ANEMIA RENAL FAILURE Discharge Date Discharge Date: 10/02/19 Discharge Diagnosis All Active Problems (Updated 10/02/19 @ 12:27 by Irena Gallego) Constipation (Acute) Pneumonia (Acute) Acute respiratory failure with hypoxia and hypercapnia (Acute) Acute kidney injury superimposed on chronic kidney disease (Acute) NOEL (dyspnea on exertion) (Acute) Acute exacerbation of congestive heart failure (Acute) Anemia (Acute) CKD (chronic kidney disease) stage 3, GFR 30-59 ml/min (Acute) Anemia in chronic kidney disease (Acute) Hypochromic microcytic anemia (Acute) CHF (congestive heart failure), NYHA class III (Acute) Hypoxia (Acute) Renal failure (ARF), acute on chronic (Acute) GI bleed (Chronic) COPD (chronic obstructive pulmonary disease) (Chronic) Diabetes mellitus, type 2 (Chronic) Essential hypertension (Chronic) History of AR (myocardial infarction) (Chronic) Hyperlipidemia (Chronic) PAD (peripheral artery disease) (Chronic) Asthma (Chronic) Sleep apnea (Chronic) GERD (gastroesophageal reflux disease) (Chronic) Rheumatoid arthritis (Chronic) Back pain (Chronic) History of skin cancer (Chronic) Plan of Treatment: Continue with present treatment and follow up plan. Pt is to keep follow up appointment as instructed and take medications as ordered. Discharge Medications Discharge Medications: codeine Allergy (Verified 09/10/19 14:49) colchicine Allergy (Verified 09/10/19 14:49) hydromorphone [From Dilaudid] Allergy (Verified 09/10/19 14:49) morphine Allergy (Verified 09/10/19 14:49) niacin Allergy (Verified 09/10/19 14:49) CONTINUE taking the following medications Humalog KwikPen Insulin 1 - 14 unit SUBCUT ACHS PRN 09/26/19 [History] Stiolto Respimat 1 puff INHALATION Q6HR PRN 09/26/19 [History] albuterol sulfate 1.25 mg INHALATION Q4-6H PRN 09/26/19 [History] albuterol sulfate [ProAir HFA] 2 puff INHALATION DAILY 09/26/19 [History] carbidopa-levodopa 1 tab PO BID 09/26/19 [History] clopidogrel 75 mg PO DAILY 09/26/19 [History] docusate sodium 200 mg PO DAILY 09/26/19 [History] ezetimibe 10 mg PO DAILY 09/26/19 [History] gabapentin 300 mg PO BID 09/26/19 [History] hydralazine 25 mg PO BID 09/26/19 [History] levothyroxine 100 mcg PO DAILY 09/26/19 [History] losartan 25 mg PO BID 09/26/19 [History] metoprolol succinate 25 mg PO DAILY 09/26/19 [History] mirtazapine 15 mg PO DAILY 09/26/19 [History] montelukast 10 mg PO DAILY 09/26/19 [History] nitroglycerin 0.4 mg SUBLINGUAL Q5M PRN 09/26/19 [History] ondansetron HCl 8 mg PO BID PRN 09/26/19 [History] pantoprazole 40 mg PO DAILY 09/26/19 [History] ranolazine 1,000 mg PO BID 09/26/19 [History] New Prescriptions hydrocodone-acetaminophen 1 tab PO BID PRN #0 tab 09/30/19 [Rx] Levemir FlexTouch U-100 Insuln 10 unit SUBCUT BID #0 ml 10/02/19 [Rx] bumetanide 1 mg PO BID 30 Days #60 tab 10/02/19 [Rx] mupirocin 1 applic TP TID #15 g 10/02/19 [Rx] Follow up and Referral Follow Up: 1 Week (PCP) Discharge Disposition Assessment: Patient stable no acute distress noted at time of discharge. Discharge Disposition: Home
[2019-10-02 12:10] VITALS: BP 135/60
--- NOTE | 2019-10-27 16:01 | PCM.PROG ---
Progress Note Progress Note for Day of Date of Exam: 09/30/19 Subjective Subjective: Patient seen at bedside, reports SOB on exertion. No acute events overnight. Past Medical Family Social History Past Med/Fam/Surg Hx: No changes since H&P Allergies: Allergies codeine Allergy (Verified 09/10/19 14:49) colchicine Allergy (Verified 09/10/19 14:49) hydromorphone [From Dilaudid] Allergy (Verified 09/10/19 14:49) morphine Allergy (Verified 09/10/19 14:49) niacin Allergy (Verified 09/10/19 14:49) Review of Systems ROS: No change since H&P Vital Signs and I&O's Vital Signs: Temperature 97.4 F Pulse Rate 74 Respiratory Rate 14 Blood Pressure [Right Arm] 137/86 Blood Pressure 135/60 O2 Sat by Pulse Oximetry 100 Physical Exam Oriented: Normal Nose: Normal Throat: Normal Respiratory: Rales (increased from yesterday) Cardiovascular: Normal and Edema (improved) Auscultation: Bowel Sounds: Normal Tenderness: Other (distended, non-tender, BS+ ) Skin: Normal and Other (chronic venous stasis) Musculoskeletal: Normal Psychiatric: Normal Mood Description: Calm Affect: Normal Speech Pattern: Clear and Appropriate Laboratory and Diagnostics Result Diagrams: 10/02/19 04:32 10/02/19 04:32 Labs: 09/26/19 02:43 Blood Blood Culture - Final 09/26/19 02:33 Blood Blood Culture - Final 09/26/19 03:05 Sputum - Expectorated Sputum Sputum Culture - Final 09/26/19 03:05 Sputum - Expectorated Sputum - Final Laboratory WBC 5.2 X10^3/uL (3.6-10.0) 10/02/19 04:32 RBC 3.83 X10^6/uL (3.5-5.4) 10/02/19 04:32 Hgb 8.4 g/dL (12.0-16.0) L 10/02/19 04:32 Hct 27.8 % (36.0-47.0) L 10/02/19 04:32 MCV 72.8 fL (80.0-100.0) L 10/02/19 04:32 MCH 21.8 pg (27.0-34.0) L 10/02/19 04:32 MCHC 30.0 g/dL (33.0-35.0) L 10/02/19 04:32 RDW 23.3 % (11.6-16.5) H 10/02/19 04:32 Plt Count 172 X10^3/uL (150.0-450.0) 10/02/19 04:32 Plt Count Comment Adequate (ADEQUATE) 10/02/19 04:32 MPV 8.4 fL (7.4-11.0) 10/02/19 04:32 Neut % (Auto) 66.3 % (42.0-75.0) 10/02/19 04:32 Lymph % (Auto) 16.5 % (21.0-51.0) L 10/02/19 04:32 [place] % (Auto) 9.4 % (0.0-13.0) 10/02/19 04:32 Eos % (Auto) 6.4 % (0.9-2.9) H 10/02/19 04:32 Baso % (Auto) 1.4 % (0.2-1.0) H 10/02/19 04:32 Neut # (Auto) 3.4 x10^3/uL (2.2-4.8) 10/02/19 04:32 Lymph # (Auto) 0.9 X10^3/uL (1.3-2.9) L 10/02/19 04:32 [place] # (Auto) 0.5 x10^3/uL (0.3-0.8) 10/02/19 04:32 Eos # (Auto) 0.3 x10^3/uL (0.0-0.2) H 10/02/19 04:32 Baso # (Auto) 0.1 X10^3/uL (0.0-0.1) 10/02/19 04:32 Absolute Nucleated RBC 0.2 /100WBC 10/02/19 04:32 Plt Morphology Comment Normal (NORMAL) 10/02/19 04:32 RBC Morphology Abnormal (NORMAL) A 10/02/19 04:32 Hypochromasia 2+ A 10/02/19 04:32 Anisocytosis 2+ A 10/02/19 04:32 Microcytosis 2+ A 10/02/19 04:32 Stomatocytes Slight A 09/26/19 11:37 PT 15.4 SECONDS (11.8-14.3) 09/26/19 02:33 INR Target Range - 09/26/19 02:33 INR 1.27 (0.8-1.3) 09/26/19 02:33 APTT 32.6 SECONDS (22.9-36.5) 09/26/19 02:33 PTT Comment - 09/26/19 02:33 Sample Site Rb 09/27/19 07:40 ABG pH 7.420 (7.35-7.45) 09/27/19 07:40 ABG pCO2 55.0 mmHg (35.0-45.0) H* 09/27/19 07:40 ABG pO2 85.0 mmHg (80.0-100.0) 09/27/19 07:40 ABG HCO3 35.7 mmol/L (22-26) H* 09/27/19 07:40 ABG O2 Saturation 97.0 % (90-100) 09/27/19 07:40 ABG Base Excess 9.4 mmol/L (-2.0-2.0) H 09/27/19 07:40 Ar Test Na 09/27/19 07:40 A-a Gradient 74.0 mmHg 09/27/19 07:40 FiO2 32.0 09/27/19 07:40 Blood Gas Comments [facility] 09/27/19 07:40 Sodium 142 mmol/L (136-145) 10/02/19 04:32 Corrected Sodium 143 mmol/L (136-145) 10/02/19 04:32 Potassium 4.4 mmol/L (3.5-5.1) 10/02/19 04:32 Chloride 103 mmol/L (98-107) 10/02/19 04:32 Carbon Dioxide 34.1 mmol/L (21-32) H 10/02/19 04:32 BUN 29 mg/dL (7-18) H 10/02/19 04:32 Creatinine 1.67 mg/dL (0.55-1.02) H 10/02/19 04:32 Est GFR (MDRD) Af Amer 39 (>60) L 10/02/19 04:32 Est GFR (MDRD) Non-Af 32 (>60) L 10/02/19 04:32 Glucose 134 mg/dL (65-99) H 10/02/19 04:32 POC Glucose (mg/dL) 199 mg/dL (65-99) H 10/02/19 11:23 Calcium 8.3 mg/dL (8.5-10.1) L 10/02/19 04:32 Corrected Calcium 9.1 mg/dL (8.5-10.1) 09/29/19 04:02 Magnesium 1.9 mg/dL (1.7-2.9) 10/02/19 04:32 Total Bilirubin 0.60 mg/dL (0.2-1.0) 09/29/19 04:02 AST 20 Units/L (15-37) 09/29/19 04:02 ALT 8 Units/L (12-78) L 09/29/19 04:02 Alkaline Phosphatase 99 Units/L (46-116) 09/29/19 04:02 Creatine Kinase 95 Units/L (26-192) 09/26/19 12:23 CK-MB (CK-2) 1.3 ng/mL (0-4.0) 09/26/19 12:23 CK/CKMB % Calc 1.4 % (<4) 09/26/19 12:23 Troponin I 0.07 ng/mL (0-1.5) 09/26/19 12:23 B-Natriuretic Peptide 2420 pg/mL (0-79) H* 09/26/19 02:33 Total Protein 7.5 g/dL (6.4-8.2) 09/29/19 04:02 Albumin 3.0 g/dL (3.4-5.0) L 09/29/19 04:02 Globulin 4.5 g/dL (2.5-4.5) 09/29/19 04:02 Albumin/Globulin Ratio 0.7 Ratio (1.1-2.1) L 09/29/19 04:02 Specimen Type Catherized urine 09/26/19 05:42 Urine Color Yellow (YELLOW) 09/26/19 05:42 Urine Appearance Clear (CLEAR) 09/26/19 05:42 Urine pH 5.0 (5.0 - 8.0) 09/26/19 05:42 Ur Specific [place] 1.015 (1.000-1.030) 09/26/19 05:42 Urine Protein 2+ (NEGATIVE) 09/26/19 05:42 Urine Glucose (UA) Negative (NEGATIVE) 09/26/19 05:42 Urine Ketones Negative (NEGATIVE) 09/26/19 05:42 Urine Occult Blood Negative (NEGATIVE) 09/26/19 05:42 Urine Nitrite Negative (NEGATIVE) 09/26/19 05:42 Urine Bilirubin Negative (NEGATIVE) 09/26/19 05:42 Urine Urobilinogen Normal (NORMAL) 09/26/19 05:42 Ur Leukocyte Esterase Negative (NEGATIVE) 09/26/19 05:42 Urine RBC None seen /HPF (0-3) 09/26/19 05:42 Urine WBC None seen /HPF (0-5) 09/26/19 05:42 Ur Squamous Epith Cells Rare /HPF (NEGATIVE) 09/26/19 05:42 Urine Bacteria Negative /HPF (NEGATIVE) 09/26/19 05:42 Ur Culture Indicated? No/not indicated 09/26/19 05:42 Blood Type A POSITIVE 09/26/19 07:50 Antibody Screen Positive 09/26/19 07:50 Antibody Identification NEGATIVE BY ARC 09/26/19 07:50 Crossmatch See Detail 09/26/19 07:50 Plan (1) Acute respiratory failure with hypoxia and hypercapnia: Status: Acute Plan: currently on 2-3 L oxygen, keep sats >90% Titrate oxygen as tolerated (2) Constipation: Status: Acute Qualifiers: Constipation type: chronic idiopathic constipation Qualified Code(s): K59.04 - Chronic idiopathic constipation Plan: Continue miralax and docusate (3) Pneumonia: Status: Acute Qualifiers: Laterality: unspecified laterality Lung location: unspecified part of lung Pneumonia type: due to unspecified organism Qualified Code(s): J18.9 - Pneumonia, unspecified organism Plan: Completed course of Azithromycin Sputum Cx: normal wilbert (4) Acute kidney injury superimposed on chronic kidney disease: Status: Acute Plan: Cr 1.54, baseline 1.7 -1.8 Monitor AM labs (5) Acute exacerbation of congestive heart failure: Status: Acute Qualifiers: Heart failure type: unspecified Qualified Code(s): I50.9 - Heart fail ure, unspecified Plan: Monitor I/Os, continue Lasix Repeat CXR ECHO (08/13/19): EF-64% (6) Anemia: Status: Acute Qualifiers: Anemia type: unspecified type Qualified Code(s): D64.9 - Anemia, unspecified Plan: s/p 1 unit PRBC, Hgb:9.5. baseline 8-9 (7) Hypoxia: Status: Acute Plan: Acute on chronic, almost back to baseline. PT consult Uses 3L nasal canula at home (8) Diabetes mellitus, type 2: Status: Chronic Qualifiers: Chronic kidney disease stage: unspecified stage Diabetes mellitus complication detail: with chronic kidney disease Diabetes mellitus complication status: with kidney complications Diabetes mellitus terminal press operator insulin use: with terminal press operator use Qualified Code(s): E11.22 - Type 2 diabetes mellitus with diabetic chronic kidney disease; Z79.4 - skilled nursing (current) use of insulin Plan: continue SSI, increase levemir to 10 units BID (9) History of CA (myocardial infarction): Status: Chronic Plan: resume home meds (10) Hyperlipidemia: Status: Chronic Qualifiers: Hyperlipidemia type: mixed hyperlipidemia Qualified Code(s): E78.2 - Mixed hyperlipidemia (11) PAD (peripheral artery disease): Status: Chronic (12) GERD (gastroesophageal reflux disease): Status: Chronic Qualifiers: Esophagitis presence: esophagitis presence not specified Qualified Code(s): K21.9 - Gastro-esophageal reflux disease without esophagitis (13) Sleep apnea: Status: Chronic Qualifiers: Sleep apnea type: unspecified type Qualified Code(s): G47.30 - Sleep apnea, unspecified
== END 2019-10-02 13:35 | disposition home health service (06) | DRG 189 ==
LOC: ER 02:14 → ICU 07:43
PROVIDERS: ADMIT Internal Medicine; ATTEND Internal Medicine
DX: N18.9 Chronic kidney disease, unspecified; E11.22 Type 2 diabetes mellitus with diabetic chronic kidney disease; D64.89 Other specified anemias; K21.9 Gastro-esophageal reflux disease without esophagitis; J96.02 Acute respiratory failure with hypercapnia; I73.9 Peripheral vascular disease, unspecified; Z87.898 Personal history of other specified conditions; J18.9 Pneumonia, unspecified organism; J96.01 Acute respiratory failure with hypoxia; R60.0 Localized edema; N17.8 Other acute kidney failure; I13.0 Hypertensive heart and chronic kidney disease with heart failure and stage 1 through stage 4 chronic kidney disease, or unspecified chronic kidney disease; I50.9 Heart failure, unspecified; Z79.4 Long term (current) use of insulin; E78.2 Mixed hyperlipidemia; G47.30 Sleep apnea, unspecified; Z99.81 Dependence on supplemental oxygen; R94.31 Abnormal electrocardiogram [ECG] [EKG]; I25.2 Old myocardial infarction; K59.04 Chronic idiopathic constipation; E11.65 Type 2 diabetes mellitus with hyperglycemia
CPT/HCPCS: 36415; 36430; 36600; 51702; 71010; 71045; 74000; 74018; 80048; 80053; 81001; 82550; 82553; 82803; 83735; 83880; 84484; 85014; 85018; 85025; 85610; 85730; 86850; 86880; 86900; 86901; 86920; 86922; 87040; 87070; 87205; 93005; 94640; 94660; 96365; 96374; 97161; 99285; A4216; A4222; A4618; A7030; P9016; S0171; J0456; J0692; J1815; J1940; J2405; J7040; J7050

== ENCOUNTER 2019-12-26 14:15 | Inpatient (IN) ==
[2019-12-26] MEDS ORDERED: LASIX IVP ONE ×2 (15:50→17:12)
--- NOTE | 2019-12-26 15:54 | DR.DIZZY ---
HPI Time seen Time Seen by Provider: 12/26/19 15:45 PCP Primary Care Physician: CONNOR HPI Comment HPI Comment: PATIENT IS 69YR OLD FEMALE IN ER WITH IN ER WITH INCREASING SOB, EDEMA, NAUAEA, VOMITING AND CHEST TIGHTNESS. PATIENT IS ALSO WHEEZING AND HAVE GENERALIZED WEAKNESS. NO FEVER OR DYSURIA. SHE IS DIZZY. HAVE HISTORY OF CHF. Complaint Chief Complaint Doctor Comments: INCREASIND SOB AND EDEMA TIMES ONE WEEK. NOW NAUSEA AND VOMITING ALSO. Chief Complaint:: PT C/O CHF SYMPTOMS, DIZZINESS PT STATES HER SYMPTOMS HAVE BEEN GOING ON ALL WEEK. ALSO C/O N/V AND SWELLING IN ABD, ALSO WHEEZING Nurses Notes Reviewed Nurses Notes Review: Yes Source History Provided: Patient Mode of Arrival Mode of Arrival: Ambulatory Timing Onset of Chief Complaint: 12/26/19 Came on: Suddenly Duration Duration: Constant Duration: Days Location of Weakness Weakness Location: Generalized Context Onset: At rest History of: Anemia, DM and [place] Stroke Symptoms: Dizziness Modifying factors Worsens: Other (EXERTION.) Associated signs and symptoms Associated Signs and Symptoms: Weak, Nausea and Vomiting PMH PMH Past Medical History: Yes Past Medical History: Anemia, Arthritis, Asthma, CHF, Coronary Artery Disease, Diabetes, Hypertension, [place], Renal Disease and Sleep Apnea Past Surgical History: No Surgical History: Angioplasty/Stents, Appendectomy, Cholecystectomy, Ortho Surgery, Tonsillectomy and Other Past Surgical History Comment: CARPAL MARTHA Family History History of Family Medical Conditions: Yes Family Medical History: Diabetes Mellitus, Cancer, [place], Coronary Artery Disease and Heart Failure Social History Does patient currently use any type of tobacco product: No Have you used tobacco products in the last 12 months: No Type of Tobacco Use: None Does any household member use tobacco: No Alcohol Use: None Do you use any recreational Drugs:: No Lives With: Family Lives Where: Home Infectious screening In the last 2 months have you had wt loss of >10#?: NO Have you had fever, night sweats or hemotysis?: No Have you traveled outside the country in the last 6 months?: No Isolation: Standard ROS Review of Systems Constitutional: See HPI, Weakness and Fatigue; negative Fever Eyes: No Symptoms Reported and See HPI ENTM: No Symptoms Reported and See HPI Respiratoy: See HPI, Moist Cough, Short of Breath and Wheezing Cardiovascular: See HPI, Chest Pain and Edema Gastrointestinal/Abdominal: See HPI, Nausea and Vomiting; negative Diarrhea Genitourinary: No Symptoms Reported and See HPI; negative Dysuria, Frequency and Hematuria Neurological: See HPI, Weakness and Dizziness; negative Headache Musculoskeletal: No Symptoms Reported and See HPI; negative Back Pain and Muscle Pain Integumentary: No Symptoms Reported and See HPI; negative Change in Color and Juandice Hematologic/Lymphatic: See HPI, Anemia and Easy Bruising; negative Swollen Glands Endocrine: No Symptoms Reported; negative Increased Thirst and Increased Urine Psychiatric: No Symptoms Reported and See HPI All Other Systems: Reviewed and Negative PE Vital Signs Vitals: Temperature 98.1 F Pulse Rate 64 Respiratory Rate 19 Blood Pressure [Right Arm] 137/86 Blood Pressure [Left Arm] 187/86 Blood Pressure [Right Arm] 150/67 Blood Pressure [Standing] 138/63 Blood Pressure [Sitting] 141/61 Blood Pressure [Lying] 125/59 Blood Pressure 97/59 O2 Sat by Pulse Oximetry 100 General Limitations: No Limitations General Appearance: Alert and In No Apparent Distress Head Head Exam: Normal Inspection Eyes Eye exam: Normal Appearance and PERRL; negative Scleral Icterus and Conjunctival Injection Pupils: Regular, Round: Bilateral and Reactive: Bilateral Sclera/Conjunctival: Normal Inspection: Bilateral ENT ENT Exam: Normal Exam, Normal Oropharynx, Normal External Ear Exam and TM's Normal Bilaterally Neck Neck Exam: Normal Inspection, Full ROM and Trachea Midline; negative Tenderness and Lymphadenopathy Chest Chest Inspection: Normal Inspection and Symmetric Chest Wall Rise; negative Tenderness Respiratory Respiratory Exam: negative Accessory Muscle Use, Chest Wall Tenderness and Respiratory Distress Respiratory Exam: Bilateral: Wheezing and Bilateral: Rhonchi and Lower: Wheezing and Lower: Rhonchi Cardiovascular Cardiovascular Exam: Regular Rate, Normal Rhythm, Normal Heart Sounds and +S3; negative Systolic Murmur and Diastolic Murmur Abdominal Exam Abdominal Exam: Normal Inspection, Normal Bowel Sounds and Soft; negative Tenderness Rectal Rectal Exam: Deferred Extremeties Extremities Exam: Normal Capillary Refill and Edema; negative Tenderness and Calf Tenderness Back Back Exam: Normal Inspection and Full ROM; negative (R) CVA Tenderness and (L) CVA Tenderness Neurologic Neurological Exam: Alert and Oriented X3; negative Motor Sensory Deficit Patient Oriented To: Person, Place and Time Cranial Nerve Exam: Facial Palsy (VII): Normal Motor Strength - LUE: 5/5 Motor Strength - RUE: 5/5 Motor Strength - LLE: 5/5 Motor Strength - RLE: 5/5 Psychiatric Psychiatric Exam: Normal Affect and Normal Mood Skin Skin Exam: Warm, Dry, Intact and Normal Color MDM Differential Diagnosis Differential Diagnosis: Dehydration, Dysrhythmia, Hypoglycemia and Myocardial infarction Differential Diagnosis Comment: CHF, PNEUMONIA, INFLUENZA. COURSE Treatment Treatment: SEE ORDERS. Education/Counseling Education/Counseling: Patient Educated On: Diagnosis and Needs for Follow Up ROR Labs Reviewed Laboratory Results Reviewed?: Yes Result Diagrams: 01/02/20 04:42 01/02/20 04:42 Laboratory: 12/26/19 16:23 Blood Blood Culture - Final 12/26/19 16:14 Blood Blood Culture - Final WBC 5.4 X10^3/uL (3.6-10.0) 12/26/19 16:23 RBC 3.06 X10^6/uL (3.5-5.4) L 12/26/19 16:23 Hgb 6.5 g/dL (12.0-16.0) L* 12/26/19 16:23 Hct 21.5 % (36.0-47.0) L 12/26/19 16:23 MCV 70.2 fL (80.0-100.0) L 12/26/19 16:23 MCH 21.3 pg (27.0-34.0) L 12/26/19 16:23 MCHC 30.3 g/dL (33.0-35.0) L 12/26/19 16:23 RDW 20.6 % (11.6-16.5) H 12/26/19 16:23 Plt Count 187 X10^3/uL (150.0-450.0) 12/26/19 16:23 Plt Count Comment Adequate (ADEQUATE) 12/26/19 16:23 MPV 8.3 fL (7.4-11.0) 12/26/19 16:23 Neut % (Auto) 84.8 % (42.0-75.0) H 12/26/19 16:23 Lymph % (Auto) 7.2 % (21.0-51.0) L 12/26/19 16:23 [place] % (Auto) 4.3 % (0.0-13.0) 12/26/19 16:23 Eos % (Auto) 1.2 % (0.9-2.9) 12/26/19 16:23 Baso % (Auto) 2.5 % (0.2-1.0) H 12/26/19 16:23 Neut # (Auto) 4.6 x10^3/uL (2.2-4.8) 12/26/19 16:23 Lymph # (Auto) 0.4 X10^3/uL (1.3-2.9) L 12/26/19 16:23 [place] # (Auto) 0.2 x10^3/uL (0.3-0.8) L 12/26/19 16:23 Eos # (Auto) 0.1 x10^3/uL (0.0-0.2) 12/26/19 16:23 Baso # (Auto) 0.1 X10^3/uL (0.0-0.1) 12/26/19 16:23 Absolute Nucleated RBC 0.1 /100WBC 12/26/19 16:23 Plt Morphology Comment Normal (NORMAL) 12/26/19 16:23 RBC Morphology Abnormal (NORMAL) A 12/26/19 16:23 Hypochromasia 2+ A 12/26/19 16:23 Anisocytosis 1+ A 12/26/19 16:23 Sodium 141 mmol/L (136-145) 12/26/19 16:23 Corrected Sodium 142 mmol/L (136-145) 12/26/19 16:23 Potassium 3.7 mmol/L (3.5-5.1) 12/26/19 16:23 Chloride 101 mmol/L (98-107) 12/26/19 16:23 Carbon Dioxide 38.2 mmol/L (21-32) H 12/26/19 16:23 BUN 46 mg/dL (7-18) H 12/26/19 16:23 Creatinine 2.17 mg/dL (0.55-1.02) H 12/26/19 16:23 Est GFR (MDRD) Af Amer 29 (>60) L 12/26/19 16:23 Est GFR (MDRD) Non-Af 24 (>60) L 12/26/19 16:23 Glucose 157 mg/dL (65-99) H 12/26/19 16:23 POC Glucose (mg/dL) 79 mg/dL (65-99) 12/26/19 21:36 Lactic Acid 1.2 mmol/L (0.4-2.0) 12/26/19 16:23 Calcium 8.8 mg/dL (8.5-10.1) 12/26/19 16:23 Corrected Calcium 9.4 mg/dL (8.5-10.1) 12/26/19 16:23 Total Bilirubin 0.60 mg/dL (0.2-1.0) 12/26/19 16:23 AST 12 Units/L (15-37) L 12/26/19 16:23 ALT < 6 Units/L (12-78) L 12/26/19 16:23 Alkaline Phosphatase 83 Units/L (46-116) 12/26/19 16:23 Creatine Kinase 43 Units/L (26-192) 12/26/19 16:23 CK-MB (CK-2) 1.0 ng/mL (0-4.0) 12/26/19 16:23 CK/CKMB % Calc 2.3 % (<4) 12/26/19 16:23 Troponin I < 0.02 ng/mL (0-1.5) 12/26/19 16:23 B-Natriuretic Peptide 1870 pg/mL (0-79) H* 12/26/19 16:23 Total Protein 7.6 g/dL (6.4-8.2) 12/26/19 16:23 Albumin 3.3 g/dL (3.4-5.0) L 12/26/19 16:23 Globulin 4.3 g/dL (2.5-4.5) 12/26/19 16:23 Albumin/Globulin Ratio 0.8 Ratio (1.1-2.1) L 12/26/19 16:23 RSV Nasal Swab Negative (NEGATIVE) 12/26/19 15:54 Influenza Type A (PCR) Negative (NEGATIVE) 12/26/19 15:54 Influenza Type B (PCR) Negative (NEGATIVE) 12/26/19 15:54 S. pyogenes (TEM-PCR) Not detected (NOT DETECT) 12/26/19 15:54 Blood Type A POSITIVE 12/26/19 20:00 Antibody Screen Negative 12/26/19 20:00 Antibody ID Referred Cancelled 12/26/19 20:00 Crossmatch See Detail 12/26/19 20:00 Opioid Opioid Risk Tool Age (Vasile box if 16-45): No History of Preadolescent Sexual Abuse: No Total: 0 Total Score Risk Category: Low Risk Copyright: Jeffery HAND predicting aberrant behaviors Diagnosis Discharge Problem: Dizziness, Bronchitis CHF (congestive heart failure) Qualifiers: Heart failure type: combined systolic and diastolic Heart failure chronicity: acute on chronic Qualified Code(s): I50.43 - Acute on chronic combined systolic (congestive) and diastolic (congestive) heart failure Anemia Qualifiers: Anemia type: unspecified type Qualified Code(s): D64.9 - Anemia, unspecified Instructions Instructions: Anemia Paracentesis, Care After Form - Daily Diabetes Record Chronic Obstructive Pulmonary Disease, Xfzy-if-Juvv Type 2 Diabetes Mellitus, Self Care, Adult, Lojo-lu-Tlez Chronic Kidney Disease, Adult, Labn-dn-[id number] Form - Blood Pressure Record Sheet Gastrointestinal Bleeding, [id number] Paracentesis Heart Failure, [id number]-Lbml Community-Acquired Pneumonia, Adult, Tkyq-is-Yyxk Forms: Excuse From Work Precautions for COVID19 Patient Portal Social Distancing
--- NOTE | 2019-12-26 16:13 | RAD ---
HISTORYSOBSTUDYCHEST, 1 VIEWCOMPARISONJanuary 2019FINDINGSThe patient is rotated. The cardiac silhouette is enlarged. Hazy opacification within the left lower lobe may reflect overlying soft tissues however underlying atelectasis and/or infiltrate cannot entirely be excluded. Correlate clinically.IMPRESSIONCardiomegaly.Questionable left basilar airspace disease as noted above.Electronically signed by: JANESSA BILL (Dec 26, 2019 16:12:23)
[2019-12-26 16:39] LABS: RSV AG DETECTION NEGATIVE (NEGATIVE)
[2019-12-26 16:50] LABS: STREP A BY PCR NOT DETECTED (NOT DETECT)
[2019-12-26 16:52] LABS: BASOPHILS # (AUTO) 0.1 X10^3/uL (0.0-0.1); BASOPHILS % (AUTO) 2.5 % (0.2-1.0); EOSINOPHILS # (AUTO) 0.1 x10^3/uL (0.0-0.2); EOSINOPHILS % (AUTO) 1.2 % (0.9-2.9); HEMATOCRIT 21.5 % (36.0-47.0); LYMPHOCYTES # (AUTO) 0.4 X10^3/uL (1.3-2.9); LYMPHOCYTES % (AUTO) 7.2 % (21.0-51.0); MEAN CORPUSCULAR HEMOGLOBIN 21.3 pg (27.0-34.0); MEAN CORPUSCULAR HGB CONC 30.3 g/dL (33.0-35.0); MEAN CORPUSCULAR VOLUME 70.2 fL (80.0-100.0); MEAN PLATELET VOLUME 8.3 fL (7.4-11.0); MONOCYTES # (AUTO) 0.2 x10^3/uL (0.3-0.8); MONOCYTES % (AUTO) 4.3 % (0.0-13.0); NEUTROPHILS # (AUTO) 4.6 x10^3/uL (2.2-4.8); NEUTROPHILS % (AUTO) 84.8 % (42.0-75.0); PLATELET COUNT 187 X10^3/uL (150.0-450.0); RED BLOOD COUNT 3.06 X10^6/uL (3.5-5.4); RED CELL DISTRIBUTION WIDTH 20.6 % (11.6-16.5); WHITE BLOOD COUNT 5.4 X10^3/uL (3.6-10.0)
[2019-12-26 16:53] LABS: BLOOD UREA NITROGEN 46 mg/dL (7-18); CALCIUM 8.8 mg/dL (8.5-10.1); CARBON DIOXIDE 38.2 mmol/L (21-32); CHLORIDE 101 mmol/L (98-107); COR NA(FOR HYPERGLY) 142 mmol/L (136-145); CREATININE 2.17 mg/dL (0.55-1.02); SODIUM 141 mmol/L (136-145); TROPONIN I < 0.02 ng/mL (0-1.5); eGFR NON BLACK RACES 24 (>60)
[2019-12-26 16:57] LABS: ALANINE AMINOTRANSFERASE < 6 Units/L (12-78); ALBUMIN 3.3 g/dL (3.4-5.0); ALKALINE PHOSPHATASE 83 Units/L (46-116); ASPARTATE AMINO TRANSFERASE 12 Units/L (15-37); CKMB % 2.3 % (<4); COR CA(FOR HYPOALB) 9.4 mg/dL (8.5-10.1); CREATINE KINASE 43 Units/L (26-192); TOTAL PROTEIN 7.6 g/dL (6.4-8.2)
[2019-12-26 17:08] LABS: HEMOGLOBIN 6.5 g/dL (12.0-16.0)
[2019-12-26 17:09] LABS: ANISOCYTOSIS 1+; HYPOCHROMASIA 2+; PLATELET MORPHOLOGY COMMENT NORMAL (NORMAL)
[2019-12-26] MEDS ORDERED: ROCEPHIN VIAL 1 GRAM ONE (22:22)
[2019-12-26] MEDS ORDERED: NS 250 ML IV 250 ML IV ONE (22:22)
[2019-12-26] MEDS ORDERED: NS 100 ML IV 100 ML IV ONE (22:22)
[2019-12-26] MEDS ORDERED: NS 50 ML IV 50 ML IV ONE (22:23)
[2019-12-26] MEDS: ROCEPHIN VIAL 1 GRAM 1 G in NS 100 ML IV + SPIKE MINIBAG* 100 ML IV SCH (22:30)
[2019-12-26 23:11] VITALS: BMI 35.2
[2019-12-26 23:41] LABS: CKMB % 2.8 % (<4); CREATINE KINASE MB 1.2 ng/mL (0-4.0); TROPONIN I 0.08 ng/mL (0-1.5)
[2019-12-27 01:12] LABS: BILIRUBIN,URINE NEGATIVE (NEGATIVE); BLOOD/HEMOGLOBIN,URINE NEGATIVE (NEGATIVE); GLUCOSE, URINE NEGATIVE (NEGATIVE); KETONES,URINE NEGATIVE (NEGATIVE); LEUKOCYTE ESTERASE ,URINE 2+ (NEGATIVE); NITRITES,URINE NEGATIVE (NEGATIVE); PROTEIN,URINE 2+ (NEGATIVE); UROBILINOGEN,URINE NORMAL (NORMAL)
[2019-12-27 01:18] LABS: APPEARANCE,URINE CLEAR (CLEAR); BACTERIA,URINE TRACE /HPF (NEGATIVE); COLOR,URINE AMBER (YELLOW); RBC,URINE 0-2 /HPF (0-3); SQUAMOUS EPITHELIAL CELL,UR MODERATE /HPF (NEGATIVE)
[2019-12-27 05:18] LABS: BASOPHILS # (AUTO) 0.1 X10^3/uL (0.0-0.1); BASOPHILS % (AUTO) 1.1 % (0.2-1.0); EOSINOPHILS # (AUTO) 0.2 x10^3/uL (0.0-0.2); EOSINOPHILS % (AUTO) 2.9 % (0.9-2.9); HEMATOCRIT 26.8 % (36.0-47.0); HEMOGLOBIN 8.4 g/dL (12.0-16.0); LYMPHOCYTES # (AUTO) 0.8 X10^3/uL (1.3-2.9); LYMPHOCYTES % (AUTO) 13.9 % (21.0-51.0); MEAN CORPUSCULAR HGB CONC 31.5 g/dL (33.0-35.0); MEAN CORPUSCULAR VOLUME 72.9 fL (80.0-100.0); MEAN PLATELET VOLUME 8.5 fL (7.4-11.0); MONOCYTES # (AUTO) 0.5 x10^3/uL (0.3-0.8); MONOCYTES % (AUTO) 9.3 % (0.0-13.0); NEUTROPHILS # (AUTO) 4.3 x10^3/uL (2.2-4.8); NEUTROPHILS % (AUTO) 72.8 % (42.0-75.0); PLATELET COUNT 191 X10^3/uL (150.0-450.0); RED BLOOD COUNT 3.67 X10^6/uL (3.5-5.4); RED CELL DISTRIBUTION WIDTH 23.2 % (11.6-16.5); WHITE BLOOD COUNT 5.9 X10^3/uL (3.6-10.0)
[2019-12-27 05:27] LABS: ANISOCYTOSIS 2+; HYPOCHROMASIA 1+; PLATELET MORPHOLOGY COMMENT NORMAL (NORMAL)
[2019-12-27 05:30] LABS: ALANINE AMINOTRANSFERASE 8 Units/L (12-78); ALBUMIN 3.4 g/dL (3.4-5.0); ALKALINE PHOSPHATASE 85 Units/L (46-116); ASPARTATE AMINO TRANSFERASE 16 Units/L (15-37); BLOOD UREA NITROGEN 43 mg/dL (7-18); CALCIUM 8.6 mg/dL (8.5-10.1); CARBON DIOXIDE 36.3 mmol/L (21-32); CHLORIDE 100 mmol/L (98-107); CKMB % 2.4 % (<4); COR NA(FOR HYPERGLY) 143 mmol/L (136-145); CREATINE KINASE 46 Units/L (26-192); CREATINE KINASE MB 1.1 ng/mL (0-4.0); CREATININE 2.17 mg/dL (0.55-1.02); MAGNESIUM 2.2 mg/dL (1.7-2.9); SODIUM 142 mmol/L (136-145); TOTAL PROTEIN 7.8 g/dL (6.4-8.2); TROPONIN I 0.07 ng/mL (0-1.5); eGFR NON BLACK RACES 24 (>60)
[2019-12-27] MEDS: ROCEPHIN VIAL 1 GRAM 1 G in NS 100 ML IV + SPIKE MINIBAG* 100 ML IV SCH (09:35)
[2019-12-27] MEDS: LASIX IVP SCH ×2 (09:36→16:49)
[2019-12-27] MEDS: KLOR-CON PO SCH (09:36)
[2019-12-27] MEDS ORDERED: ZOFRAN INJ 4 MG VIAL IVP PRN (10:20)
[2019-12-27] MEDS ORDERED: ZOFRAN INJ 4 MG VIAL ONE (10:21)
[2019-12-27] MEDS: PROVENTIL NEB TX 0.083% 2.5MG/ 3ML NEB SCH ×2 (12:00→17:21)
[2019-12-27] MEDS ORDERED: NEURONTIN CAP 300 MG PO ONE (16:46)
[2019-12-27] MEDS: NEURONTIN CAP 300 MG PO SCH ×2 (16:48→21:05)
[2019-12-27] MEDS: SINEMET (PLAIN) 25/100 MG PO SCH (21:04)
[2019-12-28] MEDS: PROVENTIL NEB TX 0.083% 2.5MG/ 3ML NEB SCH ×4 (00:40→17:14)
[2019-12-28] MEDS: SINEMET (PLAIN) 25/100 MG PO SCH ×3 (05:13→21:56)
[2019-12-28] MEDS: NEURONTIN CAP 300 MG PO SCH ×3 (05:13→21:56)
[2019-12-28 05:27] LABS: BASOPHILS # (AUTO) 0.1 X10^3/uL (0.0-0.1); BASOPHILS % (AUTO) 1.1 % (0.2-1.0); EOSINOPHILS # (AUTO) 0.2 x10^3/uL (0.0-0.2); EOSINOPHILS % (AUTO) 3.1 % (0.9-2.9); HEMATOCRIT 26.9 % (36.0-47.0); HEMOGLOBIN 8.3 g/dL (12.0-16.0); LYMPHOCYTES # (AUTO) 0.7 X10^3/uL (1.3-2.9); LYMPHOCYTES % (AUTO) 13.1 % (21.0-51.0); MEAN CORPUSCULAR HEMOGLOBIN 22.7 pg (27.0-34.0); MEAN CORPUSCULAR HGB CONC 30.8 g/dL (33.0-35.0); MEAN CORPUSCULAR VOLUME 73.9 fL (80.0-100.0); MEAN PLATELET VOLUME 8.6 fL (7.4-11.0); MONOCYTES # (AUTO) 0.6 x10^3/uL (0.3-0.8); MONOCYTES % (AUTO) 9.9 % (0.0-13.0); NEUTROPHILS # (AUTO) 4.2 x10^3/uL (2.2-4.8); NEUTROPHILS % (AUTO) 72.8 % (42.0-75.0); PLATELET COUNT 197 X10^3/uL (150.0-450.0); RED BLOOD COUNT 3.64 X10^6/uL (3.5-5.4); WHITE BLOOD COUNT 5.7 X10^3/uL (3.6-10.0)
[2019-12-28 05:32] LABS: ALBUMIN 3.3 g/dL (3.4-5.0); CALCIUM 8.3 mg/dL (8.5-10.1); CARBON DIOXIDE 37.2 mmol/L (21-32); COR CA(FOR HYPOALB) 8.9 mg/dL (8.5-10.1); CREATININE 1.96 mg/dL (0.55-1.02); TOTAL PROTEIN 7.7 g/dL (6.4-8.2)
[2019-12-28 05:36] LABS: ANISOCYTOSIS 2+; HYPOCHROMASIA 1+; PLATELET MORPHOLOGY COMMENT NORMAL (NORMAL)
[2019-12-28] MEDS: KLOR-CON PO SCH (09:16)
[2019-12-28] MEDS: ROCEPHIN VIAL 1 GRAM 1 G in NS 100 ML IV + SPIKE MINIBAG* 100 ML IV SCH (09:16)
[2019-12-28] MEDS: LASIX IVP SCH ×2 (09:16→17:27)
--- NOTE | 2019-12-28 21:29 | DR.H&P ---
H&P - History & Physical for Day of: H&P Date: 12/26/19 - Chief Complaint Chief Complaint: SOB, WHEEZING, NAUSEA, VOMITING, SWELLING, DIZZINESS - History of Present Illness History of Present Illness: IS A 69 YEAR OLD PATIENT OF WHO PRESENTED TO THE ER WITH COMPLAINTS OF SHORTNESS OF BREATH, WHEEZING, NAUSEA AND VOMITING, GENERALIZED SWELLING, AND DIZZINESS. SYMPTOMS STARTED ONE WEEK PRIOR. SHE HAS A HISTORY OF ASTHMA, CHF, CAD, DM, HTN, MT, RENAL DISEASE, AND SLEEP APNEA. ON ARRIVAL TO THE ER, VITALS WERE 98.1-81-22-95%-105/69. LABS WERE OBTAINED. ABNORMAL LAB VALUES INCLUDE THE FOLLOWING: RBC 3.06, HGB 6.5, HCT 21. 5, CARBON DIOXIDE 38.2, BUN 46, CREATININE 2.17, GLUCOSE 157, AST 12, ALT <6, BNP 1870, ALBUMIN 3.3. CARDIAC ENZYMES WITHIN NORMAL LIMITS. URINALYSIS REVEALED: WBC 3-5, RBC 0-2, LEUKOCYTES 2+, BACTERIA TRACE. INFLUENZA, STREP, AND RSV NEGATIVE. BLOOD CULTURES WERE OBTAINED. A CHEST XRAY WAS OBTAINED AND REVEALED: The patient is rotated. The cardiac silhouette is enlarged. Hazy opacification within the left lower lobe may reflect overlying soft tissues however underlying atelectasis and/or infiltrate cannot entirely be excluded. Correlate clinically. EKG REVEALED: SINUS RHYTHM WITH HR 74. WE TYPE AND SCREENED AND TRANSFUSED ONE UNIT OF PRBC. SHE WAS ALSO GIVEN LASIX 40MG IV X 1 IN THE ER. SHE WAS ADMITTED FOR FURTHER EVALUATION AND TREATMENT OF CHF, ANEMIA, BRONCHITIS, AND DIZZINESS. SHE WAS STARTED ON ROCEPHIN 1G IV DAILY, RESPIRATORY TX, LASIX 40MG IV BID. OTHERWISE, WE PLAN TO FOLLOW UP WITH AM LABS AND CONTINUE TO MONITOR. - Past Medical History Past Medical History: MT, Coronary Artery Disease, Hypertension, Diabetes, Renal Disease, Anemia, Asthma, Arthritis, Sleep Apnea, CHF Additional Medical History: Cataracts, MT, PAD, Sleep Apnea, UTI's, Rheumatoid arthritis, Back Pain, Previous blood transfusion, Skin Cancer - Past Surgical History Surgical History: Angioplasty/Stents, Appendectomy, Cholecystectomy, Ortho Surgery, Other, Tonsillectomy Additional Surgical History: Cataract removal, Cardiac Stents x5, Biopsy of right breast, Tubal Ligation - Family History Family Medical History: Diabetes Mellitus, Cancer, [place], Coronary Artery Disease, Heart Failure - Social History Does patient currently use any type of tobacco product: No Have you used tobacco products in the last 12 months: No Type of Tobacco Use: None Does any household member use tobacco: No Alcohol Use: None Drug Use: None - Medications Home Medications: codeine Allergy (Verified 09/10/19 14:49) colchicine Allergy (Verified 09/10/19 14:49) hydromorphone [From Dilaudid] Allergy (Verified 09/10/19 14:49) morphine Allergy (Verified 09/10/19 14:49) niacin Allergy (Verified 09/10/19 14:49) CONTINUE taking the following medications bumetanide 1 mg PO BID 12/27/19 [History] ferrous sulfate [iron] 325 mg PO DAILY 12/27/19 [History] - Review of Systems Constitutional: Weakness Eyes: No Symptoms Reported ENT: No Symptoms Reported Respiratory: See HPI, Shortness of Breath, Wheezing Cardiovascular: Edema, Light Headedness Gastrointestinal: See HPI, Nausea, Vomiting Genitourinary: No Symptoms Reported Musculoskeletal: No Symptoms Reported Skin: No Symptoms Reported Neurological: Weakness - Physical Exam Vital Signs: Temperature 97.9 F Pulse Rate [Left Brachial] 74 Pulse Rate 64 Respiratory Rate 18 Blood Pressure [Right Arm] 150/69 Blood Pressure [Left Arm] 187/86 Blood Pressure [Right Arm] 150/67 Blood Pressure [Standing] 138/63 Blood Pressure [Sitting] 141/61 Blood Pressure [Lying] 125/59 Blood Pressure 97/59 O2 Sat by Pulse Oximetry 96 Oriented: Normal Eyes: Normal Ear: Normal Nose: Normal Throat: Normal Respiratory: Wheezes Throughout Cardiovascular: Edema (GENERALIZED SWELLING ) : Normal Auscultation: Bowel Sounds: Normal Palpation: Normal Tenderness: Normal Skin: Normal Musculoskeletal: Normal Psychiatric: Normal Mood Description: Calm Affect: Normal Speech Pattern: Clear - Assessment/Plan (1) CHF (congestive heart failure) Qualifiers: Heart failure type: combined systolic and diastolic Heart failure chronicity: acute on chronic Qualified Code(s): I50.43 - Acute on chronic combined systolic (congestive) and diastolic (congestive) heart failure Status: Acute Plan: ADMIT, LASIX 40MG IV BID, CONTINUE OT MONITOR (2) Anemia Qualifiers: Anemia type: unspecified type Qualified Code(s): D64.9 - Anemia, unspecified Status: Acute Plan: TRANSFUSE 1 UNIT PRBC, CONTINUE TO MONITOR (3) Bronchitis Status: Acute Plan: ROCEPHIN 1G IV DAILY, RESPIRATORY TX, CONTINUE TO MONITOR (4) Dizziness Status: Acute - Allergies Allergies/Adverse Reactions: Allergies Allergy/AdvReac Type Severity Reaction Status Date / Time codeine Allergy Verified 09/10/19 14:49 colchicine Allergy Verified 09/10/19 14:49 hydromorphone [From Dilaudid] Allergy Verified 09/10/19 14:49 morphine Allergy Verified 09/10/19 14:49 niacin Allergy Verified 09/10/19 14:49
[2019-12-29] MEDS: PROVENTIL NEB TX 0.083% 2.5MG/ 3ML NEB SCH ×4 (00:55→17:38)
[2019-12-29] MEDS ORDERED: COLACE CAP 100 MG PO PRN (03:23)
[2019-12-29] MEDS ORDERED: MILK OF MAGNESIA PO PRN (03:23)
[2019-12-29] MEDS: SINEMET (PLAIN) 25/100 MG PO SCH ×3 (05:05→21:16)
[2019-12-29] MEDS: NEURONTIN CAP 300 MG PO SCH ×3 (05:05→21:16)
[2019-12-29 05:17] LABS: BASOPHILS # (AUTO) 0.1 X10^3/uL (0.0-0.1); EOSINOPHILS # (AUTO) 0.3 x10^3/uL (0.0-0.2); EOSINOPHILS % (AUTO) 4.7 % (0.9-2.9); HEMATOCRIT 25.6 % (36.0-47.0); HEMOGLOBIN 7.9 g/dL (12.0-16.0); LYMPHOCYTES # (AUTO) 0.7 X10^3/uL (1.3-2.9); LYMPHOCYTES % (AUTO) 12.2 % (21.0-51.0); MEAN CORPUSCULAR HEMOGLOBIN 22.6 pg (27.0-34.0); MEAN CORPUSCULAR HGB CONC 30.6 g/dL (33.0-35.0); MEAN CORPUSCULAR VOLUME 73.9 fL (80.0-100.0); MONOCYTES # (AUTO) 0.6 x10^3/uL (0.3-0.8); MONOCYTES % (AUTO) 9.7 % (0.0-13.0); NEUTROPHILS # (AUTO) 4.2 x10^3/uL (2.2-4.8); NEUTROPHILS % (AUTO) 72.4 % (42.0-75.0); PLATELET COUNT 192 X10^3/uL (150.0-450.0); RED BLOOD COUNT 3.47 X10^6/uL (3.5-5.4); RED CELL DISTRIBUTION WIDTH 22.3 % (11.6-16.5); WHITE BLOOD COUNT 5.8 X10^3/uL (3.6-10.0)
[2019-12-29 05:26] LABS: ALBUMIN 3.2 g/dL (3.4-5.0); CALCIUM 8.4 mg/dL (8.5-10.1); CARBON DIOXIDE 36.9 mmol/L (21-32); CREATININE 1.78 mg/dL (0.55-1.02); TOTAL PROTEIN 7.7 g/dL (6.4-8.2)
[2019-12-29 05:33] LABS: ANISOCYTOSIS 2+; HYPOCHROMASIA 1+; PLATELET MORPHOLOGY COMMENT NORMAL (NORMAL)
[2019-12-29] MEDS: HumuLIN R SUBCUT PRN ×2 (05:59→20:33)
--- NOTE | 2019-12-29 06:57 | RAD ---
HISTORYCongestive heart failure, rhonchiSTUDYCHEST, PA/LAT [id number] heart remains enlarged. No congestive heart failure is noted. The lungs appear free of acute infiltrates. No pleural effusions are identified. Bony thorax is unremarkable.IMPRESSIONCardiomegaly without congestive heart failureNo definite infiltratesElectronically signed by: EVER SKAGGS (Dec 29, 2019 06:56:34)
[2019-12-29] MEDS: ROCEPHIN VIAL 1 GRAM 1 G in NS 100 ML IV + SPIKE MINIBAG* 100 ML IV SCH (08:14)
[2019-12-29] MEDS: LASIX IVP SCH (08:14)
[2019-12-29] MEDS ORDERED: K-DUR TAB 20 MEQ PO ONE (08:16)
[2019-12-29] MEDS: K-DUR TAB 20 MEQ PO SCH (08:20)
[2019-12-29 10:53] LABS: ABG BASE EXCESS 11.2 mmol/L (-2.0-2.0)
[2019-12-29 10:54] LABS: ABG HCO3 39.9 mmol/L (22-26)
--- NOTE | 2019-12-29 11:10 | PCM.PROG ---
Progress Note - Progress Note for Day of Date of Exam: 12/28/19 - Subjective Subjective: IS BEING TREATED FOR CHF, ANEMIA, BRONCHITIS, AND DIZZINESS. TODAY, SHE IS ALERT AND ORIENTED, LYING IN BED ON MORNING ROUNDS. SHE CONTINUES WITH COMPLAINTS OF WEAKNESS AND SHORTNESS OF BREATH TODAY. ON EXAMINATION, HEART IS REGULAR IN RATE AND RHYTHM. BILATERAL LUNGS ARE NOTED WITH DIMINISHED LUNG SOUNDS THROUGHOUT. ABDOMEN IS ROUND, SOFT, AND NON-TENDER WITH NORMAL BOWEL SOUNDS NOTED IN ALL QUADRANTS. BILATERAL LOWER EXTREMITIES ARE NOTED WITH 1+ PITTING EDEMA. HER VITALS THIS MORNING ARE: 97.5-86-20-98%-142/75. LABS WERE OBTAINED. ABNORMAL LAB VALUES INCLUDE THE FOLLOWING: HGB 8.3, HCT 26.9, CARBON DIOXIDE 37.2, BUN 40, CREATININE 1.96, GLUCOSE 150, CALCIUM 8.3, ALT 6, ALBUMIN 3.3. BLOOD CULTURES ARE PENDING. SHE IS CURRENTLY RECEIVING ROCEPHIN 1G IV DAILY, RESPIRATORY TX, LASIX 40MG IV BID. WE WILL REVIEW HER HOME MEDICATIONS. OTHERWISE, WE WILL FOLLOW UP WITH AM LABS AND CONTINUE TO MONITOR. - Past Medical Family Social History Past Med/Fam/Surg Hx: No changes since H&P Allergies: Allergies codeine Allergy (Verified 09/10/19 14:49) colchicine Allergy (Verified 09/10/19 14:49) hydromorphone [From Dilaudid] Allergy (Verified 09/10/19 14:49) morphine Allergy (Verified 09/10/19 14:49) niacin Allergy (Verified 09/10/19 14:49) - Review of Systems ROS: No change since H&P - Vital Signs and I&O's Vital Signs: Temperature 98.5 F Pulse Rate [Left Brachial] 67 Pulse Rate 76 Respiratory Rate 20 Blood Pressure [Right Arm] 133/63 Blood Pressure [Left Arm] 187/86 Blood Pressure [Right Arm] 150/67 Blood Pressure [Standing] 138/63 Blood Pressure [Sitting] 141/61 Blood Pressure [Lying] 125/59 Blood Pressure 97/59 O2 Sat by Pulse Oximetry 94 Intake and Output: Intake & Output 12/26/19 12/27/19 12/28/19 12/29/19 11:59 11:59 11:59 11:59 Intake Total 890 / 890 1840 / 1840 2395 / 2395 Balance 890 / 890 1840 / 1840 2395 / 2395 - Physical Exam Oriented: Normal Eyes: Normal Ear: Normal Nose: Normal Throat: Normal Respiratory: Generalized, Diminished Cardiovascular: Edema (BLE 1+ PITTING EDEMA ) : Normal Auscultation: Bowel Sounds: Normal Palpation: Normal Tenderness: Normal Skin: Normal Musculoskeletal: Normal Psychiatric: Normal Mood Description: Calm Affect: Normal Speech Pattern: Clear, Appropriate - Laboratory and Diagnostics Result Diagrams: 12/29/19 04:37 12/29/19 04:37 Labs: 12/26/19 16:14 Blood Blood Culture - Preliminary 12/26/19 16:23 Blood Blood Culture - Preliminary Laboratory WBC 5.8 X10^3/uL (3.6-10.0) 12/29/19 04:37 RBC 3.47 X10^6/uL (3.5-5.4) L 12/29/19 04:37 Hgb 7.9 g/dL (12.0-16.0) L 12/29/19 04:37 Hct 25.6 % (36.0-47.0) L 12/29/19 04:37 MCV 73.9 fL (80.0-100.0) L 12/29/19 04:37 MCH 22.6 pg (27.0-34.0) L 12/29/19 04:37 MCHC 30.6 g/dL (33.0-35.0) L 12/29/19 04:37 RDW 22.3 % (11.6-16.5) H 12/29/19 04:37 Plt Count 192 X10^3/uL (150.0-450.0) 12/29/19 04:37 Plt Count Comment Adequate (ADEQUATE) 12/29/19 04:37 MPV 8.0 fL (7.4-11.0) 12/29/19 04:37 Neut % (Auto) 72.4 % (42.0-75.0) 12/29/19 04:37 Lymph % (Auto) 12.2 % (21.0-51.0) L 12/29/19 04:37 [place] % (Auto) 9.7 % (0.0-13.0) 12/29/19 04:37 Eos % (Auto) 4.7 % (0.9-2.9) H 12/29/19 04:37 Baso % (Auto) 1.0 % (0.2-1.0) 12/29/19 04:37 Neut # (Auto) 4.2 x10^3/uL (2.2-4.8) 12/29/19 04:37 Lymph # (Auto) 0.7 X10^3/uL (1.3-2.9) L 12/29/19 04:37 [place] # (Auto) 0.6 x10^3/uL (0.3-0.8) 12/29/19 04:37 Eos # (Auto) 0.3 x10^3/uL (0.0-0.2) H 12/29/19 04:37 Baso # (Auto) 0.1 X10^3/uL (0.0-0.1) 12/29/19 04:37 Absolute Nucleated RBC 0.1 /100WBC 12/29/19 04:37 Plt Morphology Comment Normal (NORMAL) 12/29/19 04:37 RBC Morphology Abnormal (NORMAL) A 12/29/19 04:37 Hypochromasia 1+ A 12/29/19 04:37 Anisocytosis 2+ A 12/29/19 04:37 Sample Site Rb 12/29/19 10:45 ABG pH 7.340 (7.35-7.45) L 12/29/19 10:45 ABG pCO2 74.0 mmHg (35.0-45.0) H* 12/29/19 10:45 ABG pO2 82.0 mmHg (80.0-100.0) 12/29/19 10:45 ABG HCO3 39.9 mmol/L (22-26) H* 12/29/19 10:45 ABG O2 Saturation 95.0 % (90-100) 12/29/19 10:45 ABG Base Excess 11.2 mmol/L (-2.0-2.0) H 12/29/19 10:45 Ar Test Na 12/29/19 10:45 A-a Gradient 25.0 mmHg 12/29/19 10:45 FiO2 28.0 12/29/19 10:45 Blood Gas Comments Pt marissa well. cdn 12/29/19 10:45 Sodium 140 mmol/L (136-145) 12/29/19 04:37 Corrected Sodium 142 mmol/L (136-145) 12/29/19 04:37 Potassium 4.0 mmol/L (3.5-5.1) 12/29/19 04:37 Chloride 100 mmol/L (98-107) 12/29/19 04:37 Carbon Dioxide 36.9 mmol/L (21-32) H 12/29/19 04:37 BUN 35 mg/dL (7-18) H 12/29/19 04:37 Creatinine 1.78 mg/dL (0.55-1.02) H 12/29/19 04:37 Est GFR (MDRD) Af Amer 36 (>60) L 12/29/19 04:37 Est GFR (MDRD) Non-Af 30 (>60) L 12/29/19 04:37 Glucose 183 mg/dL (65-99) H 12/29/19 04:37 POC Glucose (mg/dL) 213 mg/dL (65-99) H 12/29/19 05:11 Lactic Acid 1.2 mmol/L (0.4-2.0) 12/26/19 16:23 Calcium 8.4 mg/dL (8.5-10.1) L 12/29/19 04:37 Corrected Calcium 9.0 mg/dL (8.5-10.1) 12/29/19 04:37 Magnesium 2.2 mg/dL (1.7-2.9) 12/27/19 04:33 Total Bilirubin 0.50 mg/dL (0.2-1.0) 12/29/19 04:37 AST 17 Units/L (15-37) 12/29/19 04:37 ALT 7 Units/L (12-78) L 12/29/19 04:37 Alkaline Phosphatase 90 Units/L (46-116) 12/29/19 04:37 Creatine Kinase 46 Units/L (26-192) 12/27/19 04:33 CK-MB (CK-2) 1.1 ng/mL (0-4.0) 12/27/19 04:33 CK/CKMB % Calc 2.4 % (<4) 12/27/19 04:33 Troponin I 0.07 ng/mL (0-1.5) 12/27/19 04:33 B-Natriuretic Peptide 1870 pg/mL (0-79) H* 12/26/19 16:23 Total Protein 7.7 g/dL (6.4-8.2) 12/29/19 04:37 Albumin 3.2 g/dL (3.4-5.0) L 12/29/19 04:37 Globulin 4.5 g/dL (2.5-4.5) 12/29/19 04:37 Albumin/Globulin Ratio 0.7 Ratio (1.1-2.1) L 12/29/19 04:37 Specimen Type Clean catch urine 12/27/19 00:48 Urine Color [place]enny (YELLOW) 12/27/19 00:48 Urine Appearance Clear (CLEAR) 12/27/19 00:48 Urine pH 5.0 (5.0 - 8.0) 12/27/19 00:48 Ur Specific [place] 1.015 (1.000-1.030) 12/27/19 00:48 Urine Protein 2+ (NEGATIVE) 12/27/19 00:48 Urine Glucose (UA) Negative (NEGATIVE) 12/27/19 00:48 Urine Ketones Negative (NEGATIVE) 12/27/19 00:48 Urine Occult Blood Negative (NEGATIVE) 12/27/19 00:48 Urine Nitrite Negative (NEGATIVE) 12/27/19 00:48 Urine Bilirubin Negative (NEGATIVE) 12/27/19 00:48 Urine Urobilinogen Normal (NORMAL) 12/27/19 00:48 Ur Leukocyte Esterase 2+ (NEGATIVE) 12/27/19 00:48 Urine RBC 0-2 /HPF (0-3) 12/27/19 00:48 Urine WBC 3-5 /HPF (0-5) 12/27/19 00:48 Ur Squamous Epith Cells Moderate /HPF (NEGATIVE) 12/27/19 00:48 Urine Bacteria Trace /HPF (NEGATIVE) 12/27/19 00:48 Ur Culture Indicated? No/not indicated 12/27/19 00:48 RSV Nasal Swab Negative (NEGATIVE) 12/26/19 15:54 Influenza Type A (PCR) Negative (NEGATIVE) 12/26/19 15:54 Influenza Type B (PCR) Negative (NEGATIVE) 12/26/19 15:54 S. pyogenes (TEM-PCR) Not detected (NOT DETECT) 12/26/19 15:54 Blood Type A POSITIVE 12/26/19 20:00 Antibody Screen Negative 12/26/19 20:00 Antibody ID Referred Cancelled 12/26/19 20:00 Crossmatch See Detail 12/26/19 20:00 - Plan (1) CHF (congestive heart failure) Status: Acute Qualifiers: Heart failure type: combined systolic and diastolic Heart failure chronic ity: acute on chronic Qualified Code(s): I50.43 - Acute on chronic combined systolic (congestive) and diastolic (congestive) heart failure Plan: LASIX 40MG IV BID, CONTINUE OT MONITOR (2) Anemia Status: Acute Qualifiers: Anemia type: unspecified type Qualified Code(s): D64.9 - Anemia, unspecified Plan: CONTINUE TO MONITOR (3) Bronchitis Status: Acute Plan: ROCEPHIN 1G IV DAILY, RESPIRATORY TX, CONTINUE TO MONITOR (4) Dizziness Status: Acute
[2019-12-29 14:42] LABS: ABG BASE EXCESS 11.3 mmol/L (-2.0-2.0); ABG HCO3 38.7 mmol/L (22-26)
[2019-12-29] MEDS ORDERED: HEMOCYTE-PLUS ONE (17:48)
[2019-12-29] MEDS: HEMOCYTE-PLUS PO SCH (17:51)
[2019-12-29] MEDS: SNACK - Diabetic Appropriate PO SCH (20:31)
[2019-12-30] MEDS: PROVENTIL NEB TX 0.083% 2.5MG/ 3ML NEB SCH ×4 (00:28→18:34)
[2019-12-30 05:26] LABS: BASOPHILS # (AUTO) 0.1 X10^3/uL (0.0-0.1); BASOPHILS % (AUTO) 1.6 % (0.2-1.0); EOSINOPHILS # (AUTO) 0.2 x10^3/uL (0.0-0.2); EOSINOPHILS % (AUTO) 4.1 % (0.9-2.9); HEMATOCRIT 22.8 % (36.0-47.0); LYMPHOCYTES # (AUTO) 0.7 X10^3/uL (1.3-2.9); LYMPHOCYTES % (AUTO) 13.1 % (21.0-51.0); MEAN CORPUSCULAR HEMOGLOBIN 22.7 pg (27.0-34.0); MEAN CORPUSCULAR HGB CONC 30.8 g/dL (33.0-35.0); MEAN CORPUSCULAR VOLUME 73.9 fL (80.0-100.0); MEAN PLATELET VOLUME 8.5 fL (7.4-11.0); MONOCYTES # (AUTO) 0.6 x10^3/uL (0.3-0.8); MONOCYTES % (AUTO) 10.8 % (0.0-13.0); NEUTROPHILS # (AUTO) 3.8 x10^3/uL (2.2-4.8); NEUTROPHILS % (AUTO) 70.4 % (42.0-75.0); PLATELET COUNT 183 X10^3/uL (150.0-450.0); RED BLOOD COUNT 3.09 X10^6/uL (3.5-5.4); WHITE BLOOD COUNT 5.4 X10^3/uL (3.6-10.0)
[2019-12-30 05:36] LABS: ANISOCYTOSIS 2+; HYPOCHROMASIA 2+; PLATELET MORPHOLOGY COMMENT NORMAL (NORMAL)
[2019-12-30 05:41] LABS: CALCIUM 8.1 mg/dL (8.5-10.1); COR CA(FOR HYPOALB) 8.9 mg/dL (8.5-10.1); CREATININE 1.74 mg/dL (0.55-1.02)
[2019-12-30] MEDS: NEURONTIN CAP 300 MG PO SCH ×3 (05:56→21:01)
[2019-12-30] MEDS: HumuLIN R SUBCUT PRN ×3 (05:57→20:31)
[2019-12-30] MEDS: SINEMET (PLAIN) 25/100 MG PO SCH ×3 (05:57→21:01)
[2019-12-30] MEDS: K-DUR TAB 20 MEQ PO SCH (08:22)
[2019-12-30] MEDS: ROCEPHIN VIAL 1 GRAM 1 G in NS 100 ML IV + SPIKE MINIBAG* 100 ML IV SCH (08:23)
[2019-12-30] MEDS: HEMOCYTE-PLUS PO SCH (08:23)
[2019-12-30] MEDS: PROTONIX INJ 40 MG VIAL IVP SCH (10:36)
--- NOTE | 2019-12-30 10:36 | RAD ---
HISTORY:BronchitisStudy: PA and lateral views of the chestComparison:12/29/2019Findings:Stable cardiomegaly with moderate central vascular congestion perihilar bronchial thickening that is nonspecific. No focal infiltrate identified. No pleural effusion or pneumothorax. Aorta is calcified. The soft tissues are intact.IMPRESSION:1. Cardiomegaly with central vascular congestion and nonspecific perihilar bronchial thickening which could be related to edema or bronchitis. No focal infiltrate identified.Electronically signed by: RAKESH BELTRAN (Dec 30, 2019 10:35:06)
--- NOTE | 2019-12-30 10:39 | CT ---
HISTORY:Abdominal pain and distensionStudy: CT abdomen and pelvis without contrastComparison:NoneTechnique: Multiple axial images of the abdomen and pelvis were obtained without IV contrast. Oral contrast was not administered. Dose reduction techniques including Automated Exposure Control (AEC) and adjustment of mA and kV were utilized.FINDINGS:Please note evaluation is limited without IV contrast.There is cardiomegaly and [id number] pericardial effusion. There is large volume ascites throughout the abdomen and pelvis limiting evaluation. Spleen is mildly enlarged measuring 13.5 cm. The pancreas, adrenal glands and liver are unremarkable in their unenhanced appearance. Gallbladder is removed. No renal calculi or obstructive uropathy identified.No free intraperitoneal air. There is moderate retained stool throughout the colon. Appendix not clearly visualized due to ascites. No evidence of small-bowel obstruction.There is moderate anasarca. Bony structures are intact. There is calcified plaque throughout the aorta branch vessels. No pathologically enlarged lymph nodes are identified. Calcified uterine fibroids are noted. Urinary bladder is empty therefore not well evaluatedIMPRESSION ABDOMEN/PELVIS:1. Large volume ascites throughout the abdomen and pelvis.2. Mild splenomegaly measuring 13.5 cm.3. Cardiomegaly and mild moderate-sized pericardial effusion.Electronically signed by: RAKESH BELTRAN (Dec 30, 2019 10:37:57)
[2019-12-30] MEDS ORDERED: NS 500 ML IV 500 ML IV ONE (10:42)
[2019-12-30] MEDS: LASIX IVP SCH (14:26)
[2019-12-30 15:44] LABS: HEMATOCRIT 30.2 % (36.0-47.0); HEMOGLOBIN 9.3 g/dL (12.0-16.0)
[2019-12-30 16:24] LABS: TOTAL PROTEIN,PERITONEAL FLUID 4.5
[2019-12-30] MEDS ORDERED: TYLENOL 325 MG TAB PO ONE (18:24)
[2019-12-30] MEDS: TYLENOL 325 MG TAB PO PRN (18:27)
[2019-12-30] MEDS: COZAAR PO SCH (20:18)
[2019-12-30] MEDS: SNACK - Diabetic Appropriate PO SCH (20:25)
[2019-12-31] MEDS: PROVENTIL NEB TX 0.083% 2.5MG/ 3ML NEB SCH ×4 (00:15→17:08)
[2019-12-31 05:06] LABS: BASOPHILS # (AUTO) 0.1 X10^3/uL (0.0-0.1); BASOPHILS % (AUTO) 1.5 % (0.2-1.0); EOSINOPHILS # (AUTO) 0.3 x10^3/uL (0.0-0.2); EOSINOPHILS % (AUTO) 4.8 % (0.9-2.9); HEMATOCRIT 26.6 % (36.0-47.0); HEMOGLOBIN 8.3 g/dL (12.0-16.0); LYMPHOCYTES # (AUTO) 0.7 X10^3/uL (1.3-2.9); LYMPHOCYTES % (AUTO) 12.5 % (21.0-51.0); MEAN CORPUSCULAR HEMOGLOBIN 23.7 pg (27.0-34.0); MEAN CORPUSCULAR HGB CONC 31.3 g/dL (33.0-35.0); MEAN CORPUSCULAR VOLUME 75.6 fL (80.0-100.0); MEAN PLATELET VOLUME 8.3 fL (7.4-11.0); MONOCYTES # (AUTO) 0.5 x10^3/uL (0.3-0.8); NEUTROPHILS # (AUTO) 3.8 x10^3/uL (2.2-4.8); NEUTROPHILS % (AUTO) 71.2 % (42.0-75.0); PLATELET COUNT 192 X10^3/uL (150.0-450.0); RED BLOOD COUNT 3.52 X10^6/uL (3.5-5.4); RED CELL DISTRIBUTION WIDTH 23.1 % (11.6-16.5); WHITE BLOOD COUNT 5.3 X10^3/uL (3.6-10.0)
[2019-12-31 05:10] LABS: ALANINE AMINOTRANSFERASE < 6 Units/L (12-78); ALKALINE PHOSPHATASE 93 Units/L (46-116); ASPARTATE AMINO TRANSFERASE 18 Units/L (15-37); BLOOD UREA NITROGEN 30 mg/dL (7-18); CALCIUM 8.3 mg/dL (8.5-10.1); CARBON DIOXIDE 35.9 mmol/L (21-32); CHLORIDE 102 mmol/L (98-107); COR CA(FOR HYPOALB) 9.1 mg/dL (8.5-10.1); COR NA(FOR HYPERGLY) 142 mmol/L (136-145); CREATININE 1.69 mg/dL (0.55-1.02); SODIUM 140 mmol/L (136-145); TOTAL PROTEIN 7.2 g/dL (6.4-8.2); eGFR NON BLACK RACES 32 (>60)
[2019-12-31 05:15] LABS: ANISOCYTOSIS 2+; HYPOCHROMASIA 1+; PLATELET MORPHOLOGY COMMENT NORMAL (NORMAL); STOMATOCYTES PRESENT
[2019-12-31] MEDS: NEURONTIN CAP 300 MG PO SCH ×3 (05:44→21:03)
[2019-12-31] MEDS: SINEMET (PLAIN) 25/100 MG PO SCH ×3 (05:45→21:04)
[2019-12-31] MEDS: COZAAR PO SCH ×2 (08:35→20:30)
[2019-12-31] MEDS: K-DUR TAB 20 MEQ PO SCH (08:35)
[2019-12-31] MEDS: HEMOCYTE-PLUS PO SCH (08:35)
[2019-12-31] MEDS: LASIX IVP SCH (08:36)
[2019-12-31] MEDS: TOPROL XL PO SCH (08:36)
[2019-12-31] MEDS: ROCEPHIN VIAL 1 GRAM 1 G in NS 100 ML IV + SPIKE MINIBAG* 100 ML IV SCH (08:36)
[2019-12-31] MEDS: PROTONIX INJ 40 MG VIAL IVP SCH (08:36)
[2019-12-31] MEDS: HumuLIN R SUBCUT PRN ×3 (11:31→20:33)
[2019-12-31] MEDS: TYLENOL 325 MG TAB PO PRN ×2 (13:45→20:31)
[2019-12-31 15:31] LABS: BASOPHILS # (AUTO) 0.1 X10^3/uL (0.0-0.1); BASOPHILS % (AUTO) 1.2 % (0.2-1.0); EOSINOPHILS # (AUTO) 0.2 x10^3/uL (0.0-0.2); EOSINOPHILS % (AUTO) 3.7 % (0.9-2.9); HEMATOCRIT 27.5 % (36.0-47.0); HEMOGLOBIN 8.4 g/dL (12.0-16.0); LYMPHOCYTES # (AUTO) 0.5 X10^3/uL (1.3-2.9); MEAN CORPUSCULAR HEMOGLOBIN 23.1 pg (27.0-34.0); MEAN CORPUSCULAR HGB CONC 30.7 g/dL (33.0-35.0); MEAN CORPUSCULAR VOLUME 75.4 fL (80.0-100.0); MEAN PLATELET VOLUME 7.8 fL (7.4-11.0); MONOCYTES # (AUTO) 0.4 x10^3/uL (0.3-0.8); MONOCYTES % (AUTO) 8.2 % (0.0-13.0); NEUTROPHILS # (AUTO) 3.9 x10^3/uL (2.2-4.8); NEUTROPHILS % (AUTO) 76.9 % (42.0-75.0); PLATELET COUNT 194 X10^3/uL (150.0-450.0); RED BLOOD COUNT 3.65 X10^6/uL (3.5-5.4); RED CELL DISTRIBUTION WIDTH 24.1 % (11.6-16.5); WHITE BLOOD COUNT 5.1 X10^3/uL (3.6-10.0)
--- NOTE | 2019-12-31 15:31 | DR.PROGNOT ---
Hospital Progress Notes - Progress Note for Day of: Progress Note Date: 12/31/19 - Chief Complaint Chief Complaint: feeling better after paracentesis . still distended and SOB . Hgb is stable , no active bleeding . - Past Medical Family Social History Past Med/Fam/Surg Hx: No changes since H&P Allergies: Allergies codeine Allergy (Verified 09/10/19 14:49) colchicine Allergy (Verified 09/10/19 14:49) hydromorphone [From Dilaudid] Allergy (Verified 09/10/19 14:49) morphine Allergy (Verified 09/10/19 14:49) niacin Allergy (Verified 09/10/19 14:49) - Review Of Systems ROS: No change since H&P - Vital Signs Vital Signs: Temperature 97.4 F Pulse Rate [Left Brachial] 72 Pulse Rate 69 Respiratory Rate 20 Blood Pressure [Right Arm] 150/67 Blood Pressure [Left Arm] 187/86 Blood Pressure [Right Arm] 150/67 Blood Pressure [Standing] 138/63 Blood Pressure [Sitting] 141/61 Blood Pressure [Lying] 125/59 Blood Pressure 97/59 O2 Sat by Pulse Oximetry 94 - Physical Exam Oriented: Normal Eyes: Normal Ear: Normal Nose: Normal Throat: Normal Respiratory: Generalized, Diminished Cardiovascular: Edema (BLE 1+ PITTING EDEMA ) : Normal GI:Auscultation: Other (distended abdomen with ascitis , non tender ) GI: Tenderness: Normal Skin: Normal Musculoskeletal: Normal Psychiatric: Normal Mood Description: Calm Affect: Normal Speech Pattern: Clear, Appropriate - Laboratory and Diagnostics Result Diagrams: 12/31/19 04:07 12/31/19 04:07 Labs: 12/30/19 14:41 Ascities Fluid - Preliminary 12/30/19 14:41 Aspirate Gram Stain - Final 12/26/19 16:14 Blood Blood Culture - Preliminary 12/26/19 16:23 Blood Blood Culture - Preliminary Laboratory WBC 5.3 X10^3/uL (3.6-10.0) 12/31/19 04:07 RBC 3.52 X10^6/uL (3.5-5.4) 12/31/19 04:07 Hgb 8.3 g/dL (12.0-16.0) L 12/31/19 04:07 Hct 26.6 % (36.0-47.0) L 12/31/19 04:07 MCV 75.6 fL (80.0-100.0) L 12/31/19 04:07 MCH 23.7 pg (27.0-34.0) L 12/31/19 04:07 MCHC 31.3 g/dL (33.0-35.0) L 12/31/19 04:07 RDW 23.1 % (11.6-16.5) H 12/31/19 04:07 Plt Count 192 X10^3/uL (150.0-450.0) 12/31/19 04:07 Plt Count Comment Adequate (ADEQUATE) 12/31/19 04:07 MPV 8.3 fL (7.4-11.0) 12/31/19 04:07 Neut % (Auto) 71.2 % (42.0-75.0) 12/31/19 04:07 Lymph % (Auto) 12.5 % (21.0-51.0) L 12/31/19 04:07 [place] % (Auto) 10.0 % (0.0-13.0) 12/31/19 04:07 Eos % (Auto) 4.8 % (0.9-2.9) H 12/31/19 04:07 Baso % (Auto) 1.5 % (0.2-1.0) H 12/31/19 04:07 Neut # (Auto) 3.8 x10^3/uL (2.2-4.8) 12/31/19 04:07 Lymph # (Auto) 0.7 X10^3/uL (1.3-2.9) L 12/31/19 04:07 [place] # (Auto) 0.5 x10^3/uL (0.3-0.8) 12/31/19 04:07 Eos # (Auto) 0.3 x10^3/uL (0.0-0.2) H 12/31/19 04:07 Baso # (Auto) 0.1 X10^3/uL (0.0-0.1) 12/31/19 04:07 Absolute Nucleated RBC 0.1 /100WBC 12/31/19 04:07 Plt Morphology Comment Normal (NORMAL) 12/31/19 04:07 RBC Morphology Abnormal (NORMAL) A 12/31/19 04:07 Hypochromasia 1+ A 12/31/19 04:07 Anisocytosis 2+ A 12/31/19 04:07 Stomatocytes Present 12/31/19 04:07 Sample Site Lb 12/29/19 14:32 ABG pH 7.390 (7.35-7.45) 12/29/19 14:32 ABG pCO2 64.0 mmHg (35.0-45.0) H* 12/29/19 14:32 ABG pO2 73.0 mmHg (80.0-100.0) L 12/29/19 14:32 ABG HCO3 38.7 mmol/L (22-26) H* 12/29/19 14:32 ABG O2 Saturation 94.0 % (90-100) 12/29/19 14:32 ABG Base Excess 11.3 mmol/L (-2.0-2.0) H 12/29/19 14:32 Ar Test Na 12/29/19 14:32 A-a Gradient 47.0 mmHg 12/29/19 14:32 FiO2 28.0 12/29/19 14:32 Blood Gas Comments Pt marissa well.cdn 12/29/19 14:32 Sodium 140 mmol/L (136-145) 12/31/19 04:07 Corrected Sodium 142 mmol/L (136-145) 12/31/19 04:07 Potassium 4.0 mmol/L (3.5-5.1) 12/31/19 04:07 Chloride 102 mmol/L (98-107) 12/31/19 04:07 Carbon Dioxide 35.9 mmol/L (21-32) H 12/31/19 04:07 BUN 30 mg/dL (7-18) H 12/31/19 04:07 Creatinine 1.69 mg/dL (0.55-1.02) H 12/31/19 04:07 Est GFR (MDRD) Af Amer 38 (>60) L 12/31/19 04:07 Est GFR (MDRD) Non-Af 32 (>60) L 12/31/19 04:07 Glucose 183 mg/dL (65-99) H 12/31/19 04:07 POC Glucose (mg/dL) 174 mg/dL (65-99) H 12/31/19 11:07 Lactic Acid 1.2 mmol/L (0.4-2.0) 12/26/19 16:23 Calcium 8.3 mg/dL (8.5-10.1) L 12/31/19 04:07 Corrected Calcium 9.1 mg/dL (8.5-10.1) 12/31/19 04:07 Magnesium 2.2 mg/dL (1.7-2.9) 12/27/19 04:33 Iron 27 ug/dL (50-175) L 12/29/19 04:27 Transferrin 289 mg/dL (202-364) 12/29/19 04:27 Ferritin 29 ng/mL (8-252) 12/29/19 04:27 Total Bilirubin 0.50 mg/dL (0.2-1.0) 12/31/19 04:07 AST 18 Units/L (15-37) 12/31/19 04:07 ALT < 6 Units/L (12-78) L 12/31/19 04:07 Alkaline Phosphatase 93 Units/L (46-116) 12/31/19 04:07 Creatine Kinase 46 Units/L (26-192) 12/27/19 04:33 CK-MB (CK-2) 1.1 ng/mL (0-4.0) 12/27/19 04:33 CK/CKMB % Calc 2.4 % (<4) 12/27/19 04:33 Troponin I 0.07 ng/mL (0-1.5) 12/27/19 04:33 B-Natriuretic Peptide 1870 pg/mL (0-79) H* 12/26/19 16:23 Total Protein 7.2 g/dL (6.4-8.2) 12/31/19 04:07 Albumin 3.0 g/dL (3.4-5.0) L 12/31/19 04:07 Globulin 4.2 g/dL (2.5-4.5) 12/31/19 04:07 Albumin/Globulin Ratio 0.7 Ratio (1.1-2.1) L 12/31/19 04:07 Vitamin B12 371 pg/mL (193-986) 12/29/19 04:27 Folate 10.7 ng/mL (>8.6) 12/29/19 04:27 Specimen Type Clean catch urine 12/27/19 00:48 Urine Color [place]enny (YELLOW) 12/27/19 00:48 Urine Appearance Clear (CLEAR) 12/27/19 00:48 Urine pH 5.0 (5.0 - 8.0) 12/27/19 00:48 Ur Specific [place] 1.015 (1.000-1.030) 12/27/19 00:48 Urine Protein 2+ (NEGATIVE) 12/27/19 00:48 Urine Glucose (UA) Negative (NEGATIVE) 12/27/19 00:48 Urine Ketones Negative (NEGATIVE) 12/27/19 00:48 Urine Occult Blood Negative (NEGATIVE) 12/27/19 00:48 Urine Nitrite Negative (NEGATIVE) 12/27/19 00:48 Urine Bilirubin Negative (NEGATIVE) 12/27/19 00:48 Urine Urobilinogen Normal (NORMAL) 12/27/19 00:48 Ur Leukocyte Esterase 2+ (NEGATIVE) 12/27/19 00:48 Urine RBC 0-2 /HPF (0-3) 12/27/19 00:48 Urine WBC 3-5 /HPF (0-5) 12/27/19 00:48 Ur Squamous Epith Cells Moderate /HPF (NEGATIVE) 12/27/19 00:48 Urine Bacteria Trace /HPF (NEGATIVE) 12/27/19 00:48 Ur Culture Indicated? No/not indicated 12/27/19 00:48 Peritoneal Tot Protein 4.5 12/30/19 14:41 Peritoneal Glucose 182 12/30/19 14:41 RSV Nasal Swab Negative (NEGATIVE) 12/26/19 15:54 Stool Description 125g,formed,drk brn 12/31/19 13:55 Stl Occult Blood (IFOB) Positive (NEGATIVE) A 12/31/19 13:55 Influenza Type A (PCR) Negative (NEGATIVE) 12/26/19 15:54 Influenza Type B (PCR) Negative (NEGATIVE) 12/26/19 15:54 S. pyogenes (TEM-PCR) Not detected (NOT DETECT) 12/26/19 15:54 Cytology Specimen To follow 12/30/19 14:41 Blood Type A POSITIVE 12/26/19 20:00 Antibody Screen Negative 12/26/19 20:00 Antibody ID Referred Cancelled 12/26/19 20:00 Crossmatch See Detail 12/26/19 20:00 - Assessment and Plan 1: tense ascitis . s/p paracentesis . will drain more and same treatment of CHF . anemia with h/o bleeding PU . needs endoscopy when Pt is more stable . - Problem Patient Problems: Patient Problems CHF (congestive heart failure) (Acute) I50.9 Anemia (Acute) D64.9 Dizziness (Acute) R42 Bronchitis (Acute) J40
[2019-12-31 16:04] LABS: PLATELET MORPHOLOGY COMMENT NORMAL (NORMAL)
[2019-12-31 16:05] LABS: ANISOCYTOSIS 3+; HYPOCHROMASIA 1+; MICROCYTOSIS 1+
[2019-12-31] MEDS: SNACK - Diabetic Appropriate PO SCH (20:29)
[2020-01-01] MEDS: PROVENTIL NEB TX 0.083% 2.5MG/ 3ML NEB SCH ×4 (00:10→18:50)
[2020-01-01] MEDS: TYLENOL 325 MG TAB PO PRN ×2 (03:07→11:31)
[2020-01-01 05:24] LABS: BASOPHILS # (AUTO) 0.1 X10^3/uL (0.0-0.1); EOSINOPHILS # (AUTO) 0.3 x10^3/uL (0.0-0.2); EOSINOPHILS % (AUTO) 5.6 % (0.9-2.9); HEMATOCRIT 27.3 % (36.0-47.0); HEMOGLOBIN 8.6 g/dL (12.0-16.0); LYMPHOCYTES # (AUTO) 0.7 X10^3/uL (1.3-2.9); LYMPHOCYTES % (AUTO) 13.2 % (21.0-51.0); MEAN CORPUSCULAR HEMOGLOBIN 23.6 pg (27.0-34.0); MEAN CORPUSCULAR HGB CONC 31.4 g/dL (33.0-35.0); MEAN CORPUSCULAR VOLUME 75.3 fL (80.0-100.0); MEAN PLATELET VOLUME 7.9 fL (7.4-11.0); MONOCYTES # (AUTO) 0.4 x10^3/uL (0.3-0.8); MONOCYTES % (AUTO) 8.2 % (0.0-13.0); NEUTROPHILS # (AUTO) 3.6 x10^3/uL (2.2-4.8); PLATELET COUNT 196 X10^3/uL (150.0-450.0); RED BLOOD COUNT 3.63 X10^6/uL (3.5-5.4); RED CELL DISTRIBUTION WIDTH 24.1 % (11.6-16.5); WHITE BLOOD COUNT 5.1 X10^3/uL (3.6-10.0)
[2020-01-01 05:35] LABS: ALBUMIN 2.8 g/dL (3.4-5.0); CALCIUM 8.4 mg/dL (8.5-10.1); CARBON DIOXIDE 33.5 mmol/L (21-32); COR CA(FOR HYPOALB) 9.4 mg/dL (8.5-10.1); CREATININE 1.47 mg/dL (0.55-1.02); TOTAL PROTEIN 6.9 g/dL (6.4-8.2)
[2020-01-01] MEDS: HumuLIN R SUBCUT PRN ×3 (05:51→16:23)
--- NOTE | 2020-01-01 05:58 | RAD ---
HISTORYCongestive heart failure, bronchitisSTUDYCHEST, PA/LAT [id number] heart remains markedly enlarged. Mild pulmonary venous congestion is present. No definite interstitial edema, alveolar edema, alveolar infiltrates, or pleural effusions are identified. Bony thorax is unremarkable.IMPRESSIONCardiomegaly without congestive heart failureNo infiltratesElectronically signed by: EVER SKAGGS (Jan 01, 2020 05:56:53)
[2020-01-01] MEDS: NEURONTIN CAP 300 MG PO SCH ×3 (06:02→20:59)
[2020-01-01] MEDS: SINEMET (PLAIN) 25/100 MG PO SCH ×3 (06:03→20:59)
[2020-01-01 06:04] LABS: ANISOCYTOSIS 3+; HYPOCHROMASIA 2+; PLATELET MORPHOLOGY COMMENT NORMAL (NORMAL)
[2020-01-01 06:05] LABS: STOMATOCYTES PRESENT
[2020-01-01] MEDS: ROCEPHIN VIAL 1 GRAM 1 G in NS 100 ML IV + SPIKE MINIBAG* 100 ML IV SCH (08:48)
[2020-01-01] MEDS: LASIX IVP SCH (08:48)
[2020-01-01] MEDS: HEMOCYTE-PLUS PO SCH (08:49)
[2020-01-01] MEDS: PROTONIX INJ 40 MG VIAL IVP SCH (08:49)
[2020-01-01] MEDS: COZAAR PO SCH ×2 (08:49→20:59)
[2020-01-01] MEDS: K-DUR TAB 20 MEQ PO SCH (08:49)
[2020-01-01] MEDS: TOPROL XL PO SCH (08:49)
[2020-01-01] MEDS ORDERED: RANEXA PO ONE (11:11)
[2020-01-01] MEDS: RANEXA PO SCH ×2 (11:15→21:00)
[2020-01-01] MEDS ORDERED: SYNTHROID 100 mcg TAB PO SCH (16:30)
[2020-01-01] MEDS: SNACK - Diabetic Appropriate PO SCH (19:56)
[2020-01-02] MEDS: PROVENTIL NEB TX 0.083% 2.5MG/ 3ML NEB SCH ×2 (00:13→05:33)
[2020-01-02] MEDS: TYLENOL 325 MG TAB PO PRN (03:45)
[2020-01-02 05:11] LABS: BASOPHILS # (AUTO) 0.1 X10^3/uL (0.0-0.1); EOSINOPHILS # (AUTO) 0.3 x10^3/uL (0.0-0.2); EOSINOPHILS % (AUTO) 4.7 % (0.9-2.9); HEMATOCRIT 27.5 % (36.0-47.0); HEMOGLOBIN 8.5 g/dL (12.0-16.0); LYMPHOCYTES # (AUTO) 0.7 X10^3/uL (1.3-2.9); LYMPHOCYTES % (AUTO) 13.3 % (21.0-51.0); MEAN CORPUSCULAR HEMOGLOBIN 23.4 pg (27.0-34.0); MEAN CORPUSCULAR VOLUME 75.4 fL (80.0-100.0); MEAN PLATELET VOLUME 7.8 fL (7.4-11.0); MONOCYTES # (AUTO) 0.4 x10^3/uL (0.3-0.8); MONOCYTES % (AUTO) 7.9 % (0.0-13.0); NEUTROPHILS # (AUTO) 3.9 x10^3/uL (2.2-4.8); NEUTROPHILS % (AUTO) 73.1 % (42.0-75.0); PLATELET COUNT 195 X10^3/uL (150.0-450.0); RED BLOOD COUNT 3.65 X10^6/uL (3.5-5.4); RED CELL DISTRIBUTION WIDTH 24.8 % (11.6-16.5); WHITE BLOOD COUNT 5.4 X10^3/uL (3.6-10.0)
[2020-01-02 05:17] LABS: ALBUMIN 2.7 g/dL (3.4-5.0); CALCIUM 8.2 mg/dL (8.5-10.1); CARBON DIOXIDE 35.1 mmol/L (21-32); COR CA(FOR HYPOALB) 9.2 mg/dL (8.5-10.1); CREATININE 1.53 mg/dL (0.55-1.02); TOTAL PROTEIN 6.7 g/dL (6.4-8.2)
[2020-01-02 05:29] LABS: ANISOCYTOSIS 3+; HYPOCHROMASIA 1+; PLATELET MORPHOLOGY COMMENT NORMAL (NORMAL)
[2020-01-02] MEDS: SINEMET (PLAIN) 25/100 MG PO SCH ×2 (05:53→14:41)
[2020-01-02] MEDS: NEURONTIN CAP 300 MG PO SCH ×3 (05:53→14:40)
[2020-01-02] MEDS: HumuLIN R SUBCUT PRN (05:58)
[2020-01-02] MEDS: COZAAR PO SCH (08:52)
[2020-01-02] MEDS: RANEXA PO SCH (08:53)
[2020-01-02] MEDS: HEMOCYTE-PLUS PO SCH (08:53)
[2020-01-02] MEDS: PROTONIX INJ 40 MG VIAL IVP SCH (08:53)
[2020-01-02] MEDS: K-DUR TAB 20 MEQ PO SCH (08:53)
[2020-01-02] MEDS: LASIX IVP SCH (08:53)
[2020-01-02] MEDS: TOPROL XL PO SCH (08:54)
[2020-01-02] MEDS: ROCEPHIN VIAL 1 GRAM 1 G in NS 100 ML IV + SPIKE MINIBAG* 100 ML IV SCH (08:54)
[2020-01-02 16:44] VITALS: BP 126/62
== END 2020-01-02 16:50 | disposition home health service (06) | DRG 292 ==
LOC: ER 14:20 → MED/SURG 21:41
PROVIDERS: ADMIT Internal Medicine; ATTEND Internal Medicine
CPT/HCPCS: 36415; 36430; 36600; 71010; 71020; 71045; 71046; 74176; 80053; 81001; 82150; 82270; 82438; 82550; 82553; 82607; 82728; 82746; 82803; 83540; 83605; 83690; 83735; 83880; 84157; 84302; 84466; 84484; 84999; 85014; 85018; 85025; 86850; 86900; 86901; 86922; 87040; 87070; 87205; 87420; 87502; 87651; 88112; 88305; 93005; 94640; 94760; 96365; 96374; 97110; 97162; 99284; A4216; A4222; C9113; J0696; J1815; J1940; J2405; J3490; J7040; J7050; J7613; P9016

== ENCOUNTER 2020-03-19 20:21 | Inpatient (IN) ==
--- NOTE | 2020-03-19 20:33 | DR.SOBA ---
HPI - Time Seen Time seen: 20:33 - Primary Care Physician Primary Care Physician: JASPAL - Complaints Chief Complaint Doctors Comments: Patient is complaining of shortness of breath, nausea, dizziness with weakness and swellilng of her stomach for the past four days getting progressively worst. Patient states she is on two liters oxygen da miranda and taking nebulizers albuterol but she did not take any today because she did not feel like and she could not stay awake. States she has gained 20 pounds and her stomach has been swelling. States Dr. Eagle blanca 30 pounds of fluid from her stomach over a month ago. She denies any recent trauma. States she is taking Bumex and they stopped her lasix. She has diabetes mellitus and takes 25 units of Levemir and sliding scale insulin. She has CHF and COPD. She denies tobacco or alcohol usage. She just started antivert for dizziness recently. States she has a bowel movement this evening and it was normal. Chief Complaint:: PT STATES SHE GAINED 20LBS SINCE SUNDAY. PT STATES SHE IS NAUSEATED & HAS BEEN HAVE DIZZINESS. - COVID-19 Coronavirus risk:travel/contact w/high risk person: No Has patient experienced Coronavirus symptoms: No Coronavirus symptoms experienced: Shortness of Breath - Reviewed Nurses Notes Reviewed: Yes - Source History Provided: Patient - Mode of Arrival Mode of Arrival: Wheelchair - Timing Onset of Chief Complaint: 03/15/20 - Duration Duration: Days (4) - Context Onset:: At Rest PE Risk Factors:: None History of:: Asthma, COPD, CHF Currently on:: Inhaled Bronchodilators Prehospital Care:: O2, Inhaled B2 - Modifying Factors Worsens:: Nothing Improves:: Nothing - Associated Signs and Symptoms Associated Signs and Symptoms: Leg Swelling - If Cough Cough: None PMH - PMH Past Medical History: Yes Past Medical History: Anemia, Angina, CHF, COPD, Diabetes, GERD, Gout, Hyperte nsion, Hypothyroidism Past Surgical History: Yes Surgical History: Angioplasty/Stents, Appendectomy, Cholecystectomy, Ortho Surgery, Other, Tonsillectomy - Family History History of Family Medical Conditions: Yes Family Medical History: Diabetes Mellitus, Cancer, [place], Coronary Artery Disease, Heart Failure - Social History Alcohol Use: None Do you use any recreational Drugs:: No Lives With: Alone Lives Where: Home - Travel Risk Coronavirus risk:travel/contact w/high risk person: No Has patient experienced Coronavirus symptoms: No Coronavirus symptoms experienced: Shortness of Breath - infectious screening In the last 2 months have you had wt loss of >10#?: NO Have you had fever, night sweats or hemotysis?: No Have you traveled outside the country in the last 6 months?: No Isolation: Standard ROS - Review of Systems Constitutional: No Symptoms Reported, Weakness Eyes: No Symptoms Reported ENTM: No Symptoms Reported Respiratoy: Short of Breath Cardiovascular: Edema, Other. negative: No Symptoms Reported, See HPI, Chest Pain, Palpitations, Syncope, Cyanosis, Skin Mottling Gastrointestinal/Abdominal: No Symptoms Reported, Nausea, Other (abdominal distention) Genitourinary: No Symptoms Reported Neurological: No Symptoms Reported, Weakness, Problems Walking Musculoskeletal: No Symptoms Reported Integumentary: No Symptoms Reported Hematologic/Lymphatic: No Symptoms Reported. negative: See HPI, Anemia, Blood Clots, Easy Bleeding, Easy Bruising, Swollen Glands, Lymphadenopathy, Other Endocrine: No Symptoms Reported Psychiatric: No Symptoms Reported. negative: See HPI, Anxiety, Depression, Hallucinations, Excessive crying, Suicidal, Other PE - General Limitations: No Limitations General Appearance: Alert, In No Apparent Distress, In Distress (slight) - Head Head Exam: Normal Inspection, Atraumatic, Normocephalic - Eyes Eye exam: Normal Appearance, PERRL, EOMI. negative: Scleral Icterus, Conjunctival Injection, Nystagmus, Miosis, Mydrasis, Periorbital Swelling, Periorbital Tenderness, Other - ENT ENT Exam: Normal Exam, Normal Oropharynx, Normal External Ear Exam, Mucous Membranes Moist, TM's Normal Bilaterally - Neck Neck Exam: Normal Inspection, Full ROM, Trachea Midline - Chest Chest Inspection: Normal Inspection, Symmetric Chest Wall Rise (decreased breath sounds; prolonged expiration; intermittent rhonchi). negative: Tenderness, Rash, Abscess, Other - Respiratory Respiratory Exam: Prolonged Expiratory Phase. negative: Normal Lung Sounds Bilat, Accessory Muscle Use (bibasilar rales; decreased breath sounds bilaterally), Chest Wall Tenderness, Respiratory Distress, Stridor, Other Respiratory Exam: Bilateral Rales, Bilateral Rhonchi, Bilateral Decreased Breath Sounds - Cardiovascular Cardiovascular Exam: Regular Rate, Normal Rhythm, Normal Heart Sounds - Abdominal Exam Abdominal Exam: Normal Inspection, Normal Bowel Sounds, Soft, Distention, Tenderness (epigastric ), Guarding, Dimnished Bowel Sounds Abdominal Tenderness: Epigastrium, Mild - Extremities Extremities Exam: Normal Inspection, Full ROM, Normal Capillary Refill, Edema (1+ dependent edema). negative: Tenderness, Joint Swelling, Calf Tenderness, Other - Back Back Exam: Normal Inspection, Full ROM. negative: Tenderness, (R) CVA Tenderness, (L) CVA Tenderness, Muscle Spasm, Paraspinal Tenderness, Vertebral Tenderness, Rashes, (R) Sciatic Notch Tenderness, (L) Sciatic Notch Tendern, (R) Straight Leg Raise, (L) Straight Leg Raise, Other - Neurologic Neurological Exam: Alert, Oriented X3, CN II-XII Intact, Reflexes Normal. negative: Normal Gait (gait not tested) - Psychiatric Psychiatric Exam: Normal Affect, Normal Mood. negative: Depressed, Agitated, Anxious, Flat Affect, Manic, Homicidal Ideation, Suicidal Ideation, Other - Skin Skin Exam: Warm, Dry, Intact, Normal Color. negative: Rash, Cyanosis, Diaphoresis, Erythema, Pallor, Mottled, Other - Vital Signs Vitals: Temperature 97.6 F Pulse Rate 70 Respiratory Rate 22 Blood Pressure [Right Arm] 126/62 Blood Pressure 176/72 Course - Reevaluation 1st: Improved - Consultation Call Returned: 04:41 (Dr. Dunn to admit) - Education/Counseling Education/Counseling: Patient, Family Educated On: Treatment, Diagnosis, Needs for Follow Up ROR - Labs Reviewed Laboratory Results Reviewed?: Yes (All labs and x-ray results reviewed and discussed with patient.) Result Diagrams: 03/20/20 15:16 03/20/20 09:00 - XRAY XRAY Interpreted by: Radiologist (CT abdomen and pelvis: Large volume ascites present throughout the abdomen and pelvis unchanged from previous 12/30/19. Cardiomegaly with mild to moderate pericardial effusion. Splenomegaly, borderline), Both (CXR: Stable cardiomegalyw ithminimal central pulmonary congestion less prominent. Mild bibasilar atelectasis or early infiltrates which is more apparent.) - EKG Rate: 71 [place]: Normal Rhythm: NSR Block: None Hypertrophy: LAE ST: Ischemia, Nonsp - Labs Reviewed Laboratory: WBC 8.2 X10^3/uL (3.6-10.0) 03/19/20 21:04 RBC 2.88 X10^6/uL (3.5-5.4) L 03/19/20 21:04 Hgb 6.4 g/dL (12.0-16.0) L* 03/19/20 21:04 Hct 21.5 % (36.0-47.0) L 03/19/20 21:04 MCV 74.5 fL (80.0-100.0) L 03/19/20 21:04 MCH 22.1 pg (27.0-34.0) L 03/19/20 21:04 MCHC 29.7 g/dL (33.0-35.0) L 03/19/20 21:04 RDW 19.9 % (11.6-16.5) H 03/19/20 21:04 Plt Count 208 X10^3/uL (150.0-450.0) 03/19/20 21:04 Plt Count Comment Adequate (ADEQUATE) 03/19/20 21:04 MPV 8.5 fL (7.4-11.0) 03/19/20 21:04 Neut % (Auto) 78.1 % (42.0-75.0) H 03/19/20 21:04 Lymph % (Auto) 10.5 % (21.0-51.0) L 03/19/20 21:04 [place] % (Auto) 8.2 % (0.0-13.0) 03/19/20 21:04 Eos % (Auto) 2.0 % (0.9-2.9) 03/19/20 21:04 Baso % (Auto) 1.2 % (0.2-1.0) H 03/19/20 21:04 Neut # (Auto) 6.4 x10^3/uL (2.2-4.8) H 03/19/20 21:04 Lymph # (Auto) 0.9 X10^3/uL (1.3-2.9) L 03/19/20 21:04 [place] # (Auto) 0.7 x10^3/uL (0.3-0.8) 03/19/20 21:04 Eos # (Auto) 0.2 x10^3/uL (0.0-0.2) 03/19/20 21:04 Baso # (Auto) 0.1 X10^3/uL (0.0-0.1) 03/19/20 21:04 Absolute Nucleated RBC 0.5 /100WBC 03/19/20 21:04 Plt Morphology Comment Normal (NORMAL) 03/19/20 21:04 RBC Morphology Abnormal (NORMAL) A 03/19/20 21:04 Hypochromasia 1+ A 03/19/20 21:04 APTT 31.4 SECONDS (22.9-36.5) 03/19/20 21:04 PTT Comment - 03/19/20 21:04 D-Dimer 713 ng/mL (0-400) H* 03/19/20 21:04 Sodium 139 mmol/L (136-145) 03/19/20 21:04 Corrected Sodium 141 mmol/L (136-145) 03/19/20 21:04 Potassium 5.5 mmol/L (3.5-5.1) H 03/19/20 21:04 Chloride 102 mmol/L (98-107) 03/19/20 21:04 Carbon Dioxide 32.0 mmol/L (21-32) 03/19/20 21:04 BUN 59 mg/dL (7-18) H 03/19/20 21:04 Creatinine 2.47 mg/dL (0.55-1.02) H 03/19/20 21:04 Est GFR (MDRD) Af Amer 25 (>60) L 03/19/20 21:04 Est GFR (MDRD) Non-Af 20 (>60) L 03/19/20 21:04 Glucose 203 mg/dL (65-99) H 03/19/20 21:04 Calcium 8.4 mg/dL (8.5-10.1) L 03/19/20 21:04 Corrected Calcium 9.0 mg/dL (8.5-10.1) 03/19/20 21:04 Magnesium 2.4 mg/dL (1.7-2.9) 03/19/20 21:04 Total Bilirubin 0.60 mg/dL (0.2-1.0) 03/19/20 21:04 AST 19 Units/L (15-37) 03/19/20 21:04 ALT 7 Units/L (12-78) L 03/19/20 21:04 Alkaline Phosphatase 109 Units/L (46-116) 03/19/20 21:04 Creatine Kinase 45 Units/L (26-192) 03/19/20 21:04 CK-MB (CK-2) 1.2 ng/mL (0-4.0) 03/19/20 21:04 CK/CKMB % Calc 2.7 % (<4) 03/19/20 21:04 Troponin I 0.03 ng/mL (0-1.5) 03/19/20 21:04 B-Natriuretic Peptide 3360 pg/mL (0-79) H* 03/19/20 21:04 Total Protein 7.7 g/dL (6.4-8.2) 03/19/20 21:04 Albumin 3.3 g/dL (3.4-5.0) L 03/19/20 21:04 Globulin 4.4 g/dL (2.5-4.5) 03/19/20 21:04 Albumin/Globulin Ratio 0.8 Ratio (1.1-2.1) L 03/19/20 21:04 - XRAY Xray Findings: CT brain: Mild atrophy and mild chronic microischemic changes scattered in the deep white matter with no acute abnormality seen. (FRED MILAN) Opioid - Opioid Risk Tool Age (Vasile box if 16-45): No History of Preadolescent Sexual Abuse: No Total: 0 Total Score Risk Category: Low Risk - Diagnosis Discharge Problem: Symptomatic anemia, Pericardial effusion, Hyperglycemia, Hyperkalemia, Pulmonary infiltrate Congestive heart failure (CHF) Qualifiers: Heart failure type: combined systolic and diastolic Heart failure chronicity: acute on chronic Qualified Code(s): I50.43 - Acute on chronic combined systolic (congestive) and diastolic (congestive) heart failure Abdominal ascites Qualifiers: Ascites type: other type Qualified Code(s): R18.8 - Other ascites Diabetes mellitus, type 2 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 Diabetes mellitus complication status: with kidney complications Diabetes mellitus complication detail: with chronic kidney disease Chronic kidney disease stage: unspecified stage Qualified Code(s): E11.22 - Type 2 diabetes mellitus with diabetic chronic kidney disease; Z79.4 - exterminator helper (current) use of insulin Chronic kidney disease (CKD) Qualifiers: Chronic kidney disease stage: stage 4 (severe) Qualified Code(s): N18.4 - Chronic kidney disease, stage 4 (severe) Anemia in chronic kidney disease Qualifiers: Chronic kidney disease stage: stage 3 (moderate) Qualified Code(s): N18.3 - Chronic kidney disease, stage 3 (moderate) - Discharge Plan Disposition: ADMITTED INPATIENT Condition: Stable
[2020-03-19] MEDS ORDERED: DUONEB 0.5 MG/3 MG (3 mL) NEB ONE ×2 (20:55→21:00)
[2020-03-19] MEDS ORDERED: SOLU-Medrol 125 MG VIAL IVP ONE (20:55)
[2020-03-19] MEDS ORDERED: ZOFRAN INJ 4 MG VIAL IVP ONE (20:56)
[2020-03-19] MEDS ORDERED: LASIX IVP ONE ×2 (20:56→23:49)
[2020-03-19] MEDS ORDERED: SOLU-Medrol 125 MG VIAL ONE (21:04)
[2020-03-19] MEDS ORDERED: ZOFRAN INJ 4 MG VIAL ONE (21:04)
[2020-03-19] MEDS ORDERED: LASIX ONE (21:05)
[2020-03-19 21:17] LABS: BASOPHILS # (AUTO) 0.1 X10^3/uL (0.0-0.1); BASOPHILS % (AUTO) 1.2 % (0.2-1.0); EOSINOPHILS # (AUTO) 0.2 x10^3/uL (0.0-0.2); HEMATOCRIT 21.5 % (36.0-47.0); LYMPHOCYTES # (AUTO) 0.9 X10^3/uL (1.3-2.9); LYMPHOCYTES % (AUTO) 10.5 % (21.0-51.0); MEAN CORPUSCULAR HEMOGLOBIN 22.1 pg (27.0-34.0); MEAN CORPUSCULAR HGB CONC 29.7 g/dL (33.0-35.0); MEAN CORPUSCULAR VOLUME 74.5 fL (80.0-100.0); MEAN PLATELET VOLUME 8.5 fL (7.4-11.0); MONOCYTES # (AUTO) 0.7 x10^3/uL (0.3-0.8); MONOCYTES % (AUTO) 8.2 % (0.0-13.0); NEUTROPHILS # (AUTO) 6.4 x10^3/uL (2.2-4.8); NEUTROPHILS % (AUTO) 78.1 % (42.0-75.0); PLATELET COUNT 208 X10^3/uL (150.0-450.0); RED BLOOD COUNT 2.88 X10^6/uL (3.5-5.4); RED CELL DISTRIBUTION WIDTH 19.9 % (11.6-16.5); WHITE BLOOD COUNT 8.2 X10^3/uL (3.6-10.0)
[2020-03-19 21:27] LABS: CALCIUM 8.4 mg/dL (8.5-10.1); CREATININE 2.47 mg/dL (0.55-1.02); HEMOGLOBIN 6.4 g/dL (12.0-16.0); TROPONIN I 0.03 ng/mL (0-1.5)
[2020-03-19 21:29] LABS: HYPOCHROMASIA 1+; PLATELET MORPHOLOGY COMMENT NORMAL (NORMAL)
[2020-03-19 21:31] LABS: ALBUMIN 3.3 g/dL (3.4-5.0); CKMB % 2.7 % (<4); CREATINE KINASE MB 1.2 ng/mL (0-4.0); MAGNESIUM 2.4 mg/dL (1.7-2.9); TOTAL PROTEIN 7.7 g/dL (6.4-8.2)
--- NOTE | 2020-03-19 22:13 | RAD ---
HISTORYSHORTNESS OF BREATHSTUDYCHEST, 1 [id number]/02/2020FINDINGSThe heart is moderately enlarged but unchanged. The pulmonary vessels are less prominent centrally. The lungs are hypoinflated with hazy bibasilar opacities which is more apparent. No effusion is seen.IMPRESSIONStable cardiomegaly with minimal central pulmonary congestion which is less prominent.Mild bibasilar atelectasis or early infiltrates which is more apparent.Electronically signed by: DARLING COCHRAN (Mar 19, 2020 22:12:00)
--- NOTE | 2020-03-19 22:17 | CT ---
HISTORY: Mental status changeStudy: CT brain without contrastComparison: NoneTechnique:Multiple axial images of the brain were obtained from the skull base to the vertex without administration of IV contrast. Automated dose control was utilizedFindings:The ventricles are mildly enlarged with diffuse mild prominence of the cortical sulci. There is mild periventricular low density bilaterally. No intracranial hemorrhage or edema is seen. There is no extra-axial fluid collection or mass. The bones are intact. The midline structures unremarkable. The bones are intact.IMPRESSION:Mild atrophy and mild chronic microischemic changes scattered in the deep white matter with no acute abnormality seen.Electronically signed by: DARLING COCHRAN (Mar 19, 2020 22:16:28)
--- NOTE | 2020-03-19 22:33 | CT ---
HISTORYABDOMINAL SWELLINGSTUDYABDOMEN/PELVIS W/O [id number]/31/2020TECHNIQUEMultiple axial images of the abdomen and pelvis were obtained from the lung bases to the pubic symphysis without the administration of IV contrast. Dose reduction techniques including Automated Exposure Control (AEC) and adjustment of mA and kV were utilized.FINDINGSThe visualized portions of the lung bases exhibits subsegmental atelectasis within the left lung base. The heart is enlarged with mild to moderate sized pericardial effusion, unchanged from prior study.. The liver, pancreas, kidneys, and adrenal glands are unremarkable in their CT appearance. Post cholecystectomy changes. Borderline splenomegaly with the spleen measuring 12.5 cm in length. Large volume ascites present throughout the abdomen and pelvis, unchanged.. No significant mesenteric lymphadenopathy or stranding can be observed. No free air identified within the abdomen.. Atherosclerotic calcification throughout the abdominal aorta and major branches without aneurysmal dilatation. No bowel wall thickening or bowel dilatation is present. The colon is unremarkable. Specifically, there is no diverticulosis noted within the sigmoid colon. The urinary bladder is grossly unremarkable. Uterus is present with calcified uterine fibroids. The bony structures are grossly intact. Moderate anasarca again noted.IMPRESSIONLarge volume ascites present throughout the abdomen and pelvis unchanged from previous 12/30/2019Borderline splenomegalyCardiomegaly with mild to moderate sized pericardial effusion, unchanged.Electronically signed by: Yaakov Juan (Mar 19, 2020 22:32:08)
[2020-03-19] MEDS ORDERED: ROCEPHIN VIAL 1 GRAM 1 G in NS 100 ML IV + SPIKE MINIBAG* 100 ML IV ONE (22:45)
[2020-03-19] MEDS ORDERED: ROCEPHIN VIAL 1 GRAM ONE (23:02)
[2020-03-19] MEDS ORDERED: NS 100 ML IV + SPIKE MINIBAG* 100 ML IV ONE (23:02)
[2020-03-19] MEDS ORDERED: NS 100 ML IV 100 ML IV ONE (23:58)
[2020-03-20] MEDS ORDERED: DUONEB 0.5 MG/3 MG (3 mL) NEB ONE (00:19)
[2020-03-20] MEDS ORDERED: LASIX IVP ONE (00:22)
[2020-03-20 00:28] LABS: ABG HCO3 30.2 mmol/L (22-26)
[2020-03-20] MEDS: DUONEB 0.5 MG/3 MG (3 mL) NEB SCH ×6 (00:30→21:30)
[2020-03-20] MEDS ORDERED: NORCO 7.5/325 MG TAB PO ONE (01:59)
[2020-03-20] MEDS ORDERED: NEURONTIN CAP 300 MG PO ONE ×2 (02:00→02:03)
[2020-03-20] MEDS ORDERED: NORCO 7.5/325 MG TAB ONE (02:03)
[2020-03-20] MEDS ORDERED: NS 250 ML IV 250 ML IV ONE (03:55)
[2020-03-20] MEDS ORDERED: ZOFRAN INJ 4 MG VIAL IVP PRN (04:07)
[2020-03-20] MEDS ORDERED: ZOFRAN INJ 4 MG VIAL ONE (04:09)
[2020-03-20] MEDS: RANEXA PO SCH ×2 (08:50→21:26)
[2020-03-20] MEDS: LEVEMIR SC SCH ×2 (08:50→21:25)
[2020-03-20] MEDS: SINEMET (PLAIN) 25/100 MG PO SCH ×2 (08:50→21:26)
[2020-03-20] MEDS: COZAAR PO SCH ×2 (08:50→21:25)
[2020-03-20] MEDS: LEVAQUIN PREMIX IV 250 MG 250 MG/50 ML BAG IV SCH (08:50)
[2020-03-20] MEDS: APRESOLINE TAB 25 MG PO SCH ×2 (08:50→21:24)
[2020-03-20] MEDS: SYNTHROID 100 mcg TAB PO SCH (08:50)
[2020-03-20] MEDS: ASPIRIN EC 81 MG PO SCH (08:50)
[2020-03-20] MEDS ORDERED: BUMEX TAB 1 MG PO SCH (09:00)
[2020-03-20] MEDS ORDERED: INSULIN DETEMIR SUBCUT SCH (09:00)
[2020-03-20 09:14] LABS: BASOPHILS % (AUTO) 0.3 % (0.2-1.0); HEMOGLOBIN 7.2 g/dL (12.0-16.0); LYMPHOCYTES # (AUTO) 0.3 X10^3/uL (1.3-2.9); LYMPHOCYTES % (AUTO) 4.2 % (21.0-51.0); MEAN CORPUSCULAR HEMOGLOBIN 23.1 pg (27.0-34.0); MEAN CORPUSCULAR HGB CONC 29.9 g/dL (33.0-35.0); MEAN CORPUSCULAR VOLUME 77.3 fL (80.0-100.0); MEAN PLATELET VOLUME 8.4 fL (7.4-11.0); MONOCYTES # (AUTO) 0 x10^3/uL (0.3-0.8); MONOCYTES % (AUTO) 0.7 % (0.0-13.0); NEUTROPHILS # (AUTO) 6.9 x10^3/uL (2.2-4.8); NEUTROPHILS % (AUTO) 94.8 % (42.0-75.0); PLATELET COUNT 194 X10^3/uL (150.0-450.0); RED CELL DISTRIBUTION WIDTH 22.1 % (11.6-16.5); WHITE BLOOD COUNT 7.3 X10^3/uL (3.6-10.0)
[2020-03-20 09:25] LABS: ALBUMIN 3.1 g/dL (3.4-5.0); CALCIUM 8.4 mg/dL (8.5-10.1); CARBON DIOXIDE 27.3 mmol/L (21-32); COR CA(FOR HYPOALB) 9.1 mg/dL (8.5-10.1); CREATININE 2.97 mg/dL (0.55-1.02); TOTAL PROTEIN 7.4 g/dL (6.4-8.2)
[2020-03-20 09:26] LABS: BAND NEUTROPHILS % 1 % (0-10); HYPOCHROMASIA 1+; PLATELET MORPHOLOGY COMMENT NORMAL (NORMAL)
[2020-03-20 09:27] LABS: ANISOCYTOSIS 2+; MICROCYTOSIS SLIGHT
[2020-03-20] MEDS ORDERED: NS 1000 ML 1,000 ML ONE (10:25)
[2020-03-20] MEDS: NS 1000 ML 1,000 ML IV SCH (10:53)
--- NOTE | 2020-03-20 10:57 | DR.H&P ---
H&P - History & Physical for Day of: H&P Date: 03/19/20 - Chief Complaint Chief Complaint: SOB, SWELLING, WEAKNESS, DIZZINESS, NAUSEA - History of Present Illness History of Present Illness: IS A 70 YEAR OLD PATIENT OF . SHE PRESENTED TO THE ER WITH COMPLAINTS OF SHORTNESS OF BREATH, WEAKNESS, DIZZINESS, NAUSEA, AND ABDOMINAL SWELLING. SYMPTOMS STARTED FOUR DAYS AGO AND HAVE PROGRESSIVELY GOTTEN WORSE. SHE REPORTS A WEIGHT GAIN OF 20 POUNDS SINCE SUNDAY. SHE REPORTS USING OXYGEN AT TWO LITERS/MIN AND ALBUTEROL NEB TREATMENTS AT HOME WIHTOUT IMPROVEMENT IN SYMPTOMS. REPORTEDLY DEV OFF 30 POUNDS OF FLUID FROM HER ABDOMEN OVER A MONTH AGO. PMH INCLUDES: CHF, COPD, ASTHMA, ANEMIA, DIABETES, GERD, GOUT, HYPERTENSION, HYPOTHYROIDISM, STENTS, APPENDECTOMY, CHOLECYSTECTOMY, ORTHO SURGERY, AND TONSILLECTOMY. SHE IS CURRENTLY ON BUMEX FOR CHF. ON ARRIVAL TO THE ER, VITALS WERE 97.3-09-45-20-176/72. LABS WERE OBTAINED. ABNORMAL LAB VALUES INCLUDE THE FOLLOWING: RBC 2.88, HGB 6.4, HCT 21.5, HCT 74.5, D-DIMER 713, POTASSIUM 5.5, BUN 59, CREATININE 2.47, GLUCOSE 203, CALCIUM 8.4, ALT 7, BNP 3360, ALBUMIN 3.3. A CHEST XRAY WAS OBTAINED AND REVEALED: Stable cardiomegaly with minimal central pulmonary congestion which is less prominent. Mild bibasilar atelectasis or early infiltrates which is more apparent. AN ABDOMEN/PELVIS CT WAS OBTAINED AND REVEALED: Large volume ascites present throughout the abdomen and pelvis unchanged from previous 12/30/2019. Borderline splenomegaly. Cardiomegaly with mild to moderate sized pericardial effusion, unchanged. A BRAIN CT WAS OBTAINED AND REVEALED: Mild atrophy and mild chronic microischemic changes scattered in the deep white matter with no acute abnormality seen. EKG REVEALED: SINUS RHYTHM WITH HR 71. SHE WAS ADMITTED TO THE HOSPITAL FOR FURTHER EVALUATION AND TREATMENT OF ACUTE CHF EXACERBATION, ANEMIA, ASCITES, CHRONIC KIDNEY DISEASE STAGE 4, HYPERKALEMIA, AND PLEURAL EFFUSIONS. SHE WAS GIVEN LASIX 40MG IV X 1, SOLU-MEDROL 125MG IV X 1, ZOFRAN 4MG IV X 1, DUONEB X 1, AND ROCEPHIN 1G IV X 1 IN THE ER. SHE WAS THEN STARTED LEVAQUIN 250MG IV DAILY, SOLU-MEDROL 80MG IV Q8H, DUONEBS Q4H, LASIX 40MG IV BID, APRESOLINE 25MG PO BID, LEVEMIR 23UNITS SC BID, SYNTHROID 100MG PO DAILY, COZAAR 25MG PO BID, AND RANEXA 1000MG PO BID. SHE RECEIVED ONE UNIT OF PRBC ON ADMISSION. HER HGB ONLY CAME UP TO 7.2 THIS MORNING. WE WILL TRANSFUSE ONE ADDITIONAL UNIT OF PRBC TODAY AND START NS AT 50 ML/HR DUE TO RENAL FAILURE. OTHERWISE, WE PLAN TO FOLLOW UP WITH AM LABS AND CHEST XRAY AND CONTINUE TO MONITOR. - Past Medical History Past Medical History: Anemia, Angina, CHF, COPD, Diabetes, GERD, Gout, Hypertension, Hypothyroidism Additional Medical History: Cataracts, [place], PAD, Sleep Apnea, UTI's, Rheumatoid arthritis, Back Pain, Previous blood transfusion, Skin Cancer - Past Surgical History Surgical History: Angioplasty/Stents, Appendectomy, Cholecystectomy, Ortho Surgery, Tonsillectomy, Other Additional Surgical History: Cataract removal, Cardiac Stents x5, Biopsy of right breast, Tubal Ligation - Family History Family Medical History: Diabetes Mellitus, Cancer, [place], Coronary Artery Disease, Heart Failure - Social History How many years tobacco product used: 22 Alcohol Use: None Drug Use: None - Medications Home Medications: codeine Allergy (Verified 09/10/19 14:49) colchicine Allergy (Verified 09/10/19 14:49) hydromorphone [From Dilaudid] Allergy (Verified 09/10/19 14:49) morphine Allergy (Verified 09/10/19 14:49) niacin Allergy (Verified 09/10/19 14:49) CONTINUE taking the following medications Levemir FlexTouch U-100 Insuln 23 unit SUBCUT BID 03/19/20 [History] aspirin [Aspirin Low Dose] 81 mg PO DAILY 03/19/20 [History] clopidogrel 75 mg PO DAILY 03/19/20 [History] meclizine 12.5 mg PO TID 03/19/20 [History] - Review of Systems Constitutional: Weakness Eyes: No Symptoms Reported ENT: No Symptoms Reported Respiratory: See HPI, Shortness of Breath, SOB with Excertion Cardiovascular: Edema, Light Headedness Gastrointestinal: See HPI, Nausea Genitourinary: No Symptoms Reported Musculoskeletal: No Symptoms Reported Skin: No Symptoms Reported Neurological: Weakness - Physical Exam Vital Signs: Temperature 97.6 F Pulse Rate [Right Radial] 75 Pulse Rate 75 Respiratory Rate 20 Blood Pressure [Right Arm] 140/69 Blood Pressure 176/72 O2 Sat by Pulse Oximetry 94 Oriented: Normal Eyes: Normal Ear: Normal Nose: Normal Throat: Normal Respiratory: Diminished Throughout Cardiovascular: Edema (ABDOMINAL SWELLING ). negative: S3, S4, Murmur : Normal Auscultation: Bowel Sounds: Normal Palpation: Normal Tenderness: Normal Skin: Normal Musculoskeletal: Normal Psychiatric: Normal Mood Description: Calm Affect: Normal Speech Pattern: Clear - Assessment/Plan (1) Acute exacerbation of CHF (congestive heart failure) Status: Acute Plan: ADMIT, LEVAQUIN 250MG IV DAILY, SOLU-MEDROL 80MG IV Q8H, DUONEBS Q4H, LASIX 40MG IV BID, APRESOLINE 25MG PO BID, LEVEMIR 23UNITS SC BID, SYNTHROID 100MG PO DAILY, COZAAR 25MG PO BID, AND RANEXA 1000MG PO BID (2) Anemia Qualifiers: Anemia type: iron deficiency Iron deficiency anemia type: chronic blood loss Qualified Code(s): D50.0 - Iron deficiency anemia secondary to blood loss (chronic) Status: Acute Plan: TRANSFUSE 1 UNIT PRBC, MONITOR H&H (3) Ascites Qualifiers: Ascites type: other type Qualified Code(s): R18.8 - Other ascites Status: Acute (4) CKD (chronic kidney disease) stage 3, GFR 30-59 ml/min Status: Chronic Plan: NS AT 50 ML/HR, CONTINUE TO MONITOR (5) Hyperkalemia Status: Acute (6) Pleural effusion Status: Acute Plan: LEVAQUIN 250MG IV DAILY, DUONEBS Q4H, CONTINUE TO MONITOR - Allergies Allergies/Adverse Reactions: Allergies Allergy/AdvReac Type Severity Reaction Status Date / Time codeine Allergy Verified 09/10/19 14:49 colchicine Allergy Verified 09/10/19 14:49 hydromorphone [From Dilaudid] Allergy Verified 09/10/19 14:49 morphine Allergy Verified 09/10/19 14:49 niacin Allergy Verified 09/10/19 14:49
[2020-03-20 11:42] VITALS: BMI 32.4
[2020-03-20] MEDS: HumuLIN R SUBCUT PRN ×3 (13:30→21:26)
[2020-03-20] MEDS: LASIX IVP SCH ×2 (14:26→18:09)
[2020-03-20] MEDS: SOLU-Medrol 40 MG VIAL IVP SCH ×2 (14:27→18:09)
[2020-03-20 15:41] LABS: HEMATOCRIT 27.2 % (36.0-47.0); HEMOGLOBIN 8.2 g/dL (12.0-16.0)
[2020-03-20] MEDS: SNACK - Diabetic Appropriate PO SCH (20:30)
[2020-03-21] MEDS: DUONEB 0.5 MG/3 MG (3 mL) NEB SCH ×6 (00:55→20:59)
[2020-03-21] MEDS: NS 1000 ML 1,000 ML IV SCH ×2 (01:39→16:47)
[2020-03-21] MEDS: SOLU-Medrol 40 MG VIAL IVP SCH ×3 (01:39→16:51)
[2020-03-21 06:16] LABS: BASOPHILS % (AUTO) 0.2 % (0.2-1.0); EOSINOPHILS % (AUTO) 0.1 % (0.9-2.9); HEMATOCRIT 25.2 % (36.0-47.0); HEMOGLOBIN 7.8 g/dL (12.0-16.0); LYMPHOCYTES # (AUTO) 0.2 X10^3/uL (1.3-2.9); MEAN CORPUSCULAR HEMOGLOBIN 23.8 pg (27.0-34.0); MEAN CORPUSCULAR HGB CONC 30.8 g/dL (33.0-35.0); MEAN CORPUSCULAR VOLUME 77.3 fL (80.0-100.0); MEAN PLATELET VOLUME 8.5 fL (7.4-11.0); MONOCYTES # (AUTO) 0.2 x10^3/uL (0.3-0.8); MONOCYTES % (AUTO) 1.8 % (0.0-13.0); NEUTROPHILS % (AUTO) 95.9 % (42.0-75.0); PLATELET COUNT 163 X10^3/uL (150.0-450.0); RED BLOOD COUNT 3.26 X10^6/uL (3.5-5.4); RED CELL DISTRIBUTION WIDTH 21.7 % (11.6-16.5); WHITE BLOOD COUNT 9.3 X10^3/uL (3.6-10.0)
[2020-03-21] MEDS: HumuLIN R SUBCUT PRN ×4 (06:31→20:49)
[2020-03-21 06:33] LABS: ALBUMIN 3.1 g/dL (3.4-5.0); CALCIUM 8.5 mg/dL (8.5-10.1); CARBON DIOXIDE 28.8 mmol/L (21-32); COR CA(FOR HYPOALB) 9.2 mg/dL (8.5-10.1); CREATININE 2.74 mg/dL (0.55-1.02); TOTAL PROTEIN 7.2 g/dL (6.4-8.2)
--- NOTE | 2020-03-21 06:38 | RAD ---
CHEST, 1 VIEWHistory: shortness of breathComparison: 03/19/2020Findings: There is stable enlargement of the cardiac silhouette. There is mild pulmonary vascular congestion without overt edema. No definite acute alveolar infiltrate or significant effusion is identified. No pneumothorax.Impression: Stable cardiomegaly and mild pulmonary vascular congestion without overt edema.Electronically signed by: HARVEY ALAMO (Mar 21, 2020 06:37:16)
[2020-03-21 06:47] LABS: BAND NEUTROPHILS % 1 % (0-10); PLATELET MORPHOLOGY COMMENT NORMAL (NORMAL)
[2020-03-21 06:48] LABS: ANISOCYTOSIS 1+; HYPOCHROMASIA 1+; MICROCYTOSIS SLIGHT
[2020-03-21] MEDS: SINEMET (PLAIN) 25/100 MG PO SCH ×2 (08:30→20:49)
[2020-03-21] MEDS: APRESOLINE TAB 25 MG PO SCH ×2 (08:30→20:47)
[2020-03-21] MEDS: LASIX IVP SCH ×2 (08:30→16:50)
[2020-03-21] MEDS: ASPIRIN EC 81 MG PO SCH (08:30)
[2020-03-21] MEDS: RANEXA PO SCH ×2 (08:30→20:49)
[2020-03-21] MEDS: SYNTHROID 100 mcg TAB PO SCH (08:30)
[2020-03-21] MEDS: COZAAR PO SCH ×2 (08:30→20:48)
[2020-03-21] MEDS: LEVAQUIN PREMIX IV 250 MG 250 MG/50 ML BAG IV SCH (08:30)
[2020-03-21] MEDS: LEVEMIR SC SCH ×2 (08:30→20:48)
[2020-03-21] MEDS ORDERED: TYLENOL 325 MG TAB PO PRN (12:49)
[2020-03-21] MEDS: SNACK - Diabetic Appropriate PO SCH (20:47)
[2020-03-22] MEDS: DUONEB 0.5 MG/3 MG (3 mL) NEB SCH ×6 (01:27→20:00)
[2020-03-22] MEDS: SOLU-Medrol 40 MG VIAL IVP SCH ×3 (02:32→17:59)
[2020-03-22] MEDS: NORCO 5/325 MG TAB PO PRN ×2 (02:41→14:10)
[2020-03-22] MEDS: NS 1000 ML 1,000 ML IV SCH ×2 (06:00→20:25)
[2020-03-22 06:08] LABS: BASOPHILS # (AUTO) 0.1 X10^3/uL (0.0-0.1); BASOPHILS % (AUTO) 0.4 % (0.2-1.0); HEMATOCRIT 24.8 % (36.0-47.0); HEMOGLOBIN 7.5 g/dL (12.0-16.0); LYMPHOCYTES # (AUTO) 0.2 X10^3/uL (1.3-2.9); LYMPHOCYTES % (AUTO) 1.8 % (21.0-51.0); MEAN CORPUSCULAR HEMOGLOBIN 23.8 pg (27.0-34.0); MEAN CORPUSCULAR HGB CONC 30.4 g/dL (33.0-35.0); MEAN CORPUSCULAR VOLUME 78.1 fL (80.0-100.0); MEAN PLATELET VOLUME 8.4 fL (7.4-11.0); MONOCYTES # (AUTO) 0.7 x10^3/uL (0.3-0.8); MONOCYTES % (AUTO) 5.4 % (0.0-13.0); NEUTROPHILS # (AUTO) 11.9 x10^3/uL (2.2-4.8); NEUTROPHILS % (AUTO) 92.4 % (42.0-75.0); PLATELET COUNT 153 X10^3/uL (150.0-450.0); RED BLOOD COUNT 3.17 X10^6/uL (3.5-5.4); RED CELL DISTRIBUTION WIDTH 21.7 % (11.6-16.5); WHITE BLOOD COUNT 12.8 X10^3/uL (3.6-10.0)
[2020-03-22 06:15] LABS: CALCIUM 8.7 mg/dL (8.5-10.1); CARBON DIOXIDE 31.4 mmol/L (21-32); COR CA(FOR HYPOALB) 9.5 mg/dL (8.5-10.1); CREATININE 2.4 mg/dL (0.55-1.02)
--- NOTE | 2020-03-22 06:51 | RAD ---
HISTORYCHF, anemiaSTUDYCHEST x-ray, 1 VIEWCOMPARISONX-ray 03/21/2020FINDINGSCHF may have slightly improved. Left lung base is not well seen in this could be due to small to moderate pleural effusion with atelectasis or pneumonia. Right lung is clear. No pneumothorax is seen.IMPRESSIONPossible slight improvement of CHF.Persistent opacification at the left lung base.Electronically signed by: Tai El (Mar 22, 2020 06:50:52)
[2020-03-22 07:27] LABS: ANISOCYTOSIS 1+; HYPOCHROMASIA 1+; PLATELET MORPHOLOGY COMMENT NORMAL (NORMAL)
[2020-03-22] MEDS: LEVAQUIN PREMIX IV 250 MG 250 MG/50 ML BAG IV SCH (08:42)
[2020-03-22] MEDS: SYNTHROID 100 mcg TAB PO SCH (08:43)
[2020-03-22] MEDS: RANEXA PO SCH ×2 (08:43→20:23)
[2020-03-22] MEDS: SINEMET (PLAIN) 25/100 MG PO SCH ×2 (08:43→20:24)
[2020-03-22] MEDS: COZAAR PO SCH ×2 (08:44→20:23)
[2020-03-22] MEDS: APRESOLINE TAB 25 MG PO SCH ×2 (08:44→20:23)
[2020-03-22] MEDS: ASPIRIN EC 81 MG PO SCH (08:45)
[2020-03-22] MEDS: LEVEMIR SC SCH ×2 (08:46→20:24)
[2020-03-22] MEDS: LASIX IVP SCH ×2 (08:48→16:38)
[2020-03-22] MEDS ORDERED: MIRALAX POWDER (1 DOSE 17 G) ONE (14:53)
[2020-03-22] MEDS: MIRALAX POWDER (1 DOSE 17 G) PO SCH (14:55)
[2020-03-22] MEDS: COLACE CAP 100 MG PO PRN (14:55)
[2020-03-22] MEDS: SNACK - Diabetic Appropriate PO SCH (20:24)
--- NOTE | 2020-03-22 21:45 | PCM.PROG ---
Progress Note - Progress Note for Day of Date of Exam: 03/21/20 - Subjective Subjective: IS BEING TREATED FOR ACUTE CHF EXACERBATION, ANEMIA, ASCITES, CKD, HYPERKALEMIA, AND A PLEURAL EFFUSION. SHE HAS RECEIVED TWO UNITS OF PRBC SINCE ADMISSION. TODAY, SHE IS ALERT AND ORIENTED, SITTING UP IN BED ON MORNING ROUNDS. SHE CONTINUES WITH COMPLAINTS OF SHORTNESS OF BREATH AND WEAKNESS TODAY. SHE ALSO CONTINUE WITH COMPLAINTS OF ABDOMINAL DISCOMFORT AND SWELLING. ON EXAMINATION, HEART IS REGUALR IN RATE AND RHYTHM. BILATERAL LUNGS ARE NOTED WITH DIMINISHED LUNG SOUNDS THROUGHOUT. ABDOMEN IS DISTENDED AND NOTED WITH MILD, DIFFUSE TENDERNESS. HER VITALS THIS MORNING ARE: 98.0-88-20-99%-165/87. LABS WERE OBTAINED. ABNORMAL LAB VALUES INCLUDE THE FOLLOWING: RBC 3.26, HGB 7.8, HCT 25.2, POTASSIUM 5.2, BUN 71, CREATININE 2.74, GLUCOSE 277, ALBUMIN 3.1. A CHEST XRAY WAS OBTAINED TODAY AND REVEALED: Stable cardiomegaly and mild pulmonary vascular congestion without overt edema. SHE IS CURRENTLY RECEIVING NORMAL SALINE AT 50 ML/HR, LEVAQUIN 250MG IV DAILY, SOLU-MEDROL 80MG IV Q8H, DUONEBS Q4H, LASIX 40MG IV BID, APRESOLINE 25MG PO BID, LEVEMIR 23UNITS SC BID, SYNTHROID 100MG PO DAILY, COZAAR 25MG PO BID, AND RANEXA 1000MG PO BID. WE WILL CONTINUE WITH CURRENT PLAN OF CARE TODAY AND CONSULT FOR POSSIBLE PARACENTESIS. WE WILL MONITOR HER H&H. OTHERWISE, WE PLAN TO FOLLOW UP WITH AM LABS AND CONTINUE TO MONITOR. - Past Medical Family Social History Past Med/Fam/Surg Hx: No changes since H&P Allergies: Allergies codeine Allergy (Verified 09/10/19 14:49) colchicine Allergy (Verified 09/10/19 14:49) hydromorphone [From Dilaudid] Allergy (Verified 09/10/19 14:49) morphine Allergy (Verified 09/10/19 14:49) niacin Allergy (Verified 09/10/19 14:49) - Review of Systems ROS: No change since H&P - Vital Signs and I&O's Vital Signs: Temperature 98 F Pulse Rate [Right Radial] 84 Pulse Rate 82 Respiratory Rate 18 Blood Pressure [Right Arm] 138/60 Blood Pressure 176/72 O2 Sat by Pulse Oximetry 98 Intake and Output: Intake & Output 03/20/20 03/21/20 03/22/20 03/23/20 11:59 11:59 11:59 11:59 Intake Total 220 / 220 2760 / 2760 2930 / 2930 1121 / 1121 Output Total 7200 / 7200 Balance 220 / 220 2760 / 2760 2930 / 2930 -6079 / -6079 - Physical Exam Oriented: Normal Eyes: Normal Ear: Normal Nose: Normal Throat: Normal Respiratory: Generalized, Diminished Cardiovascular: Edema (ABDOMINAL SWELLING ). negative: S3, S4, Murmur : Normal Auscultation: Bowel Sounds: Normal Palpation: Normal Tenderness: Diffuse, Mild Skin: Normal Musculoskeletal: Normal Psychiatric: Normal Mood Description: Calm Affect: Normal Speech Pattern: Clear, Appropriate - Laboratory and Diagnostics Result Diagrams: 03/22/20 05:30 03/22/20 05:30 Labs: 03/19/20 00:30 Blood Blood Culture - Preliminary Laboratory WBC 12.8 X10^3/uL (3.6-10.0) H 03/22/20 05:30 RBC 3.17 X10^6/uL (3.5-5.4) L 03/22/20 05:30 Hgb 7.5 g/dL (12.0-16.0) L 03/22/20 05:30 Hct 24.8 % (36.0-47.0) L 03/22/20 05:30 MCV 78.1 fL (80.0-100.0) L 03/22/20 05:30 MCH 23.8 pg (27.0-34.0) L 03/22/20 05:30 MCHC 30.4 g/dL (33.0-35.0) L 03/22/20 05:30 RDW 21.7 % (11.6-16.5) H 03/22/20 05:30 Plt Count 153 X10^3/uL (150.0-450.0) 03/22/20 05:30 Plt Count Comment Adequate (ADEQUATE) 03/22/20 05:30 MPV 8.4 fL (7.4-11.0) 03/22/20 05:30 Neut % (Auto) 92.4 % (42.0-75.0) H 03/22/20 05:30 Lymph % (Auto) 1.8 % (21.0-51.0) L 03/22/20 05:30 [place] % (Auto) 5.4 % (0.0-13.0) 03/22/20 05:30 Eos % (Auto) 0.0 % (0.9-2.9) L 03/22/20 05:30 Baso % (Auto) 0.4 % (0.2-1.0) 03/22/20 05:30 Neut # (Auto) 11.9 x10^3/uL (2.2-4.8) H 03/22/20 05:30 Lymph # (Auto) 0.2 X10^3/uL (1.3-2.9) L 03/22/20 05:30 [place] # (Auto) 0.7 x10^3/uL (0.3-0.8) 03/22/20 05:30 Eos # (Auto) 0.0 x10^3/uL (0.0-0.2) 03/22/20 05:30 Baso # (Auto) 0.1 X10^3/uL (0.0-0.1) 03/22/20 05:30 Absolute Nucleated RBC 0.5 /100WBC 03/22/20 05:30 Total Counted 100 03/22/20 05:30 Neutrophils % (Manual) 91 % (39-76) H 03/22/20 05:30 Band Neutrophils % 1 % (0-10) 03/21/20 05:55 Lymphocytes % (Manual) 5 % (13-43) L 03/22/20 05:30 Monocytes % (Manual) 4 % (4-9) 03/22/20 05:30 Plt Morphology Comment Normal (NORMAL) 03/22/20 05:30 RBC Morphology Abnormal (NORMAL) A 03/22/20 05:30 Hypochromasia 1+ A 03/22/20 05:30 Anisocytosis 1+ A 03/22/20 05:30 Microcytosis Slight A 03/21/20 05:55 APTT 31.4 SECONDS (22.9-36.5) 03/19/20 21:04 PTT Comment - 03/19/20 21:04 D-Dimer 713 ng/mL (0-400) H* 03/19/20 21:04 Sample Site Rbra 03/20/20 00:21 ABG pH 7.380 (7.35-7.45) 03/20/20 00:21 ABG pCO2 51.0 mmHg (35.0-45.0) H* 03/20/20 00:21 ABG pO2 67.0 mmHg (80.0-100.0) L 03/20/20 00:21 ABG HCO3 30.2 mmol/L (22-26) H* 03/20/20 00:21 ABG O2 Saturation 93.0 % (90-100) 03/20/20 00:21 ABG Base Excess 4.0 mmol/L (-2.0-2.0) H 03/20/20 00:21 Ar Test Na 03/20/20 00:21 A-a Gradient 69.0 mmHg 03/20/20 00:21 FiO2 28.0 03/20/20 00:21 Blood Gas Comments Sandy abg well-mtf 03/20/20 00:21 Sodium 138 mmol/L (136-145) 03/22/20 05:30 Corrected Sodium 139 mmol/L (136-145) 03/22/20 05:30 Potassium 5.5 mmol/L (3.5-5.1) H 03/22/20 05:30 Chloride 104 mmol/L (98-107) 03/22/20 05:30 Carbon Dioxide 31.4 mmol/L (21-32) 03/22/20 05:30 BUN 70 mg/dL (7-18) H 03/22/20 05:30 Creatinine 2.40 mg/dL (0.55-1.02) H 03/22/20 05:30 Est GFR (MDRD) Af Amer 26 (>60) L 03/22/20 05:30 Est GFR (MDRD) Non-Af 21 (>60) L 03/22/20 05:30 Glucose 158 mg/dL (65-99) H 03/22/20 05:30 POC Glucose (mg/dL) 172 mg/dL (65-99) H 03/22/20 19:52 Calcium 8.7 mg/dL (8.5-10.1) 03/22/20 05:30 Corrected Calcium 9.5 mg/dL (8.5-10.1) 03/22/20 05:30 Magnesium 2.4 mg/dL (1.7-2.9) 03/19/20 21:04 Total Bilirubin 0.40 mg/dL (0.2-1.0) 03/22/20 05:30 AST 17 Units/L (15-37) 03/22/20 05:30 ALT 7 Units/L (12-78) L 03/22/20 05:30 Alkaline Phosphatase 89 Units/L (46-116) 03/22/20 05:30 Creatine Kinase 45 Units/L (26-192) 03/19/20 21:04 CK-MB (CK-2) 1.2 ng/mL (0-4.0) 03/19/20 21:04 CK/CKMB % Calc 2.7 % (<4) 03/19/20 21:04 Troponin I 0.03 ng/mL (0-1.5) 03/19/20 21:04 B-Natriuretic Peptide 3360 pg/mL (0-79) H* 03/19/20 21:04 Total Protein 7.0 g/dL (6.4-8.2) 03/22/20 05:30 Albumin 3.0 g/dL (3.4-5.0) L 03/22/20 05:30 Globulin 4.0 g/dL (2.5-4.5) 03/22/20 05:30 Albumin/Globulin Ratio 0.8 Ratio (1.1-2.1) L 03/22/20 05:30 Stool Description Ifob 03/19/20 23:51 Stl Occult Blood (IFOB) Negative (NEGATIVE) 03/19/20 23:51 Blood Type A POSITIVE 03/19/20 23:43 Antibody Screen Negative 03/19/20 23:43 Antibody ID Referred Cancelled 03/19/20 23:43 Crossmatch See Detail 03/19/20 23:43 - Plan (1) Acute exacerbation of CHF (congestive heart failure) Status: Acute Plan: LEVAQUIN 250MG IV DAILY, SOLU-MEDROL 80MG IV Q8H, DUONEBS Q4H, LASIX 40MG IV BID, APRESOLINE 25MG PO BID, LEVEMIR 23UNITS SC BID, SYNTHROID 100MG PO DAILY, COZAAR 25MG PO BID, AND RANEXA 1000MG PO BID (2) Anemia Status: Acute Qualifiers: Anemia type: iron deficiency Iron deficiency anemia type: chronic blood loss Qualified Code(s): D50.0 - Iron deficiency anemia secondary to blood loss (chronic) Plan: MONITOR H&H (3) Ascites Status: Acute Qualifiers: Ascites type: other type Qualified Code(s): R18.8 - Other ascites Plan: CONSULT FOR PARACENTESIS (4) CKD (chronic kidney disease) stage 3, GFR 30-59 ml/min Status: Chronic Plan: NS AT 50 ML/HR, CONTINUE TO MONITOR (5) Hyperkalemia Status: Acute (6) Pleural effusion Status: Acute Plan: LEVAQUIN 250MG IV DAILY, DUONEBS Q4H, CONTINUE TO MONITOR
--- NOTE | 2020-03-22 22:00 | PCM.PROG ---
Progress Note - Progress Note for Day of Date of Exam: 03/22/20 - Subjective Subjective: IS BEING TREATED FOR ACUTE CHF EXACERBATION, ANEMIA, ASCITES, CKD, HYPERKALEMIA, AND A PLEURAL EFFUSION. SHE HAS RECEIVED TWO UNITS OF PRBC SINCE ADMISSION. TODAY, SHE IS ALERT AND ORIENTED, SITTING UP IN BED ON MORNING ROUNDS. SHE CONTINUES WITH COMPLAINTS OF SHORTNESS OF BREATH AND WEAKNESS TODAY. SHE ALSO CONTINUE WITH COMPLAINTS OF ABDOMINAL DISCOMFORT AND SWELLING. ON EXAMINATION, HEART IS REGUALR IN RATE AND RHYTHM. BILATERAL LUNGS ARE NOTED WITH DIMINISHED LUNG SOUNDS THROUGHOUT. ABDOMEN IS DISTENDED AND NOTED WITH MILD, DIFFUSE TENDERNESS. HER VITALS THIS MORNING ARE: 97.3-73-18-97%-115/55. LABS WERE OBTAINED. ABNORMAL LAB VALUES INCLUDE THE FOLLOWING: WBC 12.8, RBC 3.17, HGB 7.5, HCT 24.8, POTASSIUM 5.5, BUN 70, CREATININE 2.40, GLUCOSE 158, ALT 7, ALBUMIN 3.0. A CHEST XRAY WAS OBTAINED TODAY AND REVEALED: Possible slight improvement of CHF. Persistent opacification at the left lung base. SHE IS CURRENTLY RECEIVING NORMAL SALINE AT 50 ML/HR, LEVAQUIN 250MG IV DAILY, SOLU- MEDROL 80MG IV Q8H, DUONEBS Q4H, LASIX 40MG IV BID, APRESOLINE 25MG PO BID, LEVEMIR 23UNITS SC BID, SYNTHROID 100MG PO DAILY, COZAAR 25MG PO BID, AND RANEXA 1000MG PO BID. CONSULTED WITH HER THIS MORNING AND PLANS FOR A BEDSIDE PARACENTESIS. WE ARE IN AGREEMENT WITH PLANS. WE WILL MONITOR HER H&H. OTHERWISE, WE PLAN TO FOLLOW UP WITH AM LABS AND CONTINUE TO MONITOR. - Past Medical Family Social History Past Med/Fam/Surg Hx: No changes since H&P Allergies: Allergies codeine Allergy (Verified 09/10/19 14:49) colchicine Allergy (Verified 09/10/19 14:49) hydromorphone [From Dilaudid] Allergy (Verified 09/10/19 14:49) morphine Allergy (Verified 09/10/19 14:49) niacin Allergy (Verified 09/10/19 14:49) - Review of Systems ROS: No change since H&P - Vital Signs and I&O's Vital Signs: Temperature 98 F Pulse Rate [Right Radial] 84 Pulse Rate 84 Respiratory Rate 18 Blood Pressure [Right Arm] 138/60 Blood Pressure 176/72 O2 Sat by Pulse Oximetry 97 Intake and Output: Intake & Output 03/20/20 03/21/20 03/22/20 03/23/20 11:59 11:59 11:59 11:59 Intake Total 220 / 220 2760 / 2760 2930 / 2930 1121 / 1121 Output Total 7200 / 7200 Balance 220 / 220 2760 / 2760 2930 / 2930 -6079 / -6079 - Physical Exam Oriented: Normal Eyes: Normal Ear: Normal Nose: Normal Throat: Normal Respiratory: Generalized, Diminished Cardiovascular: Edema (ABDOMINAL SWELLING ). negative: S3, S4, Murmur : Normal Auscultation: Bowel Sounds: Normal Tenderness: Diffuse, Mild Skin: Normal Musculoskeletal: Normal Psychiatric: Normal Mood Description: Calm Affect: Normal Speech Pattern: Clear, Appropriate - Laboratory and Diagnostics Result Diagrams: 03/22/20 05:30 03/22/20 05:30 Labs: 03/19/20 00:30 Blood Blood Culture - Preliminary Laboratory WBC 12.8 X10^3/uL (3.6-10.0) H 03/22/20 05:30 RBC 3.17 X10^6/uL (3.5-5.4) L 03/22/20 05:30 Hgb 7.5 g/dL (12.0-16.0) L 03/22/20 05:30 Hct 24.8 % (36.0-47.0) L 03/22/20 05:30 MCV 78.1 fL (80.0-100.0) L 03/22/20 05:30 MCH 23.8 pg (27.0-34.0) L 03/22/20 05:30 MCHC 30.4 g/dL (33.0-35.0) L 03/22/20 05:30 RDW 21.7 % (11.6-16.5) H 03/22/20 05:30 Plt Count 153 X10^3/uL (150.0-450.0) 03/22/20 05:30 Plt Count Comment Adequate (ADEQUATE) 03/22/20 05:30 MPV 8.4 fL (7.4-11.0) 03/22/20 05:30 Neut % (Auto) 92.4 % (42.0-75.0) H 03/22/20 05:30 Lymph % (Auto) 1.8 % (21.0-51.0) L 03/22/20 05:30 [place] % (Auto) 5.4 % (0.0-13.0) 03/22/20 05:30 Eos % (Auto) 0.0 % (0.9-2.9) L 03/22/20 05:30 Baso % (Auto) 0.4 % (0.2-1.0) 03/22/20 05:30 Neut # (Auto) 11.9 x10^3/uL (2.2-4.8) H 03/22/20 05:30 Lymph # (Auto) 0.2 X10^3/uL (1.3-2.9) L 03/22/20 05:30 [place] # (Auto) 0.7 x10^3/uL (0.3-0.8) 03/22/20 05:30 Eos # (Auto) 0.0 x10^3/uL (0.0-0.2) 03/22/20 05:30 Baso # (Auto) 0.1 X10^3/uL (0.0-0.1) 03/22/20 05:30 Absolute Nucleated RBC 0.5 /100WBC 03/22/20 05:30 Total Counted 100 03/22/20 05:30 Neutrophils % (Manual) 91 % (39-76) H 03/22/20 05:30 Band Neutrophils % 1 % (0-10) 03/21/20 05:55 Lymphocytes % (Manual) 5 % (13-43) L 03/22/20 05:30 Monocytes % (Manual) 4 % (4-9) 03/22/20 05:30 Plt Morphology Comment Normal (NORMAL) 03/22/20 05:30 RBC Morphology Abnormal (NORMAL) A 03/22/20 05:30 Hypochromasia 1+ A 03/22/20 05:30 Anisocytosis 1+ A 03/22/20 05:30 Microcytosis Slight A 03/21/20 05:55 APTT 31.4 SECONDS (22.9-36.5) 03/19/20 21:04 PTT Comment - 03/19/20 21:04 D-Dimer 713 ng/mL (0-400) H* 03/19/20 21:04 Sample Site Rbra 03/20/20 00:21 ABG pH 7.380 (7.35-7.45) 03/20/20 00:21 ABG pCO2 51.0 mmHg (35.0-45.0) H* 03/20/20 00:21 ABG pO2 67.0 mmHg (80.0-100.0) L 03/20/20 00:21 ABG HCO3 30.2 mmol/L (22-26) H* 03/20/20 00:21 ABG O2 Saturation 93.0 % (90-100) 03/20/20 00:21 ABG Base Excess 4.0 mmol/L (-2.0-2.0) H 03/20/20 00:21 Ar Test Na 03/20/20 00:21 A-a Gradient 69.0 mmHg 03/20/20 00:21 FiO2 28.0 03/20/20 00:21 Blood Gas Comments Sandy abg well-mtf 03/20/20 00:21 Sodium 138 mmol/L (136-145) 03/22/20 05:30 Corrected Sodium 139 mmol/L (136-145) 03/22/20 05:30 Potassium 5.5 mmol/L (3.5-5.1) H 03/22/20 05:30 Chloride 104 mmol/L (98-107) 03/22/20 05:30 Carbon Dioxide 31.4 mmol/L (21-32) 03/22/20 05:30 BUN 70 mg/dL (7-18) H 03/22/20 05:30 Creatinine 2.40 mg/dL (0.55-1.02) H 03/22/20 05:30 Est GFR (MDRD) Af Amer 26 (>60) L 03/22/20 05:30 Est GFR (MDRD) Non-Af 21 (>60) L 03/22/20 05:30 Glucose 158 mg/dL (65-99) H 03/22/20 05:30 POC Glucose (mg/dL) 172 mg/dL (65-99) H 03/22/20 19:52 Calcium 8.7 mg/dL (8.5-10.1) 03/22/20 05:30 Corrected Calcium 9.5 mg/dL (8.5-10.1) 03/22/20 05:30 Magnesium 2.4 mg/dL (1.7-2.9) 03/19/20 21:04 Total Bilirubin 0.40 mg/dL (0.2-1.0) 03/22/20 05:30 AST 17 Units/L (15-37) 03/22/20 05:30 ALT 7 Units/L (12-78) L 03/22/20 05:30 Alkaline Phosphatase 89 Units/L (46-116) 03/22/20 05:30 Creatine Kinase 45 Units/L (26-192) 03/19/20 21:04 CK-MB (CK-2) 1.2 ng/mL (0-4.0) 03/19/20 21:04 CK/CKMB % Calc 2.7 % (<4) 03/19/20 21:04 Troponin I 0.03 ng/mL (0-1.5) 03/19/20 21:04 B-Natriuretic Peptide 3360 pg/mL (0-79) H* 03/19/20 21:04 Total Protein 7.0 g/dL (6.4-8.2) 03/22/20 05:30 Albumin 3.0 g/dL (3.4-5.0) L 03/22/20 05:30 Globulin 4.0 g/dL (2.5-4.5) 03/22/20 05:30 Albumin/Globulin Ratio 0.8 Ratio (1.1-2.1) L 03/22/20 05:30 Stool Description Ifob 03/19/20 23:51 Stl Occult Blood (IFOB) Negative (NEGATIVE) 03/19/20 23:51 Blood Type A POSITIVE 03/19/20 23:43 Antibody Screen Negative 03/19/20 23:43 Antibody ID Referred Cancelled 03/19/20 23:43 Crossmatch See Detail 03/19/20 23:43 - Plan (1) Acute exacerbation of CHF (congestive heart failure) Status: Acute Plan: LEVAQUIN 250MG IV DAILY, SOLU-MEDROL 80MG IV Q8H, DUONEBS Q4H, LASIX 40MG IV BID, APRESOLINE 25MG PO BID, LEVEMIR 23UNITS SC BID, SYNTHROID 100MG PO DAILY, COZAAR 25MG PO BID, AND RANEXA 1000MG PO BID (2) Anemia Status: Acute Qualifiers: Anemia type: iron deficiency Iron deficiency anemia type: chronic blood loss Qualified Code(s): D50.0 - Iron deficiency anemia secondary to blood loss (chronic) Plan: MONITOR H&H (3) Ascites Status: Acute Qualifiers: Ascites type: other type Qualified Code(s): R18.8 - Other ascites Plan: PARACENTESIS TODAY (4) CKD (chronic kidney disease) stage 3, GFR 30-59 ml/min Status: Chronic Plan: NS AT 50 ML/HR, CONTINUE TO MONITOR (5) Hyperkalemia Status: Acute (6) Pleural effusion Status: Acute Plan: LEVAQUIN 250MG IV DAILY, DUONEBS Q4H, CONTINUE TO MONITOR
[2020-03-23] MEDS: DUONEB 0.5 MG/3 MG (3 mL) NEB SCH ×4 (00:35→13:30)
[2020-03-23] MEDS: SOLU-Medrol 40 MG VIAL IVP SCH (01:18)
[2020-03-23] MEDS: HumuLIN R SUBCUT PRN (05:33)
[2020-03-23 06:02] LABS: BASOPHILS % (AUTO) 0.1 % (0.2-1.0); EOSINOPHILS % (AUTO) 0.4 % (0.9-2.9); HEMATOCRIT 28.5 % (36.0-47.0); HEMOGLOBIN 8.6 g/dL (12.0-16.0); LYMPHOCYTES # (AUTO) 0.7 X10^3/uL (1.3-2.9); LYMPHOCYTES % (AUTO) 7.9 % (21.0-51.0); MEAN CORPUSCULAR HEMOGLOBIN 23.5 pg (27.0-34.0); MEAN CORPUSCULAR VOLUME 78.3 fL (80.0-100.0); MEAN PLATELET VOLUME 7.9 fL (7.4-11.0); MONOCYTES # (AUTO) 0.8 x10^3/uL (0.3-0.8); MONOCYTES % (AUTO) 8.9 % (0.0-13.0); NEUTROPHILS # (AUTO) 7.2 x10^3/uL (2.2-4.8); NEUTROPHILS % (AUTO) 82.7 % (42.0-75.0); PLATELET COUNT 150 X10^3/uL (150.0-450.0); RED BLOOD COUNT 3.64 X10^6/uL (3.5-5.4); RED CELL DISTRIBUTION WIDTH 21.9 % (11.6-16.5); WHITE BLOOD COUNT 8.7 X10^3/uL (3.6-10.0)
[2020-03-23 06:14] LABS: ALBUMIN 2.9 g/dL (3.4-5.0); CALCIUM 8.2 mg/dL (8.5-10.1); CARBON DIOXIDE 33.4 mmol/L (21-32); COR CA(FOR HYPOALB) 9.1 mg/dL (8.5-10.1); CREATININE 2.28 mg/dL (0.55-1.02); TOTAL PROTEIN 6.8 g/dL (6.4-8.2)
--- NOTE | 2020-03-23 06:25 | RAD ---
HISTORYSOBSTUDYCHEST x-ray, 1 VIEWCOMPARISONX-ray 03/22/2020FINDINGSCardiomegaly and probable CHF. No pulmonary edema is seen within may be small to moderate left pleural effusion. Left lower lobe atelectasis or pneumonia is not excluded. No pneumothorax is seen.IMPRESSIONAppearance of the chest is unchanged.Electronically signed by: Tai El (Mar 23, 2020 06:24:27)
[2020-03-23 06:49] LABS: ANISOCYTOSIS 1+; HYPOCHROMASIA 1+; PLATELET MORPHOLOGY COMMENT NORMAL (NORMAL)
[2020-03-23] MEDS: APRESOLINE TAB 25 MG PO SCH (09:09)
[2020-03-23] MEDS: RANEXA PO SCH (09:09)
[2020-03-23] MEDS: COLACE CAP 100 MG PO PRN (09:09)
[2020-03-23] MEDS: SYNTHROID 100 mcg TAB PO SCH (09:09)
[2020-03-23] MEDS: SINEMET (PLAIN) 25/100 MG PO SCH (09:10)
[2020-03-23] MEDS: COZAAR PO SCH (09:10)
[2020-03-23] MEDS: LEVEMIR SC SCH (09:11)
[2020-03-23] MEDS: LEVAQUIN PREMIX IV 250 MG 250 MG/50 ML BAG IV SCH (09:11)
[2020-03-23] MEDS: ASPIRIN EC 81 MG PO SCH (09:11)
[2020-03-23] MEDS: MIRALAX POWDER (1 DOSE 17 G) PO SCH (09:12)
[2020-03-23] MEDS: NS 1000 ML 1,000 ML IV SCH (09:13)
[2020-03-23] MEDS: NORCO 5/325 MG TAB PO PRN (09:17)
[2020-03-23] MEDS: LASIX IVP SCH (09:18)
[2020-03-23] MEDS ORDERED: PROCRIT or EPOGEN VIAL 10,000 UNITS SC ONE (10:09)
[2020-03-23 16:17] VITALS: BP 102/52
== END 2020-03-23 16:00 | disposition home health service (06) | DRG 291 ==
LOC: ER 20:45 → MED/SURG 23:50
PROVIDERS: ADMIT Internal Medicine; ATTEND Internal Medicine
DX: R41.82 Altered mental status, unspecified; Z79.4 Long term (current) use of insulin; J90 Pleural effusion, not elsewhere classified; I50.43 Acute on chronic combined systolic (congestive) and diastolic (congestive) heart failure; J44.9 Chronic obstructive pulmonary disease, unspecified; D50.0 Iron deficiency anemia secondary to blood loss (chronic); R42 Dizziness and giddiness; N18.4 Chronic kidney disease, stage 4 (severe); R94.31 Abnormal electrocardiogram [ECG] [EKG]; R18.8 Other ascites; E87.5 Hyperkalemia; E11.22 Type 2 diabetes mellitus with diabetic chronic kidney disease; E03.8 Other specified hypothyroidism; D63.1 Anemia in chronic kidney disease; I13.0 Hypertensive heart and chronic kidney disease with heart failure and stage 1 through stage 4 chronic kidney disease, or unspecified chronic kidney disease; R53.1 Weakness
CPT/HCPCS: 36415; 36430; 36600; 70450; 71010; 71045; 74176; 80053; 82270; 82550; 82553; 82803; 83735; 83880; 84484; 85014; 85018; 85025; 85378; 85730; 86850; 86900; 86901; 86922; 87040; 93005; 94640; 94760; 96365; 96367; 96374; 96375; 97162; 97166; 97530; 97535; 99284; A4216; A4222; J0696; J0885; J1815; J1940; J1956; J2405; J2920; J2930; J3490; J7030; J7050; J7620; P9016

== ENCOUNTER 2020-06-23 21:30 | Inpatient (IN) ==
--- NOTE | 2020-06-23 22:37 | DR.GIBLEED ---
HPI Time Seen Time Seen by Provider: 06/23/20 22:05 Primary Care Physician Primary Care Physician: ERIC RYAN Complaints Chief Complaint Doctors Comments: A 70 y/o female with rectal bleed for about 4 days now. It is intermittent. It was free blood in the commode but it is not less and mixed with her stools. She had seen her PCP about this and was referred to [facility]. She saw the FILLING STATION EQUIPMENT MECHANIC in the distributor operator's practice yesterday and is being scheduled to have a C-Scope once structural biologist clearance is obtained. She has the colon prep. She is scheduled for an abdominal U/S tomorrow. She has nausea and weakness but no lightheadedness or dizziness. Chief Complaint:: PT IN ED VIA WHEELCHAIR WITH C/O RECTAL BLEEDING, NAUSEA AND WEAKNESS. COVID-19 Coronavirus risk:travel/contact w/high risk person: No Has patient experienced Coronavirus symptoms: No Source History Provided: Patient Mode of Arrival Mode of Arrival: Wheelchair Timing Onset of Chief Complaint: 06/23/20 PMH PMH Past Medical History: Yes Past Medical History: Anemia, Angina, Arthritis, Asthma, CHF, COPD, Coronary Artery Disease, Diabetes, Dyslipidemia, GERD, Gout, Hypertension, Hypothyroidism, [place], Renal Disease and Sleep Apnea Past Medical History Comment: SKIN CANCER GI BLEED PAD PERICARDIAL EFFUSION Past Surgical History: Yes Surgical History: Angioplasty/Stents, Appendectomy, Cholecystectomy, Ortho Surgery, Tonsillectomy and Other Past Surgical History Comment: CATARACT BILATERAL HANDS CARDIAC STENTS X 5 Family History History of Family Medical Conditions: Yes Family Medical History: Diabetes Mellitus, Cancer, [place], Coronary Artery Disease, Heart Failure and Hypertension Social History Does any household member use tobacco: No Alcohol Use: None Do you use any recreational Drugs:: No Lives With: Family Lives Where: Home Travel Risk Coronavirus risk:travel/contact w/high risk person: No Has patient experienced Coronavirus symptoms: No Infectious screening In the last 2 months have you had wt loss of >10#?: NO Have you had fever, night sweats or hemotysis?: No Have you traveled outside the country in the last 6 months?: No Isolation: Standard ROS Review of Systems Constitutional: No Symptoms Reported Eyes: No Symptoms Reported ENTM: No Symptoms Reported Respiratoy: No Symptoms Reported Cardiovascular: No Symptoms Reported Gastrointestinal/Abdominal: Other (rectal bleed) Genitourinary: No Symptoms Reported Neurological: No Symptoms Reported Musculoskeletal: No Symptoms Reported Integumentary: No Symptoms Reported Hematologic/Lymphatic: No Symptoms Reported Endocrine: No Symptoms Reported Psychiatric: No Symptoms Reported PE Vital Signs Vitals: Temperature 97.8 F Pulse Rate 69 Respiratory Rate 20 Blood Pressure [Left Arm] 122/60 Blood Pressure [Right Arm] 100/51 Blood Pressure [Left Arm] 187/86 Blood Pressure [Right Arm] 150/67 Blood Pressure [Standing] 138/63 Blood Pressure [Sitting] 141/61 Blood Pressure [Lying] 125/59 Blood Pressure 116/58 O2 Sat by Pulse Oximetry 97 General Limitations: No Limitations General Appearance: Alert and In No Apparent Distress Head Head Exam: Normal Inspection, Atraumatic and Normocephalic Eyes Eye exam: Normal Appearance and EOMI; negative PERRL, Scleral Icterus, Conjunctival Injection, Nystagmus, Miosis, Mydrasis, Periorbital Swelling and Pe riorbital Tenderness ENT ENT Exam: Normal Exam, Normal Oropharynx, Normal External Ear Exam and Mucous Membranes Moist Neck Neck Exam: Normal Inspection, Full ROM and Trachea Midline Chest Chest Inspection: Normal Inspection and Symmetric Chest Wall Rise Respiratory Respiratory Exam: Normal Lung Sounds Bilat Cardiovascular Cardiovascular Exam: Regular Rate, Normal Rhythm, Normal Heart Sounds, +S1 and +S2 Abdominal Exam Abdominal Exam: Normal Bowel Sounds, Soft and Other (protruberent); negative Normal Inspection, Distention, Tenderness, Guarding, Rebound, Rigidity, Dimnished Bowel Sounds, Hyperactive Bowel Sounds, Hypoactive Bowel Sounds, Organomegaly, Trauma, Incision, Ascites, Mass, Bruit, Pulsatile Mass and Hernia Rectal Rectal Exam: Normal Rectal Tone, Black Stool and Hemorrhoids (6 O'Clock) Extremities Extremities Exam: Normal Inspection and Full ROM; negative Tenderness, Normal Capillary Refill, Edema, Joint Swelling and Calf Tenderness Back Back Exam: Normal Inspection and Full ROM Neurologic Neurological Exam: Alert and Oriented X3 Psychiatric Psychiatric Exam: Normal Affect and Normal Mood Skin Skin Exam: Dry and Normal Color COURSE Reevaluation 1st: Unchanged Consultation Consultation Comments: Case presentation and findings and care plan were discussed with Dr. SELF Education/Counseling Education/Counseling: Patient, Education and Counseling Educated On: Treatment, Diagnosis, Prognosis and Needs for Follow Up ROR Labs Reviewed Result Diagrams: 06/23/20 22:50 06/23/20 22:50 Laboratory: WBC 7.3 X10^3/uL (3.6-10.0) 06/23/20 22:50 RBC 2.59 X10^6/uL (3.5-5.4) L 06/23/20 22:50 Hgb 6.1 g/dL (12.0-16.0) L* 06/23/20 22:50 Hct 20.2 % (36.0-47.0) L 06/23/20 22:50 MCV 78.0 fL (80.0-100.0) L 06/23/20 22:50 MCH 23.5 pg (27.0-34.0) L 06/23/20 22:50 MCHC 30.2 g/dL (33.0-35.0) L 06/23/20 22:50 RDW 24.5 % (11.6-16.5) H 06/23/20 22:50 Plt Count 194 X10^3/uL (150.0-450.0) 06/23/20 22:50 MPV 8.3 fL (7.4-11.0) 06/23/20 22:50 Neut % (Auto) 79.2 % (42.0-75.0) H 06/23/20 22:50 Lymph % (Auto) 10.4 % (21.0-51.0) L 06/23/20 22:50 [place] % (Auto) 7.9 % (0.0-13.0) 06/23/20 22:50 Eos % (Auto) 1.5 % (0.9-2.9) 06/23/20 22:50 Baso % (Auto) 1.0 % (0.2-1.0) 06/23/20 22:50 Neut # (Auto) 5.8 x10^3/uL (2.2-4.8) H 06/23/20 22:50 Lymph # (Auto) 0.8 X10^3/uL (1.3-2.9) L 06/23/20 22:50 [place] # (Auto) 0.6 x10^3/uL (0.3-0.8) 06/23/20 22:50 Eos # (Auto) 0.1 x10^3/uL (0.0-0.2) 06/23/20 22:50 Baso # (Auto) 0.1 X10^3/uL (0.0-0.1) 06/23/20 22:50 Absolute Nucleated RBC 0.1 /100WBC 06/23/20 22:50 Sodium 137 mmol/L (136-145) 06/23/20 22:50 Corrected Sodium 138 mmol/L (136-145) 06/23/20 22:50 Potassium 5.3 mmol/L (3.5-5.1) H 06/23/20 22:50 Chloride 100 mmol/L (98-107) 06/23/20 22:50 Carbon Dioxide 32.4 mmol/L (21-32) H 06/23/20 22:50 BUN 59 mg/dL (7-18) H 06/23/20 22:50 Creatinine 2.97 mg/dL (0.55-1.02) H 06/23/20 22:50 Est GFR (MDRD) Af Amer 20 (>60) L 06/23/20 22:50 Est GFR (MDRD) Non-Af 16 (>60) L 06/23/20 22:50 Glucose 138 mg/dL (65-99) H 06/23/20 22:50 Calcium 8.9 mg/dL (8.5-10.1) 06/23/20 22:50 Corrected Calcium 9.9 mg/dL (8.5-10.1) 06/23/20 22:50 Total Bilirubin 0.60 mg/dL (0.2-1.0) 06/23/20 22:50 AST 17 Units/L (15-37) 06/23/20 22:50 ALT 10 Units/L (12-78) L 06/23/20 22:50 Alkaline Phosphatase 94 Units/L (46-116) 06/23/20 22:50 Total Protein 7.1 g/dL (6.4-8.2) 06/23/20 22:50 Albumin 2.8 g/dL (3.4-5.0) L 06/23/20 22:50 Globulin 4.3 g/dL (2.5-4.5) 06/23/20 22:50 Albumin/Globulin Ratio 0.7 Ratio (1.1-2.1) L 06/23/20 22:50 Stool Description Ifob 06/23/20 22:50 Stl Occult Blood (IFOB) Positive (NEGATIVE) A 06/23/20 22:50 Opioid Opioid Risk Tool Age (Vasile box if 16-45): No History of Preadolescent Sexual Abuse: No Total: 0 Total Score Risk Category: Low Risk Copyright: Gil predicting aberrant behaviors Diagnosis Discharge Problem: Rectal bleeding, Anemia due to GI blood loss, 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
[2020-06-23 23:02] LABS: BASOPHILS # (AUTO) 0.1 X10^3/uL (0.0-0.1); EOSINOPHILS # (AUTO) 0.1 x10^3/uL (0.0-0.2); HEMATOCRIT 20.2 % (36.0-47.0); MONOCYTES # (AUTO) 0.6 x10^3/uL (0.3-0.8); RED CELL DISTRIBUTION WIDTH 24.5 % (11.6-16.5)
[2020-06-23 23:06] LABS: EOSINOPHILS % (AUTO) 1.5 % (0.9-2.9); LYMPHOCYTES # (AUTO) 0.8 X10^3/uL (1.3-2.9); LYMPHOCYTES % (AUTO) 10.4 % (21.0-51.0); MEAN CORPUSCULAR HEMOGLOBIN 23.5 pg (27.0-34.0); MEAN CORPUSCULAR HGB CONC 30.2 g/dL (33.0-35.0); MEAN PLATELET VOLUME 8.3 fL (7.4-11.0); MONOCYTES % (AUTO) 7.9 % (0.0-13.0); NEUTROPHILS # (AUTO) 5.8 x10^3/uL (2.2-4.8); NEUTROPHILS % (AUTO) 79.2 % (42.0-75.0); PLATELET COUNT 194 X10^3/uL (150.0-450.0); RED BLOOD COUNT 2.59 X10^6/uL (3.5-5.4); WHITE BLOOD COUNT 7.3 X10^3/uL (3.6-10.0)
[2020-06-23 23:10] LABS: ALBUMIN 2.8 g/dL (3.4-5.0); CALCIUM 8.9 mg/dL (8.5-10.1); CARBON DIOXIDE 32.4 mmol/L (21-32); COR CA(FOR HYPOALB) 9.9 mg/dL (8.5-10.1); CREATININE 2.97 mg/dL (0.55-1.02); TOTAL PROTEIN 7.1 g/dL (6.4-8.2)
[2020-06-23 23:13] LABS: HEMOGLOBIN 6.1 g/dL (12.0-16.0)
[2020-06-23] MEDS ORDERED: HumuLIN R SC PRN (23:44)
[2020-06-24] LABS: ANISOCYTOSIS 3+; HYPOCHROMASIA 1+; PLATELET MORPHOLOGY COMMENT NORMAL (NORMAL)
[2020-06-24] MEDS ORDERED: PROCRIT or EPOGEN VIAL 10,000 UNITS SC SCH (00:41)
[2020-06-24] MEDS ORDERED: PHENERGAN SUPP 25 MG PR PRN (00:41)
[2020-06-24] MEDS ORDERED: PHENERGAN SUPP 25 MG ONE (01:01)
[2020-06-24 01:35] VITALS: BMI 33.8
[2020-06-24] MEDS ORDERED: TYLENOL 325 MG TAB PO ONE ×2 (01:35→01:42)
[2020-06-24] MEDS ORDERED: BENADRYL INJ 50 MG VIAL IVP ONE (01:35)
[2020-06-24] MEDS ORDERED: BENADRYL INJ 50 MG VIAL ONE (01:42)
[2020-06-24] MEDS ORDERED: NS 250 ML IV 250 ML IV ONE ×2 (02:00→05:01)
[2020-06-24] MEDS ORDERED: NS 100 ML IV 100 ML with VENOFER 400 MG IV NR ×2 (08:26)
[2020-06-24 09:08] LABS: BASOPHILS # (AUTO) 0.1 X10^3/uL (0.0-0.1); BASOPHILS % (AUTO) 1.3 % (0.2-1.0); EOSINOPHILS % (AUTO) 0.6 % (0.9-2.9); HEMATOCRIT 31.1 % (36.0-47.0); HEMOGLOBIN 9.9 g/dL (12.0-16.0); LYMPHOCYTES # (AUTO) 0.7 X10^3/uL (1.3-2.9); LYMPHOCYTES % (AUTO) 9.9 % (21.0-51.0); MEAN CORPUSCULAR HEMOGLOBIN 25.3 pg (27.0-34.0); MEAN CORPUSCULAR HGB CONC 31.8 g/dL (33.0-35.0); MEAN CORPUSCULAR VOLUME 79.4 fL (80.0-100.0); MEAN PLATELET VOLUME 7.8 fL (7.4-11.0); MONOCYTES # (AUTO) 0.5 x10^3/uL (0.3-0.8); MONOCYTES % (AUTO) 8.2 % (0.0-13.0); NEUTROPHILS # (AUTO) 5.4 x10^3/uL (2.2-4.8); PLATELET COUNT 202 X10^3/uL (150.0-450.0); RED BLOOD COUNT 3.92 X10^6/uL (3.5-5.4); RED CELL DISTRIBUTION WIDTH 21.4 % (11.6-16.5); WHITE BLOOD COUNT 6.7 X10^3/uL (3.6-10.0)
[2020-06-24 09:19] LABS: ALBUMIN 3.1 g/dL (3.4-5.0); CARBON DIOXIDE 29.9 mmol/L (21-32); COR CA(FOR HYPOALB) 9.7 mg/dL (8.5-10.1); CREATININE 3.19 mg/dL (0.55-1.02); TOTAL PROTEIN 7.7 g/dL (6.4-8.2)
[2020-06-24 09:47] LABS: HYPOCHROMASIA SLIGHT; PLATELET MORPHOLOGY COMMENT NORMAL (NORMAL)
[2020-06-24 09:48] LABS: ANISOCYTOSIS 1+
[2020-06-24] MEDS: PROTONIX INJ 40 MG VIAL IVP SCH (10:00)
--- NOTE | 2020-06-24 12:24 | CT ---
HISTORYABD DISTENTION history of hypertension and diabetes. COPD.STUDYABDOMEN/PELVIS W/O CONCOMPARISONCT abdomen and pelvis 03/19/2020TECHNIQUEMultiple CT axial images of the abdomen and pelvis were obtained without IV contrast. Coronal and sagittal images were reconstructed. Dose reduction techniques included Automated Exposure Control (AEC) and adjustment of mA and kV.FINDINGSLarge volume ascites is present, probably not changed significantly from the study dated March 2020.Liver has a normal size with no mass or duct dilatation.The spleen is normal in size and shape. Surgical clips are present in the gallbladder fossa from a cholecystectomy.The adrenal glands are normal. The pancreas is normal.The kidneys have normal shape. No abnormal calcification is present. There is no hydronephrosis or significant perirenal edema.No bowel dilatation. No focal bowel wall thickening. No evidence for bowel obstructionPatient has an anteverted uterus. It is slightly enlarged with calcified fibroids.Degenerative changes are present in the spine.Cardiomegaly is present, unchanged from prior study.Atherosclerotic calcifications are present in the coronary arteries. Small to moderate pericardial effusion is stable. Minimal atelectasis left lung base unchanged.IMPRESSION1. Stable large volume ascites2. Stable cardiomegaly with CAD and pericardial effusion3. Stable uterine fibroidsElectronically signed by: Antonio Cates (Jun 24, 2020 12:23:11)
[2020-06-24] MEDS: DUONEB 0.5 MG/3 MG (3 mL) NEB SCH ×2 (14:00→21:22)
--- NOTE | 2020-06-24 17:57 | DR.CONSULT ---
Consult - Consultation for Day of: Date: 06/24/20 - Chief Complaint Chief Complaint: Patient referred for GI Bleed. Patient with complaints of nausea, constipation, melena and hematochezia. - History of Present Illness History of Present Illness: Patient is a 70 yo female who was referred for GI Bleed. Patient with complaints of nausea, constipation, melena and hematochezia. Patient denies dysphagia, dyspepsia, vomiting, diarrhea. Patient was seen in the office on 06/22/20 with hematochezia, recently in [facility] states she had fluid drawn off her abdomen in [place]. Patient was to be set up for EGD and colon when seen in the office with cardiac clearance. Hgb 9.9 up from 6.1, Hct 31.1, Plt 202, BUN 64, Creatinin 3.19, T. Bili 1.4, AST 28, ALT 12, ALP 111, positive hemoccult. Abdomena nd pelvis CT showed large amount of ascites. Last colon was 2012. Last EGD was 02/09/19 which showed LA Grade A reflux esophagitis, clotted blood in esophagus, large amount of food in stomach. - Past Medical History Past Medical History: Angina, [place], Coronary Artery Disease, Hypertension, Dyslipidemia, Diabetes, Renal Disease, Hypothyroidism, Anemia, COPD, Asthma, GERD, Arthritis, Gout, Sleep Apnea, CHF Additional Medical History: Cataracts, [place], PAD, Sleep Apnea, UTI's, Rheumatoid arthritis, Back Pain, Previous blood transfusion, Skin Cancer - Past Surgical History Surgical History: Angioplasty/Stents, Appendectomy, Cholecystectomy, Ortho Surgery, Other, Tonsillectomy Additional Surgical History: Cataract removal, Cardiac Stents x5, Biopsy of right breast, Tubal Ligation - Family History Family Medical History: Diabetes Mellitus, Cancer, [place], Coronary Artery Disease, Heart Failure, Hypertension - Social History Does patient currently use any type of tobacco product: No Have you used tobacco products in the last 12 months: No Does any household member use tobacco: No Alcohol Use: None (quit in 1988) Drug Use: None - Medications Home Medications: ciprofloxacin Allergy (Verified 06/02/20 00:39) codeine Allergy (Verified 09/10/19 14:49) colchicine Allergy (Verified 09/10/19 14:49) hydromorphone [From Dilaudid] Allergy (Verified 09/10/19 14:49) morphine Allergy (Verified 09/10/19 14:49) niacin Allergy (Verified 09/10/19 14:49) CONTINUE taking the following medications paroxetine HCl 10 mg PO DAILY 06/23/20 [History] promethazine 25 mg PA TID PRN 06/23/20 [History] sertraline 50 mg PO DAILY 06/23/20 [History] - Review of Systems Gastrointestinal: Nausea, Diarrhea, Melena, Hematochezia. denies: Vomiting, Abdominal Pain, Constipation, Other - Physical Exam Vital Signs: Temperature 97.8 F Pulse Rate [Left Radial] 76 Pulse Rate 74 Respiratory Rate 20 Blood Pressure [Left Arm] 143/65 Blood Pressure [Right Arm] 167/86 Blood Pressure [Left Arm] 187/86 Blood Pressure [Right Arm] 150/67 Blood Pressure [Standing] 138/63 Blood Pressure [Sitting] 141/61 Blood Pressure [Lying] 125/59 Blood Pressure 119/69 O2 Sat by Pulse Oximetry 99 Oriented: Normal Eyes: Normal Ear: Normal Nose: Normal Throat: Normal Respiratory: Clear Throughout Cardiovascular: Normal Auscultation: Bowel Sounds: Normal Palpation: Normal, Other (distended, ascites). negative: Spleen Enlarged, Liver Enlarged, Mass Pulsatile Tenderness: Normal (non tender) Skin: Normal Musculoskeletal: Normal Psychiatric: Normal Mood Description: Calm Affect: Normal Speech Pattern: Clear, Appropriate - Plan Plan: Assessment. 1. Anemia, Occult GI Bleed. 2. Ascites likely secondary to CHF r/o liver etiology. Plan. 1. Will need EGD and colon when stable from cardiology standpoint, monitor Hgb, Transfuse as needed. 2. Paracentesis, can be don as outpatinet, CBC, CMP, Abnormal LFT Panel, Hep profile, GOMEZ Fibrosure. Plan reviewed with Dr. Calloway - Allergies Allergies/Adverse Reactions: Allergies Allergy/AdvReac Type Severity Reaction Status Date / Time ciprofloxacin Allergy Verified 06/02/20 00:39 codeine Allergy Verified 09/10/19 14:49 colchicine Allergy Verified 09/10/19 14:49 hydromorphone [From Dilaudid] Allergy Verified 09/10/19 14:49 morphine Allergy Verified 09/10/19 14:49 niacin Allergy Verified 09/10/19 14:49
[2020-06-25] MEDS: DUONEB 0.5 MG/3 MG (3 mL) NEB SCH (05:36)
[2020-06-25 06:46] LABS: BASOPHILS # (AUTO) 0.1 X10^3/uL (0.0-0.1); BASOPHILS % (AUTO) 1.2 % (0.2-1.0); EOSINOPHILS # (AUTO) 0.3 x10^3/uL (0.0-0.2); EOSINOPHILS % (AUTO) 3.8 % (0.9-2.9); HEMATOCRIT 27.5 % (36.0-47.0); HEMOGLOBIN 8.7 g/dL (12.0-16.0); LYMPHOCYTES % (AUTO) 14.7 % (21.0-51.0); MEAN CORPUSCULAR HEMOGLOBIN 25.2 pg (27.0-34.0); MEAN CORPUSCULAR HGB CONC 31.5 g/dL (33.0-35.0); MEAN CORPUSCULAR VOLUME 79.8 fL (80.0-100.0); MEAN PLATELET VOLUME 7.9 fL (7.4-11.0); MONOCYTES # (AUTO) 0.7 x10^3/uL (0.3-0.8); MONOCYTES % (AUTO) 9.9 % (0.0-13.0); NEUTROPHILS # (AUTO) 4.8 x10^3/uL (2.2-4.8); NEUTROPHILS % (AUTO) 70.4 % (42.0-75.0); PLATELET COUNT 186 X10^3/uL (150.0-450.0); RED BLOOD COUNT 3.45 X10^6/uL (3.5-5.4); RED CELL DISTRIBUTION WIDTH 21.9 % (11.6-16.5); WHITE BLOOD COUNT 6.8 X10^3/uL (3.6-10.0)
[2020-06-25 06:54] LABS: ALBUMIN 2.7 g/dL (3.4-5.0); CALCIUM 8.8 mg/dL (8.5-10.1); CARBON DIOXIDE 29.4 mmol/L (21-32); COR CA(FOR HYPOALB) 9.8 mg/dL (8.5-10.1); CREATININE 3.04 mg/dL (0.55-1.02); TOTAL PROTEIN 6.8 g/dL (6.4-8.2)
[2020-06-25 07:06] LABS: ANISOCYTOSIS 1+; HYPOCHROMASIA SLIGHT; PLATELET MORPHOLOGY COMMENT NORMAL (NORMAL)
[2020-06-25] MEDS ORDERED: NS 100 ML IV 100 ML with VENOFER 400 MG IV NR ×2 (08:23)
[2020-06-25] MEDS: PROTONIX INJ 40 MG VIAL IVP SCH (09:09)
[2020-06-25 14:23] VITALS: BP 139/63
[2020-06-27 07:33] LABS: HEPATITIS B SURFACE ANTIGEN Negative (Negative)
[2020-06-27 07:34] LABS: ANTI-NUCLEAR ANTIBODY TEST None Detected (None Detected)
== END 2020-06-25 14:50 | disposition home health service (06) | DRG 379 ==
LOC: ER 21:34 → MED/SURG 23:44
PROVIDERS: ADMIT Obstetrics & Gynecology Obstetrics; ATTEND Obstetrics & Gynecology Obstetrics
DX: E03.9 Hypothyroidism, unspecified; D64.9 Anemia, unspecified; E11.65 Type 2 diabetes mellitus with hyperglycemia; I25.10 Atherosclerotic heart disease of native coronary artery without angina pectoris; K92.2 Gastrointestinal hemorrhage, unspecified; R26.81 Unsteadiness on feet; Z95.1 Presence of aortocoronary bypass graft; I50.811 Acute right heart failure; J44.9 Chronic obstructive pulmonary disease, unspecified; I10 Essential (primary) hypertension; R19.09 Other intra-abdominal and pelvic swelling, mass and lump

== ENCOUNTER 2020-08-15 11:34 | Inpatient (IN) ==
[2020-08-15 11:37] VITALS: BMI 35.9
[2020-08-15] MEDS ORDERED: LASIX IVP ONE ×2 (13:51→13:57)
--- NOTE | 2020-08-15 13:51 | DR.SOBA ---
HPI Time Seen Time Seen by Provider: 08/15/20 13:43 Primary Care Physician Primary Care Physician: LARRY CARO Complaints Chief Complaint:: PT C/O CCC SINCE SUNDAY , PT THINKS SHE MAY HAVE PNEUMONIA , PT HAS HX OF ASCITES AND IS TO SEE PRICE CARO ON SUNDAY ,.,.BR COVID-19 Coronavirus risk:travel/contact w/high risk person: No Has patient experienced Coronavirus symptoms: Yes Coronavirus symptoms experienced: Coughing and Shortness of Breath Source History Provided: Patient Mode of Arrival Mode of Arrival: Wheelchair Timing Onset of Chief Complaint: 08/12/20 PMH PMH Past Medical History: Yes Past Medical History: Anemia, Angina, Arthritis, Asthma, CHF, COPD, Coronary Artery Disease, Diabetes, Dyslipidemia, GERD, Gout, Hypertension, Hypothyroidism, [place], Renal Disease and Sleep Apnea Past Surgical History: Yes Surgical History: Angioplasty/Stents, Appendectomy, Cholecystectomy, Ortho Surgery, Tonsillectomy and Other Family History History of Family Medical Conditions: Yes Family Medical History: Diabetes Mellitus, Cancer, [place], Coronary Artery Disease, Heart Failure and Hypertension Social History Does patient currently use any type of tobacco product: No Have you used tobacco products in the last 12 months: No Type of Tobacco Use: None Does any household member use tobacco: No Alcohol Use: None Do you use any recreational Drugs:: No Lives With: Family Lives Where: Home Travel Risk Coronavirus risk:travel/contact w/high risk person: No Has patient experienced Coronavirus symptoms: Yes Coronavirus symptoms experienced: Coughing and Shortness of Breath Infectious screening In the last 2 months have you had wt loss of >10#?: NO Have you traveled outside the country in the last 6 months?: No Isolation: Droplet PE Vital Signs Vitals: Temperature 96.6 F Pulse Rate 60 Respiratory Rate 20 Blood Pressure [Left Arm] 123/57 Blood Pressure 132/79 O2 Sat by Pulse Oximetry 98 ROR Labs Reviewed Result Diagrams: 08/15/20 14:50 08/15/20 14:50 Laboratory: WBC 6.0 X10^3/uL (3.6-10.0) 08/15/20 14:50 RBC 4.55 X10^6/uL (3.5-5.4) 08/15/20 14:50 Hgb 11.3 g/dL (12.0-16.0) L 08/15/20 14:50 Hct 36.6 % (36.0-47.0) 08/15/20 14:50 MCV 80.6 fL (80.0-100.0) 08/15/20 14:50 MCH 24.8 pg (27.0-34.0) L 08/15/20 14:50 MCHC 30.7 g/dL (33.0-35.0) L 08/15/20 14:50 RDW 20.0 % (11.6-16.5) H 08/15/20 14:50 Plt Count 201 X10^3/uL (150.0-450.0) 08/15/20 14:50 Plt Count Comment Adequate (ADEQUATE) 08/15/20 14:50 MPV 7.8 fL (7.4-11.0) 08/15/20 14:50 Neut % (Auto) 76.5 % (42.0-75.0) H 08/15/20 14:50 Lymph % (Auto) 9.6 % (21.0-51.0) L 08/15/20 14:50 [place] % (Auto) 8.9 % (0.0-13.0) 08/15/20 14:50 Eos % (Auto) 4.0 % (0.9-2.9) H 08/15/20 14:50 Baso % (Auto) 1.0 % (0.2-1.0) 08/15/20 14:50 Neut # (Auto) 4.6 x10^3/uL (2.2-4.8) 08/15/20 14:50 Lymph # (Auto) 0.6 X10^3/uL (1.3-2.9) L 08/15/20 14:50 [place] # (Auto) 0.5 x10^3/uL (0.3-0.8) 08/15/20 14:50 Eos # (Auto) 0.2 x10^3/uL (0.0-0.2) 08/15/20 14:50 Baso # (Auto) 0.1 X10^3/uL (0.0-0.1) 08/15/20 14:50 Absolute Nucleated RBC 0.1 /100WBC 08/15/20 14:50 Plt Morphology Comment Normal (NORMAL) 08/15/20 14:50 RBC Morphology Normal (NORMAL) 08/15/20 14:50 Sodium 143 mmol/L (136-145) 08/15/20 14:50 Corrected Sodium TNP 08/15/20 14:50 Potassium 4.3 mmol/L (3.5-5.1) 08/15/20 14:50 Chloride 106 mmol/L (98-107) 08/15/20 14:50 Carbon Dioxide 30.9 mmol/L (21-32) 08/15/20 14:50 BUN 36 mg/dL (7-18) H 08/15/20 14:50 Creatinine 1.90 mg/dL (0.55-1.02) H 08/15/20 14:50 Est GFR (MDRD) Af Amer 33 (>60) L 08/15/20 14:50 Est GFR (MDRD) Non-Af 28 (>60) L 08/15/20 14:50 Glucose 78 mg/dL (65-99) 08/15/20 14:50 Calcium 8.8 mg/dL (8.5-10.1) 08/15/20 14:50 Corrected Calcium 9.8 mg/dL (8.5-10.1) 08/15/20 14:50 Total Bilirubin 0.40 mg/dL (0.2-1.0) 08/15/20 14:50 AST 28 Units/L (15-37) 08/15/20 14:50 ALT 6 Units/L (12-78) L 08/15/20 14:50 Alkaline Phosphatase 130 Units/L (46-116) H 08/15/20 14:50 Creatine Kinase 91 Units/L (26-192) 08/15/20 17:40 CK-MB (CK-2) 2.0 ng/mL (0-4.0) 08/15/20 17:40 CK/CKMB % Calc 2.2 % (<4) 08/15/20 17:40 Troponin I 0.06 ng/mL (0-1.5) 08/15/20 17:40 B-Natriuretic Peptide 4280 pg/mL (0-79) H* 08/15/20 14:50 Total Protein 7.4 g/dL (6.4-8.2) 08/15/20 14:50 Albumin 2.7 g/dL (3.4-5.0) L 08/15/20 14:50 Globulin 4.7 g/dL (2.5-4.5) H 08/15/20 14:50 Albumin/Globulin Ratio 0.6 Ratio (1.1-2.1) L 08/15/20 14:50 Amylase 18 Units/L (25-115) L 08/15/20 14:50 Lipase 143 Units/L (73-393) 08/15/20 14:50 Specimen Type Random urine 08/15/20 15: Urine Color Dark yellow (YELLOW) 08/15/20 15: Urine Appearance Slightly hazy (CLEAR) 08/15/20 15: Urine pH 5.0 (5.0 - 8.0) 08/15/20 15: Ur Specific [place] 1.015 (1.000-1.030) 08/15/20 15: Urine Protein 2+ (NEGATIVE) 08/15/20 15: Urine Glucose (UA) Negative (NEGATIVE) 08/15/20 15: Urine Ketones Negative (NEGATIVE) 08/15/20 15: Urine Occult Blood Negative (NEGATIVE) 08/15/20 15: Urine Nitrite Negative (NEGATIVE) 08/15/20 15: Urine Bilirubin Negative (NEGATIVE) 08/15/20 15: Urine Urobilinogen Normal (NORMAL) 08/15/20 15:31 Ur Leukocyte Esterase 3+ (NEGATIVE) 08/15/20 15:31 Urine RBC 0-2 /HPF (0-3) 08/15/20 15: Urine WBC 3-5 /HPF (0-5) 08/15/20 15: Ur Squamous Epith Cells Moderate /HPF (NEGATIVE) 08/15/20 15: Amorphous Sediment Trace /HPF (NEGATIVE) 08/15/20 15: Urine Bacteria Trace /HPF (NEGATIVE) 08/15/20 15: Ur Culture Indicated? No/not indicated 08/15/20 15: SARS-CoV-2 (PCR) Negative (NEGATIVE) 08/15/20 15:40 Opioid Opioid Risk Tool Age (Vasile box if 16-45): No History of Preadolescent Sexual Abuse: No Total: 0 Total Score Risk Category: Low Risk Copyright: [facility] predicting aberrant behaviors Diagnosis Discharge Problem: Acute respiratory distress, Bronchitis, Abnormal cardiac enzyme level, Abdominal distension CHF (congestive heart failure) Qualifiers: Heart failure type: unspecified Heart failure chronicity: unspecified Qualified Code(s): I50.9 - Heart failure, unspecified Instructions Forms: Precautions for COVID19 Patient Portal Social Distancing
[2020-08-15 14:48] LABS: ALANINE AMINOTRANSFERASE 6 Units/L (12-78); ALBUMIN 2.7 g/dL (3.4-5.0); ALKALINE PHOSPHATASE 130 Units/L (46-116); AMYLASE 18 Units/L (25-115); ASPARTATE AMINO TRANSFERASE 28 Units/L (15-37); BLOOD UREA NITROGEN 36 mg/dL (7-18); CARBON DIOXIDE 30.9 mmol/L (21-32); CHLORIDE 106 mmol/L (98-107); CKMB % 1.6 % (<4); CREATINE KINASE 87 Units/L (26-192); CREATINE KINASE MB 1.4 ng/mL (0-4.0); LIPASE 143 Units/L (73-393); SODIUM 143 mmol/L (136-145); TOTAL PROTEIN 7.4 g/dL (6.4-8.2); TROPONIN I 0.05 ng/mL (0-1.5)
[2020-08-15 15:08] LABS: BASOPHILS # (AUTO) 0.1 X10^3/uL (0.0-0.1); EOSINOPHILS # (AUTO) 0.2 x10^3/uL (0.0-0.2); HEMATOCRIT 36.6 % (36.0-47.0); HEMOGLOBIN 11.3 g/dL (12.0-16.0); LYMPHOCYTES # (AUTO) 0.6 X10^3/uL (1.3-2.9); LYMPHOCYTES % (AUTO) 9.6 % (21.0-51.0); MEAN CORPUSCULAR HEMOGLOBIN 24.8 pg (27.0-34.0); MEAN CORPUSCULAR HGB CONC 30.7 g/dL (33.0-35.0); MEAN CORPUSCULAR VOLUME 80.6 fL (80.0-100.0); MEAN PLATELET VOLUME 7.8 fL (7.4-11.0); MONOCYTES # (AUTO) 0.5 x10^3/uL (0.3-0.8); MONOCYTES % (AUTO) 8.9 % (0.0-13.0); NEUTROPHILS # (AUTO) 4.6 x10^3/uL (2.2-4.8); NEUTROPHILS % (AUTO) 76.5 % (42.0-75.0); PLATELET COUNT 201 X10^3/uL (150.0-450.0); RED BLOOD COUNT 4.55 X10^6/uL (3.5-5.4)
[2020-08-15 15:09] LABS: CALCIUM 8.8 mg/dL (8.5-10.1); COR CA(FOR HYPOALB) 9.8 mg/dL (8.5-10.1); eGFR NON BLACK RACES 28 (>60)
[2020-08-15 15:23] LABS: PLATELET MORPHOLOGY COMMENT NORMAL (NORMAL)
--- NOTE | 2020-08-15 15:29 | RAD ---
HISTORYsob, abd distention HTN, CAD, [place], ANGINA, DM, COPD, ASTHMA, CHF.brSTENTS, APPENDECTOMY, TONSILLECTOMY, ORTHO, CHOLESTUDYACUTE ABDOMEN [id number]/17/2020FINDINGSThe trachea is midline. The cardiac silhouette is [stable but enlarged]. [The lungs are clear without focal mass or consolidation. There is no effusion or pneumothorax.] [The bony thorax is unremarkable].Flat plate and upright evaluation of the abdomen demonstrates a [nonobstructive bowel gas pattern. Large amount of stool in the colon]. There is no pneumoperitoneum. No pathological soft tissue mass or calcification can be observed. The bony structures are grossly intact.IMPRESSION1. [No acute cardiopulmonary disease.]2. [No evidence for acute abdominal pathology identified.]Electronically signed by: EVER SKAGGS (Aug 15, 2020 15:27:42)
[2020-08-15 15:38] LABS: BILIRUBIN,URINE NEGATIVE (NEGATIVE); BLOOD/HEMOGLOBIN,URINE NEGATIVE (NEGATIVE); GLUCOSE, URINE NEGATIVE (NEGATIVE); KETONES,URINE NEGATIVE (NEGATIVE); LEUKOCYTE ESTERASE ,URINE 3+ (NEGATIVE); NITRITES,URINE NEGATIVE (NEGATIVE); PROTEIN,URINE 2+ (NEGATIVE); UROBILINOGEN,URINE NORMAL (NORMAL)
[2020-08-15 15:43] LABS: APPEARANCE,URINE SLIGHTLY HAZY (CLEAR); COLOR,URINE DARK YELLOW (YELLOW)
[2020-08-15 15:46] LABS: AMORPHOUS SEDIMENT,UR TRACE /HPF (NEGATIVE); BACTERIA,URINE TRACE /HPF (NEGATIVE); RBC,URINE 0-2 /HPF (0-3); SQUAMOUS EPITHELIAL CELL,UR MODERATE /HPF (NEGATIVE)
[2020-08-15 18:09] LABS: CKMB % 2.2 % (<4); TROPONIN I 0.06 ng/mL (0-1.5)
[2020-08-15] MEDS ORDERED: ROCEPHIN VIAL 1 GRAM 1 G in NS 100 ML IV + SPIKE MINIBAG* 100 ML IV ONE (18:47)
[2020-08-15] MEDS ORDERED: [UNRECOGNIZED DRUG - OTHER] subcut PRN (19:12)
[2020-08-15] MEDS ORDERED: INSULIN LISPRO subcut PRN (19:12)
[2020-08-15] MEDS ORDERED: REMERON PO PRN (19:12)
[2020-08-15] MEDS ORDERED: NITROSTAT SL PRN (19:12)
[2020-08-15] MEDS ORDERED: BUMEX TAB 1 MG ONE (19:39)
[2020-08-15] MEDS ORDERED: PROTONIX TAB 40 MG PO ONE (19:39)
[2020-08-15] MEDS ORDERED: NEURONTIN CAP 300 MG ONE (19:39)
[2020-08-15] MEDS ORDERED: COZAAR ONE (19:40)
[2020-08-15] MEDS ORDERED: ROCEPHIN VIAL 1 GRAM ONE (19:40)
[2020-08-15] MEDS ORDERED: SINEMET (PLAIN) 25/100 MG PO ONE (19:40)
[2020-08-15] MEDS ORDERED: ZETIA TAB 10 MG ONE (19:40)
[2020-08-15] MEDS ORDERED: RANEXA PO ONE (19:40)
[2020-08-15] MEDS ORDERED: NS 100 ML IV + SPIKE MINIBAG* 100 ML IV ONE (19:41)
[2020-08-15] MEDS: DUONEB 0.5 MG/3 MG (3 mL) NEB PRN (20:48)
[2020-08-15] MEDS: BUMEX TAB 1 MG PO SCH (20:57)
[2020-08-15] MEDS: RANEXA PO SCH (20:58)
[2020-08-15] MEDS: ZETIA TAB 10 MG PO SCH (20:59)
[2020-08-15] MEDS: SINEMET (PLAIN) 25/100 MG PO SCH (20:59)
[2020-08-15] MEDS: COZAAR PO SCH (21:00)
[2020-08-15] MEDS: NEURONTIN CAP 300 MG PO SCH (21:00)
[2020-08-15] MEDS: PROTONIX TAB 40 MG PO SCH (21:01)
[2020-08-15] MEDS ORDERED: ROBITUSSIN DM PO PRN (21:30)
[2020-08-15] MEDS ORDERED: ROBITUSSIN DM ONE (21:39)
[2020-08-15] MEDS: LEVEMIR SC SCH (21:57)
[2020-08-15] MEDS ORDERED: DUONEB 0.5 MG/3 MG (3 mL) NEB SCH (22:00)
[2020-08-15 22:33] LABS: BILIRUBIN,URINE NEGATIVE (NEGATIVE); BLOOD/HEMOGLOBIN,URINE NEGATIVE (NEGATIVE); GLUCOSE, URINE NEGATIVE (NEGATIVE); KETONES,URINE NEGATIVE (NEGATIVE); LEUKOCYTE ESTERASE ,URINE 3+ (NEGATIVE); NITRITES,URINE NEGATIVE (NEGATIVE); PROTEIN,URINE 2+ (NEGATIVE); UROBILINOGEN,URINE NORMAL (NORMAL)
[2020-08-15 22:56] LABS: APPEARANCE,URINE CLEAR (CLEAR); BACTERIA,URINE TRACE /HPF (NEGATIVE); COLOR,URINE YELLOW (YELLOW); RBC,URINE NONE SEEN /HPF (0-3); SQUAMOUS EPITHELIAL CELL,UR NUMEROUS /HPF (NEGATIVE)
[2020-08-15 23:58] LABS: CKMB % 1.6 % (<4); CREATINE KINASE MB 1.6 ng/mL (0-4.0); TROPONIN I 0.05 ng/mL (0-1.5)
[2020-08-16] MEDS: NEURONTIN CAP 300 MG PO SCH ×3 (05:24→21:45)
[2020-08-16 06:10] LABS: BASOPHILS # (AUTO) 0.1 X10^3/uL (0.0-0.1); BASOPHILS % (AUTO) 1.3 % (0.2-1.0); EOSINOPHILS # (AUTO) 0.2 x10^3/uL (0.0-0.2); EOSINOPHILS % (AUTO) 5.2 % (0.9-2.9); HEMATOCRIT 30.2 % (36.0-47.0); HEMOGLOBIN 9.5 g/dL (12.0-16.0); LYMPHOCYTES # (AUTO) 0.5 X10^3/uL (1.3-2.9); LYMPHOCYTES % (AUTO) 10.5 % (21.0-51.0); MEAN CORPUSCULAR HEMOGLOBIN 25.2 pg (27.0-34.0); MEAN CORPUSCULAR HGB CONC 31.5 g/dL (33.0-35.0); MEAN CORPUSCULAR VOLUME 79.9 fL (80.0-100.0); MEAN PLATELET VOLUME 8.3 fL (7.4-11.0); MONOCYTES # (AUTO) 0.5 x10^3/uL (0.3-0.8); MONOCYTES % (AUTO) 11.5 % (0.0-13.0); NEUTROPHILS # (AUTO) 3.1 x10^3/uL (2.2-4.8); NEUTROPHILS % (AUTO) 71.5 % (42.0-75.0); PLATELET COUNT 179 X10^3/uL (150.0-450.0); RED BLOOD COUNT 3.78 X10^6/uL (3.5-5.4); WHITE BLOOD COUNT 4.3 X10^3/uL (3.6-10.0)
[2020-08-16] MEDS: DUONEB 0.5 MG/3 MG (3 mL) NEB PRN ×2 (06:26→20:52)
[2020-08-16 06:57] LABS: PLATELET MORPHOLOGY COMMENT NORMAL (NORMAL)
[2020-08-16 06:58] LABS: ALANINE AMINOTRANSFERASE < 6 Units/L (12-78); ALBUMIN 2.5 g/dL (3.4-5.0); ALKALINE PHOSPHATASE 118 Units/L (46-116); ASPARTATE AMINO TRANSFERASE 20 Units/L (15-37); BLOOD UREA NITROGEN 37 mg/dL (7-18); CALCIUM 8.5 mg/dL (8.5-10.1); CARBON DIOXIDE 31.3 mmol/L (21-32); CHLORIDE 106 mmol/L (98-107); CHOL/HDL RATIO 3.6 (0.0-5.0); CHOLESTEROL 123 mg/dL (0-200); CKMB % 1.9 % (<4); COR CA(FOR HYPOALB) 9.7 mg/dL (8.5-10.1); COR NA(FOR HYPERGLY) 143 mmol/L (136-145); CREATINE KINASE 81 Units/L (26-192); CREATINE KINASE MB 1.5 ng/mL (0-4.0); CREATININE 1.81 mg/dL (0.55-1.02); HDL CHOLESTEROL 34 mg/dL (40-60); HYPOCHROMASIA SLIGHT; SODIUM 143 mmol/L (136-145); TOTAL PROTEIN 6.5 g/dL (6.4-8.2); TRIGLYCERIDES 131 mg/dL (0-150); TROPONIN I 0.05 ng/mL (0-1.5); eGFR NON BLACK RACES 29 (>60)
[2020-08-16] MEDS: ASPIRIN EC 81 MG PO SCH (09:10)
[2020-08-16] MEDS: COZAAR PO SCH ×2 (09:10→20:32)
[2020-08-16] MEDS: SINEMET (PLAIN) 25/100 MG PO SCH ×2 (09:10→20:32)
[2020-08-16] MEDS: BUMEX TAB 1 MG PO SCH ×2 (09:11→20:32)
[2020-08-16] MEDS: PLAVIX PO SCH (09:11)
[2020-08-16] MEDS: RANEXA PO SCH ×2 (09:12→20:33)
[2020-08-16] MEDS: SYNTHROID 100 mcg TAB PO SCH (09:12)
[2020-08-16] MEDS: PROTONIX TAB 40 MG PO SCH ×2 (09:12→20:31)
[2020-08-16] MEDS: TOPROL XL PO SCH (09:13)
[2020-08-16] MEDS: LEVEMIR SC SCH ×2 (09:13→20:33)
[2020-08-16 09:45] LABS: CKMB % 1.8 % (<4); CREATINE KINASE MB 1.6 ng/mL (0-4.0); TROPONIN I 0.05 ng/mL (0-1.5)
--- NOTE | 2020-08-16 13:12 | RAD ---
HISTORYPNEUMONIASTUDYCHEST, 1 [id number]/17/2020FINDINGSThe trachea is midline. The cardiac silhouette is stable. Left basilar airspace opacities. The bony thorax is unremarkable.IMPRESSIONLeft basilar airspace opacities concerning for pneumonia.Electronically signed by: EVER SKAGGS (Aug 16, 2020 13:10:52)
[2020-08-16] MEDS ORDERED: LOVENOX INJ 30 MG SYR SC SCH (14:00)
[2020-08-16] MEDS: ZITHROMAX INJ 500 MG VIAL 500 MG in NS 250 ML IV 250 ML IV SCH (14:50)
[2020-08-16] MEDS ORDERED: NS 500 ML IV 500 ML IV ONE (15:01)
[2020-08-16] MEDS: MILK OF MAGNESIA PO SCH ×2 (15:56→20:30)
--- NOTE | 2020-08-16 18:21 | DR.H&P ---
H&P - History & Physical for Day of: H&P Date: 08/15/20 - Chief Complaint Chief Complaint: SOB, CCC - History of Present Illness History of Present Illness: PT IS 70 WF ER ADMISSION WITH CO SOB, CCC. PT STATES SHE THINKS SHE HAS PNEUMONIA. PT HAS PMH OF LIVER DISEASE WITH ASCITES, LAST PARACENTESIS WITH DR STEVEN 1 MO AGO. PT HAS COPD, HTN, OA. PT ADMITTED FOR TREATMENT OF ACUTE ILLNESS. COVID 19 NEGATIVE IN ER ON ADMISSION. - Past Medical History Past Medical History: Angina, [place], Coronary Artery Disease, Hypertension, Dyslipidemia, Diabetes, Renal Disease, Hypothyroidism, Anemia, COPD, Asthma, G ERD, Arthritis, Gout, Sleep Apnea, CHF Additional Medical History: Cataracts, [place], PAD, Sleep Apnea, UTI's, Rheumatoid arthritis, Back Pain, Previous blood transfusion, Skin Cancer - Past Surgical History Surgical History: Angioplasty/Stents, Appendectomy, Cholecystectomy, Ortho Surgery, Other, Tonsillectomy Additional Surgical History: Cataract removal, Cardiac Stents x5, Biopsy of right breast, Tubal Ligation - Family History Family Medical History: Diabetes Mellitus, Cancer, [place], Coronary Artery Disease, Heart Failure, Hypertension - Social History Does patient currently use any type of tobacco product: No Have you used tobacco products in the last 12 months: No Type of Tobacco Use: Cigarettes How many years tobacco product used: 22 Does any household member use tobacco: No Alcohol Use: None Drug Use: None - Medications Home Medications: ciprofloxacin Allergy (Verified 06/02/20 00:39) codeine Allergy (Verified 09/10/19 14:49) colchicine Allergy (Verified 09/10/19 14:49) hydromorphone [From Dilaudid] Allergy (Verified 09/10/19 14:49) morphine Allergy (Verified 09/10/19 14:49) niacin Allergy (Verified 09/10/19 14:49) CONTINUE taking the following medications hydrocodone-acetaminophen 1 tab PO BID PRN 08/15/20 [History] ipratropium-albuterol 3 ml INHALATION TID PRN 08/15/20 [History] nitroglycerin 0.4 mg SUBLINGUAL .Q5MIN PRN 08/15/20 [History] - Review of Systems Constitutional: Weakness Eyes: No Symptoms Reported ENT: No Symptoms Reported Respiratory: Cough, Shortness of Breath, SOB with Excertion, Wheezing Cardiovascular: Edema Gastrointestinal: Nausea, Abdominal Pain Genitourinary: No Symptoms Reported Musculoskeletal: Back Pain Skin: No Symptoms Reported Neurological: No Symptoms Reported - Physical Exam Vital Signs: Temperature 97.2 F Pulse Rate [Left] 69 Pulse Rate 66 Respiratory Rate 18 Blood Pressure [Left Arm] 148/63 Blood Pressure 132/79 O2 Sat by Pulse Oximetry 99 Oriented: Normal Eyes: Normal Ear: Normal Nose: Normal Throat: Normal Respiratory: Diminished Throughout Cardiovascular: Normal, Edema : Normal Auscultation: Bowel Sounds: Normal Palpation: Other (DIFFUSE DISTENTION) Tenderness: Normal Skin: Normal Musculoskeletal: Normal Psychiatric: Anxiety Affect: Anxious Speech Pattern: Clear, Appropriate - Assessment/Plan (1) SOB (shortness of breath) Status: Acute Plan: ADMIT, RESP CONSULT, SUPPLEMENTAL O2. RESP THERAPY, BP AND CARDIAC MONITORING. VERIFY HOME MEDICATIONS. AM LABS, CXR, STRICT I&OS. IV LASIX (2) Abdominal ascites Status: Acute (3) CKD (chronic kidney disease) stage 4, GFR 15-29 ml/min Status: Acute (4) CHF (congestive heart failure) Qualifiers: Heart failure type: unspecified Heart failure chronicity: unspecified Qualified Code(s): I50.9 - Heart failure, unspecified Status: Acute (5) Acute exacerbation of CHF (congestive heart failure) Status: Acute (6) CHF (congestive heart failure) Status: Acute - Allergies Allergies/Adverse Reactions: Allergies Allergy/AdvReac Type Severity Reaction Status Date / Time ciprofloxacin Allergy Verified 06/02/20 00:39 codeine Allergy Verified 09/10/19 14:49 colchicine Allergy Verified 09/10/19 14:49 hydromorphone [From Dilaudid] Allergy Verified 09/10/19 14:49 morphine Allergy Verified 09/10/19 14:49 niacin Allergy Verified 09/10/19 14:49
[2020-08-16] MEDS: ZETIA TAB 10 MG PO SCH (20:32)
[2020-08-16] MEDS: COLACE CAP 100 MG PO SCH (20:33)
[2020-08-17] MEDS: NEURONTIN CAP 300 MG PO SCH ×3 (05:39→20:48)
--- NOTE | 2020-08-17 05:49 | RAD ---
HISTORYABD DISTENTION HTN, CAD, [place], ANGINA, DM, COPD, ASTHMA, CHF.brSTENTS, APPENDECTOMY, TONSILLECTOMY, ORTHO, [id number]/01/2020FINDINGSEvaluation of the abdomen demonstrates a normal bowel gas pa ttern. There is a moderate amount of fecal material throughout the colon. Surgical clips present in t he right upper quadrant. The no pathological soft tissue mass or calcification can be observed. The bony structures are grossly intact.IMPRESSIONNo evidence for acute abdominal pathology identified.Petra ctronically signed by: Yaakov Juan (Aug 17, 2020 05:47:40)
[2020-08-17 06:44] LABS: BASOPHILS # (AUTO) 0.1 X10^3/uL (0.0-0.1); BASOPHILS % (AUTO) 1.1 % (0.2-1.0); EOSINOPHILS # (AUTO) 0.2 x10^3/uL (0.0-0.2); HEMATOCRIT 34.6 % (36.0-47.0); HEMOGLOBIN 10.6 g/dL (12.0-16.0); LYMPHOCYTES # (AUTO) 0.5 X10^3/uL (1.3-2.9); LYMPHOCYTES % (AUTO) 11.8 % (21.0-51.0); MEAN CORPUSCULAR HEMOGLOBIN 24.8 pg (27.0-34.0); MEAN CORPUSCULAR HGB CONC 30.7 g/dL (33.0-35.0); MEAN CORPUSCULAR VOLUME 80.8 fL (80.0-100.0); MEAN PLATELET VOLUME 8.1 fL (7.4-11.0); MONOCYTES # (AUTO) 0.5 x10^3/uL (0.3-0.8); MONOCYTES % (AUTO) 10.9 % (0.0-13.0); NEUTROPHILS # (AUTO) 3.3 x10^3/uL (2.2-4.8); NEUTROPHILS % (AUTO) 71.2 % (42.0-75.0); PLATELET COUNT 190 X10^3/uL (150.0-450.0); RED BLOOD COUNT 4.28 X10^6/uL (3.5-5.4); RED CELL DISTRIBUTION WIDTH 20.6 % (11.6-16.5); WHITE BLOOD COUNT 4.6 X10^3/uL (3.6-10.0)
[2020-08-17 06:45] LABS: ALBUMIN 2.8 g/dL (3.4-5.0); CALCIUM 8.7 mg/dL (8.5-10.1); CARBON DIOXIDE 32.8 mmol/L (21-32); COR CA(FOR HYPOALB) 9.7 mg/dL (8.5-10.1); CREATININE 1.87 mg/dL (0.55-1.02); TOTAL PROTEIN 7.5 g/dL (6.4-8.2)
[2020-08-17 07:26] LABS: ANISOCYTOSIS 1+; PLATELET MORPHOLOGY COMMENT NORMAL (NORMAL)
[2020-08-17] MEDS: ZITHROMAX INJ 500 MG VIAL 500 MG in NS 250 ML IV 250 ML IV SCH (09:22)
[2020-08-17] MEDS: BUMEX TAB 1 MG PO SCH ×2 (09:22→20:48)
[2020-08-17] MEDS: ASPIRIN EC 81 MG PO SCH (09:22)
[2020-08-17] MEDS: PROTONIX TAB 40 MG PO SCH ×2 (09:23→20:49)
[2020-08-17] MEDS: COZAAR PO SCH ×2 (09:23→20:49)
[2020-08-17] MEDS: RANEXA PO SCH ×2 (09:23→20:48)
[2020-08-17] MEDS: PLAVIX PO SCH (09:24)
[2020-08-17] MEDS: TOPROL XL PO SCH (09:24)
[2020-08-17] MEDS: SINEMET (PLAIN) 25/100 MG PO SCH ×2 (09:24→20:49)
[2020-08-17] MEDS: MILK OF MAGNESIA PO SCH ×2 (09:24→20:49)
[2020-08-17] MEDS: SYNTHROID 100 mcg TAB PO SCH (09:24)
[2020-08-17] MEDS: DUONEB 0.5 MG/3 MG (3 mL) NEB PRN ×3 (09:25→20:34)
[2020-08-17] MEDS: LEVEMIR SC SCH ×2 (09:28→22:01)
[2020-08-17] MEDS: NORCO 7.5/325 MG TAB PO PRN (09:54)
[2020-08-17] MEDS: SOLU-Medrol 40 MG VIAL IVP SCH ×3 (11:29→22:02)
[2020-08-17] MEDS: HumaLOG SC PRN (17:26)
[2020-08-17] MEDS: COLACE CAP 100 MG PO SCH (20:48)
[2020-08-17] MEDS: ZETIA TAB 10 MG PO SCH (20:50)
[2020-08-18] MEDS: HumaLOG SC PRN ×3 (06:14→17:47)
[2020-08-18 06:27] LABS: BASOPHILS % (AUTO) 0.2 % (0.2-1.0); HEMOGLOBIN 9.6 g/dL (12.0-16.0); LYMPHOCYTES # (AUTO) 0.3 X10^3/uL (1.3-2.9); LYMPHOCYTES % (AUTO) 5.4 % (21.0-51.0); MEAN CORPUSCULAR HEMOGLOBIN 25.1 pg (27.0-34.0); MEAN CORPUSCULAR HGB CONC 30.9 g/dL (33.0-35.0); MEAN CORPUSCULAR VOLUME 81.1 fL (80.0-100.0); MEAN PLATELET VOLUME 8.2 fL (7.4-11.0); MONOCYTES # (AUTO) 0.1 x10^3/uL (0.3-0.8); MONOCYTES % (AUTO) 1.7 % (0.0-13.0); NEUTROPHILS # (AUTO) 4.3 x10^3/uL (2.2-4.8); NEUTROPHILS % (AUTO) 92.7 % (42.0-75.0); PLATELET COUNT 165 X10^3/uL (150.0-450.0); RED BLOOD COUNT 3.82 X10^6/uL (3.5-5.4); WHITE BLOOD COUNT 4.7 X10^3/uL (3.6-10.0)
[2020-08-18 06:52] LABS: ALBUMIN 2.8 g/dL (3.4-5.0); CALCIUM 8.7 mg/dL (8.5-10.1); CARBON DIOXIDE 30.6 mmol/L (21-32); COR CA(FOR HYPOALB) 9.7 mg/dL (8.5-10.1); CREATININE 2.23 mg/dL (0.55-1.02); TOTAL PROTEIN 7.3 g/dL (6.4-8.2)
[2020-08-18 07:20] LABS: PLATELET MORPHOLOGY COMMENT NORMAL (NORMAL)
[2020-08-18] MEDS: SYNTHROID 100 mcg TAB PO SCH (09:35)
[2020-08-18] MEDS: ZITHROMAX INJ 500 MG VIAL 500 MG in NS 250 ML IV 250 ML IV SCH (09:35)
[2020-08-18] MEDS: BUMEX TAB 1 MG PO SCH ×2 (09:35→20:40)
[2020-08-18] MEDS: NEURONTIN CAP 300 MG PO SCH ×2 (09:36→20:40)
[2020-08-18] MEDS: SINEMET (PLAIN) 25/100 MG PO SCH ×2 (09:36→21:00)
[2020-08-18] MEDS: TOPROL XL PO SCH (09:36)
[2020-08-18] MEDS: COZAAR PO SCH ×2 (09:36→20:40)
[2020-08-18] MEDS: PROTONIX TAB 40 MG PO SCH ×2 (09:37→21:00)
[2020-08-18] MEDS: LEVEMIR SC SCH ×2 (09:37→21:58)
[2020-08-18] MEDS: ASPIRIN EC 81 MG PO SCH (09:37)
[2020-08-18] MEDS: MILK OF MAGNESIA PO SCH ×2 (09:37→21:59)
[2020-08-18] MEDS: PLAVIX PO SCH (09:37)
[2020-08-18] MEDS: RANEXA PO SCH ×2 (09:38→21:00)
[2020-08-18] MEDS: NORCO 7.5/325 MG TAB PO PRN (10:19)
[2020-08-18] MEDS: NS 1000 ML 1,000 ML IV SCH ×2 (13:26→15:58)
[2020-08-18] MEDS: DUONEB 0.5 MG/3 MG (3 mL) NEB SCH ×3 (13:54→21:07)
[2020-08-18] MEDS ORDERED: PERCOCET TAB 5/325 MG ONE (15:32)
[2020-08-18] MEDS: PERCOCET TAB 5/325 MG PO PRN ×2 (15:45→20:40)
[2020-08-18 17:06] LABS: ALBUMIN 2.9 g/dL (3.4-5.0); CALCIUM 8.8 mg/dL (8.5-10.1); CARBON DIOXIDE 34.5 mmol/L (21-32); COR CA(FOR HYPOALB) 9.7 mg/dL (8.5-10.1); CREATININE 2.33 mg/dL (0.55-1.02); TOTAL PROTEIN 7.2 g/dL (6.4-8.2)
[2020-08-18] MEDS: COLACE CAP 100 MG PO SCH (20:40)
[2020-08-18] MEDS: ZETIA TAB 10 MG PO SCH (21:00)
[2020-08-19] MEDS: PERCOCET TAB 5/325 MG PO PRN (04:45)
[2020-08-19 06:13] LABS: BASOPHILS % (AUTO) 0.5 % (0.2-1.0); EOSINOPHILS % (AUTO) 0.3 % (0.9-2.9); HEMOGLOBIN 8.5 g/dL (12.0-16.0); LYMPHOCYTES # (AUTO) 0.6 X10^3/uL (1.3-2.9); LYMPHOCYTES % (AUTO) 8.8 % (21.0-51.0); MEAN CORPUSCULAR HGB CONC 30.5 g/dL (33.0-35.0); MEAN CORPUSCULAR VOLUME 81.9 fL (80.0-100.0); MEAN PLATELET VOLUME 8.5 fL (7.4-11.0); MONOCYTES # (AUTO) 0.6 x10^3/uL (0.3-0.8); MONOCYTES % (AUTO) 7.8 % (0.0-13.0); NEUTROPHILS # (AUTO) 5.9 x10^3/uL (2.2-4.8); NEUTROPHILS % (AUTO) 82.6 % (42.0-75.0); PLATELET COUNT 165 X10^3/uL (150.0-450.0); RED BLOOD COUNT 3.42 X10^6/uL (3.5-5.4); RED CELL DISTRIBUTION WIDTH 20.1 % (11.6-16.5); WHITE BLOOD COUNT 7.1 X10^3/uL (3.6-10.0)
[2020-08-19] MEDS: DUONEB 0.5 MG/3 MG (3 mL) NEB SCH ×6 (06:13→20:21)
[2020-08-19 06:14] LABS: ALBUMIN 2.3 g/dL (3.4-5.0); CALCIUM 8.4 mg/dL (8.5-10.1); CARBON DIOXIDE 30.7 mmol/L (21-32); COR CA(FOR HYPOALB) 9.8 mg/dL (8.5-10.1); CREATININE 2.12 mg/dL (0.55-1.02); TOTAL PROTEIN 5.9 g/dL (6.4-8.2)
--- NOTE | 2020-08-19 06:20 | RAD ---
HISTORYBRONCHITISSTUDYCHEST, 1 [id number]/16/2020FINDINGSThe trachea is midline. The cardiac silhouette is enlarged.. Left basilar airspace disease unchanged. The remainder lungs are clear.. The bony thorax is unremarkable.IMPRESSIONLeft basilar airspace disease; no significant change from 08/16/2020Electronically signed by: Yaakov Juan (Aug 19, 2020 06:19:10)
[2020-08-19 06:37] LABS: ANISOCYTOSIS 1+; PLATELET MORPHOLOGY COMMENT NORMAL (NORMAL)
[2020-08-19] MEDS: COZAAR PO SCH ×2 (10:09→21:30)
[2020-08-19] MEDS: ASPIRIN EC 81 MG PO SCH (10:09)
[2020-08-19] MEDS: BUMEX TAB 1 MG PO SCH ×2 (10:09→21:30)
[2020-08-19] MEDS: LEVEMIR SC SCH ×2 (10:09→21:30)
[2020-08-19] MEDS: NS 1000 ML 1,000 ML IV SCH ×2 (10:11→13:17)
[2020-08-19] MEDS: MILK OF MAGNESIA PO SCH (10:11)
[2020-08-19] MEDS: NEURONTIN CAP 300 MG PO SCH ×2 (10:11→21:30)
[2020-08-19] MEDS: PLAVIX PO SCH (10:11)
[2020-08-19] MEDS: PROTONIX TAB 40 MG PO SCH ×2 (10:12→21:30)
[2020-08-19] MEDS: SINEMET (PLAIN) 25/100 MG PO SCH ×2 (10:12→21:30)
[2020-08-19] MEDS: RANEXA PO SCH ×2 (10:12→21:30)
[2020-08-19] MEDS: SYNTHROID 100 mcg TAB PO SCH (10:12)
[2020-08-19] MEDS: ZITHROMAX INJ 500 MG VIAL 500 MG in NS 250 ML IV 250 ML IV SCH (10:13)
[2020-08-19] MEDS: TOPROL XL PO SCH (10:13)
[2020-08-19] MEDS: COLACE CAP 100 MG PO SCH (21:30)
[2020-08-19] MEDS: ZETIA TAB 10 MG PO SCH (21:30)
[2020-08-20] MEDS: DUONEB 0.5 MG/3 MG (3 mL) NEB SCH ×4 (00:24→12:15)
[2020-08-20] MEDS: MILK OF MAGNESIA PO SCH ×2 (01:01→09:30)
[2020-08-20 06:03] LABS: ALANINE AMINOTRANSFERASE < 6 Units/L (12-78); ALBUMIN 2.3 g/dL (3.4-5.0); ALKALINE PHOSPHATASE 95 Units/L (46-116); ASPARTATE AMINO TRANSFERASE 16 Units/L (15-37); BLOOD UREA NITROGEN 50 mg/dL (7-18); CALCIUM 8.1 mg/dL (8.5-10.1); CARBON DIOXIDE 33.9 mmol/L (21-32); CHLORIDE 106 mmol/L (98-107); COR CA(FOR HYPOALB) 9.5 mg/dL (8.5-10.1); CREATININE 2.17 mg/dL (0.55-1.02); SODIUM 142 mmol/L (136-145); eGFR NON BLACK RACES 24 (>60)
[2020-08-20 06:04] LABS: BASOPHILS % (AUTO) 0.7 % (0.2-1.0); EOSINOPHILS # (AUTO) 0.2 x10^3/uL (0.0-0.2); EOSINOPHILS % (AUTO) 3.5 % (0.9-2.9); HEMATOCRIT 31.8 % (36.0-47.0); HEMOGLOBIN 9.7 g/dL (12.0-16.0); LYMPHOCYTES # (AUTO) 0.9 X10^3/uL (1.3-2.9); LYMPHOCYTES % (AUTO) 14.6 % (21.0-51.0); MEAN CORPUSCULAR HEMOGLOBIN 24.8 pg (27.0-34.0); MEAN CORPUSCULAR HGB CONC 30.5 g/dL (33.0-35.0); MEAN CORPUSCULAR VOLUME 81.1 fL (80.0-100.0); MEAN PLATELET VOLUME 8.5 fL (7.4-11.0); MONOCYTES # (AUTO) 0.5 x10^3/uL (0.3-0.8); MONOCYTES % (AUTO) 7.7 % (0.0-13.0); NEUTROPHILS # (AUTO) 4.6 x10^3/uL (2.2-4.8); NEUTROPHILS % (AUTO) 73.5 % (42.0-75.0); PLATELET COUNT 178 X10^3/uL (150.0-450.0); RED BLOOD COUNT 3.92 X10^6/uL (3.5-5.4); RED CELL DISTRIBUTION WIDTH 20.1 % (11.6-16.5); WHITE BLOOD COUNT 6.3 X10^3/uL (3.6-10.0)
[2020-08-20 06:42] LABS: PLATELET MORPHOLOGY COMMENT NORMAL (NORMAL)
[2020-08-20 06:43] LABS: ANISOCYTOSIS 1+; HYPOCHROMASIA SLIGHT
--- NOTE | 2020-08-20 07:55 | RAD ---
HISTORYSOB, COUGH, RESP DISTRESSSTUDYCHEST, 1 VIEWCOMPARISONChest film August 19, 2020.FINDINGSThe trachea is midline. The cardiac silhouette is enlarged but stable compared to yesterdays film. Lung volumes are low but the right lung is clear. There is some airspace disease laterally in the left lung base retrocardiac which may be a pleural effusion or lateral atelectasis.. The bony thorax is unremarkable.IMPRESSIONStable cardiomegaly. Questionable effusion versus airspace disease laterally in the left lung base.Electronically signed by: RIKI CURTIS (Aug 20, 2020 07:53:09)
[2020-08-20] MEDS ORDERED: LEVEMIR SC SCH (09:00)
[2020-08-20] MEDS: ASPIRIN EC 81 MG PO SCH (09:28)
[2020-08-20] MEDS: BUMEX TAB 1 MG PO SCH (09:28)
[2020-08-20] MEDS: COZAAR PO SCH (09:28)
[2020-08-20] MEDS: NEURONTIN CAP 300 MG PO SCH (09:30)
[2020-08-20] MEDS: NS 1000 ML 1,000 ML IV SCH ×2 (09:31→11:10)
[2020-08-20] MEDS: PLAVIX PO SCH (09:31)
[2020-08-20] MEDS: RANEXA PO SCH (09:31)
[2020-08-20] MEDS: SINEMET (PLAIN) 25/100 MG PO SCH (09:31)
[2020-08-20] MEDS: PROTONIX TAB 40 MG PO SCH (09:31)
[2020-08-20] MEDS: ZITHROMAX INJ 500 MG VIAL 500 MG in NS 250 ML IV 250 ML IV SCH (09:32)
[2020-08-20] MEDS: SYNTHROID 100 mcg TAB PO SCH (09:32)
[2020-08-20] MEDS: TOPROL XL PO SCH (09:32)
[2020-08-20 12:18] VITALS: BP 110/55
== END 2020-08-20 14:25 | disposition home health service (06) | DRG 194 ==
LOC: ER 11:34 → MED/SURG 11:34
PROVIDERS: ADMIT Internal Medicine; ATTEND Internal Medicine
DX: R18.8 Other ascites; K74.60 Unspecified cirrhosis of liver; E78.5 Hyperlipidemia, unspecified; J18.9 Pneumonia, unspecified organism; Z20.828 Contact with and (suspected) exposure to other viral communicable diseases; N28.9 Disorder of kidney and ureter, unspecified; I25.10 Atherosclerotic heart disease of native coronary artery without angina pectoris; N18.9 Chronic kidney disease, unspecified; I50.9 Heart failure, unspecified; R06.02 Shortness of breath; J44.1 Chronic obstructive pulmonary disease with (acute) exacerbation; E11.8 Type 2 diabetes mellitus with unspecified complications